=== PATIENT | female | born 1955 | race Caucasian/White ===

== ENCOUNTER 2022-09-20 13:58 | Outpatient (CLI) | payer OTHER, SELFPAY | END 2022-09-20 13:59 | disposition home or self-care (01) | LOC: NFLDUCREF 09-28 08:56 | PROVIDERS: PCP Family Medicine; Visit Provider Nurse Practitioner Family | DX: N39.0 Urinary tract infection, site not specified (principal) | CPT/HCPCS: 87086 ==

== ENCOUNTER 2022-11-01 14:47 | Outpatient (CLI) | payer MEDICARE, MEDICAID, SELFPAY | END 2022-11-01 14:48 | disposition home or self-care (01) | LOC: NFLDREF 14:47 | PROVIDERS: PCP Family Medicine; Visit Provider Nurse Practitioner Family | DX: L02.91 Cutaneous abscess, unspecified (principal) | CPT/HCPCS: 87070; 87205 ==

== ENCOUNTER 2022-11-06 13:49 | Outpatient (CLI) | payer MEDICARE, MEDICAID, SELFPAY ==
[2022-11-06 17:32] LABS: Iron* 85 ug/dL (37-170)
[2022-11-06 17:33] LABS: Albumin* 4.8 g/dL (3.3-5.0)
[2022-11-06 17:34] LABS: Chloride* 108 mmol/L (96-114); Potassium* 4.8 mmol/L (3.6-5.1); Sodium* 140 mmol/L (135-149)
[2022-11-06 17:36] LABS: Alkaline Phosphatase* 122 U/L (40-150); Aspartate Amino Transferase* 25 U/L (12-35); Bilirubin Direct* 0.3 mg/dL (0.0-0.5); Bilirubin Total* 0.5 mg/dL (0.1-1.5); Blood Urea Nitrogen* 36 mg/dL (7-30); Carbon Dioxide* 22 mmol/L (20-32); Cholesterol* 191 mg/dL (90-199); Estimated Glomerular Filt Rate 27 ml/min; Glucose* 94 mg/dL (60-115)
[2022-11-06 17:37] LABS: Alanine Aminotransferase* 22 U/L (4-35); HDL Cholesterol* 89 mg/dL (>=50); LDL Cholesterol Calculated 65 mg/dL (<100); Phosphorus* 4.7 mg/dL (2.5-4.5); Triglycerides* 186 mg/dL (40-149); Uric Acid* 8.3 mg/dL (2.2-8.4)
[2022-11-06 17:42] LABS: Percent Iron Saturation 23 % (20-50); Total Iron Binding Capacity 374 ug/dL (265-497)
[2022-11-06 18:10] LABS: Ferritin* 46.6 ng/mL (11.1-264.0)
[2022-11-06 18:44] LABS: Creatinine Urine 126.7 mg/dL
[2022-11-06 18:49] LABS: Microalbumin Creatinine Ratio 60 mg/g (0-30); Microalbumin Urine 8 mg/dL
[2022-11-10 16:25] LABS: 25-Hydroxyvitamin D2 36.7 ng/mL; 25-Hydroxyvitamin D2,D3 Total 49.8 ng/mL (30.0-80.0); 25-Hydroxyvitamin D3 13.1 ng/mL
== END 2022-11-06 13:50 | disposition home or self-care (01) ==
PROVIDERS: PCP Family Medicine; Visit Provider Internal Medicine Nephrology
DX: D63.8 Anemia in other chronic diseases classified elsewhere (principal); E78.2 Mixed hyperlipidemia; I10 Essential (primary) hypertension; I25.10 Atherosclerotic heart disease of native coronary artery without angina pectoris; N18.30 Chronic kidney disease, stage 3 unspecified
CPT/HCPCS: 80061; 80069; 80076; 82043; 82306; 82310; 82570; 82728; 83540; 83550; 83970; 84550; 87086; 87186

== ENCOUNTER 2022-12-15 10:48 | Outpatient (CLI) | payer MEDICARE, MEDICAID, SELFPAY | END 2022-12-15 10:49 | disposition home or self-care (01) | PROVIDERS: PCP Family Medicine; Visit Provider Family Medicine | DX: R30.0 Dysuria (principal); N39.0 Urinary tract infection, site not specified | CPT/HCPCS: 87086; 87186 ==

== ENCOUNTER 2023-03-25 14:00 | Outpatient (RCR) | payer MEDICARE, OTHER, MEDICAID, SELFPAY ==
--- NOTE | 2022-10-01 16:25 | ONC.NURNOTE ---
Patient arrived for PICC dressing change she brought her own supplies because she has an extensive list of allergies copywriter did site care as per patient directed using her supplies site clear and without redness dressing changed per hospital protocol line was not flushed as we did not have placement verification, patient understands the rationale
[2022-10-29 15:00] VITALS: TEMP 36.1
--- NOTE | 2022-10-29 15:38 | ONC.NURNOTE ---
PICC line dressing change. no reddness or drainage at site. dressing change went well. patients pimple like area between her breast is tender. has increased in size and reddness. states painful. with scant white , once scant green drainage. using warm packs. pt denies fever. looks like poss boil. enc jpt to see md cook. today or tomorrow. unable to get into clinic till 11/20. enc urgent care.
[2023-01-21 16:37] VITALS: TEMP 36.1
--- NOTE | 2023-02-11 15:22 | ONC.NURNOTE ---
Patient here for her PICC dressing change. Patient brought her own supplies. Flushed line without difficulty. No blood return at this time. Patient stated that her MD only wants alteplase if we are unable to flush. Advised that patient reach out to provider that there was no blood return noted. All questions answered and left via ambulatory.
--- NOTE | 2023-03-11 14:49 | ONC.NURNOTE ---
Patient here for PICC line dressing change. No blood return after flushed. Recommended we assess this. Patient declined and stated It was backed up with blood this morning when I finished my bolus, so I wouldn't worry about it. It is positional at times. [employer] Consultant was able to flush line without difficulty.
--- NOTE | 2023-03-18 14:07 | ONC.NURNOTE ---
PICC dressing changed with patients own supplies. Unable to get blood return. Per patient 9/10 times, there is no blood return, but trust me, it's working. Educated patient on importance of getting blood return. Patient denied further interventions today. The dressing she brought in is new to her and she stated if she starts to blister, then she will call us tomorrow and bring in an old dressing and have us change it.
[2023-03-25 14:35] VITALS: TEMP 36.1
== END 2023-03-30 23:59 | disposition home or self-care (01) ==
LOC: CCIC 14:00
PROVIDERS: PCP Family Medicine; Referring Provider Family Medicine; Visit Provider Clinical Nurse Specialist
DX: Z45.2 Encounter for adjustment and management of vascular access device (principal)
CPT/HCPCS: 84443; 99211; A4221

== ENCOUNTER 2023-03-28 15:55 | Outpatient (CLI) | payer OTHER, SELFPAY | END 2023-03-28 15:56 | disposition home or self-care (01) | LOC: NFLDREF 16:00 | PROVIDERS: PCP Family Medicine; Visit Provider Family Medicine | DX: R39.9 Unspecified symptoms and signs involving the genitourinary system (principal) | CPT/HCPCS: 87086; 87186 ==

== ENCOUNTER 2023-06-07 12:40 | Outpatient (CLI) | payer OTHER, SELFPAY ==
--- NOTE | 2023-06-07 13:00 | CRLHL7_ITS ---
For Patients: As a result of the Century Cures Act, medical imaging exams and procedure reports are released immediately into your electronic medical record. You may view this report before your referring provider. If you have questions, please contact your health care provider. INDICATION: CHRONIC KIDNEY DISEASE, STAGE 3 TECHNIQUE: Grayscale, color Doppler and power Doppler evaluation of the renal arteries performed. COMPARISON: None available FINDINGS: BILATERAL RENAL ARTERY DUPLEX ULTRASOUND ABDOMINAL AORTA: Peak systolic velocity = 100 cm/s. No aortic aneurysm. RIGHT KIDNEY: 10.3 cm in length. There is no hydronephrosis. Renal cortex measures 1.2 cm. Peak systolic velocity = 100 cm/second Renal artery to aortic peak systolic velocity ratio = normal Resistive indices: 0.6-0.7 Renal vein = patent LEFT KIDNEY: 10.5 cm in length. There is no hydronephrosis. Renal cortex measures 1.4 cm. Simple renal cysts are present measuring 2.0 cm and 1.6 cm. Peak systolic velocity = 100 cm/second Renal artery to aortic peak systolic velocity ratio = normal Resistive indices: 0.6-0.7 Renal vein = patent IMPRESSION: No evidence of significant renal artery stenosis. Dictated by Jose Miguel Hilliard MD @ 06/07/2023 2:59:31 PM (Electronically Signed)
== END 2023-06-07 12:41 | disposition home or self-care (01) ==
LOC: US 12:41
PROVIDERS: PCP Internal Medicine; Visit Provider Internal Medicine Cardiovascular Disease
DX: N18.30 Chronic kidney disease, stage 3 unspecified (principal); I25.10 Atherosclerotic heart disease of native coronary artery without angina pectoris
CPT/HCPCS: 76775; 93306; 93975

== ENCOUNTER 2023-09-27 13:30 | Outpatient (RCR) | payer OTHER, SELFPAY ==
[2023-04-01 14:00] VITALS: RESP 14; TEMP 36.1
[2023-04-15 14:57] VITALS: RESP 16; TEMP 36.6
[2023-05-08 15:43] LABS: Hematocrit 36.9 % (33.0-51.0); Hemoglobin* 11.6 gm/dL (12.0-16.0); Mean Corpuscular HGB Conc 31 gm/dL (32-36); Mean Corpuscular Hemoglobin 29 pg (26-34); Mean Corpuscular Volume 93 fL (80-100); Platelet Count* 217 K/uL (140-440); Red Blood Count 3.98 m/uL (4.00-5.20); White Blood Count* 6.31 K/uL (4.50-11.00)
[2023-05-08 15:51] LABS: Slide Review Reflex No
[2023-05-08 15:58] LABS: Appearance Urine Clear (Clear); Bilirubin Urine Negative (Negative); Blood Urine Trace-lysed (Negative); Color Urine Yellow (Yellow); Glucose Urine Negative (Negative); Ketones Urine Negative (Negative); Leukocyte Esterase Urine Negative (Negative); Nitrite Urine Negative (Negative); Protein Urine 1+ (Negative); Specific Gravity Urine 1.025 (1.000-1.030); Urobilinogen Urine 0.2 (0.2-1.0); pH Urine 5.5 (5.0-8.5)
[2023-05-08 15:59] LABS: Albumin* 4.6 g/dL (3.3-5.0)
[2023-05-08 16:00] LABS: Chloride* 108 mmol/L (96-114); Potassium* 4.3 mmol/L (3.6-5.1); Sodium* 139 mmol/L (135-149)
[2023-05-08 16:01] LABS: Cholesterol* 207 mg/dL (90-199)
[2023-05-08 16:02] LABS: Alkaline Phosphatase* 119 U/L (40-150); Aspartate Amino Transferase* 26 U/L (12-35); Bilirubin Direct* 0.2 mg/dL (0.0-0.5); Bilirubin Total* 0.4 mg/dL (0.1-1.5); Blood Urea Nitrogen* 32 mg/dL (7-30); Carbon Dioxide* 20 mmol/L (20-32); Creatinine* 2.1 mg/dL (0.5-1.5); Estimated Glomerular Filt Rate 26 ml/min; Glucose* 87 mg/dL (60-115); Total Protein* 8.3 g/dL (6.0-8.3); Uric Acid* 7.5 mg/dL (2.2-8.4)
[2023-05-08 16:03] LABS: Alanine Aminotransferase* 23 U/L (4-35); Calcium* 9.4 mg/dL (8.4-10.6); HDL Cholesterol* 69 mg/dL (>=50); LDL Cholesterol Calculated 106 mg/dL (<100); Phosphorus* 4.6 mg/dL (2.5-4.5); Triglycerides* 160 mg/dL (40-149)
[2023-05-08 16:32] LABS: Bacteria Urine Few; RBC Urine 0-2 (0-2); Squamous Epithelial Cell Urine Few (None-Few)
[2023-05-08 16:41] LABS: Iron* 95 ug/dL (37-170)
[2023-05-08 16:48] LABS: Microalbumin Creatinine Ratio 10 mg/g (0-30); Microalbumin Urine 2 mg/dL
[2023-05-08 16:50] LABS: Percent Iron Saturation 26 % (20-50); Total Iron Binding Capacity 363 ug/dL (265-497)
[2023-05-08 17:16] LABS: Ferritin* 55.8 ng/mL (11.1-264.0)
[2023-05-08 17:28] LABS: Hemoglobin A1C* 5.18 % (0-5.6)
[2023-05-13 13:30] LABS: 25-Hydroxyvitamin D2,D3 Total 51.7 ng/mL (30.0-80.0); 25-Hydroxyvitamin D3 17.7 ng/mL
[2023-05-15 14:00] VITALS: RESP 16; TEMP 36.1
[2023-06-19 15:56] VITALS: TEMP 36.1
[2023-06-26 15:30] VITALS: RESP 16; TEMP 36.1
[2023-07-03 15:10] VITALS: RESP 14; TEMP 36.1
[2023-07-17 15:33] VITALS: BP 112/60; PULSE 68; RESP 16; TEMP 36.6
[2023-07-24 16:00] VITALS: BP 128/57; PULSE 66; RESP 16; TEMP 36.4; O2SAT 97
--- NOTE | 2023-07-24 16:04 | ONC.NURNOTE ---
Reddness, slight swelling and discomfort at PIC line entrance site. small eraser size brown drainage on dressing with pinpoint dried white spot. pt denies temp. no other reddness. Kelly Garrido APRN aware. picture taken on pts phone. message left for pts . Dr. Morel/ via clinic nurse. Pt instructed to seek medical help if fever, chills, increase pain or reddness. Apt with Dr. Morel 08/01
[2023-08-07 15:44] VITALS: TEMP 36.1
[2023-08-27 15:52] VITALS: TEMP 36.1
[2023-08-30 15:34] VITALS: TEMP 36.1
[2023-09-13 14:30] VITALS: TEMP 36.1
[2023-09-27 17:06] VITALS: TEMP 36.1
== END 2023-09-28 23:59 | disposition home or self-care (01) ==
LOC: CCIC 13:30
PROVIDERS: Internal Medicine Nephrology; Referring Provider Internal Medicine; Visit Provider Clinical Nurse Specialist
DX: Z45.2 Encounter for adjustment and management of vascular access device (principal); Z93.2 Ileostomy status; E86.0 Dehydration; N18.30 Chronic kidney disease, stage 3 unspecified
CPT/HCPCS: 36415; 36592; 80061; 80069; 80076; 81003; 81015; 82043; 82306; 82310; 82570; 82728; 83036; 83540; 83550; 83970; 84550; 85027; 87086; 99211; A4221

== ENCOUNTER 2024-01-08 11:30 | Outpatient (RCR) | payer MEDICARE, OTHER, SELFPAY ==
[2023-10-04 15:20] LABS: Cholesterol* 202 mg/dL (90-199); Triglycerides* 185 mg/dL (40-149)
[2023-10-04 15:21] LABS: HDL Cholesterol* 75 mg/dL (>=50); LDL Cholesterol Calculated 90 mg/dL (<100)
[2023-10-25 13:47] LABS: Hematocrit 35.6 % (33.0-51.0); Hemoglobin* 11.3 gm/dL (12.0-16.0); Mean Corpuscular HGB Conc 32 gm/dL (32-36); Mean Corpuscular Hemoglobin 29 pg (26-34); Mean Corpuscular Volume 92 fL (80-100); Platelet Count* 235 K/uL (140-440); Red Blood Count 3.87 m/uL (4.00-5.20); White Blood Count* 7.27 K/uL (4.50-11.00)
[2023-10-25 13:49] LABS: Slide Review Reflex No
[2023-10-25 14:08] LABS: Albumin* 4.6 g/dL (3.3-5.0); Chloride* 107 mmol/L (96-114); Potassium* 4.2 mmol/L (3.6-5.1); Sodium* 137 mmol/L (135-149)
[2023-10-25 14:11] LABS: Alanine Aminotransferase* 22 U/L (4-35); Anion Gap 7 mEq/L (7-15); Aspartate Amino Transferase* 28 U/L (12-35); Blood Urea Nitrogen* 28 mg/dL (7-30); Carbon Dioxide* 23 mmol/L (20-32); Creatinine* 1.8 mg/dL (0.5-1.5); Estimated Glomerular Filt Rate 31 ml/min; Glucose* 99 mg/dL (60-115); Phosphorus* 4.5 mg/dL (2.5-4.5); Uric Acid* 6.9 mg/dL (2.2-8.4)
[2023-10-25 14:12] LABS: Calcium* 9.7 mg/dL (8.4-10.6)
[2023-10-25 15:39] LABS: Iron* 72 ug/dL (37-170)
[2023-10-25 15:49] LABS: Percent Iron Saturation 18 % (20-50); Total Iron Binding Capacity 392 ug/dL (265-497)
[2023-10-25 16:20] LABS: Ferritin* 42.9 ng/mL (11.1-264.0)
[2023-10-29 16:16] LABS: 25-Hydroxyvitamin D2,D3 Total 52.2 ng/mL (30.0-80.0); 25-Hydroxyvitamin D3 22.2 ng/mL
[2023-12-06 14:15] VITALS: RESP 16; TEMP 36.1
[2023-12-13 14:00] VITALS: RESP 16; TEMP 36.1
[2024-01-03 14:10] LABS: Basophils Absolute Auto 0.05 K/uL (0.00-0.30); Basophils Percent Auto 0.6 % (0.0-3.0); Eosinophils Absolute Auto 0.27 K/uL (0.00-0.50); Eosinophils Percent Auto 3.3 % (0.0-7.0); Hematocrit 36.1 % (33.0-51.0); Hemoglobin* 11.3 gm/dL (12.0-16.0); Immature Granulocytes Abs Auto 0.03 K/uL (0.00-0.30); Immature Granulocytes Pct Auto 0.4 %; Lymphocytes Absolute Auto 2.41 K/uL (0.90-2.90); Lymphocytes Percent Auto 29.2 % (20-44); Mean Corpuscular HGB Conc 31 gm/dL (32-36); Mean Corpuscular Hemoglobin 28 pg (26-34); Mean Corpuscular Volume 91 fL (80-100); Monocytes Percent Auto 6.7 % (0.0-11.0); Neutrophils Absolute Auto 4.93 K/uL (1.7-7.0); Neutrophils Percent Auto 59.8 % (42.0-72.0); Platelet Count* 231 K/uL (140-440); RDW Coefficient of Variation % 14.6 % (11.5-15.5); Red Blood Count 3.99 m/uL (4.00-5.20); White Blood Count* 8.24 K/uL (4.50-11.00)
[2024-01-03 14:13] LABS: Slide Review Reflex No
[2024-01-03 14:22] LABS: Albumin* 4.7 g/dL (3.3-5.0); Chloride* 108 mmol/L (96-114)
[2024-01-03 14:23] LABS: Potassium* 4.6 mmol/L (3.6-5.1); Sodium* 138 mmol/L (135-149)
[2024-01-03 14:25] LABS: Bilirubin Total* 0.4 mg/dL (0.1-1.5); Creatinine* 2.3 mg/dL (0.5-1.5); Estimated Glomerular Filt Rate 23 ml/min
[2024-01-03 14:26] LABS: Alanine Aminotransferase* 20 U/L (4-35); Alkaline Phosphatase* 102 U/L (40-150); Anion Gap 13 mEq/L (7-15); Aspartate Amino Transferase* 24 U/L (12-35); Blood Urea Nitrogen* 38 mg/dL (7-30); Calcium* 9.3 mg/dL (8.4-10.6); Carbon Dioxide* 17 mmol/L (20-32); Glucose* 106 mg/dL (60-115); Total Protein* 8.4 g/dL (6.0-8.3)
[2024-01-03 15:15] LABS: Vitamin B12* 507 pg/mL (243-894)
[2024-01-03 16:13] LABS: Thyroid Stimulating Hormone* 0.789 uIU/mL (0.270-4.20)
--- NOTE | 2024-01-07 14:26 | ONC.NURNOTE ---
Blood cultures X [address] Romero patient has left arm PICC line patient denied peripheral draw for one set of blood cultures- writer technical publications explained the process patient states Dr Romero aware that both sets of cultures were to be drawn from the PICC Catheter connection prepped with chloraprep swab and cultures X 2 all drawn from same PICC line extension. line flushed per protocol
[2024-01-07] MEDS: SODIUM CHLORIDE 0.9 % (FLUSH) 10 ML SYRINGE IVF ×2 (14:35→14:37)
[2024-01-07 15:04] LABS: Erythrocyte SedimentationRate* 53 mm/hr (2-20)
--- NOTE | 2024-01-08 12:26 | ONC.NURNOTE ---
Addendum entered by Cleo Palacios RN 01/09/24 15:02: Documentation obtained, and patient called to let her know that the numbers match up for catheter length. Original Note: Picc line removed without difficulty per Dr. Romero's orders d/t positive culture; catheter length 38cm and appears intact.
== END 2024-04-01 23:59 | disposition home or self-care (01) ==
LOC: CCIC 11:30
PROVIDERS: Internal Medicine Nephrology; PCP Family Medicine; Referring Provider Family Medicine; Visit Provider Clinical Nurse Specialist
DX: E86.0 Dehydration (principal); N18.30 Chronic kidney disease, stage 3 unspecified; Z45.2 Encounter for adjustment and management of vascular access device; Z93.2 Ileostomy status
CPT/HCPCS: 36415; 36589; 36592; 80053; 80061; 80069; 81003; 82043; 82306; 82310; 82570; 82607; 82728; 83540; 83550; 83735; 83970; 84443; 84450; 84460; 84550; 85025; 85027; 85651; 86140; 87040; 87077; 87184; 87186; 99211; G0463; A4221

== ENCOUNTER 2024-02-14 13:55 | Outpatient (REF) | payer MEDICARE, SELFPAY | END 2024-02-14 13:56 | disposition home or self-care (01) | LOC: NPINS 13:55 | PROVIDERS: Visit Provider Internal Medicine Nephrology | DX: I12.9 Hypertensive chronic kidney disease with stage 1 through stage 4 chronic kidney disease, or unspecified chronic kidney disease (principal); N18.32 Chronic kidney disease, stage 3b | CPT/HCPCS: 84165; 84550; 86160; 86225; 86480; 86618; 86703; 86708; 86803; 87340 ==

== ENCOUNTER 2024-02-17 13:02 | Outpatient (CLI) | payer MEDICARE, SELFPAY | END 2024-02-17 13:03 | disposition home or self-care (01) | LOC: NFLDREF 02-19 06:02 | PROVIDERS: Visit Provider Internal Medicine Nephrology | DX: I10 Essential (primary) hypertension (principal); I25.10 Atherosclerotic heart disease of native coronary artery without angina pectoris; N18.30 Chronic kidney disease, stage 3 unspecified; R78.81 Bacteremia | CPT/HCPCS: 80069; 84550; 86140; 87040 ==

== ENCOUNTER 2024-03-27 13:23 | Outpatient (CLI) | payer MEDICARE, SELFPAY ==
--- OUTSIDE RECORDS SUMMARY | 2024-03-30 05:24 | XMS_ITS | Data Portability ---
Author Name Unknown Address [address] [place] [id number] Phone [phone] Organization [facility], [employer] Address [address] [place] [address] Assessment Encounter Date Assessment Date Assessment LastModified by Organization Details LastModified Time 07/30/2023 07/30/2023 Patient presents for treatment of moderate ingrown toenail. Based on history, physical exam, and prior treatments, I recommend a phenol matrixectomy. I did discuss the procedure, benefits, risks and potential outcomes with the patient. I did anesthetize the digit with 3cc of 2% Xylocaine with epinephrine. I did avulse the nail border, applied 89% phenol 3x 30 seconds and performed an alcohol rinse. I did apply Bacitracin ointment and a sterile dressing. I also did nail debridement today. The patient was educated on postop care. Discussed treatment plan and instructions with patient. Orders as indicated below. Follow up after 2 weeks for PNA check. [email or web address] Not available 07/30/2023 17:16:50 Plan of Treatment Reminders Order Date Submit Date Provider Last Modified By Organization Details Last Modified Time Details Appointments None record ed. Lab None record ed. Referral None record ed. Procedures None record ed. Surgeries None record ed. Imaging None record ed. Medication Orders None record ed. Patient TargetsNo targets recorded. Patient InstructionsNo instructions recorded. Reason for Referral None Reported. Procedures Surgical History Date Name Laterality Status Provider Name and Address Organization Details Recorded Time 07/30/20 23 Matrixectomy completed MANNY Strong [facility] 07/30/2023 16:47:48 07/30/20 23 NAIL DEBRIDEMENT MANNY Leiva [facility] 07/30/2023 17:08:56 Imaging Results None recorded. Procedure Notes None recorded. Medical Equipment None Reported. Medications Name Sig Start Date Stop Date Status Note LastModified by Organization Details LastModified Time loperamide 2 mg capsule active Not Available Not Available Not Available trazodone 50 mg tablet TAKE 1/2-1 TABLETS (25-50 MG TOTAL) BY MOUTH NIGHTLY NEEDED FOR SLEEP. active Not Available Not Available No t Available fosfomycin tromethamine 3 gram oral packet active Not Available Not Available Not Available tizanidine 4 mg tablet TAKE ONE (1) TABLET(S ) BY MOUTH EVERY EIGHT HOURS NEEDED. active Not Available Not Available No t Available metoprolol succinate ER 50 mg tablet,extended release 24 hr TAKE 1 TABLET (50 MG TOTAL) BY MOUTH DAILY. active Not Available Not Available No t Available lactated Ringers intravenous solution active Not Available Not Available Not Available oxcarbazepine 300 mg tablet TAKE ONE (1) TABLET (300 MG TOTAL) BY MOUTH DAILY. active Not Available Not Available No t Available amlodipine 5 mg tablet TAKE 1 TABLET (5 MG TOTAL) BY MOUTH DAILY. active Not Available Not Available No t Available tramadol 50 mg tablet active Not Available Not Available Not Available sodium bicarbonate 650 mg tablet TAKE ONE (1) TABLET(S ) BY MOUTH DAILY . active Not Available Not Available No t Available oseltamivir 75 mg capsule active Not Available Not Available N ot Available lansoprazole 30 mg capsule,delayed release TAKE ONE (1) CAPSULE( S) BY MOUTH DAILY. active Not Available Not Available No t Available cefuroxime axetil 500 mg tablet TAKE 1 TABLET (500 MG TOTAL) BY MOUTH DAILY FOR 10 DAYS. active Not Available Not Available No t Available estradiol 0.01% (0.1 mg/gram) vaginal cream active Not Available Not Availabl e Not Available Vitamin D2 1,250 mcg (50,000 unit) capsule TAKE 1 CAPSULE (50,000 UNITS TOTAL) BY MOUTH ONCE A WEEK. active Not Available Not Available No t Available ezetimibe 10 mg tablet TAKE ONE (1) TABLET (10 MG TOTAL) BY MOUTH NIGHTLY. active Not Available Not Available No t Available aripiprazole 5 mg tablet active Not Available Not Available No t Available tizanidine 4 mg capsule active Not Available Not Available Not Available Myrbetriq 25 mg tablet,extended release TAKE ONE (1) TABLET(S ) BY MOUTH DAILY. active Not Available Not Available No t Available Vitals Date Recorded Body height Body mass index (BMI) Body weight Provider Name and Address Organization Details Last Updated DateTime 07/30/2023 165.1 cm 44.9 kg/m2 730298.94 g MANNY [facility] 07/30/2023 16:08:34 Social History None recorded. Functional Status None recorded. Mental Status None recorded. Family History Nothing Reported. Medical History No medical history recorded. Gynecological HistoryNo gynecological history recorded. Obstetrics History GPAL:G 0 P 0 0 0 0 Past Encounters Encounter ID Performer Location Encounter Start Date Encounter Closed Date Diagnosis/Indication Diagnosis SNOMED-CT Code [id number] Rian Vigil DPM [place] [facility] [address] [place] [address] 07/30/2023 16:36:32 08/01/2023 10:50:41 Ingrowing nail 690740068 Onychomycosis [id number] Health Concerns Section Related Observation LastModified by Organization Detai ls LastModified Time None Recorded Concern Status LastModified by Organization Details LastModified Time None Recorded Advance Directives Directive None Recorded Payers Encounter Date Sequence Insurance Name Policy Number Policy Baugh Covered Member ID Baugh Member ID Guarantor Name 07/30/2023 1 [employer] - DOS ON OR AFTER 19 (MEDICARE REPLACEMENT/ ADVANTAGE - HMO) [id number] Dilan Akers [id number] Dilan Akers Notes Date Note Type Note Provider Name and Address Organization Details Recorded Time 07/30/2023 text/html HPI Notes: Pt. presents with complaint of painful ingrowing nail causing pain in shoes and with activity. Drainage, pain and redness present for weeks duration. She has hx of ingrown toenails in the past. Rian Vigil DPM [address] [place], [address], [facility] - [facility] 07/31/2023 14:34:51 OBGyn Episode No OBEpisode recorded.
--- OUTSIDE RECORDS SUMMARY | 2024-03-30 05:25 | XMS_ITS | Data Portability ---
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 Plan of Treatment Reminders Order Date Submit Date Provider Last Modified By Organization Details Last Modified Time Details Appointments None recorded. Lab urinalysis , dipstick 2022 023 [email or web address] [facility], [address], [place], [address], 3 16:06:33 culture, urine 2022 023 [facility], [address], [place], [address], 3 11:42:23 urinalysis , dipstick 2022 023 [email or web address] [facility], [address] [place], [address], 3 13:57:55 Referral None recorded. Procedures None recorded. Surgeries None recorded. Imaging None recorded. Medication Orders Estrace 0.01% (0.1 mg/gram) vaginal cream 2022 023 [facility], [address] [place], [address], 3 15:02:24 Patient TargetsNo targets recorded. Patient InstructionsNo instructions recorded. Reason for Referral None Reported. Results Created Date Observation Date Name Description Value Unit Range Abnormal Flag LastModifiedBy Organization Detail LastModifiedTime 05/14/20 23 05/14/2023 urina lysis , dipst ick Color-Status Yellow Not Available [facility] [address], [place], [address], 05/14/2023 13:57:10 05/14/20 23 05/14/2023 urina lysis , dipst ick Clarity-Stat us Clear Not Available [facility] [address], [place], [address], 05/14/2023 13:57:10 05/14/20 23 05/14/2023 urina lysis , dipst ick Glucose-Stat us Negati ve Not Available [facility] [address], [place], [address], 05/14/2023 13:57:10 05/14/20 23 05/14/2023 urina lysis , dipst ick Bilirubin-St atus Negati ve Not Available [facility] [address], [place], [address], 05/14/2023 13:57:10 05/14/20 23 05/14/2023 urina lysis , dipst ick pH-Status 5.5 Not Available [facility] [address], [place], [address], 05/14/2023 13:57:10 05/14/20 23 05/14/2023 urina lysis , dipst ick Urobilinogen -Status 0.2 Not Available [facility] [address], [place], [address], 05/14/2023 13:57:10 05/14/20 23 05/14/2023 urina lysis , dipst ick Blood-Status Trace Not Available [facility] [address], [place], [address], 05/14/2023 13:57:10 05/14/20 23 05/14/2023 urina lysis , dipst ick Leuko-Status Trace Not Available [facility] [address], [place], [address], 05/14/2023 13:57:10 06/04/20 23 06/04/2023 URINE CULTU RE final report microb iology result s Not Available [facility] [address], [place], [address], 06/06/2023 11:42:23 06/04/20 23 06/04/2023 urina lysis , dipst ick Color-Status Yellow Not Available [facility] [address], [place], [address], 06/04/2023 16:06:04 06/04/20 23 06/04/2023 urina lysis , dipst ick Clarity-Stat us Clear Not Available [facility] [address], [place], [address], 06/04/2023 16:06:04 06/04/20 23 06/04/2023 urina lysis , dipst ick pH-Status 5.0 Not Available [facility] [address], [place], [address], 06/04/2023 16:06:04 06/04/20 23 06/04/2023 urina lysis , dipst ick Nitrates-Sta tus negati ve Not Available [facility] [address], [place], [address], 06/04/2023 16:06:04 06/04/20 23 06/04/2023 urina lysis , dipst ick Blood-Status Small Not Available [facility] [address], [place], [address], 06/04/2023 16:06:04 06/04/20 23 06/04/2023 urina lysis , dipst ick Leuko-Status Negati ve Not Available [facility] [address], [place], [address], 06/04/2023 16:06:04 Result Notes None recorded. Procedures Surgical History Date Name Laterality Status Provider Name and Address Organization Details Recorded Time 023 Sacral neuromodulation w/o reprogramming completed Juan Solis PA-C [address] [place] [address],[address], [address], [facility] 06/04/2023 16:59:27 023 CystoscopyFemale completed Jolene Rosenbaum MD [address] [place] [address],[address], [address], [facility] 05/14/2023 14:54:30 023 [facility] 14:02:11 Imaging Results None recorded. Procedure Notes None recorded. Medical Equipment None Reported. Allergies Allergen ID Allergen Name Allergen Category Reaction Reaction Severity Criticality Documentation Date Start Date Code Code System Note Provider Name and Address Organization Details Recorded Time 192958 acetamino phen medicatio n nausea Not available Not available 06/04/2023 161 RxNorm Isela burton [facility] 3 16:38:54 850289 adhesive tape environme nt,medica tion rash Not available Not available 06/04/2023 Isela burton [facility] 3 16:39:07 462297 atorvasta tin medicatio n myalgias (muscle pain) Not available Not available 06/04/2023 75569 RxNorm Isela burton [facility] 3 16:42:09 444193 cefuroxim e Not available nausea Not available Not available 06/04/2023 2194 RxNorm Isela Sergio null, [facility] 3 16:40:10 891732 chlordiaz epoxide medicatio n Not available Not available Not available 06/04/2023 2356 RxNorm Isela Sergio null, [facility] 3 16:40:21 337455 codeine medicatio n nausea Not available Not available 06/04/2023 2670 RxNorm Isela Sergio null, [facility] 3 16:40:35 689349 dextromet horphan medicatio n Not available Not available Not available 06/04/2023 3289 RxNorm Isela Sergio null, [facility] 3 16:40:55 638147 diazepam medicatio n Not available Not available Not available 06/04/2023 3322 RxNorm Isela [facility], [facility] 3 16:41:05 397811 erythromy diego medicatio n hives Not available Not available 06/04/2023 4053 RxNorm [facility]el[place]ose [place] [facility] 3 16:41:23 059680 gabapenti n medicatio n other Not available Not available 06/04/2023 53806 RxNorm Isela Sergio [facility], [facility] 3 16:42:42 999900 hydrocodo ne Not available hives Not available Not available 06/04/2023 5489 RxNorm Isela Sergio null, [facility] 3 16:41:56 373061 ibuprofen medicatio n nausea Not available Not available 06/04/2023 5640 RxNorm Isela Sergio null, [facility] 3 16:43:26 318006 meloxicam medicatio n hives Not available Not available 06/04/2023 03296 RxNorm Isela Sergio null, [facility] 3 16:43:40 692298 metoclopr amide Not available nausea Not available Not available 06/04/2023 6915 RxNorm Isela burton, [facility] 3 16:43:53 806838 morphine medicatio n Not available Not available Not available 06/04/2023 7052 RxNorm Isela burton, [facility] 3 16:44:04 109368 naproxen medicatio n edema Not available Not available 06/04/2023 7258 [facility] 16:44:12 125652 Non-stero idal anti-infl ammatory agent (product) medicatio n nausea Not available Not available 06/04/2023 70660 005 [facility] 16:44:24 572270 omeprazol e medicatio n diarrhea Not available Not available 06/04/2023 7646 MarinoNorm [facility] 3 16:44:36 419420 Medicinal product containin g penicilli n and acting as antibacte rial agent (product) medicatio n vomiting Not available Not available 06/04/2023 56059 05 [facility] 16:44:51 974961 famotidin e medicatio n diarrhea Not available Not available 06/04/2023 4278 [facility] 3 16:45:04 593343 phenyleph rine medicatio n palpitati ons Not available Not available 06/04/2023 8163 [facility] 3 16:45:22 395760 propoxyph rajesh medicatio n hives Not available Not available 06/04/2023 8785 RxNorm Isela burton, [facility] 3 16:45:42 271349 quetiapin e medicatio n Not available Not available Not available 06/04/2023 64619 [facility] 3 16:45:59 988904 sertralin e medicatio n Not available Not available Not available 06/04/2023 35643 RxNorm Isela [facility] 3 16:46:08 122779 Product containin g 3-hydroxy -3-methyl glutaryl- coenzyme A reductase inhibitor (product) medicatio n muscle cramps Not available Not available 06/04/2023 72449 009 OMED Isela [place] [facility] 3 16:46:23 447697 Substance with sulfonami de structure and antibacte rial mechanism of action (substanc e) medicatio n hives Not available Not available 06/04/[address] [facility] Isela [facility] 3 16:46:36 834833 sulfasala zine medicatio n hives Not available Not available 06/04/2023 9524 RxNojean [facility] 3 16:46:49 018074 tolmetin medicatio n nausea Not available Not available 06/04/2023 42079 RxNojean Hill [facility] 3 16:46:59 Medications Name Sig Start Date Stop Date Status Note LastModified by Organization Details LastModified Time loperamide 2 mg capsule active Not Available Not Available N ot Available fosfomycin tromethamine 3 gram oral packet 06/04 completed Not Available Not Available Not Available tizanidine 4 mg tablet active Not Available Not Available No t Available metoprolol succinate ER 50 mg tablet,exten ded release 24 hr active Not Available Not Available Not Available lactated Ringers intravenous solution active Not Available Not Available Not Available oxcarbazepin e 300 mg tablet active Not Available Not Available Not Available amlodipine 5 mg tablet active Not Available Not Available No t Available tramadol 50 mg tablet active Not Available Not Available No t Available sodium bicarbonate 650 mg tablet active Not Available Not Available Not Available oseltamivir 75 mg capsule active Not Available Not Available Not Available lansoprazole 30 mg capsule,charly yed release active Not Available Not Available Not Available levofloxacin 500 mg tablet active Not Available Not Available Not Available estradiol 0.01% (0.1 mg/gram) vaginal cream Insert 0.5 g by vaginal route. 2022 active Not Available Not Available Not Avai lable Vitamin D2 1,250 mcg (50,000 unit) capsule active Not Available Not Available Not Available ezetimibe 10 mg tablet active Not Available Not Available No t Available aripiprazole 10 mg tablet active Not Available Not Available Not Available aripiprazole 5 mg tablet active Not Available Not Available Not Available tizanidine 4 mg capsule active Not Available Not Available N ot Available Myrbetriq 25 mg tablet,exten ded release active Not Available Not Available Not Available Vitals Date Recorded Body height Body mass index (BMI) Body weight Provider Name and Address Organization Details Last Updated DateTime 05/14/2023 162.56 cm 46.3 kg/m2 536590.94 g Sammie burton [facility] 05/14/2023 13:56:03 Date Recorded Body height Body mass index (BMI) Body weight Provider Name and Address Organization Details Last Updated DateTime 06/04/2023 162.56 cm 45.5 kg/m2 415568.98 g Isela burton [facility] 06/04/2023 16:03:56 Social History Question Answer Notes LastModified by Organizat ion Details LastModified Time Tobacco Smoking Status Never Smoker Sammie burton [facility] 05/14/2023 13:59:34 What Is Your Level Of Alcohol Consumption? Occasional [email or web address] Information not available 05/14/2023 How Many Times Per Week Do You Consume Alcohol? Less Than 1 Time Per Week [email or web address] Information not available 05/14/2023 What Is Your Level Of Caffeine Consumption? Occasional [email or web address] Information not available 05/14/2023 What Was The Date Of Your Most Recent Tobacco Screening? 06/04/2023 Information not available 06/04/2023 Have You Ever Been Counseled For Unhealthy Alcohol Use? No [email or web address] Information not available 05/14/2023 Do You Use Any Illicit Or Recreational Drugs? No [email or web address] Information not available 05/14/2023 Has Tobacco Cessation Counseling Been Provided? No [email or web address] Information not available 05/14/2023 Do You Or Have You Ever Used Any Other Forms Of Tobacco Or Nicotine? No [email or web address] Information not available 05/14/2023 Sex: Female Functional Status None recorded. Mental Status None recorded. Family History Relationship Description Onset Age of this Age Resolved Age Notes Mother Leukemia Medical History No medical history recorded. Gynecological HistoryNo gynecological history recorded. Obstetrics History GPAL:G 0 P 0 0 0 0 Immunizations Vaccine Type Date Status Provider Name and Address Organization Details Recorded Time COVID-19, mRNA, LNP-S, bivalent, PF, 30 mcg/0.3 mL dose 10/11/2022 completed MANNY Napier [facility] 06/28/2023 10:15:48 Past Encounters Encounter ID Performer Location Encounter Start Date Encounter Closed Date Diagnosis/Indication Diagnosis SNOMED-CT Code [id number] MD YT [facility] [address] [place] [address] 05/14/2023 13:43:54 05/15/2023 14:16:46 Overactive bladder 448584836 Recurrent urinary tract infection [id number] MD TY [facility] [address] [place] [address] 06/04/2023 15:42:44 06/06/2023 16:09:14 Overactive bladder 633320592 Recurrent urinary tract infection Health Concerns Section Related Observation LastModified by Organization Detai ls LastModified Time None Recorded Concern Status LastModified by Organization Details LastModified Time None Recorded Advance Directives Directive None Recorded Payers Encounter Date Sequence Insurance Name Policy Number Policy Baugh Covered Member ID Baugh Member ID Guarantor Name 06/04/2023 1 [employer] - DOS ON OR AFTER 19 (MEDICARE REPLACEMENT/ ADVANTAGE - HMO) [id number] 1 Dilan Agueros [id number] Dilan Akers 06/04/2023 2 [place] Dilan Agueros [id number] Dilan Akers 05/14/2023 1 [employer] - DOS ON OR AFTER 19 (MEDICARE REPLACEMENT/ ADVANTAGE - HMO) [id number] Dilan Agueros [id number] Dilan Akers 05/14/2023 2 [place] Dilan Akers [id number] Dilan Akers Notes Date Note Type Note Provider Name and Address Organization Details Recorded Time 05/14/2023 text/html 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 Additionally, she complains of UTIs every 6-8 weeks associated with shivers and back pain. UC in 03/2023 showed E. Coli resistant to ampicillin. urge incontinence almost 1/hr; severe urge incontinence 1-2x a night. no sensation to urinate. PVR = 0 mL Cysto today is normal. Stress test is negative; no POP. 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 UUI/OAB Underwent reprogramming last visit about 3 weeks ago. Since then she notes now having about 1-2 incontinence episodes a day compared to about 10 a day. Now using 2-3 PPD vs 10 PPD before reprogramming. She notes that charging is going well, working better after last education. She would like to bump up today current settings to 0.8 ma, still on current program 1 (0+, 2-). She has history of Axonics rechargeable device from 2019 and has had several reprogramming since. She has gained about 100 lbs in the past year and previously noted that she was having some difficulty with charging. Baseline symptoms (05/14/23): -Urge incontinence almost 1/hr -Severe urge incontinence 1-2x a night -No sensation to urinate 2. rUTIs Previously with UTIs every 6-8 weeks with symptoms such as shivers and back pain. No UTIs since last visit. Previously noted at last visit that if continued UTIs after starting prevention with estrogen cream, cranberry tablets, probiotics to start preventative suppressive antibiotics low dose (fosfomycin Q 2 Weeks for 6 weeks). She notes that she may have had chills this weekend with voiding. Not having today. She would like her urine tested. UCx: 03/2023: E. Coli, Resistant to ampicillin. SurgHx: -Ileostomy for diverticulitis (s/p ureteral injury at the time of surgery 06/2019) -Axonics implant (first generation) Cysto today is normal, stress test is negative; no POP on exam on 05/14/23 UA: Without signs of infection Jolene Rosenbaum MD [address] [place] [address],[address], [place], [address], [facility] 06/06/2023 10:08:25 OBGyn Episode No OBEpisode recorded.
--- OUTSIDE RECORDS SUMMARY | 2024-03-30 05:25 | XMS_ITS | Encounter Summary ---
Author Name Unknown Organization [facility] Address [address] [place] [id number] Care Team Providers [facility] Name Role Phone Shaylee Santa P.A.-C. Primary Care Provider Encounter Details Date Type Department Care Team (Latest Contact Info) Description 02/27/2024 3:21 PM CDT - 02/27/2024 11:59 PM CDT Hospital Encounter Department of Laboratory Medicine in [place], [place] [address] [place] [phone] Shaylee Santa P.A.-C. [address] [place] [phone] Hot Flash Discharge Disposition: Home or Self Care Social History Tobacco Use Types Packs/Day Years Used Date Smoking Tobacco: Former Cigarettes 1 57 0 05/28/1964 - 09/19/2020 Passive Smoke Exposure: Never Smokeless Tobacco: Never Alcohol Use Standard Drinks/Week Comments Yes 0 (1 standard drink = 0.6 oz pure alcohol) I might have 2-3 drinks per year [facility] Utilities Answer Date Recorded In the past 12 months has [facility] [employer], gas, oil, or water [employer] threatened to shut off services in your home? No 12/03/2023 Humiliation, Afraid, Rape, and Kick questionnair e Answer Date Recorded Within the last year, have y ou been afraid of your partner or ex-partner? No 12/03/2023 Within the last year, have y ou been humiliated or emotionally abused in other ways by your partner or ex-partner? No Within the last year, have y ou been kicked, hit, slapped, or otherwise physically hurt by your partner or ex-partner? No 12/03/2023 Within the last year, have y ou been raped or forced to have any kind of sexual activity by your partner or ex-partner? No 12/03/2023 Overall Financial Resource Strain (CARDIA) Answe r Date Recorded How hard is it for you to pa y for the very basics like food, housing, medical care, and heating? Not very hard 08/27/2023 PHQ-2 Answer Date Recorded PHQ-2 Score 2 11/27/2023 Exercise Vital Sign Answer Date Recorde d On average, how many days pe r week do you engage in moderate to strenuous exercise (like a brisk walk)? 0 days 12/03/2023 On average, how many minutes do you engage in exercise at this level? 0 min 12/03/2023 Hunger Vital Sign Answer Date Recorded Within the past 12 months, y ou worried that your food would run out before you got the money to buy more. Sometimes true Within the past 12 months, t he food you bought just didn't last and you didn't have money to get more. Sometimes true 07/2024 PRAPARE - Transportation Answer Date Re corded In the past 12 months, has l ack of transportation kept you from medical appointments or from getting medications? No 07/2024 In the past 12 months, has l ack of transportation kept you from meetings, work, or from getting things needed for daily living? No 12/03/2023 Depression Answer Date Recor ded PHQ-9 Total Score (max 27) 12 09/09 Nutrition Answer Date Recorded Nutrition: EVOO Fat Source Unknown 12/03 On average, how many serving s of fruits and vegetables do you eat per day (serving size is equal to 1 cup or approximately the size of a tennis ball)? 0-2 12/03/2023 Dental Answer Date Recorded Dental: Regular Dentist No 08/27/20 Employment Answer Date Recorded Employment status Retired 12/03/2023 Housing Stability Answer Date Recorded What is your living situation today? I have a [facility] [place] place to live 12/03/2023 Sex and Gender Information Value Date Recorded Sex Assigned at Female 04/11/2023 12:22 PM CDT Gender Identity Female 04/11/2023 12:22 PM CDT Sexual Orientation Straight 04/11/2023 12 :22 PM CDT documented as of this encounter Medications at Time of Discharge Medication Sig Dispensed Refills Start Date End Date amLODIPine (NORVASC) 5 mg tablet Take 1 tablet (5 mg total) by mouth daily. 90 tablet 3 02/17/2024 02/16/2025 ARIPiprazole (ABILIFY) 10 mg tabletIndications:Bip olar II Disorder (HCC),Posttraumatic Stress Disorder Prolonged Take 1 tablet (10 mg total) by mouth daily. 90 tablet 3 02/21/2024 02/20/2025 aspirin 81 mg capsule Take 81 mg by mouth. 05/23/2023 BLACK COHOSH ROOT EXTRACT ORAL Take 540 mg by mouth. 10/29/2023 calcium carbonate-vitamin D3 1,500 mg (600 mg calcium)-5 mcg (200 Unit) per tablet Take by mouth daily. cholecalciferol (VITAMIN D3) 50 mcg (2,000 Unit) capsule Take 2,000 Units by mouth. ergocalciferol (DRISDOL) 50,000 Unit capsule Take 1 capsule (50,000 Units total) by mouth once a week. 8 capsule 3 01/13/2024 estradioL (ESTRACE) 0.1 mg/g (0.01%) vaginal cream Insert 0.5 g by vaginal route. 08/08/2023 ruben bfha-mqboriky-jeqvipi ic ac ([place] Oil) 1,000 mg capsule Take by mouth. 05/23/2023 ezetimibe (ZETIA) 10 mg tablet Take 1 tablet (10 mg total) by mouth daily. 90 tablet 3 10/08/2023 10/07/2024 fexofenadine (ALLIE) 180 mg tablet Take 180 mg by mouth daily. 10/28/2023 flaxseed oiL 1,000 mg capsule Take 1,000 mg by mouth. 05/23/2023 fluticasone propionate (FLONASE) 50 mcg/actuation nasal spray Administer 1 spray into each nostril as needed for allergies or rhinitis. 48 g 3 10/14/2023 isosorbide mononitrate (IMDUR) 30 mg 24 hr tablet Take 15 mg by mouth. 09/17/2023 lansoprazole (PREVACID) [address] capsule Take 1 capsule (30 mg total) by mouth every morning before breakfast. 90 capsule 3 10/08/2023 loperamide (IMODIUM A-D) 2 mg capsule Take 1 capsule (2 mg total) by mouth as needed for diarrhea. Takes 1 tablet daily 30 capsule 11 11/13/2023 11/12/2024 metoprolol succinate 100 mg capsule,sprinkle,ER 24hr Take 50 mg by mouth daily. 09/20/2022 multivitamin-minerals -lutein (Multivitamin 50 Plus) tablet Take 1 tablet by mouth daily. 05/23/2023 nystatin (NYSTOP) 100,000 unit/gram powder Apply 2-3 times/day to affected areas as needed for candidiasis 12/08/2019 Ringer's solution,lactated (lactated Ringer's) irrigation solution Irrigate with 1,000 mL as directed once. semaglutide (OZEMPIC) 0.25 mg or 0.5 mg (2 mg/3 mL) injection Inject 0.25 mg under the skin every 7 (seven) days. 2 mL 02/27/2024 sodium bicarbonate 325 mg tablet Take 2 tablets (650 mg total) by mouth daily. 180 tablet 3 11/11/2023 tiZANidine (ZANAFLEX) 4 mg capsule as needed. traMADoL (ULTRAM) 50 mg tabletIndications:Chr onic Pain/Nonacute Pain Take 1 tablet (50 mg total) by mouth daily Indications: Chronic Pain/Nonacute Pain. And prn 90 tablet 12/31/2023 03/30/2024 UNABLE TO FIND Med Name: Collagen 3000mg hydrolyzed collagen UNABLE TO FIND Med Name: Magnesium Glycanate 240mg, Nature's Bounty high absorption documented as of this encounter Plan of Treatment Upcoming Encounters Date Type Department Care Team (Late st Contact Info) Description 05/26/2024 1:45 PM CDT Office Visit Department of Orthopedic Surgery in [address] [phone] Familia Patiño M.D. [address] [place] [phone] Discharge Disposition: Home or Self Care documented as of this encounter Procedures Procedure Name Priority Date/Time Associated Diagnosis Comments THYROID FUNCTION CASCADE, S Routine 02/27/2024 3:27 PM CDT Hot Flash documented in this encounter Results * Thyroid Function [place] (02/27/2024 3:27 PM CDT) TSH, Sensitive 2.5 0.3 - 4.2 mIU/L 02/27/2024 6:19 PM CDT OWAT Blood (Blood, Venous) 02/27/2024 3:27 PM CDT 02/27/2024 5:46 PM CDT Shaylee Santa P.A.-C. LAB BLOOD ADD-O N [facility] [address] [place] [address], [facility] [place] [address] [place] [address] documented in this encounter Visit Diagnoses Diagnosis Hot Flash documented in this encounter Additional Health Concerns Assessment Noted Time PHQ-9 Depression Total Score: 12 09/09/ 023 1:03 PM CDT documented as of this encounter Care Teams [facility] Relationship Specialty Start Date End Date Shaylee Santa P.A.-C. [address] [place] [address] [place] [phone] PCP - General Internal Medicine 01/23/24 documented as of this encounter
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
--- OUTSIDE RECORDS SUMMARY | 2024-03-30 05:25 | XMS_ITS | Encounter Summary ---
Author Name Unknown Organization [facility] Address [address] [place] [address] Care Team Providers Care Spray Booth Operator Name Role Phone Shaylee Santa P.A.-C. Primary Care Provider Reason for Referral * Outpatient (Routine) - Closed Specialty Diagnoses / Procedures Referred By Contac t Referred To Contact Diagnoses Pain Hip Right Procedures DX Hip And Pelvis Right 2-3 Views Familia Patiño M.D. [address] [place] [phone] [facility] Region Referral ID Status Reason Start Date Expiration Date Visits Re quested Visits Authorized [id number] Closed 02/25/2024 02/24/2025 1 1 Reason for Visit * Outpatient (Routine) - Closed Specialty Diagnoses / Procedures Referred By Contac t Referred To Contact Diagnoses Pain Hip Right Procedures DX Hip And Pelvis Right 2-3 Views Familia Patiño M.D. [address] [place] [phone] [facility] Region Referral ID Status Reason Start Date Expiration Date Visits Re quested Visits Authorized [id number] Closed 02/25/2024 02/24/2025 1 1 Encounter Details Date Type Department Care Team (Latest Contact Info) Description 02/25/2024 2:07 PM CDT - 02/25/2024 11:59 PM CDT Hospital Encounter Department of Radiology in [address] [place] [phone] Familia Patiño M.D. [address] [facility] [place] [phone] Pain Hip Right Discharge Disposition: Home or Self Care Social History Tobacco Use Types Packs/Day Years Used Date Smoking Tobacco: Former Cigarettes 1 57 0 05/28/1964 - 09/19/2020 Passive Smoke Exposure: Never Smokeless Tobacco: Never Alcohol Use Standard Drinks/Week Comments Yes 0 (1 standard drink = 0.6 oz pure alcohol) I might have 2-3 drinks per year [facility] Utilities Answer Date Recorded In the past 12 months has e [employer], gas, oil, or water [employer] threatened to shut off services in your [...] your living situation today? I have a [facility] place to live 12/03/2023 Sex and Gender [...] 0.5 g by vaginal route. 08/08/2023 ruben wwtl-plfoqwwm-hlonoji ic ac ([place] [employer]) 1,000 mg capsule Take by mouth. [...] Irrigate with 1,000 mL as directed once. sodium bicarbonate 325 mg tablet Take 2 [...] Office Visit Department of Orthopedic Surgery in [address] [phone] Familia Patiño M.D. [address] [place] [phone] Discharge Disposition: Home or Self Care documented as of this encounter Procedures Procedure Name Priority Date/Time Associated Diagnosis Comments DX HIP AND PELVIS RIGHT 2-3 VIEWS RAD - Routine (most inpatients and all outpatients) 02/25/2024 2:26 PM CDT Pain Hip Right documented in this encounter Results * DX Hip And Pelvis Right 2-3 [...] Negative for acute fracture. Familia Patiño M.D. IMLizzy DIAGNOSTIC JONAS GING PROCEDURES documented in this encounter Visit Diagnoses Diagnosis Pain Hip Right documented in this encounter Additional Health Concerns Assessment Noted Time PHQ-9 Depression Total Score: 12 023 1:03 PM CDT documented as of this encounter Care Teams Spray Booth Operator Relationship Specialty Start Date End Date Shaylee Santa P.A.-C. [address] [place] [phone] PCP - General Internal Medicine 01/23/24 documented as of this encounter
--- OUTSIDE RECORDS SUMMARY | 2024-03-30 05:25 | XMS_ITS | Encounter Summary ---
Author Name Unknown Organization [facility] Address [address] [place] [id number] Care Team Providers Care Corporate Sales Trainer Name Role Phone Shaylee Santa P.A.-C. Primary Care Provider Reason for Referral * Medication Prior Authorization - Closed Specialty Diagnoses / Procedures Referred By Collin noble Referred To Contact Shaylee Santa P.A.-C. [address] [place] [address] Referral ID Status Reason Start Date Expiration Date Visits Re quested Visits Authorized [id number] Closed 1 1 Reason for Visit * Reason Comments Medication Visit Would like to restar t estrogen * Appointment Request (Routine) - Closed Specialty Diagnoses / Procedures Referred By Collin noble Referred To Contact [facility] Referral ID Status Reason Start Date Expiration Date Visits Re quested Visits Authorized [id number] Closed 02/07/2024 02/06/2025 1 1 Encounter Details Date Type Department Care Team (Late st Contact Info) Description 02/27/2024 2:20 PM CDT Office Visit Department of [facility] in [place], [place] [address] [place] [address] Shaylee Santa P.A.-C. [address] [place] [phone] Coronary Artery Disease Without Angina Pectoris (Primary Dx); Hot Flash; Night Sweats; Bipolar II Disorder (HCC); Morbid Obesity Body Mass Index 45.0-49.9 Adult (HCC) Social History Tobacco Use Types Packs/Day Years Used Date Smoking Tobacco: Former Cigarettes 1 57 0 05/28/1964 - 09/19/2020 Passive Smoke Exposure: Never Smokeless Tobacco: Never Tobacco Cessation:Counseling Given: Not Answered Alcohol Use Standard Drinks/Week Comments Yes 0 (1 standard drink = 0.6 oz pure alcohol) I might have 2-[address] [facility] Utilities Answer Date Recorded In the past 12 months has [facility], gas, oil, or water [employer] threatened to shut off services in your [...] your living situation today? I have a [facility] place to live 12/03/2023 Sex and Gender Information Value Date Recorded Sex Assigned at Female 04/11/2023 12:22 PM CDT Gender Identity Female 04/11/2023 12:22 PM CDT Sexual Orientation Straight 04/11/2023 12 :22 PM CDT documented as of this encounter Last Filed Vital Signs Vital Sign Reading Time Taken Comments Blood Pressure 125/76 02/27/2024 2:17 PM CDT Pulse 63 02/27/2024 2:17 PM CDT Temperature 35.9 ??C (96.6 ??F) 02/27/2024 2:17 PM CD T Respiratory Rate 16 02/27/2024 2:17 PM CDT Oxygen Saturation - - Inhaled Oxygen Concentration - - Weight 123 kg (271 lb 4.4 oz) 02/27/2024 2:17 PM CDT Height - - Body Mass Index 48.07 02/17/2024 12:06 PM CDT documented in this encounter Progress Notes * Shaylee Santa P.A.-C. - 02/27/2024 2:20 PM CDT SUBJECTIVE CHIEF COMPLAINT/REASON FOR VISIT Chief Complaint Patient presents with Medication Visit Would like to restart estrogen HISTORY OF PRESENT ILLNESS Dilan Akers is a pleasant 68 y.o. female with a past medical history of coronary artery disease who presents to the clinic today to discuss restarting estrogen therapy due to experiencing hot flashes and night sweats for the past 4 years but worsening in the past 3 months. She estimates she has night sweats about 2-3 times per week. Her hot flashes seem to be sporadic but happen most days of the week. Patient had a hysterectomy in the . She reports previously using a natural estrogen product that was compounded at a pharmacy. It was a lotion formulation that she applied to her thigh. She believes she use this estrogen product from [id number] as prescribed by previous primarycare provider in [place]. Estrogen was discontinued because she lost insurance coverage. The symptomsshe has been experiencing for the past 4 years are similar to the symptoms for which she originallystarted the estrogen therapy. From about age [age], she did not have any symptoms of hot flashes ornight sweats. She has been taking black cohosh for many years. She denies fever associated with night sweats. Additionally, she would like to revisit the topic of G LP 1 agonist for weight loss and would like to see if this script can be sent to her pharmacy. She saw an orthopedic provider who recommended weight loss for joint health. She is not diabetic. She is also frustrated that her Ability used for treatment of bipolar may be contributing to weight loss and is considering discontinuing this medication. The following portions of the patient's history were reviewed and updated as appropriate: current medications and problem list. Pertinent positive ROS are listed above in HPI. Patient Active Problem List Diagnosis Apnea Sleep Obstructive Bipolar II Disorder (HCC) Chronic Kidney Disease (CKD), Stage 3b Glomerular Filtration Rate (GFR) 30 To 44 (HCC) Chronic Obstructive Pulmonary Disease (HCC) Coronary Artery Disease Without Angina Pectoris Ileostomy Status ([facility]) Morbid Obesity Body Mass Index 45.0-49.9 Adult ([facility]) Primary Osteoarthritis Hip Left Dehydration Hypertensive Chronic Kidney Disease (CKD) Stage 3b Glomerular Filtration Rate (GFR) 30 To 44 (HCC) Hyperparathyroidism Renal Secondary (HCC) Restless Leg Syndrome Posttraumatic Stress Disorder Prolonged Osteopenia Nodule Pulmonary Solitary Insomnia Hyperlipidemia Mixed Gastroesophageal Reflux Disease Without Esophagitis Anemia Of Chronic Disease Urinary Urge Incontinence Chronic Pain Syndrome Spondylosis Cervical Without Myelopathy Adjustment Disorder With Depressed Mood Injury Ureter Subsequent Stone Kidney Personal History Aftercare Vascular Catheter Smoking Tobacco Use Personal History History Of Falling ALLERGIES/CONTRAINDICATIONS Allergies Allergen Reactions Adhesive Rash Codeine Nausea And Vomiting and Nausea Only vomiting Hydrocodone Hives only, no other systemic symptoms Omeprazole Diarrhea and Other (see comments) Penicillins Hives (Reselect Reaction) and Other (see comments) vomiting Propoxyphene Hives (Reselect Reaction), GI intolerance and Nausea And Vomiting Naproxen Nausea Only Cefuroxime Nausea And Vomiting, Nausea Only and Other (see comments) Chlordiazepoxide Other (see comments) Adverse reaction Adverse reaction Diazepam Other (see comments) Erythromycin Hives (Reselect Reaction) and Other (see comments) Vomiting Gabapentin Other (see comments) Fatigue Adverse reaction Adverse reaction - overly tired Hydrocodone-Aspirin Hives (Reselect Reaction) Morphine Sulfate Other (see comments) Nitrofurantoin Other (see comments) Nsaids (Non-Steroidal Anti-Inflammatory Drug) Nausea And Vomiting and Nausea Only Phenylephrine Palpitations and Other (see comments) Phenylephrine-Guaifenesin Other (see comments) palpitations Phenylpropanolamine Other (see comments) Quetiapine Other (see comments) Sertraline Other (see comments) Lyzhond-Sxa-Gta Reductase Inhibitors Other (see comments) and Myalgia Muscle damage Muscle damage Muscle pain Sulfa (Sulfonamide Antibiotics) Hives (Reselect Reaction) and Nausea And Vomiting Hives and vomiting Vomiting Tolmetin Other (see comments) Acetaminophen Other (see comments) and Nausea Only Famotidine GI intolerance Ibuprofen Nausea And Vomiting and Nausea Only Metoclopramide GI intolerance CURRENT MEDICATIONS Current Outpatient Medications: amLODIPine (NORVASC) 5 mg tablet, Take 1 tablet (5 mg total) by mouth daily., Disp: 90 tablet, Rfl:3 ARIPiprazole (ABILIFY) 10 mg tablet, Take 1 tablet (10 mg total) by mouth daily., Disp: 90 tablet, Rfl: 3 aspirin 81 mg capsule, Take 81 mg by mouth., Disp: , Rfl: BLACK COHOSH ROOT EXTRACT ORAL, Take 540 mg by mouth., Disp: , Rfl: calcium carbonate-vitamin D3 1,500 mg (600 mg calcium)-5 mcg (200 Unit) per tablet, Take by mouth daily., Disp: , Rfl: cholecalciferol (VITAMIN D3) 50 mcg (2,000 Unit) capsule, Take 2,000 Units by mouth., Disp: , Rfl: ergocalciferol (DRISDOL) 50,000 Unit capsule, Take 1 capsule (50,000 Units total) by mouth once a week., Disp: 8 capsule, Rfl: 3 estradioL (ESTRACE) 0.1 mg/g (0.01%) vaginal cream, Insert 0.5 g by vaginal route., Disp: , Rfl: ruben zuiw-ysnseqyl-xvuskqpav ac (Schaller Oil) 1,000 mg capsule, Take by mouth., Disp: , Rfl: ezetimibe (ZETIA) 10 mg tablet, Take 1 tablet (10 mg total) by mouth daily., Disp: 90 tablet, Rfl: 3 fexofenadine (ALLIE) 180 mg tablet, Take 180 mg by mouth daily., Disp: , Rfl: flaxseed oiL 1,000 mg capsule, Take 1,000 mg by mouth., Disp: , Rfl: fluticasone propionate (FLONASE) 50 mcg/actuation nasal spray, Administer 1 spray into each nostrilas needed for allergies or rhinitis., Disp: 48 g, Rfl: 3 isosorbide mononitrate (IMDUR) 30 mg 24 hr tablet, Take 15 mg by mouth., Disp: , Rfl: lansoprazole (PREVACID) [address] capsule, Take 1 capsule (30 mg total) by mouth every morning before breakfast., Disp: 90 capsule, Rfl: 3 loperamide (IMODIUM A-D) 2 mg capsule, Take 1 capsule (2 mg total) by mouth as needed for diarrhea.Takes 1 tablet daily, Disp: 30 capsule, Rfl: 11 metoprolol succinate 100 mg capsule,sprinkle,ER 24hr, Take 50 mg by mouth daily., Disp: , Rfl: klqvwqkmiebl-orjvmrvi-ykwnmr (Multivitamin 50 Plus) tablet, Take 1 tablet by mouth daily., Disp: , Rfl: nystatin (NYSTOP) 100,000 unit/gram powder, Apply 2-3 times/day to affected areas as needed for candidiasis, Disp: , Rfl: sodium bicarbonate 325 mg tablet, Take 2 tablets (650 mg total) by mouth daily., Disp: 180 tablet, Rfl: 3 tiZANidine (ZANAFLEX) 4 mg capsule, as needed., Disp: , Rfl: traMADoL (ULTRAM) 50 mg tablet, Take 1 tablet (50 mg total) by mouth daily Indications: Chronic Pain/Nonacute Pain. And prn, Disp: 90 tablet, Rfl: 0 UNABLE TO FIND, Med Name: Collagen 3000mg hydrolyzed collagen, Disp: , Rfl: UNABLE TO FIND, Med Name: Magnesium Glycanate 240mg, Nature's Bounty high absorption, Disp: , Rfl: Ringer's solution,lactated (lactated Ringer's) irrigation solution, Irrigate with 1,000 mL as directed once., Disp: , Rfl: semaglutide (OZEMPIC) 0.25 mg or 0.5 mg (2 mg/3 mL) injection, Inject 0.25 mg under the skin every 7 (seven) days., Disp: 2 mL, Rfl: 0 OBJECTIVE VITAL SIGNS Vitals: 02/27/24 1417 BP: 125/76 Pulse: 63 Resp: 16 Temp: (!) 35.9 ??C PHYSICAL EXAMINATION General: Well-nourished, well-developed 68 y.o. in no apparent distress. Awake, alert, age appropriate. HEENT: Head is normocephalic, atraumatic. Conjunctivae and sclerae are clear. Cardiovascular: Regular rate and rhythm without murmurs. Lungs: Clear to auscultation bilaterally with no adventitious sounds Skin: Warm, pink, and dry. Neurologic: Alert and oriented x3. ASSESSMENT / PLAN IMPRESSION/REPORT/PLAN: #1 Hot Flash #2 Night Sweats #3 Coronary Artery Disease Without Angina Pectoris I would not recommend initiating hormone replacement therapy given age over 60 and known coronary artery disease with chronic total occlusion of right coronary artery. We discussed behavioral interventions for hot flashes such as dressing in layers. We will check a TSH level today. We briefly discussed a different medication such as Effexor that can be used in treatment of hot flashes however shehas previously been on this medication and experienced side effects. She does not have any worrisome symptoms associated with night sweats including fever or weight loss. She will continue with blackcohosh supplementation. - Thyroid Function [place]; Future; Expected date: 02/27/2024 #4 Bipolar II Disorder (HCC) She is considering discontinuing Abilify due to possibility that this medication is contributing toweight gain. However, she seems to be doing well on Abilify 10 mg daily so I recommend she continuewith this. Upon review of second generation anti-psychotic side effects, Abilify seems less likely to cause weight gain than similar medications so overall I think this is a good option for her. #5 Morbid Obesity Body Mass Index 45.0-49.9 Adult (HCC) We will attempt to send GLP-1 agonist to her pharmacy. When this was prescribed by Endocrinology inNov 2022, patient was unable to get this medication due to shortage. Other orders - semaglutide (OZEMPIC) 0.25 mg or 0.5 mg (2 mg/3 mL) injection; Inject 0.25 mg under the skin every 7 (seven) days., Starting Lucina 02/27/2024, Normal If symptoms worsen or do not improve, patient is instructed to seek further medical attention. All questions have been answered. Patient demonstrated understanding and verbalized agreement with the plan. Shaylee Santa P.A.-C. documented in this encounter Plan of Treatment Upcoming Encounters Date Type Department Care Team (Late st Contact Info) Description 05/26/2024 1:45 PM CDT Office Visit Department of Orthopedic Surgery in [address] [phone] Familia Patiño M.D. [address] [place] [phone] Discharge Disposition: Home or Self Care documented as of this encounter Results * Thyroid Function [place] (02/27/2024 3:27 PM CDT) TSH, Sensitive 2.5 0.3 - 4.2 mIU/L 02/27/2024 6:19 PM CDT OWAT Blood (Blood, Venous) 02/27/2024 3:27 PM CDT 02/27/2024 5:46 PM CDT Shaylee Santa P.A.-C. LAB BLOOD ADD-O N [facility] [address] [place] [address], [facility] [place] [address] [place] [address] documented in this encounter Visit Diagnoses Diagnosis Coronary Artery Disease Without Angina Pectoris- Primary Hot Flash Night Sweats Bipolar II Disorder (HCC) Morbid Obesity Body Mass Index 45.0-49.9 Adult (HCC) documented in this encounter Additional Health Concerns Assessment Noted Time PHQ-9 Depression Total Score: 12 023 1:03 PM CDT documented as of this encounter Care Teams Corporate Sales Trainer Relationship Specialty Start Date End Date Shaylee Santa P.A.-C. [address] [place] [phone] PCP - General Internal Medicine 01/23/24 documented as of this encounter
--- OUTSIDE RECORDS SUMMARY | 2024-03-30 05:25 | XMS_ITS ---
Author Name Unknown Organization [facility] Address [address] [place] [address] Care Team Providers Care Reuse Technician Name Role Phone Unavailable Unavailable Unavailable Surgery Details Not on file Complications Check Surgery Details section. Procedure Estimated Blood Loss Check Surgery Details section. Procedure Findings Check Surgery Details section. Procedure Specimens Taken Check Surgery Details section.
--- OUTSIDE RECORDS SUMMARY | 2024-03-30 05:25 | XMS_ITS | Clinical Summary ---
Author Name Unknown Organization [employer] Address [place], [place] [address] Care Team Providers Care Swing Saw Operator Name Role Phone Shaylee Santa PA-C Primary Care Provider [phone] Allergies Active Allergy Reactions Criticality Noted Date Comments Acetaminophen Nausea Only 05/23/2023 Adhesive Tape-Silicones Other - Describe In Comment Field 05/23/2023 Paper tape Atorvastatin Other - Describe In Comment Field 05/23/2023 Muscle damage Wxnig-Bmahijqm-Wc Grass-Hydran Other - Describe In Comment Field 05/23/2023 Dry eye Cefuroxime Nausea And Vomiting 05/23/2023 Cefuroxime Axetil Nausea And Vomiting Chlordiazepoxide Other - Describe In Comment Field 05/23/2023 Adverse reaction Codeine Nausea And Vomiting 05/23/2023 Dextromethorphan Other - Describe In Comment Field 05/23/2023 Unsure? Diazepam Other - Describe In Comment Field 05/23/2023 Adverse reaction Erythromycin Hives,Vomiting 05/23/2023 Erythromycin Lactobionate Hives 05/23/2023 Gabapentin Other - Describe In Comment Field 05/23/2023 Fatigue Hydrocodone-Aspirin Hives 02/23/2019 Damason P causes hives Ibuprofen Nausea And Vomiting 05/23/2023 Meloxicam Hives 05/23/2023 Metoclopramide Hcl Nausea Only 05/23/2023 Morphine Other - Describe In Comment Field 05/23/2023 Too strong Naproxen Edema 05/23/2023 Nitrofurantoin Monohyd/M-Cryst *Unknown High 08/23/2020 Patient does not want to take due to kidney function Nsaids (Non-Steroidal Anti-Inflammatory Drug) Nausea And Vomiting 05/23/2023 Omeprazole Diarrhea 05/23/2023 Wheeler Juice Vomiting 05/23/2023 Wheeler Oil Vomiting 05/23/2023 Penicillins Vomiting 05/23/2023 Famotidine Diarrhea 05/23/2023 Dvneryzkdlsge-Dl-Kfviwkwcsb n Palpitations 05/23/2023 Phenylpropanolamine Palpitations 11/08/2023 Propoxyphene Hives,Nausea And Vomiting 05/23/2023 Ymxmpxpqwydkrda-Iu-Vrhrepns sin Palpitations 05/23/2023 Quetiapine Other - Describe In Comment Field 05/23/2023 Made more depressed Chris Nausea And Vomiting 05/23/2023 Sertraline Other - Describe In Comment Field 05/23/2023 None noted Fhdploa-Ljm-Ncz Reductase Inhibitors Other - Describe In Comment Field 05/23/2023 Muscle damage Sulfa (Sulfonamide Antibiotics) Hives,Nausea And Vomiting 05/23/2023 Sulfasalazine Hives 05/23/2023 Tolmetin Nausea And Vomiting 05/23/2023 Medications Medication Sig Dispensed Refills Start Date End Date Status amLODIPine (NORVASC) 5 mg tablet Take 10 mg by mouth once daily. 03/09/2023 Active ergocalciferol (VITAMIN D2; DRISDOL) 50,000 unit capsule Take 50,000 units by mouth once weekly. 04/29/2023 Active lansoprazole (PREVACID) 30 mg capsule Take 30 mg by mouth once daily before a meal. 02/06/2023 Active metoprolol succinate (TOPROL XL) 50 mg sustained-release tablet Take 50 mg by mouth once daily. 02/08/2023 Active sodium bicarbonate 650 mg tablet Take 650 mg by mouth once daily. 04/29/2023 Active multivitamins-mine rals-lutein (Multivitamin 50 Plus) tab tablet Take 1 Tablet by mouth once daily. 0 05/23/2023 Active fluticasone (50 mcg per actuation) nasal solution (FLONASE) Inhale 1 [place] into affected nostril(s) once daily. 16 g 05/23/2023 Active aspirin 81 mg cap Take by mouth. 0 05/23/2023 Act darrin Ailyn Rvfc-Cxjfouua-Fcsu lenic Ac (Dixie Oil) 1,000 mg cap Take by mouth. 0 05/23/2023 Act darrin flaxseed oiL 1,000 mg cap Take 1 Capsule (1,000 mg) by mouth once daily. 0 05/23/2023 Active isosorbide mononitrate (IMDUR) 30 mg extended release tablet 24 HourIndications:Co ronary artery disease, unspecified vessel or lesion type, unspecified whether angina present, unspecified whether [place] or transplanted heart Take 0.5 Tablets (15 mg) by mouth once daily. 45 Tablet 3 10/09/2023 Active ARIPiprazole (Abilify) 10 mg tablet Take 10 mg by mouth once daily. Active Black Cohosh 40 mg capsule Takes 540mg by mouth once daily 03/23/2024 Active traMADoL (ULTRAM) 50 mg tablet Take 1 Tablet (50 mg) by mouth once daily if needed for Pain. 03/23/2024 Active loperamide (IMODIUM) 2 mg capsule Take 1 Capsule (2 mg) by mouth each time if needed for Diarrhea. 03/23/2024 Active ascorbic acid/collagen hydr (COLLAGEN SKIN RENEWAL ORAL) Take 1 Tablet by mouth once daily. 10/12/2023 Active loperamide (IMODIUM) 2 mg capsule Take 2 mg by mouth. 01/24/2023 03/23/2024 Discontinued (Other - add note to specify (E-cancel not sent)) Myrbetriq 25 mg tablet Take 25 mg by mouth once daily. 01/24/2023 03/23/2024 Discontinued (*Patient states no longer taking) tiZANidine (ZANAFLEX) 4 mg tablet Take 4 mg by mouth at bedtime. 02/15/2023 03/23/2024 Discontinued (*Patient states no longer taking) traMADoL (ULTRAM) 50 mg tablet 04/29/2023 03/23/2024 Discontinued (*Patient states no longer taking) OXcarbazepine (TRILEPTAL) 300 mg tablet Take 300 mg by mouth once daily. 03/09/2023 03/23/2024 Discontinued (*Patient states no longer taking) Black Cohosh 40 mg capsule Take by mouth two times daily. 0 05/23/2023 03/23/2024 Discontinued (Other - add note to specify (E-cancel not sent)) Active Problems Problem Noted Date Diagnosed Date Coronary artery disease invo lving nisqually coronary artery of n[place]qually heart without angina pectoris 11/08/2023 Mixed hyperlipidemia 11/08/2023 Stage 3b chronic kidney disease 05/23/2023 HTN (hypertension) 05/23/2023 Diverticulitis 05/23/2023 Secondary renal hyperparathyroidism 05/23/2023 GERD (gastroesophageal reflux disease) Bipolar 1 disorder 05/23/2023 Encounters Date Type Department Care Team Description 03/23/2024 9:00 AM CDT Telemedicine [facility] [address] [facility] [address] [place] [address] Elmer Corral MD Left without seen 03/23/2024 Travel 03/05/2024 2:24 PM CDT - 03/05/2024 11:59 PM CDT Hospital Encounter [facility] [address] [place] [address] Elmer Corral MD Coronary artery disease involving nisqually coronary artery of [place] heart without angina pectoris 03/05/2024 Telephone [facility] [address] [facility] [address] [place] [phone] Elmer Corral MD Testing 03/05/2024 Travel 02/17/2024 Lab Requisition [facility] [phone] Jitendra Romero DO 01/29/2024 Orders Only [facility] [address] [facility] [address] [place] [phone] Elmer Corral MD <No scans attached> 01/20/2024 Telephone [facility] [address] [facility] [address] [place] [address] Elmer Corral MD CAIO 01/13/2024 Lab Requisition [facility] [phone] Unknown, Doctor from Last 3 Months Social History Tobacco Use Types Packs/Day Years Used Date Smoking Tobacco: Former Cigarettes S tarted: 1964 Smokeless Tobacco: Never Tobacco Cessation:Counseling Given: Not Answered Alcohol Use Standard Drinks/Week Comments Yes 0 (1 standard drink = 0.6 oz pur e alcohol) Very Rarely Social Connections Answer Date Recorded Frequency of Communication with Friends and Fami ly Not on file 05/10/2023 Sex and Gender Information Value Date Recorded Sex Assigned at Not on file Gender Identity Not on file Sexual Orientation Not on file Obstetrics History Last Filed Vital Signs Vital Sign Reading Time Taken Comments Blood Pressure 125/57 03/05/2024 2:50 PM CDT Pulse 59 03/05/2024 2:50 PM CDT Temperature - - Respiratory Rate - - Oxygen Saturation 98% 03/05/2024 2:50 PM CDT Inhaled Oxygen Concentration - - Weight 120.2 kg (265 lb) 03/23/2024 8:42 AM CDT Height 160 cm (5' 3) 03/23/2024 8:42 AM CDT Body Mass Index 46.94 03/23/2024 8:42 AM CDT Plan of Treatment Upcoming Encounters Date Type Department Care Team (Late st Contact Info) Description 04/21/2024 12:00 PM CDT Appointment [facility] [address] [place] [address] Elmer Corral MD [address] [facility] [address] [place] [address] Health Maintenance Due Date Last Done Comments Tdap 1967 Depression screening for age 12+ 1968 Hepatitis C screening for age 18-79 1974 Tetanus booster 1976 Colonoscopy through age 75 2001 Lipids for age 45-75 2001 Mammogram for age 45-75 2001 Zoster (shingles) series for age 50+ (1 of 2) 06/05/20 06 DEXA/DXA scan for age 65+ 2021 Medicare Wellness for age 65+ 2021 Pneumococcal series for age 65+ (1 of 1 - PCV) 021 COVID-19 vaccine series (2 - season) 3 10/11/2022 Influenza for age 65+ 07/26/2024 BMI (ht and wt on same day) for age 18+ 03/23/2025 0 03/23/2024 Procedures Procedure Name Priority Date/Time Associated Diagnosis Comments CREATININE,ISTAT Routine 03/05/2024 3:21 PM CDT QFT MITOGEN PERFORMABLE Routine 02/14/2024 11:50 AM CDT QFT TB2 PERFORMABLE Routine 02/14/2024 1 1:50 AM CDT QFT TB1 PERFORMABLE Routine 02/14/2024 1 1:50 AM CDT QUANTIFERON TB GOLD PLUS Routine 02/14/2024 11:50 AM CDT QUANTIFERON TB GOLD PLUS Routine 02/14/2024 11:50 AM CDT REFERRAL ID/SUSC,NONURINE Routine 01/07/2024 2:13 PM POMOLOGY TEACHER from Last 3 Months Results * (ABNORMAL) CREATININE,ISTAT (03/05/2024 3:21 PM CDT) Pathologist [facility] CREATININE, POCT 2.60(H) 0.57 - 1.11 mg/dL 03/05/2024 3:49 PM CDT [facility] Comment:Caution: Patients ta sajan Hydroxyurea have falsely increased iStat Creatinine results. Verify creatinine results ordering a Creatinine (40930.2) eGFR 20(L) >90 mL/min/1.7 3m2 03/05/2024 3:49 PM CDT [facility] Comment:As of 2022, eG FR is calculated by the CKD-EPI creatinine equation without race adjustment. eGFR can be influenced by muscle mass, exercise, and diet. The reported eGFR is an estimation only and is only applicable if the renal function is stable. Blood BLOOD SPECIMEN / Unknown 03/05/2024 3:21 PM CDT 03/05/2024 3:49 PM CDT Emmanouil Stylianos Brilakis MD CHEMISTR Y Performing Organization Address [facility] Co de Phone Number [facility] [address] [place] [address], [place] * QFT MITOGEN PERFORMABLE (02/14/2024 11:50 AM CDT) MITOGEN 10.00 IU/mL 02/18/2024 9:31 AM CDT [facility] Blood BLOOD SPECIMEN / Unknown Client Collect / Unknown 02/14/2024 11:50 AM CDT 02/17/2024 2:28 PM CDT Jitendra Romero DO CHEMISTRY Performing Organization Address [facility] Co de Phone Number [facility] [address] [place] [address], [place] * QFT TB2 PERFORMABLE (02/14/2024 11:50 AM CDT) TB2 0.01 IU/mL 02/18/2024 9:31 AM CDT [facility] Blood BLOOD SPECIMEN / Unknown Client Collect / Unknown 02/14/2024 11:50 AM CDT 02/17/2024 2:28 PM CDT Jitendra Romero DO CHEMISTRY Performing Organization Address [facility] Co de Phone Number [facility] [address] [place] [address], [place] * QFT TB1 PERFORMABLE (02/14/2024 11:50 AM CDT) TB1 0.01 IU/mL 02/18/2024 9:31 AM CDT [facility] Blood BLOOD SPECIMEN / Unknown Client Collect / Unknown 02/14/2024 11:50 AM CDT 02/17/2024 2:28 PM CDT Jitendra Romero DO CHEMISTRY Performing Organization Address [facility]/ZIP Co de Phone Number [facility] [address] [place] [address], * QUANTIFERON TB GOLD PLUS (02/14/2024 11:50 AM CDT) QFTP NIL 0.00 02/18/2024 11:08 AM CDT [facility] TB1 0.01 IU/mL 02/18/2024 11:08 AM CDT [facility] TB2 0.01 IU/mL 02/18/2024 11:08 AM CDT [facility] MITOGEN 10.00 IU/mL 02/18/2024 11:08 AM CDT [facility] QFTP TB AG1 - NIL 0.01 024 11:08 AM CDT [facility] TB1-NIL % OF NIL 02/18/20 24 11:08 AM CDT [facility] Comment:Unable to calculate QFTP TB AG2 - NIL 0.01 024 11:08 AM CDT [facility] TB2-NIL % OF NIL 02/18/20 24 11:08 AM CDT [facility] Comment:Unable to calculate QFTP MITOGEN - NIL 10.00 2023 11:08 AM CDT [facility] QFTP QUANTIFERON INTERPRETATION Negative Negative 02/18/2024 11:08 AM CDT [facility] Blood BLOOD SPECIMEN / Unknown Client Collect / Unknown 02/14/2024 11:50 AM CDT 02/17/2024 2:28 PM CDT [facility] - 02/18/2024 11:08 AM CDT M. tuberculosis infection not likely, but cannot be excluded in cases of immunosuppression. CAUTION: The performance of QuantiFERON-TB Gold Plus has not been evaluated in specimens from: - Individuals with impaired or altered immune factors (HIV infections, transplant patients, those receieving immunosuppressive drugs such as corticosteroids) and those with other clinical conditions (e.g., diabetes, hematological disorders). - Individuals younger than 17 years old. ??Refer to CDC website for testing recommendations in children 6-17 years old. - women Jitendra Romero DO CHEMISTRY [facility] [address] [place] [address], * (ABNORMAL) REFERRAL ID/SUSC,NONURINE (01/07/2024 2:13 PM POMOLOGY TEACHER) CULTURE RESULT(A) 01/16/2024 10:30 AM POMOLOGY TEACHER [facility] CULTURE [employer] 01/16/2024 10:30 AM POMOLOGY TEACHER [facility] Other BLOOD SPECIMEN / Unknown Client Collect / Unknown 01/07/2024 2:13 PM POMOLOGY TEACHER 01/13/2024 4:04 PM POMOLOGY TEACHER Narrative Organism Antibiotic Method Susceptibility [employer] TRIMETHOPRIM/SULF S [employer] AMPICILLIN R [employer] CEFAZOLIN S [employer] GENTAMICIN S [employer] CEFTRIAXONE S [employer] CEFTAZIDIME S [employer] LEVOFLOXACIN S [employer] CIPROFLOXACIN S [employer] PIPERACILLIN/TAZO S [employer] AMPICILLIN/SULBACTAM S [employer] CEFEPIME S [employer] TOBRAMYCIN S [employer] MEROPENEM S Doctor Unknown MICROBIOLOGY Performing Organization Address City/[facility]/ZIP Co de Phone Number [facility] [address] [place] [id number], from Last 3 Months Care Teams Swing Saw Operator Relationship Specialty Start Date End Date Shaylee Santa PA-C [address] [place] [phone] PCP - General Physician Profile Trimmer 03/23/24
--- OUTSIDE RECORDS SUMMARY | 2024-03-30 05:25 | XMS_ITS | Clinical Summary ---
Author Name Unknown Organization [facility] Address [address] [place] [address] Care Team Providers Care Awning Finisher Name Role Phone Shaylee Santa P.A.-C. Primary Care Provider Source Comments Patient records contain information from all sites at [facility]. For routine questions regarding patient records, call [phone] during business hours, M-F 8:00 AM - 5:00 PM Central Time. Record requests for emergency care only can be directed to [phone] at any time.[facility] Allergies Active Allergy Reactions Criticality Noted Date [...] comments) 11/08/2023 Sertraline Other (see comments) 11/08/2023 Kgfhxat-Zzv-Jxq Reductase Inhibitors Other (see comments),Myalgia 04/22/2016 Muscle damage Muscle damage Muscle pain Sulfa (Sulfonamide Antibiotics) Hives (Reselect Reaction),Nausea And Vomiting 04/22/2016 Hives and vomiting Vomiting Tolmetin Other (see comments) 11/08/2023 Medications Medication Sig Dispensed Refills Start Date End Date Status metoprolol succinate 100 mg capsule,Danny mancini R 24hr Take 50 mg by mouth daily. 09/20/2022 Active estradioL (ESTRACE) 0.1 mg/g (0.01%) vaginal cream Insert 0.5 g by vaginal route. 08/08/2023 Active aspirin 81 mg capsule Take 81 mg by mouth. 05/23/2023 Active multivitamin-driver examiner als-lutein (Multivitamin 50 Plus) tablet Take 1 tablet by mouth daily. 05/23/2023 Active calcium carbonate-vitamin D3 1,500 mg (600 mg calcium)-5 mcg (200 Unit) per tablet Take by mouth daily. Active flaxseed oiL 1,000 mg capsule Take 1,000 mg by mouth. 05/23/2023 Active ruben ilzs-cotyrrbu-swdb lenic ac (Curtice Oil) 1,000 mg capsule Take by mouth. [...] other arteries. She had an angiogram in [place] in June of 2022. This was performed after she has an abnormal nuclear stress test which was performed for some shortness of breath and risk factors. Last echocardiogram performed 05/2023 and showed calculated EF of 65%. Following with Cardiology through [facility]. Ileostomy Status 11/06/2022 Overview: Status post open [...] Urinary Urge Incontinence 01/19/2021 Overview: - Has Proterro system. - Urge-predominant mixed urinary incontinence since age 21. - Had several meatoplasties, dilations and a sling in s with porcine graft [place] [address] Mckin[place] in [place] - In the past found myrbetriq 50mg [...] Overview: S/p LAR Fistula Anal 02/23/2019 09/09/2023 Encounters Date Type Department Care Team Description 02/27/2024 3:21 PM CDT - 02/27/2024 11:59 PM CDT Hospital Encounter Department of Laboratory Medicine in [address] [phone] Shaylee Santa P.A.-C. Hot Flash Discharge Disposition: Home or Self Care 02/27/2024 2:20 PM CDT Office Visit Department of Community Internal Medicine in [address] [phone] Shaylee Santa P.A.-C. Coronary Artery Disease Without Angina Pectoris (Primary Dx); Hot Flash; Night Sweats; Bipolar II Disorder (HCC); Morbid Obesity Body Mass Index 45.0-49.9 Adult ([facility]) 02/25/2024 2:15 PM CDT Comprehensive Visit Department of Orthopedic Surgery in [address] [phone] Familia Patiño M.D. Pain Hip Right Discharge Disposition: Home or Self Care 02/25/2024 2:07 PM CDT - 02/25/2024 11:59 PM CDT Hospital Encounter Department of Radiology in [address] [phone] Familia Patiño M.D. Pain Hip Right Discharge Disposition: Home or Self Care 02/19/2024 Refill Department of Community Internal Medicine in [address] [phone] Shaylee Santa P.A.-C. Med Refill 02/17/2024 12:00 PM CDT External Outreach Division of Nephrology and Hypertension in [address] [phone] Jitendra Romero Jr., D.O. Chronic Kidney Disease (CKD), Stage 3b Glomerular Filtration Rate (GFR) 30 To 44 (HCC) (Primary Dx); Hypertensive Chronic Kidney Disease (CKD) Stage 3b Glomerular Filtration Rate (GFR) 30 To 44 (HCC); Hyperparathyroidis m Renal Secondary (HCC); Anemia Of Chronic Disease; Chronic Obstructive Pulmonary Disease (HCC); Apnea Sleep Obstructive; Ileostomy Status ([facility]); Stone Kidney Personal History 02/14/2024 Clinical Communication Department of Community Internal Medicine in [place], [place] [address] [place] [address] Shaylee Santa P.A.-Aaron 01/29/2024 1:40 PM HOPPER ATTENDANT Office Visit Department of Community Internal Medicine in [place], [place] [address] [place] [address] Shaylee Santa P.A.-Gianni. Coronary Artery Disease Without Angina Pectoris (Primary Dx); Hyperlipidemia Mixed; Hypertensive Chronic Kidney Disease (CKD) Stage 3b Glomerular Filtration Rate (GFR) 30 To 44 (HCC); Apnea Sleep Obstructive; Gastroesophageal Reflux Disease Without Esophagitis; Osteopenia; Ileostomy Status ([facility]); Morbid Obesity Body Mass Index 45.0-49.9 Adult (HCC); Adjustment Disorder With Depressed Mood; Bipolar II Disorder ([facility]); Posttraumatic Stress Disorder Prolonged 01/17/2024 Clinical Communication Division of Nephrology and Hypertension in [place], [place] [address] [place] [address] Jitendra Romero Jr., D.O. 01/15/2024 Clinical Communication Department of [facility], [facility], in [address] [phone] Elvie Shaw M.D. 01/14/2024 Clinical Communication Department of [facility], [facility], in [address] [phone] Elvie Shaw M.D. drug interaction 01/13/2024 Clinical Communication Department of Family Medicine, [facility], in [address] [phone] Elvie Shaw M.D. Vit D Prior Auth 01/09/2024 Clinical Communication Department of [facility], [facility], in [address] [phone] Elvie Shaw M.D. Referral (ENT) 01/08/2024 Clinical Communication Department of Family Medicine, [facility], in [address] [phone] Elvie Shaw M.D. Form Review ([facility] [id number] [facility]) 01/08/2024 Documentation Division of Nephrology and Hypertension in [address] [phone] Jitendra Romero Jr. D.O. 01/08/2024 Orders Only Division of Nephrology and Hypertension in [place], [place] [address] [place] [phone] Jitendra Romero Jr., D.O. 01/06/2024 3:30 PM HOPPER ATTENDANT External Outreach Division of Nephrology and Hypertension in [place], [place] [address] [place] [phone] Jitendra Romero Jr., D.O. Chronic Kidney Disease (CKD), Stage 3b Glomerular Filtration Rate (GFR) 30 To 44 (HCC) (Primary Dx); Hypertensive Chronic Kidney Disease (CKD) Stage 3b Glomerular Filtration Rate (GFR) 30 To 44 (HCC); Hyperparathyroidis m Renal Secondary (HCC); Ileostomy Status (HCC); Stone Kidney Personal History; Bipolar II Disorder (HCC); Chronic Obstructive Pulmonary Disease (HCC); Fever Of Unknown Origin 01/01/2024 1:00 PM HOPPER ATTENDANT Comprehensive Visit Department of [facility], [facility], in [address] [phone] Elvie Shaw M.D. Fever Of Unknown Origin (Primary Dx); Dysfunction Eustachian Tube Right; Pain Hip Right; Morbid Obesity Body Mass Index 45.0-49.9 Adult ([facility]) Discharge Disposition: Home or Self Care from Last 3 Months Immunizations Name Administration Dates Next Due HZV (ZOSTAVAX) 07/25/2016 Influenza high dose QV(65 years or older) (PF) 1 ,07/17/2021 Influenza, Injectable, Quadrivalent 08/08/2020 PCV13 2016,04/17/2016 PCV20 08/28/2022 PPSV23(Discontinued) 05/31/2017,2016 RSV: respiratory syncytial v irus (AREXVY) recombinant vaccine 09/17/2023 RZV (SHINGRIX) 01/22/2022,11/13/2021 SARS-COV-2 (COVID-19) - MODE RNA (12 YEARS AND OLDER) [id number] 09/06/2023 Tdap 07/25/2016 influenza high dose (65 years or older) (PF) 10/2022,07/17/2021 Family History Medical History Relation Name Comments Rheum arthritis Brother Antoni Diabetes Daughter Barbara Rivers Type 1 Passed1 12/2021 Diabetes Father Jitendra Farris Type 1 Passed 1 960 Coronary artery disease Maternal Grandfather Willie Ye ladi Hypertension Maternal Grandfather Willie [place] Diabetes Maternal Grandmother Nayana Type 2 Osteoporosis Maternal Grandmother Nayana Unknown Other cancer Maternal Grandmother Nayana Unknown Diabetes Mother Susannah Type 2 Hypertension Mother Susannah Leukemia Mother Susannah Rheum arthritis Mother Susannah Coronary artery disease Paternal Grandfather Jitendra Unknown to me Relation Name Status Comments Brother Antoni Daughter Barbara Rivers Father Jitendra Farris Maternal Grandfather Willie [place]ley Maternal Grandmother Nayana Mother Susannah Paternal Grandfather Jitendra Social History Tobacco Use Types Packs/Day Years Used Date Smoking Tobacco: Former Cigarettes 1 57 0 05/28/1964 - 09/19/2020 Passive Smoke Exposure: Never Smokeless Tobacco: Never Tobacco Cessation:Counseling Given: Not Answered Alcohol Use Standard Drinks/Week Comments Yes 0 (1 standard drink = 0.6 oz pure alcohol) I might have 2-3 drinks per year [facility] Utilities Answer Date Recorded In the past 12 months has [employer], oil, or water [employer] threatened to shut off services in your [...] your living situation today? I have a [facility] place to live 12/03/2023 Sex and Gender [...] CDT Oxygen Saturation 99% 01/01/2024 12:51 PM HOPPER ATTENDANT Inhaled Oxygen Concentration - - Weight 123 kg (271 lb 4.4 oz) 02/27/2024 2:17 PM CDT Height 160 cm (5' 2.99) 02/17/2024 12:06 PM CDT Body Mass Index 48.07 02/17/2024 12:06 PM CDT Plan of Treatment Upcoming Encounters Date Type Department Care Team (Late st Contact Info) Description 05/26/2024 1:45 PM CDT Office Visit Department of Orthopedic Surgery in [address] [phone] Familia Patiño M.D. [address] [place] [phone] Discharge Disposition: Home or Self Care Health Maintenance Due Date Last Done Comments CT Colonography 1956 Cologuard 1956 Colonoscopy 1956 Colorectal Cancer Screening 1956 FIT 1956 Fasting Glucose for Diabetes Screening 1956 Hepatitis C Screening 1956 Lipid (Cholesterol) Screening 1956 Lung Cancer Screening 1956 COVID-19 Vaccine (2022-2 4 season) 2024 09/06/2023, 10/11/2022, 10/07/2021, Additional history exists Mammogram 04/15/2024 04/15/2023, 01/01/2022 Visit: Medicare Annual Wellness 12/04/2024 Visit: Chronic Disease, age 18+ 01/28/2025 Office Visit for Blood Press ure Check / Re-check 02/26/2025 02/27/2024 DTaP,Tdap,and Td Vaccines (2 - Td or Tdap) 07/25/2026 07/25/2016 Zoster Vaccines Completed 01/22/2022, 10/26, 07/25/2016 Pneumococcal vaccine (65+ years) Completed 08/28/2022, 05/31/2017, 2016, Additional history exists Influenza Vaccine Completed 09/02/2023, , 07/17/2021, Additional history exists RSV vaccine - (32-3 6 weeks) or 60+ years Completed 09/17/2023 Bone Density Scan (Osteoporo sis Screen) Discontinued 11/12/2023 Depression Screening (Annual PHQ-2) Completed 12/03/2023, 11/27/2023 Fall Risk Screen (Annual) Completed 12/03/2023 Procedures Procedure Name Priority Date/Time Associated Diagnosis [...] to Health Maintenance Results * Thyroid Function Porter (02/27/2024 3:27 PM CDT) TSH, Sensitive 2.5 0.3 - 4.2 mIU/L 02/27/2024 6:19 PM CDT OWAT Blood (Blood, Venous) 02/27/2024 3:27 PM CDT 02/27/2024 5:46 PM CDT Shaylee Santa P.A.-C. LAB BLOOD ADD-O N [facility] [address] [place] [address], [facility] OWAT [facility] in [place] [address] [place] [address] * DX Hip And Pelvis Right 2-3 [...] Recently Relevant to Health Maintenance Care Teams Awning Finisher Relationship Specialty Start Date End Date Shaylee Santa P.A.-C. [address] [place] [phone] PCP - General Internal Medicine 01/23/24
--- OUTSIDE RECORDS SUMMARY | 2024-03-30 05:26 | XMS_ITS | Encounter Summary ---
Author Name Unknown Organization [facility] Address [address] [place] [address] Care Team Providers Care Automatic Presser Name Role Phone Shaylee Santa P.A.-C. Primary Care Provider Encounter Details Date Type Department Care Team (Late st Contact Info) Description 02/14/2024 Clinical Communication Department of Community Internal Medicine in [place], [place] [address] [place] [phone] Shaylee Santa P.A.-C. [address] [place] [phone] Social History Tobacco Use Types Packs/Day Years Used Date Smoking Tobacco: Former Cigarettes 1 57 0 05/28/1964 - 09/19/2020 Passive Smoke Exposure: Never Smokeless Tobacco: Never Alcohol Use Standard Drinks/Week Comments Yes 0 (1 standard drink = 0.6 oz pure alcohol) I might have 2-3 drinks per year [facility] Utilities Answer Date Recorded In the past 12 months has [facility] [employer], gas, oil, or water [employer] threatened to shut off services in your [...] your living situation today? I have a [facility] place to live 12/03/2023 Sex and Gender Information Value Date Recorded Sex Assigned at Female 04/11/2023 12:22 PM CDT Gender Identity Female 04/11/2023 12:22 PM CDT Sexual Orientation Straight 04/11/2023 12 :22 PM CDT documented as of this encounter Plan of Treatment Upcoming Encounters Date Type Department Care Team (Late st Contact Info) Description 05/26/2024 1:45 PM CDT Office Visit Department of Orthopedic Surgery in [address] [phone] Familia Patiño M.D. [address] [place] [phone] Discharge Disposition: Home or Self Care documented as of this encounter Visit Diagnoses Not on filedocumented in this encounter Additional Health Concerns Assessment Noted Time PHQ-9 Depression Total Score: 12 09/09/ 023 1:03 PM CDT documented as of this encounter Care Teams Automatic Presser Relationship Specialty Start Date End Date Shaylee Santa P.A.-C. [address] [place] [phone] PCP - General Internal Medicine 01/23/24 documented as of this encounter
--- OUTSIDE RECORDS SUMMARY | 2024-03-30 05:26 | XMS_ITS | Encounter Summary ---
Author Name Unknown Organization [facility] Address [address] [place] [address] Care Team Providers Care Orthopedic Mechanic Name Role Phone Shaylee Santa P.A.-C. Primary Care Provider Reason for Referral * Outpatient (Routine) - Authorized Specialty Diagnoses / Procedures Referred By Collin noble Referred To Contact Otorhinolaryngology Diagnoses Dysfunction Eustachian Tube Right Elvie Shaw M.D. [address] [place] [phone] [facility] Region Referral ID Status Reason Start Date Expiration Date Visits Requested Visits Authorized [id number] Authorized Specialty Services Required 01/10/2024 07/11/2025 1 1 [facility] DRIER OPERATOR Reason for Visit * Reason Onset Date Comments Referral 01/09/2024 ENT Encounter Details Date Type Department Care Team (Latest Contact Info) Description 01/09/2024 Clinical Communication Department of Family Medicine, [facility], in [address] [phone] Elvie Shaw M.D. [address] [place] [phone] Referral (ENT) Social History Tobacco Use Types Packs/Day Years Used Date Smoking Tobacco: Former Cigarettes 1 57 0 [birth year]/28/1964 - 09/19/2020 Passive Smoke Exposure: Never Smokeless Tobacco: Never Alcohol Use Standard Drinks/Week Comments Yes 0 (1 standard drink = 0.6 oz pure alcohol) I might have 2-3 drinks per year [facility] Utilities Answer Date Recorded In the past 12 months has th e [employer], gas, oil, or water company threatened to shut off services in your [...] your living situation today? I have a [facility] place to live 12/03/2023 Sex and [...] Office Visit Department of Orthopedic Surgery in [address] [phone] Familia Patiño M.D. [address] [place] [phone] Discharge Disposition: Home or Self Care Scheduled Referrals Name Type Priority Associated Diagnoses Order Schedule [facility] Otorhinolaryngology - General consult (clinic) Outpatient Referral Routine Dysfunction Eustachian Tube Right Expected: 01/10/2024 (Approximate), Expires: 04/09/2025 documented as of this encounter Visit Diagnoses Diagnosis Dysfunction Eustachian Tube Right- Primary documented in this encounter Additional Health Concerns Assessment Noted Time PHQ-9 Depression Total Score: 12 023 1:03 PM CDT documented as of this encounter Care Teams Orthopedic Mechanic Relationship Specialty Start Date End Date Shaylee Santa P.A.-C. [address] [place] [phone] PCP - General Internal Medicine 01/23/24 documented as of this encounter
--- OUTSIDE RECORDS SUMMARY | 2024-03-30 05:26 | XMS_ITS | Encounter Summary ---
Author Name Unknown Organization [facility] Address [address] [place] [address] Care Team Providers Care Boiler Mechanic Name Role Phone Elvie Shaw M.D. Primary Care Provider [phone] Encounter Details Date Type Department Care Team (Late st Contact Info) Description 12/03/2023 Clinical Communication Department of Neurology in [address] [phone] Prince Cota M.D. [address] [place] [address] Social History Tobacco Use Types Packs/Day Years Used Date Smoking Tobacco: Former Cigarettes 1 57 0 [birth year]/28/1964 - 09/19/2020 Passive Smoke Exposure: Never Smokeless Tobacco: Never Alcohol Use Standard Drinks/Week Comments Yes 0 (1 standard drink = 0.6 oz pure alcohol) I might have 2-3 drinks per year [facility] Utilities Answer Date Recorded In the past 12 months has [facility] [employer], gas, oil, or water [employer] threatened to shut off services in your [...] your living situation today? I have a [facility] place to live 12/03/2023 Sex and Gender Information Value Date Recorded Sex Assigned at Female 04/11/2023 12:22 PM CDT Gender Identity Female 04/11/2023 12:22 PM CDT Sexual Orientation Straight 04/11/2023 12 :22 PM CDT documented as of this encounter Miscellaneous Notes * Telephone Encounter - Cleo Forrester L.P.N. - 12/18/2023 11:01 AM EQUIPMENT RECORDS SUPERVISOR Talked with patient and gave her your message. She is wondering if there is something in the officethat she goes to, that she is allergic to, as it happens after she goes for [facility]. She will monitor that herself. She also wants you to know that [facility] just let her know that they are unable to accommodate her for therapy. She will do some checking and find out where she can go for the therapy you ordered for her back in September and let us know what she finds. PMENT RECORDS SUPERVISOR documented in this encounter Plan of Treatment Upcoming Encounters Date Type Department Care Team (Late st Contact Info) Description 05/26/2024 1:45 PM CDT Office Visit Department of Orthopedic Surgery in [address] [phone] Familia Patiño M.D. [address] [place] [phone] Discharge Disposition: Home or Self Care documented as of this encounter Visit Diagnoses Not on filedocumented in this encounter Additional Health Concerns Assessment Noted Time PHQ-9 Depression Total Score: 12 023 1:03 PM CDT documented as of this encounter Care Teams Boiler Mechanic Relationship Specialty Start Date End Date Elvie Shaw M.D. [address] [place] [phone] PCP - General Family Medicine 08/20/23 01/22/24 documented as of this encounter
--- OUTSIDE RECORDS SUMMARY | 2024-03-30 05:26 | XMS_ITS | Encounter Summary ---
Author Name Unknown Organization [facility] Address [address] [place] [id number] Care Team Providers Care Nuclear Fuels Research Engineer Name Role Phone Shaylee Santa P.A.-C. Primary Care Provider Reason for Visit * Reason Comments Other Discuss chronic cond ition; pulled a muscle around the left knee 2 weeks ago and it is not getting better, keeping her awake at night, painful. Weight loss medication? Skin and mouth is dry and cannot hydrate, picc line has been removed; still have fluid in Right ear * Appointment Request (Routine) - Closed Specialty Diagnoses / Procedures Referred By Collin noble Referred To Contact [facility] Referral ID Status Reason Start Date Expiration Date Visits Re quested Visits Authorized [id number] Closed 01/23/2024 01/22/2025 1 1 Encounter Details Date Type Department Care Team (Late st Contact Info) Description 01/29/2024 1:40 PM SIGNAL TOWER OPERATOR Office Visit Department of Community Internal Medicine in [place], [place] [address] [place] [phone] Shaylee Santa P.A.-C. [address] [place] [phone] Coronary Artery Disease Without Angina Pectoris (Primary Dx); Hyperlipidemia Mixed; Hypertensive Chronic Kidney Disease (CKD) Stage 3b Glomerular Filtration Rate (GFR) 30 To 44 (HCC); Apnea Sleep Obstructive; Gastroesophageal Reflux Disease Without Esophagitis; Osteopenia; Ileostomy Status ([facility]); Morbid Obesity Body Mass Index 45.0-49.9 Adult (HCC); Adjustment Disorder With Depressed Mood; Bipolar II Disorder (HCC); Posttraumatic Stress Disorder Prolonged Social History Tobacco Use Types Packs/Day Years Used Date Smoking Tobacco: Former Cigarettes 1 57 0 05/28/1964 - 09/19/2020 Passive Smoke Exposure: Never Smokeless Tobacco: Never Tobacco Cessation:Counseling Given: Not Answered Alcohol Use Standard Drinks/Week Comments Yes 0 (1 standard drink = 0.6 oz pure alcohol) I might have 2-3 drinks per year [facility] Utilities Answer Date Recorded In the past 12 months has [facility] [address], oil, or water [employer] threatened to shut off services in your [...] your living situation today? I have a [facility] place to live 12/03/2023 Sex and Gender Information Value Date Recorded Sex Assigned at Female 04/11/2023 12:22 PM CDT Gender Identity Female 04/11/2023 12:22 PM CDT Sexual Orientation Straight 04/11/2023 12 :22 PM CDT documented as of this encounter Last Filed Vital Signs Vital Sign Reading Time Taken Comments Blood Pressure 117/67 01/29/2024 1:37 PM SIGNAL TOWER OPERATOR Pulse 64 01/29/2024 1:37 PM SIGNAL TOWER OPERATOR Temperature 35.8 ??C (96.4 ??F) 01/29/2024 1:37 PM CS T Respiratory Rate 16 01/29/2024 1:37 PM SIGNAL TOWER OPERATOR Oxygen Saturation - - Inhaled Oxygen Concentration - - Weight 122 kg (269 lb 6.4 oz) 01/29/2024 1:37 PM SIGNAL TOWER OPERATOR Height 160 cm (5' 2.99) 01/29/2024 1:37 PM SIGNAL TOWER OPERATOR Body Mass Index 47.73 01/29/2024 1:37 PM SIGNAL TOWER OPERATOR documented in this encounter Progress Notes * Shaylee Santa P.A.-C. - 01/29/2024 1:40 PM CST SUBJECTIVE CHIEF COMPLAINT/REASON FOR VISIT Chief Complaint Patient presents with Other Discuss chronic condition; pulled a muscle around the left knee 2 weeks ago and it is not getting better, keeping her awake at night, painful. Weight loss medication? Skin and mouth is dry and cannothydrate, picc line has been removed; still have fluid in Right ear HISTORY OF PRESENT ILLNESS Dilan Akers is a pleasant 68 y.o. female who presents to the clinic today to establish care. She follows with [facility] for Cardiovascular care. She has a history of severe coronary artery disease with chronic right coronary artery total occlusion. She previously followed with a [facility] in [place]. She takes daily aspirin, long acting nitrate, and beta aaron. She moved to [place] about 1.5 years ago. She has an upcoming Cardiac CT scan at the end of the month. She takes amlodipine for hypertension. She takes Zetia for hyperlipidemia management. She has chronic kidney disease which is followed by Dr. Romero in [place]. She recently had bacteremia secondary to PICC line infection. She has completed two weeks of antibiotics. She had a hemicolectomy with ostomy bag placement in 2019 due to recurrent episodes of diverticulitis per patient report. She has KARLOS for which she has been wearing a CPAP since 1992. Her psychiatric medications are managed by a provider in [place]. She sees a therapist virtuallyonce weekly. She takes Abilify 10 mg daily. She feels bipolar is stabilized. She lives alone in a long term community in [place]. He does not drive. She uses a ride serviceto get to appointments or family. She follows with physical therapy at her living facility. She would like to discuss weight gain. She reports gaining 60 lbs in the past 10 months. She attributes this to amlodipine. She feels she eats a healthy diet. She had a consult with Endocrinology in Sep 2023 and was prescribed Ozempic but this was not covered by her insurance. The following portions of the patient's history [...] Artery Disease Without Angina Pectoris Ileostomy Status (HCC) Morbid Obesity Body Mass Index 45.0-49.9 Adult (HCC) Primary Osteoarthritis Hip Left Dehydration Hypertensive Chronic [...] Other (see comments) Sertraline Other (see comments) Rrpiutc-Lkh-Guc Reductase Inhibitors Other (see comments) and Myalgia Muscle damage Muscle damage Muscle pain Sulfa (Sulfonamide Antibiotics) Hives (Reselect Reaction) and Nausea And Vomiting Hives and vomiting Vomiting Tolmetin Other (see comments) Acetaminophen Other (see comments) and Nausea Only Famotidine GI intolerance Ibuprofen Nausea And Vomiting and Nausea Only Metoclopramide GI intolerance CURRENT MEDICATIONS Current Outpatient Medications: amLODIPine (NORVASC) 10 mg tablet, Take 10 mg by mouth., Disp: , Rfl: ARIPiprazole (Abilify) 10 mg tablet, Take 10 mg by mouth., Disp: , Rfl: aspirin 81 mg capsule, Take 81 mg [...] by vaginal route., Disp: , Rfl: ruben mqpg-itzwxurw-vdpgthdoj ac ([place] [employer]) 1,000 mg capsule, Take by mouth., [...] mg by mouth daily., Disp: , Rfl: gxxfsafexknq-hplehwyf-eklkrl (Multivitamin 50 Plus) tablet, Take 1 tablet [...] mL as directed once., Disp: , Rfl: OBJECTIVE VITAL SIGNS Vitals: 01/29/24 1337 BP: 117/67 Pulse: 64 Resp: 16 Temp: (!) 35.8 ??C PHYSICAL EXAMINATION General: Well-nourished, well-developed 68 y.o. in no apparent distress. Awake, alert, age appropriate. HEENT: Head is normocephalic, atraumatic. Conjunctivae and sclerae are clear. Cardiovascular: Regular rate and rhythm without murmurs. Lungs: Clear to auscultation bilaterally with no adventitious sounds Skin: Warm, pink, and dry. Neurologic: Alert and oriented x3. ASSESSMENT / PLAN IMPRESSION/REPORT/PLAN: #1 Coronary Artery Disease Without Angina Pectoris She follows with [facility] for severe CAD. She will continue with Imdur 15 mg daily, metoprolol succinate 50 mg daily, and aspirin 81 mg daily. Most recent clinic note available in Care Everywhere (Oct 2023). #2 Hyperlipidemia Mixed She is prescribed Zetia 10 mg daily and will continue with this. #3 Hypertensive Chronic Kidney Disease (CKD) Stage 4 (HCC) She is worried that amlodipine may be contributing to weight gain. In review of medication side effects, weight gain can be a side effect of amlodipine although not common. She would like to try a different agent for blood pressure. She was able to show me her recent BUN/Cr labs completed at [place] in Dec 2023. Cr 2.3 and GFR 23. She follows with Dr. Romero. Considered chlorthalidone but she has needed IV fluids through PICC line in the past for dehydration. Discussed blood pressure regimen with Dr. Romero. Recommend no changes at this time. #4 Apnea Sleep Obstructive She will continue with her CPAP and is compliant with this. #5 Gastroesophageal Reflux Disease Without Esophagitis She will continue with lansoprazole 30 mg before breakfast. #6 Osteopenia Bone density scan completed October 2023 with evidence of osteopenia. She will continue with calcium and vitamin-D supplementation. #7 Ileostomy Status (HCC) She required a small-bowel resection due to severe diverticulitis with ileostomy in 2018 #8 Morbid Obesity Body Mass Index 45.0-49.9 Adult (HCC) She was unable to afford GLP-1 agonist as recommended at Endocrinology consult Sep 2023. She will continue to work on weight loss through lifestyle interventions. #9 Adjustment Disorder With Depressed Mood #10 Bipolar II Disorder ([facility]) #11 Posttraumatic Stress Disorder Prolonged Psychiatric care is managed by provider in [place]. Patient takes Abilify 10 mg daily. If symptoms worsen or do not improve, patient is instructed to seek further medical attention. All questions have been answered. Patient demonstrated understanding and verbalized agreement with the plan. Shaylee Santa P.A.-C. AL TOWER OPERATOR documented in this encounter Plan of Treatment Upcoming Encounters Date Type Department Care Team (Late st Contact Info) Description 05/26/2024 1:45 PM CDT Office Visit Department of Orthopedic Surgery in [address] [phone] Familia Patiño M.D. [address] [place] [phone] Discharge Disposition: Home or Self Care documented as of this encounter Visit Diagnoses Diagnosis Coronary Artery Disease Without Angina Pectoris- Primary Hyperlipidemia Mixed Hypertensive Chronic Kidney Disease (CKD) Stage 3b Glomerular Filtration Rate (GFR) 30 To 44 Apnea Sleep Obstructive Gastroesophageal Reflux Disease Without Esophagitis Osteopenia Ileostomy Status (HCC) Morbid Obesity Body Mass Index 45.0-49.9 Adult (HCC) Adjustment Disorder With Depressed Mood Bipolar II Disorder (HCC) Posttraumatic Stress Disorder Prolonged documented in this encounter Additional Health Concerns Assessment Noted Time PHQ-9 Depression Total Score: 12 023 1:03 PM CDT documented as of this encounter Care Teams Nuclear Fuels Research Engineer Relationship Specialty Start Date End Date Shaylee Santa P.A.-C. [address] [facility] [address] [place] [phone] PCP - General Internal Medicine 01/23/24 documented as of this encounter
--- OUTSIDE RECORDS SUMMARY | 2024-03-30 05:26 | XMS_ITS | Encounter Summary ---
Author Name Unknown Organization [facility] Address [address] [place] [phone] Care Team Providers Care Fashion Supervisor Name Role Phone Elvie Shaw M.D. Primary Care Provider [phone] Encounter Details Date Type Department Care Team (Late st Contact Info) Description 01/08/2024 Documentation Division of Nephrology and Hypertension in [place], [place] [address] [place] [phone] Jitendra Romero Jr., D.O. [address] [place] [phone] Social History Tobacco Use Types Packs/Day Years Used Date Smoking Tobacco: Former Cigarettes 1 57 0 05/28/1964 - 09/19/2020 Passive Smoke Exposure: Never Smokeless Tobacco: Never Alcohol Use Standard Drinks/Week Comments Yes 0 (1 standard drink = 0.6 oz pure alcohol) I might have 2-3 drinks per year [facility] Utilities Answer Date Recorded In the past 12 months has [facility] [employer], gas, oil, or water [email or web address] threatened to shut off services in your [...] living situation today? I have a [facility] place to live 12/03/2023 Sex and Gender Information Value Date Recorded Sex Assigned at Female 04/11/2023 12:22 PM CDT Gender Identity Female 04/11/2023 12:22 PM CDT Sexual Orientation Straight 04/11/2023 12 :22 PM CDT documented as of this encounter Progress Notes * Jitendra Romero Jr., D.O. - 01/08/2024 12:18 PM CST Urgent care communication: Received e-mail today of preliminary blood culture results drawn from her PICC line, which show positive cultures for Gram-positive cocci and Gram-negative bacilli. Her sed rate is elevated at 53 mm per hr I contacted the patient immediately, and let her know we need to have the line removed. She is multiple medical sensitivities she has tolerated ciprofloxacin in the past. She has not had Levaquin in the past. I have been in communication with our [facility] colleagues, they are going to orchestrate the catheter to be removed immediately. The patient agrees and we will proceed to the hospital to the infusion center to have the catheter removed. I have also followed up and as of this note dictation they are in process of removing the catheter.She will initiate Levaquin 500 mg orally daily for the next 14 days, she is currently free of symptoms. She did have some shaking chills yesterday evening. We need to be quite conscious that this infected line may have been problematic for quite some timeand that the risk of endocarditis or metastatic infection exists. My communication with the patient are she would be reaching out to me on a weekly basis to inform me of her progress. Impression 1. Bacteremia secondary to line infection TECHNICIAN documented in this encounter Plan of Treatment Upcoming Encounters Date Type Department Care Team (Late st Contact Info) Description 05/26/2024 1:45 PM CDT Office Visit Department of Orthopedic Surgery in [address] [phone] Familia Patiño M.D. [address] [place] [phone] Discharge Disposition: Home or Self Care documented as of this encounter Visit Diagnoses Not on filedocumented in this encounter Additional Health Concerns Assessment Noted Time PHQ-9 Depression Total Score: 12 023 1:03 PM CDT documented as of this encounter Care Teams Fashion Supervisor Relationship Specialty Start Date End Date Elvie Shaw M.D. [address] [phone] PCP - General Family Medicine 08/20/23 01/22/24 documented as of this encounter
--- OUTSIDE RECORDS SUMMARY | 2024-03-30 05:26 | XMS_ITS | Encounter Summary ---
Author Name Unknown Organization [facility] Address [address] [place] [id number] Care Team Providers Care Orthopedic Cast Specialist Name Role Phone Elvie Shaw M.D. Primary Care Provider +1- [phone] Reason for Referral * Outpatient (Routine) - Closed Specialty Diagnoses / Procedures Referred By Collin noble Referred To Contact Orthopedic Surgery Diagnoses Pain Hip Right Elvie Shaw M.D. [address] [place] [phone] [facility] Region Referral ID Status Reason Start Date Expiration Date Visits Re quested Visits Authorized [id number] Closed 01/01/2024 07/02/2025 1 1 Scheduling Instructions Ortho internal referral panel order, imaging before Consult visit N RESOURCES SUPERVISOR Reason for Visit * Reason Comments FUO 6 wks duration Fevers occur only on Fridays which is the day that she gets her PICC dressing changed at the cancer center. Temp is typically around 101-103 while having the intense shaking. No h/o sz d/o. States she's very sensitive to meds and wonders if she's walking through a cloud. Didn't happen this Saturday however, cancer ctr was empty. No blood work, no CXR, PICC site clean. UC negative 12/12/23. Appetite good, weight stable. Noting no swollen glands. Throat sore due to sleep apnea, very dry lately. bilateral ears plugged Decreased hearing in both ears. Wants them checked for wax. Told by Bhumi Elizabeth said that both were full of wax but didn't offer irrigation. Nephrology q6mo Sees Dr. Romero at the [facility] and has visit scheduled for Saturday. Used to get monthly B12 injections while living in [place]. Has not been getting and wonders if it just got missed or if she's not getting that because it's hard on her kidneys. Is hoping she can get a B12 cascade today so that it's available for Nephrology to review at her appt Saturday. Bone Density results Encounter Details Date Type Department Care Team (Latest Contact Info) Description 01/01/2024 1:00 PM HUMAN RESOURCES SUPERVISOR Comprehensive Visit Department of Family Medicine, [facility], in [address] [phone] Elvie Shaw M.D. [address] [place] [phone] Fever Of Unknown Origin (Primary Dx); Dysfunction Eustachian Tube Right; Pain Hip Right; Morbid Obesity Body Mass Index 45.0-49.9 Adult (HCC) Discharge Disposition: Home or Self Care Social History Tobacco Use Types Packs/Day Years Used Date Smoking Tobacco: Former Cigarettes 1 57 0 05/28/1964 - 09/19/2020 Passive Smoke Exposure: Never Smokeless Tobacco: Never Alcohol Use Standard Drinks/Week Comments Yes 0 (1 standard drink = 0.6 oz pure alcohol) I might have 2-3 drinks per year [facility] Utilities Answer Date Recorded In the past 12 months has [employer], or water [employer] threatened to shut off services in your [...] your living situation today? I have a [facility] place to live 12/03/2023 Sex and Gender Information Value Date Recorded Sex Assigned at Female 04/11/2023 12:22 PM CDT Gender Identity Female 04/11/2023 12:22 PM CDT Sexual Orientation Straight 04/11/2023 12 :22 PM CDT documented as of this encounter Last Filed Vital Signs Vital Sign Reading Time Taken Comments Blood Pressure 125/73 01/01/2024 12:51 PM HUMAN RESOURCES SUPERVISOR Pulse 68 01/01/2024 12:51 PM HUMAN RESOURCES SUPERVISOR Temperature 36.3 ??C (97.3 ??F) 01/01/2024 12:[address] Respiratory Rate - - Oxygen Saturation 99% 01/01/2024 12:51 PM HUMAN RESOURCES SUPERVISOR Inhaled Oxygen Concentration - - Weight 119 kg (262 lb 5.6 oz) 01/01/2024 12:51 P M HUMAN RESOURCES SUPERVISOR Height - - Body Mass Index 45.57 12/03/2023 3:41 PM HUMAN RESOURCES SUPERVISOR documented in this encounter Patient Instructions * Patient Instructions* Elvie Shaw M.D. - 01/01/2024 1:00 PM HUMAN RESOURCES SUPERVISOR Images from the original note were not included. Patient Education Dietary Bladder Irritants Experimenting with dietary irritants In addition to nicotine, alcohol and caffeine, people report that some foods, beverages and supplements cause their overactive bladder symptoms. To help you identify items that may irritate your bladder: For three days, avoid all of the items listed in the following sections. (If you consume a high quantity of caffeine, eliminate it slowly over several weeks, as strong headaches may result if it is done too quickly.) Then reintroduce one item about every two days in varying quantities, noting any return of symptoms. Symptoms usually occur within 30 to 60 minutes of consuming an item. As you reintroduce items, follow the recommended fluid intake guidelines given by your health care provider. If you can identify items that cause your overactive bladder symptoms, you can eliminate those items from your diet or limit their intake to better control your symptoms. For example, eating a smaller quantity of an irritant may cause you fewer problems. Also, rather than completely eliminating an irritant that you really enjoy, you may choose to eat or drink that item when you can remain near a bathroom. Most common dietary irritants The ???4 Cs?? is a helpful way to remember these. Caffeine Coffee and tea, with or without caffeine (You may drink herbal tea that does not contain citrus.) Chocolate Medications containing caffeine, including some pain relievers, cold medications and supplements (Check product labels.) [place] fruits and their juices Grapefruits Oranges Limes Yajaira Kiwi Tangerines Carbonated beverages, with or without caffeine, including sparkling mineral water Vitamin C supplements Other dietary irritants Alcoholic beverages [place] peppers These fruits and their juices: Apples Grapes Guava Melons (all types) Nectarines Peaches Pineapple Plums Strawberries Large doses of vitamin B Onions Products containing aspartame (NutraSweet???) or saccharin Products containing vinegar Spicy foods Tomatoes and tomato-based foods This material is for your education and information only. This content does not replace medical advice, diagnosis or treatment. New medical research may change this information. If you have questionsabout a medical condition, always talk with your health care provider. ?? 2007 [facility] [employer] ([facility]). All rights reserved. [id number] N RESOURCES SUPERVISOR documented in this encounter Progress Notes * Elvie Shaw M.D. - 01/01/2024 1:00 PM CST SUBJECTIVE REASON FOR VISIT FUO 6 wks duration (Fevers occur only on Fridays which is the day that she gets her PICC dressing changed at the cancer center. Temp is typically around 101-103 while having the intense shaking. No h/o sz d/o. States she's very sensitive to meds and wonders if she's walking through a cloud. Didn't happen this Saturday however, cancer ctr was empty. No blood work, no CXR, PICC site clean. UC negati ve 12/12/23. Appetite good, weight stable. Noting no swollen glands. Throat sore due to sleep apnea,very dry lately. ), bilateral ears plugged (Decreased hearing in both ears. Wants them checked for wax. Told by Bhumi Elizabeth said that both were full of wax but didn't offer irrigation. ), Nephrology q6mo (Sees Dr. Romero at the [facility] and has visit scheduled for Saturday. Used to get monthly B12 injections while living in [place]. Has not been getting and wonders if it just got missed or if she's not getting that because it's hard on her kidneys. Is hoping she can get a B12 cascade today so that it's available for Nephrology to review at her appt Saturday. ), and Bone Density results HISTORY OF PRESENT ILLNESS Dilan Akers is a 68 y.o. female patient who presents to the clinic today for above concern. Fevers started in early October. Fevers only on Fridays when she gets her PICC dressings changed, however did not have symptoms this past Saturday. She wonders if she is allergic to something in the infusion center, because there was nobody there on the day that she did not have symptoms. Gets shakes and chills. Checks her temperature under the tongue. Temps ranging 101-103. Lasts 3-4 hours. When she is not febrile, she feels she is at her baseline state of health. Mouth feels dry. Drinks a lot of water. Using gum to stimulate saliva production. No respiratory symptoms, cough. PICC site has looked good, no redness. No current dysuria or frequency. OBJECTIVE VITAL SIGNS Vitals reviewed as below: BP 125/73 Pulse 68 Temp 36.3 ??C Wt 119 kg SpO2 99% BMI 45.57 kg/m?? PHYSICAL EXAMINATION Vitals reviewed. Constitutional General: She is not in acute distress. HENT Mouth/Throat: Mouth: Mucous membranes are moist. Cardiovascular Rate and Rhythm: Normal rate and regular rhythm. Pulmonary Effort: Pulmonary effort is normal. Breath sounds: Normal breath sounds. No wheezing, rhonchi or rales. Musculoskeletal Cervical back: Neck supple. Right lower leg: No edema. Left lower leg: No edema. Lymphadenopathy Cervical: No cervical adenopathy. Skin General: Skin is warm and dry. Comments: PICC line site is without erythema. Neurological Mental Status: She is alert. Mental status is at baseline. ASSESSMENT / PLAN #1 Fever Of Unknown Origin Patient meets criteria for fever of unknown origin, with weekly fevers of 101- 103 for the past 2 months. Her fevers only occur on Fridays when she receives dressing changes for her PICC line at the cancer center in [place]. She wonders if she is having an adverse reaction to something at the cancer center. While I suppose this is possible, it would be difficult to prove; she can wear a mask and practice good hand washing as a precaution. She otherwise feels well without any localizing symptoms. She continues to have the PICC line in place. Though I do not suspect a PICC line infection as the cause of her fevers currently, I do still think we should continue to work towards removal. Thankf trell, she has been reducing the number of infusions over time, with approximately three over the past month. She plans to discuss this further at her upcoming Nephrology appointment. - Labs today to include CBC, CMP, CRP, TSH. She is also due for vitamin B12 testing for history of deficiency. Recent urine testing was unremarkable, so will not repeat. #2 Dysfunction Eustachian Tube Right Fluticasone nasal spray daily until symptoms resolve. She is reassured that there is no cerumen impaction. #3 Pain Hip Right Patient has ongoing right hip pain, which limits her mobility. She has had prior imaging and Orthopedics evaluation through [facility] and while living in [place]. 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 Will refer to Orthopedics for reassessment. #4 Morbid Obesity Body Mass Index 45.0-49.9 Adult (HCC) She is working on dietary improvements, but continues to struggle with weight loss. She was previously evaluated by Endocrinology and it was suggested that she could try a GLP-1 agonist. She is stillunsure if this is something that she would like to pursue. Elvie Shaw M.D. N RESOURCES SUPERVISOR documented in this encounter Plan of Treatment Upcoming Encounters Date Type Department Care Team (Late st Contact Info) Description 05/26/2024 1:45 PM CDT Office Visit Department of Orthopedic Surgery in [address] [phone] Familia Patiño M.D. [address] [place] [phone] Discharge Disposition: Home or Self Care Scheduled Referrals Name Type Priority Associated Diagnoses Order Schedule Orthopedic Surgery - Hip non surgical consult (clinic) Outpatient Referral Routine Pain Hip Right Expected: 01/01/2024 (Approximate), Expires: 03/31/2025 documented as of this encounter Visit Diagnoses Diagnosis Fever Of Unknown Origin- Primary Dysfunction Eustachian Tube Right Pain Hip Right Morbid Obesity Body Mass Index 45.0-49.9 Adult (HCC) documented in this encounter Additional Health Concerns Assessment Noted Time PHQ-9 Depression Total Score: 12 023 1:03 PM CDT documented as of this encounter Care Teams Orthopedic Cast Specialist Relationship Specialty Start Date End Date Elvie Shaw M.D. [id number] [place] [phone] PCP - General Family Medicine 08/20/23 01/22/24 documented as of this encounter
--- OUTSIDE RECORDS SUMMARY | 2024-03-30 05:26 | XMS_ITS | Encounter Summary ---
Author Name Unknown Organization [facility] Address [address] [place] [phone] Care Team Providers Care Ginning Operator Name Role Phone Elvie Shaw M.D. Primary Care Provider +1- [phone] Encounter Details Date Type Department Care Team (Late st Contact Info) Description 12/30/2023 Clinical Communication Department of Family Medicine, [facility], in [address] [phone] Elvie Shaw M.D. [address] [place] [phone] Social History Tobacco Use Types Packs/Day Years Used Date Smoking Tobacco: Former Cigarettes 1 57 0 05/28/1964 - 09/19/2020 Passive Smoke Exposure: Never Smokeless Tobacco: Never Alcohol Use Standard Drinks/Week Comments Yes 0 (1 standard drink = 0.6 oz pure alcohol) I might have 2-3 drinks per year [facility] Utilities Answer Date Recorded In the past 12 months has [facility] [employer] electric, gas, oil, or water company threatened to [...] your living situation today? I have a [facility] place to live 12/03/2023 Sex and [...] Office Visit Department of Orthopedic Surgery in [address] [phone] Familia Patiño M.D. [address] [place] [phone] Discharge Disposition: Home or Self Care documented as of this encounter Visit Diagnoses Not on filedocumented in this encounter Additional Health Concerns Assessment Noted Time PHQ-9 Depression Total Score: 12 09/09/ 023 1:03 PM CDT documented as of this encounter Care Teams Ginning Operator Relationship Specialty Start Date End Date Elvie Shaw M.D. [address] [place] [phone] PCP - General Family Medicine 08/20/23 01/22/24 documented as of this encounter
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
--- OUTSIDE RECORDS SUMMARY | 2024-03-30 05:26 | XMS_ITS | Encounter Summary ---
Author Name Unknown Organization [facility] Address [address] [place] [id number] Care Team Providers Care Family Day Care Provider Name Role Phone Shaylee Santa P.A.-C. Primary Care Provider Reason for Visit * Appointment Request (Routine) - Closed Specialty Diagnoses / Procedures Referred By Collin noble Referred To Contact Nephrology and Hypertension Referral ID Status Reason Start Date Expiration Date Visits Re quested Visits Authorized [id number] Closed 01/23/2024 01/22/2025 1 1 Encounter Details Date Type Department Care Team (Latest Contact Info) Description 02/17/2024 12:00 PM CDT External Outreach Division of Nephrology and Hypertension in [place], [place] [address] [place] [phone] Jitendra Romero Jr., D.O. [address] [place] [phone] Chronic Kidney Disease (CKD), Stage 3b Glomerular Filtration Rate (GFR) 30 To 44 (HCC) (Primary Dx); Hypertensive Chronic Kidney Disease (CKD) Stage 3b Glomerular Filtration Rate (GFR) 30 To 44 (HCC); Hyperparathyroidism Renal Secondary (HCC); Anemia Of Chronic Disease; Chronic Obstructive Pulmonary Disease (HCC); Apnea Sleep Obstructive; Ileostomy Status (HCC); Stone Kidney Personal History Social History Tobacco Use Types Packs/Day Years Used Date Smoking Tobacco: Former Cigarettes 1 57 0 05/28/1964 - 09/19/2020 Passive Smoke Exposure: Never Smokeless Tobacco: Never Alcohol Use Standard Drinks/Week Comments Yes 0 (1 standard drink = 0.6 oz pure alcohol) I might have 2-3 drinks per year [facility] Utilities Answer Date Recorded In the past [...] your living situation today? I have a [facility] place to live 12/03/2023 Sex and Gender Information Value Date Recorded Sex Assigned at Female 04/11/2023 12:22 PM CDT Gender Identity Female 04/11/2023 12:22 PM CDT Sexual Orientation Straight 04/11/2023 12 :22 PM CDT documented as of this encounter Last Filed Vital Signs Vital Sign Reading Time Taken Comments Blood Pressure 104/58 02/17/2024 12:06 PM CDT Pulse 68 02/17/2024 12:06 PM CDT Temperature - - Respiratory Rate - - Oxygen Saturation - - Inhaled Oxygen Concentration - - Weight 121 kg (267 lb 3.2 oz) 02/17/2024 12:06 P M CDT Height 160 cm (5' 2.99) 02/17/2024 12:06 PM CDT Body Mass Index 47.34 02/17/2024 12:06 PM CDT documented in this encounter Progress Notes * Jitendra Romero Jr., D.O. - 02/17/2024 12:00 PM CDT Referring Provider: Shaylee Santa P.A.-C. SUBJECTIVE REASON FOR VISIT [place] [facility] Follow-up regards CKD stage IIIB HISTORY OF PRESENT ILLNESS Ms. Akers is a 68 y.o. female who presents with a background history of CKD stage IIIB on the background of previous episodes of ATN, and decreased effective circulating volume, along with cardiorenal syndrome. At our last visit, she discussed her 2-3 month duration episodes of cyclic fevers. She is found to have bacteremia, which was related to her PICC line. This was removed and she received a month of antibiotics. She is now free of fevers chills and her energy although still poor, has improved. I note that home blood pressure levels can often be in the 90s and 100s, with a pulse in the 60s. She is on 50 mg of metoprolol, 10 mg of Norvasc, and 15 mg of Imdur. We discussed the potentially shehas a bit hypotensive. 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 She is working with the [facility] team in Cardiology. She was requested to go do a nuclear stress test to assess viability, but canceled this on the background of her poor vascular access situa tion. As we discussed her situation today it is clear that she has several excellent target veins on her right lower arm, and we discussed it would be optimal if she could get the imaging studies such that her treatment plan could be solidified. She will proceed with this. Due to an oversight, she did not have a renal function testing done prior to this visit. She is labs scheduled for March at the [facility] site. Her breathing has been improved recently, she has had no episodes of chest pain, she still has highoutput from her ostomy. Past Medical History: Diagnosis Date Dependence Polysubstance [...] quit 2020. Current Outpatient Medications: amLODIPine (NORVASC) 5 mg tablet, Take 1 tablet (5 mg total) by mouth daily., Disp: 90 tablet, Rfl:3 ARIPiprazole (Abilify) 10 mg tablet, Take 10 [...] by vaginal route., Disp: , Rfl: ruben dmtg-jlyfofxa-ylpsgpdkl ac ([place] Oil) 1,000 mg capsule, Take by mouth., [...] mg by mouth daily., Disp: , Rfl: psnstopssrfa-msnbiodc-xmlbxh (Multivitamin 50 Plus) tablet, Take 1 tablet [...] systems reviewed and are negative. OBJECTIVE BP 104/58 Pulse 68 Ht 160 cm Wt 121 kg BMI 47.34 kg/m?? PHYSICAL EXAMINATION General: Awake alert oriented [...] lesions identified Psychiatric: Normal affect DIAGNOSTICS Note normal CBC, labs drawn today including a renal panel, blood cultures, CRP levels are pending ASSESSMENT / PLAN #1 Chronic Kidney Disease (CKD), Stage 3b Glomerular Filtration Rate (GFR) 30 To 44 ([facility]) This is on the background of multifactorial issues, as discussed above, including previous episodesof ATN. Going forward: 1. Check renal function testing today 2. I would hold off on replacing the PICC line for now. 3. We will ensure that she still is not bacteremic, which would possibly lead us towards metastaticinfection including endocarditis. 4. No NSAIDs or Sage 2 inhibitors 5. I have encouraged her to continue stay well hydrated orally 6. I will see her back in 2 months. #2 Hypertensive Chronic Kidney Disease (CKD) Stage 3b Glomerular Filtration Rate (GFR) 30 To 44 ([facility]) Goal blood pressures have been met if not exceeded, going to cut back her amlodipine to 5 mg orallydaily. #3 Hyperparathyroidism Renal Secondary ([facility]) We will continue to monitor PTH calcium phosphorus. #4 Anemia Of Chronic Disease Her hemoglobin is 12 and I congratulated. #5 Chronic Obstructive Pulmonary Disease (HCC) No change in sputum, seems compensated. #6 Apnea Sleep Obstructive Compensated at this point. #7 Ileostomy Status (HCC) I am not certain she requires replacement of her PICC line for fluids, she seems to be doing well without them, the renal function testing above we will help quite a bit. #8 Stone Kidney Personal History Metabolically and surgically inactive Total time: 40 minutes Counseling Time: 30 minutes Jitendra Romero Jr., D.O. documented in this encounter Plan of Treatment Upcoming Encounters Date Type Department Care Team (Late st Contact Info) Description 05/26/2024 1:45 PM CDT Office Visit Department of Orthopedic Surgery in [address] [phone] Familia Patiño M.D. [address] [place] [phone] Discharge Disposition: Home or Self Care documented as of this encounter Visit Diagnoses Diagnosis Chronic Kidney Disease (CKD), Stage 3b Glomerular Filtration Rate (GFR) 30 To 44 (HCC)- Primary Hypertensive Chronic Kidney Disease (CKD) Stage 3b Glomerular Filtration Rate (GFR) 30 To 44 Hyperparathyroidism Renal Secondary (HCC) Anemia Of Chronic Disease Chronic Obstructive Pulmonary Disease (HCC) Apnea Sleep Obstructive Ileostomy Status (HCC) Stone Kidney Personal History documented in this encounter Additional Health Concerns Assessment Noted Time PHQ-9 Depression Total Score: 12 023 1:03 PM CDT documented as of this encounter Care Teams Family Day Care Provider Relationship Specialty Start Date End Date Shaylee Santa P.A.-C. [address] [place] [phone] PCP - General Internal Medicine 01/23/24 documented as of this encounter
--- OUTSIDE RECORDS SUMMARY | 2024-03-30 05:26 | XMS_ITS | Encounter Summary ---
Author Name Unknown Organization [facility] Address [address] [place] [address] Care Team Providers Care Regional Intermodal Truck Driver Name Role Phone Elvie Shaw M.D. Primary Care Provider +1- [phone] Reason for Referral * Medication Prior Authorization - Closed Specialty Diagnoses / Procedures Referred By Collin t Referred To Contact Elvie Shaw M.D. [address] [place] [phone] Referral ID Status Reason Start Date Expiration Date Visits Re quested Visits Authorized [id number] Closed 1 1 PICKER Reason for Visit * Reason Onset Date Comments Vit D Prior Auth 01/13/2024 Encounter Details Date Type Department Care Team (Latest Contact Info) Description 01/13/2024 Clinical Communication Department of Family Medicine, [facility], in [address] [phone] Elvie Shaw M.D. [address] [place] [phone] Vit D Prior Auth Social History Tobacco Use Types Packs/Day Years Used Date Smoking Tobacco: Former Cigarettes 1 57 0 05/28/1964 - 09/19/2020 Passive Smoke Exposure: Never Smokeless Tobacco: Never Alcohol Use Standard Drinks/Week Comments Yes 0 (1 standard drink = 0.6 oz pure alcohol) I might have 2-3 drinks per year [facility] Utilities Answer Date Recorded In [...] your living situation today? I have a [facility] place to live 12/03/2023 Sex and [...] Office Visit Department of Orthopedic Surgery in [address] [phone] Familia Patiño M.D. [address] [place] [phone] Discharge Disposition: Home or Self Care documented as of this encounter Visit Diagnoses Not on filedocumented in this encounter Additional Health Concerns Assessment Noted Time PHQ-9 Depression Total Score: 12 023 1:03 PM CDT documented as of this encounter Care Teams Regional Intermodal Truck Driver Relationship Specialty Start Date End Date Elvie Shaw M.D. [address] [place] [phone] PCP - General Family Medicine 08/20/23 01/22/24 documented as of this encounter
--- OUTSIDE RECORDS SUMMARY | 2024-03-30 05:26 | XMS_ITS | Encounter Summary ---
Author Name Unknown Organization [facility] Address [address] [place] [address] Care Team Providers Care Mergers And Acquisitions Attorney Name Role Phone Shaylee Santa P.A.-C. Primary Care Provider Reason for Referral * Outpatient (Routine) - Authorized Specialty Diagnoses / Procedures Referred By Reillyac t Referred To Contact Orthopedic Surgery Familia Patiño M.D. [address] [place] [address] [facility] Region Referral ID Status Reason Start Date Expiration Date V isits Requested Visits Authorized [id number] Authorized 02/25/2024 08/26/2025 1 1 * Physical Therapy (Routine) - Authorized Specialty Diagnoses / Procedures Referred By Contcarrie t Referred To Contact Diagnoses Pain Hip Right Familia Patiño M.D. [address] [place] [address] Referral ID Status Reason Start Date Expiration Date Visits Requested Visits Authorized [id number] Authorized Patient Preference 02/25/2024 08/26/2025 1 1 * Outpatient (Routine) - Closed Specialty Diagnoses / Procedures Referred By Contac t Referred To Contact Diagnoses Pain Hip Right Procedures DX Hip And Pelvis Right 2-3 Views Familia Patiño M.D. [address] [place] [address] [facility] [place] Region Referral ID Status Reason Start Date Expiration Date Visits Re quested Visits Authorized [id number] Closed 02/25/2024 02/24/2025 1 1 Reason for Visit * Outpatient (Routine) - Closed Specialty Diagnoses / Procedures Referred By Collin noble Referred To Contact Orthopedic Surgery Diagnoses Pain Hip Right Elvie Shaw M.D. [address] [place] [phone] [facility] [place] Region Referral ID Status Reason Start Date Expiration Date Visits Re quested Visits Authorized [id number] Closed 01/01/2024 07/02/2025 1 1 Encounter Details Date Type Department Care Team (Latest Contact Info) Description 02/25/2024 2:15 PM CDT Comprehensive Visit Department of Orthopedic Surgery in [address] [phone] Familia Patiño M.D. [address] [place] [phone] Pain Hip Right Discharge Disposition: Home or Self Care Social History Tobacco Use Types Packs/Day Years Used Date Smoking Tobacco: Former Cigarettes 1 57 0 05/28/1964 - 09/19/2020 Passive Smoke Exposure: Never Smokeless Tobacco: Never Alcohol Use Standard Drinks/Week Comments Yes 0 (1 standard drink = 0.6 oz pure alcohol) I might have 2-3 drinks per year [facility] Utilities Answer Date Recorded In the past 12 months has [facility] [employer], gas, oil, or water [employer] threatened to shut off services in your [...] your living situation today? I have a [place] place to live 12/03/2023 Sex and Gender Information Value Date Recorded Sex Assigned at Female 04/11/2023 12:22 PM CDT Gender Identity Female 04/11/2023 12:22 PM CDT Sexual Orientation Straight 04/11/2023 12 :22 PM CDT documented as of this encounter Consult Notes * Familia Patiño M.D. - 02/25/2024 2:15 PM CDT SUBJECTIVE HISTORY OF PRESENT ILLNESS Dilan is a 68-year-old woman who is here in regard to her right hip primarily. She has been dealing with significant hip pain primarily to the lateral aspect of her hip is where she notes it. She has difficulty with ambulation related to this as well. OBJECTIVE PHYSICAL EXAMINATION Musculoskeletal: Examination of her hip, she has significant tenderness overlying the trochanteric region. Slight weakness in her abductors, especially on the right side. Range of motion of the hip only causes irritability to the lateral aspect of her hip. There is no significant groin pain. DIAGNOSTICS X-rays of her right hip and pelvis demonstrate some signs of enthesopathy to the trochanteric region of this hip. 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 I discussed treatment options with her today. At this point in time, we will plan to start with a physical therapy program. If that is not beneficial, consider the possibility of injection treatment, but we also talked about potentially obtaining an MRI at some point intime to evaluate for the possibility that this may necessitate a repair. However, she understands that the recovery from this is quite prolonged. We will start with physical therapy as discussed above. documented in this encounter Plan of Treatment Upcoming Encounters Date Type Department Care Team (Late st Contact Info) Description 05/26/2024 1:45 PM CDT Office Visit Department of Orthopedic Surgery in [address] [phone] Familia Patiño M.D. [address] [place] [phone] Discharge Disposition: Home or Self Care Scheduled Referrals Name Type Priority Associated Diagnoses Order Schedule PT non-[facility] referral Outpatient Referral Routine Pain Hip Right Expected: 02/25/2024, Expires: 05/26/2025 Orthopedic Surgery office visit (clinic) Outpatient Referral Routine Expected: 05/26/2024, Expires: 06/04/2024 documented as of this encounter Results * DX Hip And [...] encounter Visit Diagnoses Diagnosis Pain Hip Right Pain Hip Right documented in this encounter Additional Health Concerns Assessment Noted Time PHQ-9 Depression Total Score: 12 023 1:03 PM CDT documented as of this encounter Care Teams Mergers And Acquisitions Attorney Relationship Specialty Start Date End Date Shaylee Santa P.A.-C. [address] [place], [place] [address] [phone] PCP - General Internal Medicine 01/23/24 documented as of this encounter
--- OUTSIDE RECORDS SUMMARY | 2024-03-30 05:26 | XMS_ITS | Encounter Summary ---
Author Name Unknown Organization [facility] Address [address] [place] [address] Care Team Providers Care Fashion Buying Internship Name Role Phone Elvie Shaw M.D. Primary Care Provider +1- [phone] Reason for Visit * Reason Onset Date Comments Form Review 01/08/2024 [employer] [id number] CMN Encounter Details Date Type Department Care Team (Latest Contact Info) Description 01/08/2024 Clinical Communication Department of Family Medicine, [facility], in [address] [phone] Elvie Shaw M.D. [address] [place] [phone] Form Review ([employer] [id number] CMN) Social History Tobacco Use Types Packs/Day Years Used Date Smoking Tobacco: Former Cigarettes 1 57 0 05/28/1964 - 09/19/2020 Passive Smoke Exposure: Never Smokeless Tobacco: Never Alcohol Use Standard Drinks/Week Comments Yes 0 (1 standard drink = 0.6 oz pure alcohol) I might have 2-3 drinks per year [facility] Utilities Answer Date Recorded In the past 12 months has [facility] [employer], gas, oil, or water [employer] threatened to shut off services in your [...] encounter Miscellaneous Notes * Telephone Encounter - Zelda Pham - 01/10/2024 2:55 PM CST - Copy Faxed back to the listed facility - Copy sent to [facility] to be scanned into the chart MAKER * Telephone Encounter - Zelda Pham - 01/08/2024 5:00 PM CST Form was emailed to Elvie Shaw M.D. for electronic review/signature. RADIOLOGY TRANSPORTER: [facility] (Home Health Agency) PHONE NUMBER: [phone] INFO REQUESTED: [facility] [id number] Pads/Liners INSTRUCTIONS: Fax information to [phone] MAKER documented in this encounter Plan of Treatment Upcoming Encounters Date Type Department Care Team (Late st Contact Info) Description 05/26/2024 1:45 PM CDT Office Visit Department of Orthopedic Surgery in [address] [phone] Familia Patiño M.D. [address] [place] [phone] Discharge Disposition: Home or Self Care documented as of this encounter Visit Diagnoses Not on filedocumented in this encounter Additional Health Concerns Assessment Noted Time PHQ-9 Depression Total Score: 12 023 1:03 PM CDT documented as of this encounter Care Teams Fashion Buying Internship Relationship Specialty Start Date End Date Elvie Shaw M.D. [address] [place] [phone] PCP - General Family Medicine 08/20/23 01/22/24 documented as of this encounter
--- OUTSIDE RECORDS SUMMARY | 2024-03-30 05:26 | XMS_ITS | Encounter Summary ---
Author Name Unknown Organization [facility] Address [address] [place] [address] Care Team Providers Care Air Surveillance Operator Name Role Phone Elvie Shaw M.D. Primary Care Provider +1- [phone] Reason for Visit * Reason Comments Med Refill Encounter Details Date Type Department Care Team (Late st Contact Info) Description 12/30/2023 Refill Department of Family Medicine, [facility], in [address] [phone] Elvie Shaw M.D. [address] [place] [phone] Med Refill Social History Tobacco Use Types Packs/Day Years Used Date Smoking Tobacco: Former Cigarettes 1 57 0 05/28/1964 - 09/19/2020 Passive Smoke Exposure: Never Smokeless Tobacco: Never Alcohol Use Standard Drinks/Week Comments Yes 0 (1 standard drink = 0.6 oz pure alcohol) I might have 2-3 drinks per year [facility] Utilities Answer Date Recorded In the past 12 months has [facility] electric, gas, oil, or water company threatened [...] your living situation today? I have a [facility] place to live 12/03/2023 Sex and Gender Information Value Date Recorded Sex Assigned at Female 04/11/2023 12:22 PM CDT Gender Identity Female 04/11/2023 12:22 PM CDT Sexual Orientation Straight 04/11/2023 12 :22 PM CDT documented as of this encounter Miscellaneous Notes * Telephone Encounter - Nayana Freitas L.P.N. - 12/31/2023 3:30 PM LIQUOR BRIDGE OPERATOR The patient was notified that their prescription for Tramadol 50 mg has been e- prescribed to [facility]. OR BRIDGE OPERATOR * Telephone Encounter - Nayana Freitas L.P.N. - 12/30/2023 10:42 AM LIQUOR BRIDGE OPERATOR Controlled substance renewal for Tramadol 50 mg: ALERT NURSING CONCERN: see message below and please fill out amount to dispense Renewal is Not pended due to concerns Date last renewed (start date): not previously prescribed at [facility] Last provider visit: 11/06/2023 Patient is now a patient of Dr. Shaw. She is requesting a fill for Tramadol. She has not had this filled in a while. She takes Tramadol 50 mg; one tablet at bedtime and one tablet daily as needed.Is not listed on Chronic Opioid Registry and there is no prescribing plan noted. She states she uses these sparingly. OR BRIDGE OPERATOR documented in this encounter Plan of Treatment Upcoming Encounters Date Type Department Care Team (Late st Contact Info) Description 05/26/2024 1:45 PM CDT Office Visit Department of Orthopedic Surgery in [address] [phone] Familia Patiño M.D. [address] [place] [phone] Discharge Disposition: Home or Self Care documented as of this encounter Visit Diagnoses Not on filedocumented in this encounter Additional Health Concerns Assessment Noted Time PHQ-9 Depression Total Score: 12 023 1:03 PM CDT documented as of this encounter Care Teams Air Surveillance Operator Relationship Specialty Start Date End Date Elvie Shaw M.D. [address] [phone] PCP - General Family Medicine 08/20/23 01/22/24 documented as of this encounter
--- OUTSIDE RECORDS SUMMARY | 2024-03-30 05:26 | XMS_ITS | Encounter Summary ---
Author Name Unknown Organization [facility] Address [address] [place] [address] Care Team Providers Care Pipe Stem Repairer Name Role Phone Shaylee Santa P.A.-C. Primary Care Provider Reason for Visit * Reason Comments Med Refill Encounter Details Date Type Department Care Team (Late st Contact Info) Description 02/19/2024 Refill Department of Community Internal Medicine in [place], [place] [address] [place] [phone] Shaylee Santa P.A.-C. [address] [place] [phone] Med Refill Social History Tobacco Use Types Packs/Day Years Used Date Smoking Tobacco: Former Cigarettes 1 57 0 05/28/1964 - 09/19/2020 Passive Smoke Exposure: Never Smokeless Tobacco: Never Alcohol Use Standard Drinks/Week Comments Yes 0 (1 standard drink = 0.6 oz pure alcohol) I might have 2-3 drinks per year [facility] Utilities Answer Date Recorded In the past 12 months has [employer], gas, oil, or water company threatened to [...] living situation today? I have a [facility] place to live 12/03/2023 Sex and Gender Information Value Date Recorded Sex Assigned at Female 04/11/2023 12:22 PM CDT Gender Identity Female 04/11/2023 12:22 PM CDT Sexual Orientation Straight 04/11/2023 12 :22 PM CDT documented as of this encounter Miscellaneous Notes * Telephone Encounter - Hemanth Cage L.PLenaNLena - 02/21/2024 9:43 AM CDT Images from the original note were not included. Aripiprazole 10 mg prescription renewal request. Dispense history shows this was last prescribed by Charlotte Mckenzie NP ([facility]) Last visit with PCP 01/29/2024 I have pended Aripiprazole 10 mg daily but left quantity and refills blank * Telephone Encounter - Mela Bolton - 02/19/2024 12:03 PM CDT Nurse review: Med Refill Team is unable to forward request to provider; Discrepancy; Verification Required. No directions in med list Primary Provider: Shaylee Santa P.A.-C. Requested Prescriptions Pending Prescriptions Disp Refills ARIPiprazole (ABILIFY) 10 mg tablet [Pharmacy Med Name: ARIPIPRAZOLE TABS 10MG] 90 tablet 3 Sig: TAKE 1 TABLET DAILY AT BEDTIME (INCREASING FROM 5 MG) documented in this encounter Plan of Treatment Upcoming Encounters Date Type Department Care Team (Late st Contact Info) Description 05/26/2024 1:45 PM CDT Office Visit Department of Orthopedic Surgery in [address] [phone] Familia Patiño M.D. [address] [place] [phone] Discharge Disposition: Home or Self Care documented as of this encounter Visit Diagnoses Diagnosis Bipolar II Disorder (HCC)- Primary Posttraumatic Stress Disorder Prolonged documented in this encounter Additional Health Concerns Assessment Noted Time PHQ-9 Depression Total Score: 12 023 1:03 PM CDT documented as of this encounter Care Teams Pipe Stem Repairer Relationship Specialty Start Date End Date Shaylee Santa P.A.-C. [address] [place] [phone] PCP - General Internal Medicine 01/23/24 documented as of this encounter
--- OUTSIDE RECORDS SUMMARY | 2024-03-30 05:26 | XMS_ITS | Encounter Summary ---
Author Name Unknown Organization [facility] Address [address] [place] [address] Care Team Providers Care Prosthetist Name Role Phone Shaylee Santa P.A.-C. Primary Care Provider Encounter Details Date Type Department Care Team (Late st Contact Info) Description 01/08/2024 Orders Only Division of Nephrology and Hypertension in [place], [place] [address] [place] [address] Jitendra Romero Jr., D.O. [address] [place] [phone] Social History Tobacco Use Types Packs/Day Years Used Date Smoking Tobacco: Former Cigarettes 1 57 0 [birth year]/28/1963 - 09/19/2020 Passive Smoke Exposure: Never Smokeless Tobacco: Never Alcohol Use Standard Drinks/Week Comments Yes 0 (1 standard drink = 0.6 oz pure alcohol) I might have 2-3 drinks per year [facility] Utilities Answer Date Recorded In the past 12 months has [facility] [employer], gas, oil, or water [employer] threatened to shut off services in your [...] your living situation today? I have a [facility] place to live 12/03/2023 Sex and [...] Visit Department of Orthopedic Surgery in [address] [phone] Familia Patiño M.D. [address] [place] [phone] Discharge Disposition: Home or Self Care documented as of this encounter Visit Diagnoses Not on filedocumented in this encounter Additional Health Concerns Assessment Noted Time PHQ-9 Depression Total Score: 12 023 1:03 PM CDT documented as of this encounter Care Teams Prosthetist Relationship Specialty Start Date End Date Shaylee Santa P.A.-C. [address] [place] [phone] PCP - General Internal Medicine 01/23/24 documented as of this encounter
--- OUTSIDE RECORDS SUMMARY | 2024-03-30 05:26 | XMS_ITS | Encounter Summary ---
Author Name Unknown Organization [facility] Address [address] [place] [address] Care Team Providers Care Steam Train Driver Name Role Phone Elvie Shaw M.D. Primary Care Provider +1- [phone] Encounter Details Date Type Department Care Team (Late st Contact Info) Description 01/15/2024 Clinical Communication Department of Family Medicine, [facility], in [address] [phone] Elvie Shwa M.D. [address] [place] [phone] Social History Tobacco Use Types Packs/Day Years Used Date Smoking Tobacco: Former Cigarettes 1 57 0 [birth year]/28/1963 - 09/19/2020 Passive Smoke Exposure: Never Smokeless Tobacco: Never Alcohol Use Standard Drinks/Week Comments Yes 0 (1 standard drink = 0.6 oz pure alcohol) I might have 2-3 drinks per year [facility] Utilities Answer Date Recorded In the past [address] [facility] electric, gas, oil, or water company [...] your living situation today? I have a [facility] place to live 12/03/2023 Sex and [...] Visit Department of Orthopedic Surgery in [address] [phone] Familia Patiño M.D. [address] [place] [phone] Discharge Disposition: Home or Self Care documented as of this encounter Visit Diagnoses Not on filedocumented in this encounter Additional Health Concerns Assessment Noted Time PHQ-9 Depression Total Score: 12 09/09/ 023 1:03 PM CDT documented as of this encounter Care Teams Steam Train Driver Relationship Specialty Start Date End Date Elvie Shaw M.D. [address] [place] [phone] PCP - General Family Medicine 08/20/23 01/22/24 documented as of this encounter
--- OUTSIDE RECORDS SUMMARY | 2024-03-30 05:26 | XMS_ITS | Encounter Summary ---
Author Name Unknown Organization [facility] Address [address] [place] [address] Care Team Providers Care Overlock Collar Setter Name Role Phone Elvie Shaw M.D. Primary Care Provider +1- [phone] Reason for Visit * Reason Onset Date Comments drug interaction 01/14/2024 Encounter Details Date Type Department Care Team (Latest Contact Info) Description 01/14/2024 Clinical Communication Department of Family Medicine, [facility], in [address] [phone] Elvie Shaw M.D. [address] [place] [phone] drug interaction Social History Tobacco Use Types Packs/Day Years Used Date Smoking Tobacco: Former Cigarettes 1 57 0 [birth year]/28/1964 - 09/19/2020 Passive Smoke Exposure: Never Smokeless Tobacco: Never Alcohol Use Standard Drinks/Week Comments Yes 0 (1 standard drink = 0.6 oz pure alcohol) I might have 2-3 drinks per year [facility] Utilities Answer Date Recorded In the past 12 months has [employer], gas, oil, or water company threatened to [...] your living situation today? I have a [facility] place to live 12/03/2023 Sex and Gender Information Value Date Recorded Sex Assigned at Female 04/11/2023 12:22 PM CDT Gender Identity Female 04/11/2023 12:22 PM CDT Sexual Orientation Straight 04/11/2023 12 :22 PM CDT documented as of this encounter Miscellaneous Notes * Telephone Encounter - Jean PauldaeMichelle - 01/14/2024 7:21 AM CST Images from the original note were not included. Nurse review:Pharmacy is asking for Clarification. Primary Provider: Elvie Shaw M.D. ET MANAGER documented in this encounter Plan of Treatment Upcoming Encounters Date Type Department Care Team (Late st Contact Info) Description 05/26/2024 1:45 PM CDT Office Visit Department of Orthopedic Surgery in [address] [phone] Familia Patiño M.D. [address] [place] [phone] Discharge Disposition: Home or Self Care documented as of this encounter Visit Diagnoses Not on filedocumented in this encounter Additional Health Concerns Assessment Noted Time PHQ-9 Depression Total Score: 12 023 1:03 PM CDT documented as of this encounter Care Teams Overlock Collar Setter Relationship Specialty Start Date End Date Elvie Shaw M.D. [address] [place] [phone] PCP - General Family Medicine 08/20/23 01/22/24 documented as of this encounter
--- OUTSIDE RECORDS SUMMARY | 2024-03-30 05:26 | XMS_ITS | Encounter Summary ---
Author Name Unknown Organization [facility] Address [address] [place] [id number] Care Team Providers Care Territory Manager Name Role Phone Elvie Shaw M.D. Primary Care Provider [phone]- [phone] Encounter Details Date Type Department Care Team (Late st Contact Info) Description 01/17/2024 Clinical Communication Division of Nephrology and Hypertension in [place], [place] [address] [place] [phone] Jitendra Romero Jr., D.O. [address] [place] [address] Social History Tobacco Use Types Packs/Day Years Used Date Smoking Tobacco: Former Cigarettes 1 57 0 05/28/1964 - 09/19/2020 Passive Smoke Exposure: Never Smokeless Tobacco: Never Alcohol Use Standard Drinks/Week Comments Yes 0 (1 standard drink = 0.6 oz pure alcohol) I might have 2-[address] [facility] Utilities Answer Date Recorded In the past 12 months has [facility] [employer], gas, oil, or water [employer] threatened to shut off services in your [...] your living situation today? I have a [facility] place to live 12/03/2023 Sex and Gender Information Value Date Recorded Sex Assigned at Female 04/11/2023 12:22 PM CDT Gender Identity Female 04/11/2023 12:22 PM CDT Sexual Orientation Straight 04/11/2023 12 :22 PM CDT documented as of this encounter Miscellaneous Notes * Telephone Encounter - Marge Paniagua - 01/17/2024 2:15 PM CST Images from the original note were not included. Caller is: patient Preferred Communication Method: [phone] (mobile) Reason for call: Patient's PICC line was thought to be infected so a culture was ordered.. The culture was resulted at [facility]. The patient would like a call back as to what this indicates. Thanks. [facility] Outside Information Contains abnormal data REFERRAL ID/SUSC,NONURINE Specimen: Other - Blood specimen (specimen) Component 10 d ago CULTURE RESULT Abnormal CULTURE [place] [facility]omer[facility] Resulting Agency [facility] US WELLNESS COORDINATOR documented in this encounter Plan of Treatment Upcoming Encounters Date Type Department Care Team (Late st Contact Info) Description 05/26/2024 1:45 PM CDT Office Visit Department of Orthopedic Surgery in [address] [phone] Familia Patiño M.D. [address] [place] [phone] Discharge Disposition: Home or Self Care documented as of this encounter Visit Diagnoses Not on filedocumented in this encounter Additional Health Concerns Assessment Noted Time PHQ-9 Depression Total Score: 12 023 1:03 PM CDT documented as of this encounter Care Teams Territory Manager Relationship Specialty Start Date End Date Elvie Shaw M.D. [address] [place] [phone] PCP - General Family Medicine 08/20/23 01/22/24 documented as of this encounter
== END 2024-03-27 13:24 | disposition home or self-care (01) ==
LOC: NFLDREF 03-30 05:23
PROVIDERS: Visit Provider Internal Medicine Nephrology
DX: N18.32 Chronic kidney disease, stage 3b (principal); D63.8 Anemia in other chronic diseases classified elsewhere
CPT/HCPCS: 80069; 82043; 82570; 82728; 83540; 83550; 84550; 87086

== ENCOUNTER 2024-06-18 14:37 | Emergency (ER) | payer MEDICARE, SELFPAY ==
[2024-06-18 14:45] VITALS: BP 145/76; PULSE 71; RESP 18; TEMP 36.6; O2SAT 97; BMI 47.1
--- NOTE | 2024-06-18 15:03 | ED_ITS ---
HPI - Chest Pain General Chief Complaint: Chest Pain <Pranav Jett MD - Last Filed: 06/18/24 15:06> Stated Complaint: chest pain R side <Pranav Jett MD - Last Filed: 06/18/24 15:06> Time Seen by Provider: 06/18/24 14:49 <Pranav Jett MD - Last Filed: 06/18/24 15:06> History of Present Illness HPI narrative: Patient is a a arch from 69-year-old woman who presents with right-sided chest pain. The pain is in the right side of her chest adjacent to the sternum. She has had worsening of his symptoms with movement but no diaphoresis nausea vomiting fevers or chills. She has had no cough no shortness of breath. Patient had coronary angiogram 2 months ago and had stenting x1. She had a stress MRI done 10 days ago which was normal. Patient went to physical therapy today and the movement and pressure placed by her therapist seem to exacerbate her symptoms. Patient otherwise is feeling fine with no other major complaints. She is a former smoker quitting 5 years ago. <Pranav Jett MD - Last Filed: 06/18/24 15:06> Related Data Home Medications: Home Medications ?Medication ?Instructions ?Recorded ?Confirmed aspirin 81 mg chewable tablet 81 mg PO QDAY 09/20/22 06/03/24 calcium carbonate (Calcium 600) 600 mg PO QDAY 01/28/23 06/03/24 magnesium glycinate See Rx Instructions PO DAILY 07/02/23 06/03/24 cholecalciferol (vitamin D3) 50 50 mcg PO QDAY 07/23/23 06/03/24 mcg (2,000 unit) capsule (Vitamin D3) lactated Ringers IV 07/23/23 06/03/24 multivitamin (Multiple Vitamins 1 tab PO QDAY 07/23/23 06/03/24 tablet) evening primrose oil 500 mg capsule 1,000 mg PO QID 08/05/23 06/03/24 fluticasone propionate 50 1 spray intranasal QDAY PRN 08/05/23 06/03/24 mcg/actuation nasal spray,suspension nystatin 100,000 unit/gram topical 1 applic topical QDAY PRN 08/05/23 06/03/24 powder black cohosh root extract 80 mg 540 mg PO QDAY 12/05/23 07/10/24 capsule cholecalciferol (vitamin D3) 50 50 mcg PO 6XD 10/29/23 06/03/24 mcg (2,000 unit) capsule collagen and Biotin 3 tab PO DAILY 10/29/23 06/03/24 fexofenadine 180 mg tablet 180 mg PO Q24H 10/29/23 06/03/24 amlodipine 10 mg tablet 5 mg PO QDAY 03/31/24 06/03/24 Previous Rx's ?Medication ?Instructions ?Recorded tramadol 50 mg tablet 50 mg PO QDAY #90 tabs 07/23/23 ezetimibe 10 mg tablet 10 mg PO QDAY #90 tabs 07/30/23 lansoprazole 30 mg capsule,delayed 30 mg PO QDAY #90 caps 07/30/23 release tizanidine 4 mg tablet 4 mg PO Q8H PRN muscle spasticity 07/30/23 #270 tabs aripiprazole 10 mg tablet (Abilify) 10 mg PO QHS #90 tabs 08/08/23 loperamide 2 mg tablet 2 mg PO QDAY loose stool #90 tabs 11/11/23 sodium bicarbonate 650 mg tablet 650 mg PO DAILY #90 tabs 11/13/23 ergocalciferol (vitamin D2) 1,250 1,250 mcg PO QWEEK #12 caps 01/16/24 mcg (50,000 unit) capsule (Vitamin D2) <Pranav Jett MD - Last Filed: 06/18/24 15:06> Allergies/Adverse Reactions: Allergies Allergy/AdvReac Type Severity Reaction Status Date / Time propoxyphene Allergy Intermediate hives, Verified 06/03/24 11:03 nausea, vomiting erythromycin base Allergy Hives Verified 06/03/24 11:03 phenylpropanolamine Allergy Unknown Verified 06/03/24 11:03 adhesive tape AdvReac Intermediate Rash Verified 06/03/24 11:03 codeine AdvReac Intermediate Nausea and Verified 06/03/24 11:03 vomiting hydrocodone AdvReac Intermediate Hives Verified 06/03/24 11:03 Penicillins AdvReac Intermediate Hives Verified 06/03/24 11:03 acetaminophen AdvReac Mild Nausea Verified 06/03/24 11:03 famotidine AdvReac Mild Diarrhea Verified 06/03/24 11:03 ibuprofen AdvReac Mild nausea Verified 06/03/24 11:03 metoclopramide AdvReac Mild Nausea Verified 06/03/24 11:03 cefuroxime AdvReac Unknown Verified 06/03/24 11:03 chlordiazepoxide AdvReac Unknown Verified 06/03/24 11:03 diazepam AdvReac Unknown Verified 06/03/24 11:03 gabapentin AdvReac Verified 06/03/24 11:03 nitrofurantoin AdvReac Unknown Verified 06/03/24 11:03 omeprazole AdvReac unknown Verified 06/03/24 11:03 phenylephrine AdvReac Unknown Verified 06/03/24 11:03 quetiapine AdvReac Unknown Verified 06/03/24 11:03 sertraline AdvReac Unknown Verified 06/03/24 11:03 tolmetin AdvReac Unknown Verified 06/03/24 11:03 Statins Allergy Unknown Uncoded 06/03/24 11:03 morphine sulfate AdvReac Unknown Uncoded 06/03/24 11:03 <Pranav Jett MD - Last Filed: 06/18/24 15:06> Review of Systems Status of ROS Reports: 10 or more systems reviewed and unremarkable except as noted in History and below <Pranav Jett MD - Last Filed: 06/18/24 15:06> [facility] Medical History: Medical History Cellulitis ?L03.90 - Cellulitis, unspecified (ICD-10) Family history of rheumatoid arthritis ?Z82.61 - Family history of arthritis (ICD-10) History of nicotine use ?Z87.891 - Personal history of nicotine dependence (ICD-10) 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, unspecified, in remission (ICD-10) 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 - Personal history of other mental and behavioral disorders (ICD-10) <Pranav Jett MD - Last Filed: 06/18/24 15:06> Surgical History: Surgical History Status post coronary artery stent placement ?Z95.5 - Presence of coronary angioplasty implant and graft (ICD-10) History of ankle surgery ?Z98.890 - Other specified postprocedural states (ICD-10) History of arthroscopy of both knees ?Z98.890 - Other specified postprocedural states (ICD-10) Status post partial colectomy ?Z90.49 - Acquired absence of other specified parts of digestive tract (ICD- 10) Status post appendectomy ?Z90.49 - Acquired absence of other specified parts of digestive tract (ICD- 10) Status post oophorectomy Status post hysterectomy ?Z90.710 - Acquired absence of both cervix and uterus (ICD-10) History of ?Z98.891 - History of uterine scar from previous surgery (ICD-10) Status post tonsillectomy and adenoidectomy ?Z90.89 - Acquired absence of other organs (ICD-10) <Pranav Jett MD - Last Filed: 06/18/24 15:06> Family History: Family History Mother Coronary artery disease Arthritis Father Diabetes Daughter Diabetes Maternal Grandmother Diabetes Coronary artery disease Maternal Grandfather Coronary artery disease <Pranav Jett MD - Last Filed: 06/18/24 15:06> Social History: Social History What is your current living situation?: I presently have a place to live Problems where you live: other Problems where you live details: No AC in bedroom. In the past 12 months, utilities in danger of being shut off: no In past 12 months, lack of transportation kept you from medical appts, meetings, work, or getting things needed for daily living: yes In the past 12 mos, have been you worried that your food would run out before you had money to buy more?: never true In the past 12 mos, the food you bought just didn't last and you didn't have money to buy more?: never true Smoking Status: Former smoker What tobacco products do you use: cigarettes Smoking quit date/years: <= 15 years ago Do you use any of these nicotine containing products: None Second hand tobacco smoke exposure: No How often does anyone, including family, friends and others, physically hurt you : never How often does anyone, including family, friends and others, insult or talk down to you: sometimes How often does anyone, including family, friends and others, threaten you with harm: never How often does anyone, including family, friends and others, scream or curse at you: never Little interest or pleasure in doing things: nearly every day Feeling down, depressed, or hopeless: more than half the days <Pranav Jett MD - Last Filed: 06/18/24 15:06> Exam Narrative Exam Narrative: EXAM GENERAL: Patient appears comfortable and well. EYES: No scleral icterus. LYMPH: No supraclavicular or cervical lymphadenopathy. SKIN: Visible skin seen during exam normal or with benign process only. EXT: No dependent lower extremity pedal edema. HEART: Regular rate and rhythm with no murmurs, rubs, or gallops. LUNGS: Clear to auscultation bilaterally with no crackles or wheezes. ABD: Soft, non tender, non distended. PSYCH: Good eye contact, speech is not pressured. <Pranav Jett MD - Last Filed: 06/18/24 15:06> Const Vital Signs, click to edit/add: Vital Signs - 24 hr 06/18/24 14:45 Temperature 97.9 F Pulse Rate [Pulse Oximeter] 71 Respiratory Rate 18 Blood Pressure [Right Forearm] 145/76 H Pulse Oximetry 97 Oxygen Delivery Method Room Air <Pranav Jett MD - Last Filed: 06/18/24 15:06> Vital Signs - 24 hr 06/18/24 14:45 Temperature 97.9 F Pulse Rate [Pulse Oximeter] 71 Respiratory Rate 18 Blood Pressure [Right Forearm] 145/76 H Pulse Oximetry 97 Oxygen Delivery Method Room Air <Rosi Rios MD - Last Filed: 06/18/24 16:41> Course Course ED Course: Patient seen and examined. Chest x-ray EKG troponin CBC basic metabolic panel ordered. D-dimer not ordered due to recent vascular access. <Pranav carolina MD - Last Filed: 06/18/24 15:06> Patient seen and examined. Chest x-ray EKG troponin CBC basic metabolic panel ordered. D-dimer not ordered due to recent vascular access. I was asked to follow-up on the lab results of this patient who has been having right-sided chest pain for over 24 hours. CBC shows mild anemia with a hemoglobin of 10.9. Normal white cell count. chemistries are unremarkable. Creatinine BUN are elevated, she does have a history of chronic kidney disease. Troponin is Normal. I did go discussed patient's results with her. Patient was sitting in the chair next to the bed playing games on her phone, looking comfortable. She was not tachypneic. Did not appear to be in any distress. We discussed possible causes of chest pain Including chest muscle discomfort and costochondritis. <Rosi Rios MD - Last Filed: 06/18/24 16:41> Vital Signs Vital signs: Initial Vital Signs Temperature 97.9 F 06/18/24 14:45 Temperature Source Temporal Artery Scan 06/18/24 14:45 Pulse Rate 71 06/18/24 14:45 Pulse Rhythm Regular 06/18/24 14:45 Respiratory Rate 18 06/18/24 14:45 Blood Pressure 145/76 H 06/18/24 14:45 Blood Pressure Mean 99 06/18/24 14:45 Blood Pressure Position Sitting 06/18/24 14:45 Pulse Oximetry 97 06/18/24 14:45 Oxygen Delivery Method Room Air 06/18/24 14:45 Vital Signs Temperature 97.9 F 06/18/24 14:45 Pulse Rate 71 06/18/24 14:45 Respiratory Rate 18 06/18/24 14:45 Blood Pressure 145/76 H 06/18/24 14:45 Pulse Oximetry 97 06/18/24 14:45 Oxygen Delivery Method Room Air 06/18/24 14:45 Temperature 97.9 F 06/18/24 14:45 Pulse Rate 71 06/18/24 14:45 Respiratory Rate 18 06/18/24 14:45 Blood Pressure 145/76 H 06/18/24 14:45 Pulse Oximetry 97 06/18/24 14:45 Oxygen Delivery Method Room Air 06/18/24 14:45 <Pranav Jett MD - Last Filed: 06/18/24 15:06> Initial Vital Signs Temperature 97.9 F 06/18/24 14:45 Temperature Source Temporal Artery Scan 06/18/24 14:45 Pulse Rate 71 06/18/24 14:45 Pulse Rhythm Regular 06/18/24 14:45 Respiratory Rate 18 06/18/24 14:45 Blood Pressure 145/76 H 06/18/24 14:45 Blood Pressure Mean 99 06/18/24 14:45 Blood Pressure Position Sitting 06/18/24 14:45 Pulse Oximetry 97 06/18/24 14:45 Oxygen Delivery Method Room Air 06/18/24 14:45 Vital Signs Temperature 97.9 F 06/18/24 14:45 Pulse Rate 71 06/18/24 14:45 Respiratory Rate 18 06/18/24 14:45 Blood Pressure 145/76 H 06/18/24 14:45 Pulse Oximetry 97 06/18/24 14:45 Oxygen Delivery Method Room Air 06/18/24 14:45 Temperature 97.9 F 06/18/24 14:45 Pulse Rate 71 06/18/24 14:45 Respiratory Rate 18 06/18/24 14:45 Blood Pressure 145/76 H 06/18/24 14:45 Pulse Oximetry 97 06/18/24 14:45 Oxygen Delivery Method Room Air 06/18/24 14:45 <Rosi Rios MD - Last Filed: 06/18/24 16:41> MDM - Chest Pain MDM Narrative Medical decision making narrative: 61-year-old female with right-sided chest pain at the border of the sternum. Worse with movement and pressure in the area. We discussed possibility of a muscle strain, costochondritis. We discussed symptomatic treatment And patient had no other questions. <Rosi Rios MD - Last Filed: 06/18/24 16:41> Lab Data Attestation: I reviewed the patient's lab results. <Rosi Rios MD - Last Filed: 06/18/24 16:41> Labs: Lab Results 06/18/24 Range/Units 15:40 WBC 6.77 (4.50-11.00) K/uL RBC 3.81 L (4.00-5.20) m/uL Hgb 10.9 L (12.0-16.0) gm/dL Hct 35.3 (33.0-51.0) % MCV 93 (80-100) fL MCH 29 (26-34) pg MCHC 31 L (32-36) gm/dL RDW Coeff of Harriet 14.5 (11.5-15.5) % Plt Count 187 (140-440) K/uL Neut % (Auto) 65.6 (42.0-72.0) % Lymph % (Auto) 22.5 (20-44) % [place] % (Auto) 8.9 (0.0-11.0) % Eos % (Auto) 2.5 (0.0-7.0) % Baso % (Auto) 0.4 (0.0-3.0) % Neut # (Auto) 4.44 (1.7-7.0) K/uL Lymph # (Auto) 1.52 (0.90-2.90) K/uL [place] # (Auto) 0.60 (0.00-0.90) K/UL Eos # (Auto) 0.17 (0.00-0.50) K/uL Baso # (Auto) 0.03 (0.00-0.30) K/uL Abs Immat Gran (auto) 0.01 (0.00-0.30) K/uL Imm/Tot Granulo (auto) 0.1 % Sodium 138 (135-149) mmol/L Potassium 4.3 (3.6-5.1) mmol/L Chloride 108 (96-114) mmol/L Carbon Dioxide 20 (20-32) mmol/L Anion Gap 10 (7-15) mEq/L BUN 38 H (7-30) mg/dL Creatinine 2.3 H (0.5-1.5) mg/dL Estimated Creat Clear 19.37 Estimated GFR 23 ml/min Glucose 125 H (60-115) mg/dL Calcium 9.1 (8.4-10.6) mg/dL Troponin I < 0.01 L (0.01-0.04) ng/mL <Pranav Jett MD - Last Filed: 06/18/24 15:06> Lab Results 06/18/24 Range/Units 15:40 WBC 6.77 (4.50-11.00) K/uL RBC 3.81 L (4.00-5.20) m/uL Hgb 10.9 L (12.0-16.0) gm/dL Hct 35.3 (33.0-51.0) % MCV 93 (80-100) fL MCH 29 (26-34) pg MCHC 31 L (32-36) gm/dL RDW Coeff of Harriet 14.5 (11.5-15.5) % Plt Count 187 (140-440) K/uL Neut % (Auto) 65.6 (42.0-72.0) % Lymph % (Auto) 22.5 (20-44) % [place] % (Auto) 8.9 (0.0-11.0) % Eos % (Auto) 2.5 (0.0-7.0) % Baso % (Auto) 0.4 (0.0-3.0) % Neut # (Auto) 4.44 (1.7-7.0) K/uL Lymph # (Auto) 1.52 (0.90-2.90) K/uL [place] # (Auto) 0.60 (0.00-0.90) K/UL Eos # (Auto) 0.17 (0.00-0.50) K/uL Baso # (Auto) 0.03 (0.00-0.30) K/uL Abs Immat Gran (auto) 0.01 (0.00-0.30) K/uL Imm/Tot Granulo (auto) 0.1 % Sodium 138 (135-149) mmol/L Potassium 4.3 (3.6-5.1) mmol/L Chloride 108 (96-114) mmol/L Carbon Dioxide 20 (20-32) mmol/L Anion Gap 10 (7-15) mEq/L BUN 38 H (7-30) mg/dL Creatinine 2.3 H (0.5-1.5) mg/dL Estimated Creat Clear 19.37 Estimated GFR 23 ml/min Glucose 125 H (60-115) mg/dL Calcium 9.1 (8.4-10.6) mg/dL Troponin I < 0.01 L (0.01-0.04) ng/mL <Rosi Rios MD - Last Filed: 06/18/24 16:41> Discharge Plan Discharge Clinical Impression: Atypical chest pain <Pranav Jett MD - Last Filed: 06/18/24 15:06> Patient Disposition: Home, Self-Care <Pranav Jett MD - Last Filed: 06/18/24 15:06> Condition: Stable <Pranav Jett MD - Last Filed: 06/18/24 15:06> Additional Instructions: The cause of your pain is likely either a pulled muscle of the chest wall or an inflammation of the joint between the breast bone in the ribs. You can use heat to the sore area ( Do not apply heat directly to the Skin), avoid sleeping on your side which puts pressure on those joints, okay to take the pain pills that you have prescribed to you. <Pranav Jett MD - Last Filed: 06/18/24 15:06> Prescriptions: No Action calcium carbonate [Calcium 600] 600 mg calcium (1,500 mg) tablet 600 mg PO QDAY evening primrose oil 500 mg capsule 1,000 mg PO QID Rx Instructions: give with meal/snack black cohosh root extract 80 mg capsule 540 mg PO QDAY collagen and Biotin 3 tab PO DAILY magnesium glycinate 100 mg magnesium capsule See Rx Instructions PO DAILY Patient Comments: Kellie Kolb Rx Instructions: 120 mg; orally daily; amlodipine 10 mg tablet 5 mg PO QDAY aspirin 81 mg tablet,chewable 81 mg PO QDAY fluticasone propionate 50 mcg/actuation spray,suspension 1 spray intranasal QDAY PRN Rx Instructions: administer into each nostril nystatin 100,000 unit/gram powder 1 applic topical QDAY PRN cholecalciferol (vitamin D3) [Vitamin D3] 50 mcg (2,000 unit) capsule 50 mcg PO QDAY multivitamin [Multiple Vitamins] Tablet 1 tab PO QDAY lactated Ringers Parenteral Solution IV cholecalciferol (vitamin D3) 50 mcg (2,000 unit) capsule 50 mcg PO 6XD fexofenadine 180 mg tablet 180 mg PO Q24H tramadol 50 mg tablet 50 mg PO QDAY Qty: 90 1RF lansoprazole 30 mg capsule,delayed release(DR/EC) 30 mg PO QDAY Qty: 90 0RF tizanidine 4 mg tablet 4 mg PO Q8H PRN (Reason: muscle spasticity) Qty: 270 0RF ezetimibe 10 mg tablet 10 mg PO QDAY Qty: 90 0RF aripiprazole [Abilify] 10 mg tablet 10 mg PO QHS Qty: 90 1RF loperamide 2 mg tablet 2 mg PO QDAY Qty: 90 3RF sodium bicarbonate 650 mg tablet 650 mg PO DAILY Qty: 90 3RF ergocalciferol (vitamin D2) [Vitamin D2] 1,250 mcg (50,000 unit) capsule 1,250 mcg PO QWEEK Qty: 12 3RF <Pranav Jett MD - Last Filed: 06/18/24 15:06> Follow Up/Referrals: Provider,Not a Local [Primary Care Provider] - <Pranav Jett MD - Last Filed: 06/18/24 15:06> Stand Alone Forms: MyHealth Info Instructions <Pranav Jett MD - Last Filed: 06/18/24 15:06>
--- NOTE | 2024-06-18 15:06 | CRLHL7_ITS ---
For Patients: As a result of the Century Cures Act, medical imaging exams and procedure reports are released immediately into your electronic medical record. You may view this report before your referring provider. If you have questions, please contact your health care provider. Indication: Chest pain Comparison: None available. Technique: Single AP view chest Findings: Mild pulmonary vascular congestion. There is no focal consolidation, effusion, or pneumothorax. The cardiac silhouette is mildly prominent. The bony thorax is grossly intact. Impression: Mild pulmonary vascular congestion. No dense consolidation. Dictated by Dionte Kessler MD @ 06/18/2024 3:43:54 PM (Electronically Signed)
--- OUTSIDE RECORDS SUMMARY | 2024-06-18 15:32 | XMS_ITS | Data Portability ---
Author Organization [place] - [facility], [employer] Address [address] [place] [address] Assessment Encounter Date Assessment Date Assessment LastModified [...] 16:47:48 07/30/20 23 NAIL DEBRIDEMENT MANNY [facility] 07/30/2023 17:08:56 Imaging [...] Updated DateTime 07/30/2023 165.1 cm 44.9 kg/m2 524330.94 g Anamaria Ren [place] [facility] 07/30/2023 [...] Diagnosis SNOMED-CT Code [id number] Rian Vigil DPM [facility] [address] [place] [address] 07/30/2023 16:36:32 08/01/2023 10:50:41 Ingrowing nail [id number] Onychomycosis [id number] Health Concerns Section Related Observation LastModified by Organization Detai ls LastModified Time None Recorded Concern Status LastModified by Organization Details LastModified Time None Recorded Advance Directives Directive None Recorded Payers Encounter Date Sequence Insurance Name Policy Number Policy Baugh Covered Member ID Baugh Member ID Guarantor Name 07/30/2023 1 [employer] - DOS ON OR AFTER 19 (MEDICARE REPLACEMENT/ ADVANTAGE - HMO) [id number] 1 Dilan Akers [id number] Dilan Akers Notes Date Note Type Note Provider Name and Address Organization Details Recorded Time 07/30/2023 text/html HPI Notes: Pt. presents with complaint of painful ingrowing nail causing pain in shoes and with activity. Drainage, pain and redness present for weeks duration. She has hx of ingrown toenails in the past. Rian Vigil DPM [address] [place], [phone], [facility] - [facility] 07/31/2023 14:34:51 OBGyn Episode No OBEpisode recorded.
--- OUTSIDE RECORDS SUMMARY | 2024-06-18 15:32 | XMS_ITS | Clinical Summary ---
Author Organization [facility] Address [place], [place] [address] Care Team Providers Care Environmental Services Director Name Role Phone Shaylee Santa PA-C Primary Care Provider [phone] Allergies Active Allergy Reactions Criticality Noted Date Comments Acetaminophen Nausea Only 05/23/2023 Adhesive Tape-Silicones Other - Describe In Comment Field 05/23/2023 Paper tape Atorvastatin Other - Describe In Comment Field 05/23/2023 Muscle damage Ssxfc-Ecpebkab-Ik Grass-Hydran Other - Describe In Comment Field [...] Nausea And Vomiting 05/23/2023 Omeprazole Diarrhea 05/23/2023 [place] Juice Vomiting 05/23/2023 [place] Oil Vomiting 05/23/2023 Penicillins Vomiting 05/23/2023 Famotidine Diarrhea 05/23/2023 Fdqgijodkqfzq-Xi-Kaaustgxat n Palpitations 05/23/2023 Phenylpropanolamine Palpitations 11/08/2023 Propoxyphene Hives,Nausea And Vomiting 05/23/2023 Iufqzrtxoktjodp-Jf-Hjqpsydr sin Palpitations 05/23/2023 Quetiapine Other - Describe In Comment Field 05/23/2023 Made more depressed Chris Nausea And Vomiting 05/23/2023 Sertraline Other - Describe In Comment Field 05/23/2023 None noted Pmqwsuv-Zic-Cna Reductase Inhibitors Other - Describe In Comment Field 05/23/2023 Muscle damage Sulfa (Sulfonamide Antibiotics) Hives,Nausea And Vomiting 05/23/2023 Sulfasalazine Hives 05/23/2023 Tolmetin Nausea And Vomiting 05/23/2023 Medications Medication Sig Dispensed Refills Start Date End Date Status amLODIPine (NORVASC) 5 mg tablet Take 5 mg by mouth once daily. 03/09/2023 Active lansoprazole (PREVACID) 30 mg capsule Take 30 mg by mouth once daily before a meal. 02/06/2023 Active sodium bicarbonate 650 mg tablet Take 650 mg by mouth once daily. 04/29/2023 Active multivitamins-minera ls-lutein (Multivitamin 50 Plus) tab tablet Take 1 Tablet by mouth once daily. 0 05/23/2023 Active fluticasone (50 mcg per actuation) nasal solution (FLONASE) Inhale 1 [place] into affected nostril(s) once daily if needed for Rhinitis. 16 g 05/23/2023 Active aspirin 81 mg cap Take 81 mg by mouth once daily. 0 05/23/2023 Active isosorbide mononitrate (IMDUR) 30 mg extended release tablet 24 HourIndications:Aga nary artery disease, unspecified vessel or lesion type, unspecified whether angina present, unspecified whether guid[place] or transplanted heart Take 0.5 Tablets (15 mg) by mouth once daily. 45 Tablet 3 10/09/2023 Active ARIPiprazole (Abilify) 10 mg tablet Take 10 mg by mouth once daily. Active traMADoL (ULTRAM) 50 mg tablet Take 1 Tablet (50 mg) by mouth once daily if needed for Pain. 03/23/2024 Active ascorbic acid/collagen hydr (COLLAGEN SKIN RENEWAL ORAL) Take 1 Tablet by mouth once daily. 10/12/2023 Active cholecalciferol, Vitamin D3, 2,000 unit tablet Take 2,000 units by mouth once daily. Active ezetimibe (Zetia) 10 mg tablet Take 10 mg by mouth at bedtime. Active fexofenadine (Almita Allergy) 180 mg tablet Take 180 mg by mouth once daily with a meal. Do not crush or chew. Active clopidogreL (PLAVIX) 75 mg tabletIndications:Co ronary artery disease involving guidiville coronary artery of guidiville heart without angina pectoris Take 1 Tablet (75 mg) by mouth once daily. 90 Tablet 2 04/22/2024 Active nitroglycerin (NITROSTAT) 0.4 mg sublingual tabletIndications:Co ronary artery disease involving guidiville coronary artery of guid[place]le heart without angina pectoris Place 1 Tablet (0.4 mg) under the tongue every 5 minutes if needed for Chest pain 1st choice (Hold if SBP less than 90 mmHg). Up to 3 tablets in 15 minutes. 30 Tablet 04/22/2024 Active metoprolol succinate (TOPROL XL) 50 mg sustained-release tabletIndications:Co ronary artery disease, unspecified vessel or lesion type, unspecified whether angina present, unspecified whether guidiville or transplanted heart,Dyspnea and respiratory abnormalities,Arteri osclerotic heart disease Take 0.5 Tablets (25 mg) by mouth once daily. 45 Tablet 2 05/11/2024 Active benzonatate (TESSALON) 100 mg capsule Take 100 mg by mouth every 4 hours if needed for Cough. Active calcium carbonate-cholecalci ferol, 600mg-200 units, (CALTRATE-600 + VIT D) tablet Take by mouth once daily with a meal. Active cetirizine (ZYRTEC) 10 mg tablet Take 10 mg by mouth once daily. Active tiZANidine (ZANAFLEX) 4 mg capsule Take 4 mg by mouth every 6 hours if needed for Muscle Spasm. Active Biotin 5 mg tab Take by mouth. Hair, Skin, and Nails blend 1 cap QD Active magnesium glycinate 100 mg magnesium cap Take 500 mg by mouth once daily. Active hydrOXYzine pamoate (VistariL) 25 mg capsuleIndications:C laustrophobia Take 25 mg the morning of your MRI. Take an additional 25 mg 30 minutes prior to your MRI. 2 Capsule 06/03/2024 Active Active Problems Problem Noted Date Diagnosed Date Cardiovascular symptoms 04/21/2024 Coronary artery disease invo lving guidiville coronary artery of guidiville heart without angina pectoris 11/08/2023 Mixed hyperlipidemia 11/08/2023 Stage 3b chronic kidney disease 05/23/2023 HTN (hypertension) 05/23/2023 Diverticulitis 05/23/2023 Secondary renal hyperparathyroidism 05/23/2023 GERD (gastroesophageal reflux disease) Bipolar 1 disorder 05/23/2023 Encounters Date Type Department Care Team Description 06/12/2024 Telephone [facility] [address] [phone] Elmer Simmons MD Questions 06/09/2024 Telephone [facility] [address] [facility] [address] [place] [phone] Blank Harrison MD Results (Cardiac MRI) 06/04/2024 12:06 PM CDT - 06/04/2024 11:59 PM CDT Hospital Encounter [facility] [address] [place] [address] Blank Harrison MD Coronary artery disease, unspecified vessel or lesion type, unspecified whether angina present, unspecified whether guidiville or transplanted heart; Dyspnea and respiratory abnormalities; Arteriosclerotic heart disease 06/04/2024 Travel 06/03/2024 Telephone [facility] [address] [phone] Elmer Simmons MD What can she take? 06/01/2024 3:00 PM CDT Office Visit [facility] [address] [facility] [facility] [address] [place] [address] Elmer Simmons MD Follow Up (F/U to Angio. OV clem/ Hunter 05/11. /Pt states not feeling any better since having the procedure, Echo not done yet due to coverage. Wants to discuss cardiac rehab. ) 06/01/2024 Orders Only [facility] [address] [place] [address] Elmer Simmons MD <No scans attached> 06/01/2024 Travel 05/22/2024 Travel 05/22/2024 Telephone [facility] [address] [place] [phone] Blakn Harrison MD 05/21/2024 Telephone [facility] [address] [place] [address] Blank Harrison MD Prior Authorization (Echo: Addl Info Requested: Provider Response Needed) 05/20/2024 1:19 PM CDT - 05/20/2024 11:59 PM CDT Hospital Encounter [facility] [address] [place] [address] Bhumi Young MD 05/20/2024 Travel 05/19/2024 Telephone [facility] [address] [place] [phone] Blank Harrison MD Prior Authorization 05/15/2024 1:20 PM CDT - 05/15/2024 11:59 PM CDT Hospital Encounter [facility] [address] [place] [address] Bhumi Young MD 05/15/2024 Travel 05/13/2024 1:25 PM CDT - 05/13/2024 11:59 PM CDT Hospital Encounter [facility] [address] [place] [address] Bhumi Young MD 05/13/2024 Travel 05/11/2024 1:19 PM CDT - 05/11/2024 11:59 PM CDT Hospital Encounter [facility] [address] [place] [address] Bhumi Young MD 05/11/2024 9:00 AM CDT Office Visit [facility] [address] [place] [address] Blank Harrison MD CV General Cardiology Est (Pt c/o low BP, lightheadedness, fatigue. Had recent angio, pt states she is not feeling any better. Pt decreased her Metoprolol to 25mg daily) 05/11/2024 Travel 05/09/2024 Travel 05/08/2024 1:25 PM CDT - 05/08/2024 11:59 PM CDT Hospital Encounter [facility] [address] [facility] [place] [address] Bhumi Young MD 05/08/2024 Travel 05/06/2024 1:27 PM CDT - 05/06/2024 11:59 PM CDT Hospital Encounter [facility] [address] [facility] [place] [address] Bhumi Young MD 05/06/2024 Travel 05/04/2024 1:19 PM CDT - 05/04/2024 11:59 PM CDT Hospital Encounter [facility] [address] [facility] [place] [address] Bhumi Young MD 05/04/2024 Travel 05/01/2024 1:30 PM CDT - 05/01/2024 11:59 PM CDT Hospital Encounter [facility] [address] [place] [address] Bhumi Young MD 05/01/2024 Travel 04/28/2024 2:00 PM CDT - 04/28/2024 11:59 PM CDT Hospital Encounter [facility] [address] [facility] [place] [address] 04/28/2024 Travel 04/21/2024 10:16 AM CDT - 04/22/2024 11:32 AM CDT Hospital Encounter [facility] [address] [place] [address] Elmer Simmons MD Coronary artery disease involving guidiville coronary artery of guidiville heart without angina pectoris (Primary Dx); Cardiovascular symptoms Discharge Disposition: Home Self Care 04/21/2024 Travel 04/10/2024 2:30 PM CDT Orders Only [facility] [address] [place] [phone] Lab, [facility] 04/10/2024 Travel 04/08/2024 Telephone [facility] [address] [facility] [address] [place] [phone] Elmer Simmons MD Questions 03/23/2024 9:00 AM CDT Telemedicine [facility] [address] [place] [phone] Elmer Simmons MD Left without seen 03/23/2024 Travel from Last 3 Months Social History Tobacco Use Types Packs/Day Years Used Date Smoking Tobacco: Former Cigarettes S tarted: 1964 Smokeless Tobacco: Never Tobacco Cessation:Counseling Given: Not Answered Alcohol Use Standard Drinks/Week Comments Yes 0 (1 standard drink = 0.6 oz pur e alcohol) Very Rarely PHQ-2 Answer Date Recorded PHQ-2 TOTAL SCORE 1 04/28/2024 Social Connections Answer Date Recorded Frequency of Communication with Friends and Fami ly Not on file 05/10/2023 Sex and Gender Information Value Date Recorded Sex Assigned at Not on file Gender Identity Not on file Sexual Orientation Not on file Obstetrics History Last Filed Vital Signs Vital Sign Reading Time Taken Comments Blood Pressure 117/67 06/04/2024 2:55 PM CDT Pulse 65 06/04/2024 2:55 PM CDT pt states symptoms resolved Temperature 36.4 ??C (97.6 ??F) 04/22/2024 8 :18 AM CDT Respiratory Rate 20 06/04/2024 1:28 PM CDT Oxygen Saturation 94% 06/04/2024 2:5 5 PM CDT Inhaled Oxygen Concentration - - Weight 120.7 kg (266 lb) 06/04/2024 1:0 0 PM CDT Height 160 cm (5' 3) 06/04/2024 1:00 PM CDT Body Mass Index 47.12 06/04/2024 1:00 PM CDT Plan of Treatment Upcoming Encounters Date Type Department Care Team (Late st Contact Info) Description 07/24/2024 1:30 PM CDT Appointment [facility] [address] [place] [address] 07/29/2024 1:30 PM CDT Appointment [facility] [address] [place] [address] 07/31/2024 1:30 PM CDT Appointment [facility] [address] [place] [address] 08/03/2024 1:30 PM CDT Appointment [facility] [address] [place] [address] 08/17/2024 3:00 PM CDT Office Visit [facility] [address] [place] [address] Elmer Simmons MD [address] [facility] [address] [place] [address] Health Maintenance Due Date Last Done Comments Pneumococcal series for age 65+ (1 of 2 - PCV) 1962 Tdap 1967 Hepatitis C screening for age 18-79 1974 Tetanus booster 1976 Colonoscopy through age 75 2001 Lipids for age 45-75 2001 Mammogram for age 45-75 2001 Zoster (shingles) series for age 50+ (1 of 2) 2006 DEXA/DXA scan for age 65+ 2021 Medicare Wellness for age 65+ 2021 Influenza for age 65+ 07/26/2024 COVID-19 vaccine series ( season) 2024 03/27/2024, 10/11/2022 Depression screening for age 12+ 05/01/2025 05/01/20, 04/28/2024 BMI (ht and wt on same day) for age 18+ 06/01/2025 06/01/2024, 05/11/2024, 03/23/2024 Procedures Procedure Name Priority Date/Time Associated Diagnosis Comments MR CARDIAC STRESS IMAGING WWO DWIGHT 06/04/2024 3:36 PM CDT Coronary artery disease, unspecified vessel or lesion type, unspecified whether angina present, unspecified whether guidiville or transplanted heart Dyspnea and respiratory abnormalities Arteriosclerotic heart disease HEMATOCRIT/HGB,ISTAT Routine 06/04/2024 12:50 PM CDT EXTENDED HOLTER Routine 06/01/2024 3:58 PM CDT Coronary artery disease involving guidiville coronary artery of guidiville heart without angina pectoris Cardiovascular symptoms Dyspnea and respiratory abnormalities Palpitations SCAN-CARDIAC REHABILITATION 05/20/2024 1:24 PM CDT SCAN-CARDIAC REHABILITATION 05/15/2024 1:27 PM CDT SCAN-CARDIAC REHABILITATION 05/13/2024 1:35 PM CDT SCAN-CARDIAC REHABILITATION 05/11/2024 1:23 PM CDT SCAN-CARDIAC REHABILITATION 05/08/2024 1:33 PM CDT SCAN-CARDIAC REHABILITATION 05/06/2024 1:35 PM CDT SCAN-CARDIAC REHABILITATION 05/04/2024 1:27 PM CDT SCAN-CARDIAC REHABILITATION 05/01/2024 1:34 PM CDT SCAN-CARDIAC REHABILITATION 04/28/2024 3:37 PM CDT SCAN-CARDIAC STRIP 04/22/2024 7: 33 AM CDT BASIC METABOLIC PANEL Early AM 04/22/2024 7:33 AM CDT CBC W PLT NO DIFF Early AM 04/22/2024 7:3 3 AM CDT SCAN-CARDIAC STRIP 04/22/2024 7: 30 AM CDT SCAN-CARDIAC STRIP 04/22/2024 3: 58 AM CDT HCHG ACTIVATED CLOTTING TM CV Timed 04/21/2024 7:05 PM CDT HCHG ACTIVATED CLOTTING TM CV Timed 04/21/2024 5:44 PM CDT HCHG ACTIVATED CLOTTING TM CV Timed 04/21/2024 5:00 PM CDT CVL PCI ONLY Routine 04/21/2024 4:34 PM CDT Cardiovascular symptoms POTASSIUM STAT 04/21/2024 12:44 PM CDT EXTRA TUBE GOLD/SST Today 04/21/2024 1 2:29 PM CDT EKG 12 LEAD Preop 04/21/2024 11:20 AM CDT CBC W PLT NO DIFF STAT 04/21/2024 11: 05 AM CDT CREATININE STAT 04/21/2024 11:04 AM CDT BUN STAT 04/21/2024 11:04 AM CDT SODIUM STAT 04/21/2024 11:04 AM CDT BASIC METABOLIC PANEL Routine 04/10/2024 2:56 PM CDT Coronary artery disease involving guidiville coronary artery of guidiville heart without angina pectoris CBC W PLT NO DIFF Routine 04/10/2024 2:5 6 PM CDT Coronary artery disease involving guidiville coronary artery of guidiville heart without angina pectoris from Last 3 Months Results * MR CARDIAC STRESS IMAGING WWO (06/04/2024 3:36 PM CDT) Anatomical Region Laterality Modality Magnetic Resonan ce 06/04/2024 2:14 PM CDT Narrative 06/04/2024 3:56 PM CDT ?[facility] ? CMR Report ??MRN: ?[id number] ?Name: ? OSWALD, DILAN ?: ?Scan Date: ?Accession Number: ?[id number] ?Status: ?Final ? Electronically signed by Thien Esqueda 15:56:08 VITALS ===== HEIGHT: 63 in ?(160 cm) WEIGHT: 266 lbs ?(121 kgs) BSA: 2.18 m^2 FINAL IMPRESSION ===== 1) Findings are consistent with large area of RCA ischemia with small subendocardial infarction involving the same territory. Total scar burden is small=4% of LV mass. - Normal LV size with mild concentric hypertrophy and preserved systolic function, LVEF=71%. No regional wall motion abnormalities. - On first pass stress CMR with Adenosine, there was splenic-switch off (a sign of significant vasodilation) with large area of RCA ischemia. - On quantitative assessment, there was impaired stress MBF (1.56 in the RCA territory, vs. 2.40 in the LAD, normal > 2.0). Impaired myocardial perfusion reserve also seen (1.51, normal > 2.3) implies a component of microvascular dysfunction. 2) Normal RV size and systolic function, RVEF=60%. 3) No significant valvular disease. Normal aortic root and thoracic aorta caliber. 4) Dilated main pulmonary artery (35 mm) suggests chronic PHTN and/or sleep apnea. SUMMARY ===== LEFT VENTRICLE: Quantitative LVEF 71 %. There is concentric LVH. There is mild LV hypertrophy. LV systolic function is hyperdynamic. No LV pacemaker/defibrillator wire. There is no LV mass/thrombus. LV cavity size is normal. VIABILITY: LV scar size is 4 %. STRESS: Abnormal (see comments above) RIGHT VENTRICLE: Quantitative RVEF 60 %. RV wall thickness is normal. RV cavity size is normal. RV systolic function is normal. There is no RV mass/thrombus. LV/RV SEPTUM: The LV/RV septum is normal. LA/RA SEPTUM: The LA/RA septum is normal. LEFT ATRIUM: LA is mildly enlarged. There is no LA mass/thrombus. RIGHT ATRIUM: The right atrium is normal. PERICARDIUM: Pericardium is normal. There is no pericardial effusion. There are no signs of increased intrapericardial pressures. PLEURAL EFFUSION: There is no pleural effusion. AORTIC VALVE: The aortic valve annulus is normal in size. Aortic valve leaflets are normal. There is no aortic valve mass, thrombus, or vegetation. There is no aortic regurgitation. There is no aortic stenosis. MITRAL VALVE: The mitral valve annulus is normal in size. Mitral valve leaflets are normal. There is no mitral valve mass, thrombus, or vegetation. There is no mitral regurgitation. There is no mitral stenosis. TRICUSPID VALVE: The tricuspid valve annulus is normal in size. Tricuspid valve leaflets are normal. There is no tricuspid valve mass, thrombus, or vegetation. There is no tricuspid regurgitation. There is no tricuspid stenosis. PULMONIC VALVE: The pulmonic valve annulus is normal in size. Pulmonic valve leaflets are normal. There is no pulmonic valve mass, thrombus, or vegetation. There is no pulmonic regurgitation. There is no pulmonic stenosis. AORTIC ROOT: The aortic root is normal. CORE EXAM ===== MEASUREMENTS ----- --- ?VOLUMETRIC ANALYSIS ? . . ? LV ?? Reference RV ?? Reference +------+ +------+ +------+ + EDV ?? ml ?142 ??(82-162) ??143 ??(75-160) ? ml/m^2 ? 65 ??(53-87) ? 66 ??(49-86) ?? ESV ?? ml ? 41 ??(20-57) ? 57 ??(11-63) ? ml/m^2 ? 19 ??(13-31) ? 26 ??(8-34) ?? CO ?? L/min ? 7.27 ? 6.19 ? L/min/m^2 3.33 ? 2.84 ? MASS g ? 97 ??(73-145) ? g/m^2 ? 44 ??(48-78) ? SV ?? ml ?101 ??(56-111) ?? 86 ??(55-106) ? ml/m^2 ? 46 ??(36-60) ? 39 ??(34-58) ?? EF ?? % ? 71 ??(60-78) ? 60 ??(57-81) ?? '------+ +------+ +------+ ' ?CARDIAC OUTPUT HR: ??72 BPM ?LA DIMENSIONS (LV SYSTOLE) ?VOLUME: ??112 ml ?VOLUME NORMALIZED: ??51.3 ml/m^2 ?RA DIMENSIONS (RV SYSTOLE) ?VOLUME: ??82 ml ?VOLUME NORMALIZED: ??37.6 ml/m^2 ?EXTRACELLULAR VOLUME MEASUREMENT ?PRE-CONTRAST T1 MYOCARDIUM: ??993 msec ?ECV: ??26 % 17 SEGMENT ----- --- . ----- . Segments ? Wall Motion ?? Hyperenhancement Stress Perfusion ? Interpretation ? + + + + +-- ----- + Base Anterior ? Normal/Hyper None ? Normal ? Normal ? Base Anteroseptal ?? Normal/Hyper None ? Normal ? Normal ? Base Inferoseptal ?? Normal/Hyper 1-25% ? Severely Abnormal ?? Sub-Endo NM, w/ Ischemia Base Inferior ? Normal/Hyper 26-50% ? Severely Abnormal ?? Sub-Endo NM, w/ Ischemia Base Inferolateral Normal/Hyper None ? Moderately Abnormal Ischemia ? Base Anterolateral Normal/Hyper None ? Normal ? Normal ? Mid Anterior ? Normal/Hyper None ? Normal ? Normal ? Mid Anteroseptal ?? Normal/Hyper None ? Normal ? Normal ? Mid Inferoseptal ?? Normal/Hyper None ? Moderately Abnormal Ischemia ? Mid Inferior ? Normal/Hyper 1-25% ? Severely Abnormal ?? Sub-Endo NM, w/ Ischemia Mid Inferolateral ?? Normal/Hyper None ? Moderately Abnormal Ischemia ? Mid Anterolateral ?? Normal/Hyper None ? Normal ? Normal ? Apical Anterior ? Normal/Hyper None ? Normal ? Normal ? Apical Septal ? Normal/Hyper None ? Normal ? Normal ? Apical Inferior ? Normal/Hyper None ? Moderately Abnormal Ischemia ? Apical Lateral ? Normal/Hyper None ? Normal ? Normal ? [place] ? Normal/Hyper None ? Normal ? Normal ? + + + + +-- ----- + RV Segments ? Wall Motion ?? Hyperenhancement ? Interpretation ? + + + + +-- ----- + RV Basal Anterior ?? Normal/Hyper None ? Normal ? RV Basal Inferior ?? Normal/Hyper None ? Normal ? RV Mid ? Normal/Hyper None ? Normal ? RV Apical ? Normal/Hyper None ? Normal ? ' + + + +-- ----- ' ?FINDINGS ?LV SCAR SIZE (17 SEGMENT): ??4 % STRESS ===== STRESS PROTOCOL ----- --- ?Adenosine ?AMOUNT: ??170 mg ?SPLENIC SWITCH-OFF: ??Present ?MOTION CORRECTED: ??Yes ?ANALYSIS: ??Semi-quantitative, Visual RESTING DATA ----- --- ?SYSTOLIC BP: ??116 mmHg ?DIASTOLIC BP: ??68 mmHg ?RESTING HR: ??59 BPM STRESS DATA ----- --- ?PEAK SYSTOLIC BP: ??115 mmHg ?PEAK DIASTOLIC BP: ??55 mmHg ?PEAK HR: ??90 BPM ?REASON FOR TERMINATION: ??Protocol Complete ?COMPLICATIONS: ??None SCAN INFO ===== GENERAL ----- --- ?SCANNER ?PROJECT ANALYST: ??SIEMENS ?MODEL: ??Aera ?CONTRAST AGENT ?TYPE: ??Gadavist ?GD CONCENTRATION: ??1.0 M ?SETUP ?REFERRING PHYSICIAN: ??BLANK HARRISON ?ATTENDING PHYSICIAN: ??BLANK HEBERT ===== Patient Account ?[id number] ICD10 Codes ?I25.10, R06.00, R06.89, I25.10 Report generated by [employer], a product of [employer] Procedure Note Thien Esqueda MD - 06/04/2024 [facility] CMR Report Name: DILAN AKERS : Scan Date: Accession Number: [id number] Status: Final Electronically signed by Thien Esqueda 15:56:08 VITALS ===== HEIGHT: 63 in (160 cm) WEIGHT: 266 lbs (121 kgs) BSA: 2.18 m^2 FINAL IMPRESSION ===== 1) Findings are consistent with large area of RCA ischemia with smallsubendocardial infarction involving the same territory. Total scar burden is small=4% of LV mass. - Normal LV size with mild concentric hypertrophy and preserved systolicfunction, LVEF=71%. No regional wall motion abnormalities. - On first pass stress CMR with Adenosine, there was splenic-switch off (asign of significant vasodilation) with large area of RCA ischemia. - On quantitative assessment, there was impaired stress MBF (1.56 in theRCA territory, vs. 2.40 in the LAD, normal > 2.0). Impaired myocardial perfusion reserve also seen (1.51,normal > 2.3) implies a component of microvascular dysfunction. 2) Normal RV size and systolic function, RVEF=60%. 3) No significant valvular disease. Normal aortic root and thoracic aortacaliber. 4) Dilated main pulmonary artery (35 mm) suggests chronic PHTN and/orsleep apnea. SUMMARY ===== LEFT VENTRICLE: Quantitative LVEF 71 %. There is concentric LVH. There ismild LV hypertrophy. LV systolic function is hyperdynamic. No LV pacemaker/defibrillator wire. There is no LVmass/thrombus. LV cavity size is normal. VIABILITY: LV scar size is 4 %. STRESS: Abnormal (see comments above) RIGHT VENTRICLE: Quantitative RVEF 60 %. RV wall thickness is normal. RVcavity size is normal. RV systolic function is normal. There is no RV mass/thrombus. LV/RV SEPTUM: The LV/RV septum is normal. LA/RA SEPTUM: The LA/RA septum is normal. LEFT ATRIUM: LA is mildly enlarged. There is no LA mass/thrombus. RIGHT ATRIUM: The right atrium is normal. PERICARDIUM: Pericardium is normal. There is no pericardial effusion.There are no signs of increased intrapericardial pressures. PLEURAL EFFUSION: There is no pleural effusion. AORTIC VALVE: The aortic valve annulus is normal in size. Aortic valveleaflets are normal. There is no aortic valve mass, thrombus, or vegetation. There is no aortic regurgitation. There isno aortic stenosis. MITRAL VALVE: The mitral valve annulus is normal in size. Mitral valveleaflets are normal. There is no mitral valve mass, thrombus, or vegetation. There is no mitral regurgitation. There isno mitral stenosis. TRICUSPID VALVE: The tricuspid valve annulus is normal in size. Tricuspidvalve leaflets are normal. There is no tricuspid valve mass, thrombus, or vegetation. There is no tricuspid regurgitation.There is no tricuspid stenosis. PULMONIC VALVE: The pulmonic valve annulus is normal in size. Pulmonicvalve leaflets are normal. There is no pulmonic valve mass, thrombus, or vegetation. There is no pulmonic regurgitation.There is no pulmonic stenosis. AORTIC ROOT: The aortic root is normal. CORE EXAM ===== MEASUREMENTS ----- --- VOLUMETRIC ANALYSIS . . LV Reference RV Reference +------+ +------+ +------+ + EDV ml 142 (82-162) 143 (75-160) ml/m^2 65 (53-87) 66 (49-86) ESV ml 41 (20-57) 57 (11-63) ml/m^2 19 (13-31) 26 (8-34) CO L/min 7.27 6.19 L/min/m^2 3.33 2.84 MASS g 97 (73-145) g/m^2 44 (48-78) SV ml 101 (56-111) 86 (55-106) ml/m^2 46 (36-60) 39 (34-58) EF % 71 (60-78) 60 (57-81) '------+ +------+ +------+ ' CARDIAC OUTPUT HR: 72 BPM LA DIMENSIONS (LV SYSTOLE) VOLUME: 112 ml VOLUME NORMALIZED: 51.3 ml/m^2 RA DIMENSIONS (RV SYSTOLE) VOLUME: 82 ml VOLUME NORMALIZED: 37.6 ml/m^2 EXTRACELLULAR VOLUME MEASUREMENT PRE-CONTRAST T1 MYOCARDIUM: 993 msec ECV: 26 % 17 SEGMENT ----- --- . ----- . Segments Wall Motion Hyperenhancement Stress Perfusion Interpretation + + + + +-- ----- + Base Anterior Normal/Hyper None Normal Normal Base Anteroseptal Normal/Hyper None Normal Normal Base Inferoseptal Normal/Hyper 1-25% Severely Abnormal Sub-Endo NM, w/ Ischemia Base Inferior Normal/Hyper 26-50% Severely Abnormal Sub-Endo NM, w/ Ischemia Base Inferolateral Normal/Hyper None ModeratelyAbnormal Ischemia Base Anterolateral Normal/Hyper None Normal Normal Mid Anterior Normal/Hyper None Normal Normal Mid Anteroseptal Normal/Hyper None Normal Normal Mid Inferoseptal Normal/Hyper None ModeratelyAbnormal Ischemia Mid Inferior Normal/Hyper 1-25% Severely Abnormal Sub-Endo NM, w/ Ischemia Mid Inferolateral Normal/Hyper None ModeratelyAbnormal Ischemia Mid Anterolateral Normal/Hyper None Normal Normal Apical Anterior Normal/Hyper None Normal Normal Apical Septal Normal/Hyper None Normal Normal Apical Inferior Normal/Hyper None ModeratelyAbnormal Ischemia Apical Lateral Normal/Hyper None Normal Normal [place] Normal/Hyper None Normal Normal + + + + +-- ----- + RV Segments Wall Motion Hyperenhancement Interpretation + + + + +-- ----- + RV Basal Anterior Normal/Hyper None Normal RV Basal Inferior Normal/Hyper None Normal RV Mid Normal/Hyper None Normal RV Apical Normal/Hyper None Normal ' + + + +-- ----- ' FINDINGS LV SCAR SIZE (17 SEGMENT): 4 % STRESS ===== STRESS PROTOCOL ----- --- Adenosine AMOUNT: 170 mg SPLENIC SWITCH-OFF: Present MOTION CORRECTED: Yes ANALYSIS: Semi-quantitative, Visual RESTING DATA ----- --- SYSTOLIC BP: 116 mmHg DIASTOLIC BP: 68 mmHg RESTING HR: 59 BPM STRESS DATA ----- --- PEAK SYSTOLIC BP: 115 mmHg PEAK DIASTOLIC BP: 55 mmHg PEAK HR: 90 BPM REASON FOR TERMINATION: Protocol Complete COMPLICATIONS: None SCAN INFO ===== GENERAL ----- --- SCANNER PROJECT ANALYST: SIEMENS MODEL: Aera CONTRAST AGENT TYPE: Gadavist GD CONCENTRATION: 1.0 M SETUP REFERRING PHYSICIAN: BLANK HARRISON ATTENDING PHYSICIAN: BLANK HARRISON BILLING ===== Patient Account [id number] ICD10 Codes I25.10, R06.00, R06.89, I25.10 Report generated by [employer], a product of [employer] Blank Harrison MD MR * HEMATOCRIT/HGB,ISTAT (06/04/2024 12:50 PM CDT) [facility] HEMATOCRIT, POCT 39.0 33.0 - 51.0 % 06/04/2024 3:09 PM CDT [facility] HEMOGLOBIN, POCT 13.3 12.0 - 16.0 g/dL 06/04/2024 3:09 PM CDT [facility] Blood BLOOD SPECIMEN / Unknown 06/04/2024 12:50 PM CDT 06/04/2024 3:09 PM CDT Blank Harrison MD CHEMISTRY [facility] [address] [place] [address], * SCAN-CARDIAC REHABILITATION (05/20/2024 1:24 PM CDT) Only the most recent of9 resultswithin the time period is included. Scanner OTHER * SCAN-CARDIAC STRIP (04/22/2024 7:33 AM CDT) Scanner OTHER * (ABNORMAL) CBC with Platelets no Differential (04/22/2024 7:33 AM CDT) Only the most recent of3 resultswithin the time period is included. WHITE BLOOD COUNT 7.8 4.5 - 11.0 thou/cu mm 04/22/2024 8:22 AM CDT [facility] RED BLOOD COUNT 3.97(L) 4.00 - 5.20 mil/cu mm 04/22/2024 8:22 AM CDT [facility] HEMOGLOBIN 11.3(L) 12.0 - 16.0 g/dL 04/22/2024 8:22 AM CDT [facility] HEMATOCRIT 36.5 33.0 - 51.0 % 04/22/2024 8:22 AM T [facility] MCV 92 80 - 100 fL 04/22/2024 8:22 AM CDT [facility] MCH 28.5 26.0 - 34.0 pg 04/22/2024 8:22 AM T [facility] MCHC 31.0(L) 32.0 - 36.0 g/dL 04/22/2024 8:22 AM T [facility] RDW 14.2 11.5 - 15.5 % 04/22/2024 8:22 AM T [facility] PLATELET COUNT 178 140 - 440 thou/cu mm 04/22/2024 8:22 AM T [facility] MPV 9.9 6.5 - 11.0 fL 04/22/2024 8:22 AM T [facility] NRBC 0.0 % 04/22/2024 8:22 AM CDT [facility] ABS NRBC 0.0 thou /cu mm 04/22/2024 8:22 AM T [facility] Blood BLOOD SPECIMEN / Unknown Butterfly / Unknown 04/22/2024 7:33 AM CDT 04/22/2024 8:02 AM CDT Evgeny Hortajabier MORALES HEMATOL O[facility] [address] [place] [address], * (ABNORMAL) Basic Metabolic Panel (04/22/2024 7:33 AM CDT) Only the most recent of2 resultswithin the time period is included. SODIUM 137 136 - 145 mmol/L 04/22/2024 8:38 AM CDT [facility] POTASSIUM 4.3 3.5 - 5.1 mmol/L 04/22/2024 8:38 AM T [facility] CHLORIDE 107 98 - 107 mmol/L 04/22/2024 8:38 AM T [facility] CO2,TOTAL 18(L) 22 - 29 mmol/L 04/22/2024 8:38 AM T [facility] ANION GAP 12 5 - 18 04/22/2024 8:38 AM T [facility] GLUCOSE 95 70 - 99 mg/dL 04/22/2024 8:38 AM [facility] CALCIUM 9.2 8.8 - 10.2 mg/dL 04/22/2024 8:38 AM T [facility] BUN 42(H) 8 - 23 mg/dL 04/22/2024 8:38 AM T [facility] CREATININE 2.36(H) 0.50 - 0.90 mg/dL 04/22/2024 8:38 AM T [facility] BUN/CREAT RATIO 18 10 - 20 8:38 AM [facility] eGFR 22(L) >90 mL/min/1.7 3m2 04/22/2024 8:38 AM CDT [facility] Comment:As of 2022, eG FR is calculated by the CKD-EPI creatinine equation without race adjustment. ??eGFR can be influenced by muscle mass, exercise, and diet. ??The reported eGFR is an estimation only and is only applicable if the renal function is stable. Blood BLOOD SPECIMEN / Unknown Butterfly / Unknown 04/22/2024 7:33 AM CDT 04/22/2024 8:02 AM CDT Evgeny MORALES COMMISSION AGENT LIVESTOCK RY Performing Organization Address City/[facility] Co de Phone Number [facility] [address] [place] [address], * SCAN-CARDIAC STRIP (04/22/2024 7:30 AM CDT) Scanner OTHER * SCAN-CARDIAC STRIP (04/22/2024 3:58 AM CDT) Scanner OTHER * (ABNORMAL) ACTIVATED CLOTTING TIME [id number] ACT (04/21/2024 7:05 PM CDT) Only the most recent of3 resultswithin the time period is included. [facility] Signature ACTIVATED CLOTTING TIME, POCT 299(H) 74 - 125 sec 04/21/2024 8:00 PM CDT [facility] Blood BLOOD SPECIMEN / Unknown 04/21/2024 7:05 PM CDT 04/21/2024 8:00 PM CDT Elmer Simmons MD HEMATOLO GY Performing Organization Address [facility]/ZIP Co de Phone Number [facility] [address] [place] [address], * CVL PCI ONLY (04/21/2024 4:34 PM CDT) Anatomical Region Laterality Modality X-Ray Angiograph y, X-Ray Angiography 04/21/2024 4:34 PM CDT Narrative Procedure Note Elmer Simmons MD - 04/21/2024 7:43 PM CDT DATE OF SERVICE: 04/21/2024 OPERATORS: Fellow: Cachorro Collins MD and Evgeny Nance MD Attending: Elmer Simmons MD PROCEDURE: Successful percutaneous coronary intervention of a right coronary arterychronic total occlusion using the retrograde approach. PROCEDURE NOTE: Ms. Akers was referred for PCI of right coronary artery PROVIDER RELATIONS ADVOCATE. Afterexplanation of the risks, benefits, goals, and alternatives of theprocedure, she decided to proceed. We obtained bilateral femoral arterial access using ultrasound guidanceand micropuncture needle kit. We engaged the right coronary artery withan 8-Palestinian AL1 and the left main with a 7-Palestinian EBU 3.75. We didantegrade wiring attempt using a Turnpike along with XAVI black guidewire;however, there was a guide-induced dissection of the right coronary arteryand the wire entered into the extra plaque space. We tried to re-enter into the distal RCA using a Stingray balloon alongwith Marie Second and Marie Third as well as Certified Teacher Assistant 200 guidewire using thedouble-blind eehdr-yjz-seci technique, but unfortunately we were unable tore-enter into the distal true lumen. After multiple attempts, we decidedto attempt the retrograde approach. We tried to serve the first septalcollateral using multiple guidewires including SUOH 03, XAVI, XAVI blackwithout success. We then tried to surf the second septal branch. We dida contrast injection through a Corsair XS microcatheter that demonstrateda connection. We were unable to cross despite using FIELDER XT-R, SIONblack, SUOH 03. However, after sequential tip injections and after usinga SUOH 03, we successfully crossed into the distal true lumen. We wereable to advance the microcatheter into the PDA and then, advanced theretrograde XAVI black, followed by Scooby Mitchell all the way into theaorta. The retrograde wire was exchanged for an R350 that was snaredusing an EN Snare 12/20 snare and externalized. We then did IVUS,predilated and stented from the distal RCA all the way to the ostium using3 Henderson Granger drug-eluting stents with IVUS demonstrating good stentexpansion and excellent JOHN 3 flow at the end of the procedure. The patient tolerated the procedure well and was discharged to recoveryroom in stable condition. Fluoroscopy time was 70.4 minutes, air kermaradiation dose was 2.593 Gy, DAP radiation dose was 7[address]22 microgray metersquare and a total of 150 mL of contrast were used. MD VINCE MENSAH/JASON/DEBORAH/ZULEMA VJID: [id number] TJID: [id number] Transcriptions Elmer Simmons MD - 04/21/2024 7:46 PM CDT [facility] Cardiac Catheterization Report Name: DILAN AKERS Event Date: 04/21/2024 16:34 Excellian ID #: [id number] DAVID #: [id number] Patient Class: Outpatient Diagnostic Physician: ELMER SIMMONS [facility] Referring Physician: Shaylee Santa PA-C Date: 1955 Gender: Female Age: 68 Supplemental Dictation Please refer to the patient's medical record for supplemental dictatedinformation regarding this procedure. Summary/Conclusions PRESENTATION / INDICATIONS * [place] VASCULAR ACCESS * Using ultrasound guidance and a percutaneous technique, the right commonfemoral artery was accessed. Ultrasound was used to confirm vesselpatency, localizing needle into the lumen of the vessel. An image wassaved for the medical record. * Using ultrasound guidance and a percutaneous technique, the left commonfemoral artery was accessed. Ultrasound was used to confirm vesselpatency, localizing needle into the lumen of the vessel. An image wassaved for the medical record. DIAGNOSTIC - CORONARY * Single vessel coronary disease (100% mid RCA PROVIDER RELATIONS ADVOCATE) INTERVENTION * Successful angioplasty and stenting (drug eluting) of the right coronaryartery PROVIDER RELATIONS ADVOCATE using the retrograde approach SPECIAL PROCEDURES * Right femoral arteriotomy was successfully closed utilizing a closuredevice * Left femoral arteriotomy was successfully closed utilizing a closuredevice RECOMMENDATIONS & PLAN * Medical Rx - Aspirin: 81 mg daily * Plavix for 1 year - minimum Consent & [place] Protocol The risks, benefits, and alternatives of the procedure were discussed withthe patient and written informed consent was obtained. [place] protocol was followed. TIME OUT conducted just prior tostarting procedure confirmed patient identity, site/side, procedure,patient position, and availability of correct equipment and implants (ifapplicable). Staff Name Title ELMER SIMMONS Diagnostic Live Source Operator Evgeny Nance Fellow Cachorro Collins Fellow Prince Rogel RN Nurse Beata Dejesus CVT Baggage Smasher Carmen Christiansen CVT Monitor Dionte Fierro CVT Scrub Jamari Plata CVT Scrub Filippo Metcalf RT(R) Monitor Rachel Freitas RN Nurse Procedures ? Ultrasound Guided Vascular Access ? Femoral Angio for Possible Closure Device ? Coronary Angiogram ? Ultrasound Guided Vascular Access ? Ultrasound Guided Vascular Access ? Coronary Angiogram ? Femoral Angio for Possible Closure Device ? Femoral Angio for Possible Closure Device ? Stent Placement, Drug Eluting [PCI] ? Coronary Ultrasound ? Chronic Total Occlusion ? Femoral Closure Device ? Femoral Closure Device Diagnostic Findings * Right Coronary Artery ? 100% stenosis in the Proximal RCA. ? 100% stenosis in the Mid RCA. The lesion has a JOHN flow of 0. ? stenosis in the Distal RCA. Lesion Information Lesion # Vessel Segment Lesion Length Lesion Details 2 Proximal RCA 3 Mid RCA 1 Distal RCA Hemodynamics State: Baseline Pressures (mmHg) Site Systolic Diastolic End Diastolic A Wave V Wave Mean AO 114 40 69 Interventional Results * Right Coronary Artery ? Intervention to the Proximal RCA 100% lesion with a final stenosis of0% using a 2.5mm x 20mm Balloon, IVUS, 3mm x 30mm Zotarolimus-ElutingStent, and a 3mm x 30mm Balloon. ? Intervention to the Mid RCA 100% lesion with a final stenosis of 0%using a 2.5mm x 30mm Balloon, IVUS, and a 3mm x 38mmZotarolimus-Eluting Stent. The final JOHN flow was 3. ? Intervention to the Distal RCA using a IVUS, 2.25mm x 38mmZotarolimus-Eluting Stent, and a 2.25mm x 38mm Balloon. Interventional Devices Lesion # Vessel Segment Type Name Max Pressure 2 Proximal RCA Balloon BRENT FLORIAN Granger RX [id number] 2 Proximal RCA Balloon BLLN EUPHORA RX [id number] 2 Proximal RCA IVUS CATH 6F Opticross IVUS 2 Proximal RCA Zotarolimus-Eluting Stent BRENT FLORIAN Granger RX [id number] 3 Mid RCA Balloon BLLN Emerge MR 2.5mm x 30mm 3 Mid RCA IVUS CATH 6F Opticross IVUS 3 Mid RCA Zotarolimus-Eluting Stent BRENT FLORIAN Granger RX [id number] 1 Distal RCA Zotarolimus-Eluting Stent BRENT FLORIAN Granger RX [id number] 1 Distal RCA IVUS CATH 6F Opticross IVUS 1 Distal RCA Balloon BRENT FLORIAN Granger RX [id number] Procedure Details Estimated Blood Loss: < 30 ml Specimen Collected: None Level of Sedation Achieved: Moderate Procedure Start: 16:34 Procedure End: 19:38 Procedure Time: 184 min Fluoroscopy Time: 70.4 min Cumulative Air Kerma: 2593 mGy DAP: 81739 uGy/M2 Contrast: Visipaque (iso-osmolar), 150 ml Physiologic Data Actual VO2: 253.28 Weight: 117.9 kg BSA: 2.19 m2 Vascular Access Time Access Sheath Size 16:36 Right Femoral Artery, sheath inserted 16:40 Left Femoral Artery, sheath inserted Complications ? No Complications Medications Ordered and Administered Start Time Stop Time Medication Dose Units Route Ordered By Given By 16:27 Versed 0.5 mg IV BrElmer coleman Nathan RN 16:27 Dilaudid 0.2 mg IV Elmer Simmons Nathan RN 16:36 1% Lidocaine 10 ml Subcut Elmer Simmons, med 16:39 Dilaudid 0.2 mg IV Elmer Simmons Nathan RN 16:39 Versed 0.5 mg IV Elmer Simmons Nathan RN 16:40 1% Lidocaine 10 ml Subcut Elmer Simmons, Ahmed 16:43 Versed 0.5 mg IV JamesilaElmer gant Nathan RN 16:43 Heparin 36059 units IV Elmer Simmons Nathan RN 16:51 Versed 0.5 mg IV Brilakis, Emmanouil S ErnstPrince thompson RN 17:06 Heparin 3000 units IV Brilakis, Emmanouil S ErnstPrince thompson RN 17:28 Versed 0.5 mg IV Brilakis, Emmanouil S ErnsterPrince RN 17:50 Heparin 3000 units IV Brilakis, Emmanouil S ErnstPrince thompson RN 17:59 Versed 0.5 mg IV Brilakis, Emmanouil S Ernster, Prince RN 18:18 Heparin 4000 units IV Brilakis, Emmanouil S ErnstPrince thompson RN 18:43 Versed 0.5 mg IV Brilakis, Emmanouil S ErnstPrince thompson RN 18:45 Dilaudid 0.2 mg IV Brilakis, Juanitaanouil S Prince Rogel RN 19:04 Versed 0.5 mg IV Brilakis, Emmanouil S ErnstPrince thompson RN 19:08 Dilaudid 0.2 mg IV Brilakis, Emmanouil S Ernstjay, Prince RN 19:10 Heparin 3000 units IV Brilakis, Emmanouil S Rachel Freitas RN 19:15 Versed 0.5 mg IV Brilakis, Emmanouil S Rachel Freitas RN 19:27 Versed 0.5 mg IV Brilakis, Emmanouil S Rachel Freitas RN 19:36 Versed 1 mg IV Brilakis, Emmanouil S Rachel Freitas RN 19:36 Dilaudid 0.2 mg IV Brilakis, Emmanouil S ErnstPrince thompson RN I personally monitored the patient?s conscious sedation during theprocedure. Conscious sedation starts with the first sedation medication dose ofFentanyl or Versed and ends when the procedure is completed, the patientis stable for recovery status, and the physician or other qualified healthcare professional providing the sedation ends personal kigdodalfpzvos-wh-vcsl time with the patient. The medications listed above were verbally ordered by me and read back tome as documented above. Refer to the procedure log report for additional case details. electronically signed on 04/21/2024 7:46:29 PM with status of Final Elmer Simmons MD [facility] [address] [place] [id number] (p) [phone](f) Provider Referring CV IMAGING * Potassium (04/21/2024 12:44 PM CDT) POTASSIUM 5.1 3.5 - 5.1 mmol/L 04/21/2024 1:17 PM CDT [facility] Blood BLOOD SPECIMEN / Unknown Venipuncture / Unknown 04/21/2024 12:44 PM CDT 04/21/2024 12:51 PM CDT Cachorro Collins MD CHEMISTRY Performing Organization Address City/[facility]/ZIP Co de Phone Number [facility] [address] [place] [address], * EXTRA TUBE GOLD/SST (04/21/2024 12:29 PM CDT) Blood BLOOD SPECIMEN / Unknown Non-Lab Venipuncture / Unknown 04/21/2024 12:29 PM CDT 04/21/2024 12:53 PM CDT Elmer Simmons MD LABORATO RY Performing Organization Address City/[facility]/ZIP Co de Phone Number [facility] [address] [place] [address], * EKG - In AM (04/21/2024 11:20 AM CDT) Interpretation Normal sinus rhythm Normal ECG No previous ECGs available BEYOND NOW Ventricular Rate 64 BPM BEYOND NOW Atrial Rate 64 BPM BEYOND NOW P-R Interval 162 ms BEYOND NOW QRS Duration 86 ms BEYOND NOW QT 392 ms BEYOND NOW QTc 404 ms BEYOND NOW P [place] 67 degrees BEYOND NOW R [place] 50 degrees BEYOND NOW T [place] 43 degrees BEYOND NOW 04/21/2024 11:2 0 AM CDT 04/28/2024 3:31 PM CDT Cachorro Collins MD EKG ORD Performing Organization Address City/[facility]/ZIP Co de Phone Number BEYOND NOW [place], [place] * (ABNORMAL) BUN (04/21/2024 11:04 AM CDT) BUN 48(H) 8 - 23 mg/dL 04/21/2024 12:02 PM CDT [facility] Blood BLOOD SPECIMEN / Unknown Venipuncture / Unknown 04/21/2024 11:04 AM CDT 04/21/2024 11:24 AM CDT Cachorro Collins MD CHEMISTRY Performing Organization Address City/[facility]/ZIP Co de Phone Number [facility] [address] [place] [address], * (ABNORMAL) Sodium (04/21/2024 11:04 AM CDT) SODIUM 134(L) 136 - 145 mmol/L 04/21/2024 12:02 PM CDT [facility] Blood BLOOD SPECIMEN / Unknown Venipuncture / Unknown 04/21/2024 11:04 AM CDT 04/21/2024 11:24 AM CDT Cachorro Collins MD CHEMISTRY Performing Organization Address City/[facility] Co de Phone Number [facility] [address] [place] [address], * (ABNORMAL) Creatinine (04/21/2024 11:04 AM CDT) eGFR 21(L) >90 mL/min/1.7 3m2 04/21/2024 12:02 PM CDT [facility] Comment:As of 2022, eG FR is calculated by the CKD-EPI creatinine equation without race adjustment. ??eGFR can be influenced by muscle mass, exercise, and diet. ??The reported eGFR is an estimation only and is only applicable if the renal function is stable. CREATININE 2.45(H) 0.50 - 0.90 mg/dL 04/21/2024 12:02 PM CDT [facility] Blood BLOOD SPECIMEN / Unknown Venipuncture / Unknown 04/21/2024 11:04 AM CDT 04/21/2024 11:24 AM CDT Cachorro Collins MD CHEMISTRY [facility] [address] [place] [address], from Last 3 Months Advance Directives * Full Code (Latest Code Status on File) Date Activated Date Inactivated Comments 04/21/2024 7:51 PM 04/22/2024 2:06 PM Question Answer Comments Code Status Discussion: Reviewed Preferences Care Teams Environmental Services Director Relationship Specialty Start Date End Date Shaylee Santa PA-C [address] [place] [phone] PCP - General Physician Concrete Wall Grinder Operator 03/23/24
--- OUTSIDE RECORDS SUMMARY | 2024-06-18 15:33 | XMS_ITS | Encounter Summary ---
Author Organization [facility] Address [address] [place] [address] Care Team Providers Care Railcar Switcher Name Role Phone Shaylee Santa P.A.-C. Primary Care Provider Reason for Referral * Outpatient (Routine) - Closed Specialty Diagnoses / Procedures Referred By Contac t Referred To Contact Diagnoses Pain Knee Left Pain Knee Right Procedures DX Knee Bilateral 3 Views Familia Patiño M.D. [address] [place] [phone] [facility] Referral ID Status Reason Start Date Expiration Date Visits Re quested Visits Authorized [id number] Closed 05/26/2024 05/26/2025 1 1 Reason for Visit * Outpatient (Routine) - Closed Specialty Diagnoses / Procedures Referred By Contac t Referred To Contact Diagnoses Pain Knee Left Pain Knee Right Procedures DX Knee Bilateral 3 Views Familia Patiño M.D. [address] [place] [phone] [facility] Referral ID Status Reason Start Date Expiration Date Visits Re quested Visits Authorized [id number] Closed 05/26/2024 05/26/2025 1 1 Encounter Details Date Type Department Care Team (Latest Contact Info) Description 05/26/2024 2:08 PM CDT - 05/26/2024 11:59 PM CDT Hospital Encounter Department of Radiology in [address] [place] [phone] Familia Patiño M.D. [address] [facility] [place] [phone] Pain Knee Left; Pain Knee Right Discharge Disposition: Home or Self Care Social History Tobacco Use Types Packs/Day Years Used Date Smoking Tobacco: Former Cigarettes 1 57 0 05/28/1964 - 09/19/2020 Passive Smoke Exposure: Never Smokeless Tobacco: Never Alcohol Use Standard Drinks/Week Comments Yes 0 (1 standard drink = 0.6 oz pure alcohol) I might have 2-3 drinks per year [facility] Utilities Answer Date Recorded In the past 12 months has [facility], gas, oil, or water [employer] threatened to shut off services in your [...] 08/27/2023 PHQ-2 Answer Date Recorded PHQ-2 Score 3 04/16/2024 Exercise Vital Sign Answer Date Recorde d [...] Recor ded PHQ-9 Total Score (max 27) 9 04/16 Nutrition Answer Date Recorded On average, how many serving s of fruits and vegetables do you eat per day (serving size is equal to 1 cup or approximately the size of a tennis ball)? 0-2 12/03/2023 Dental Answer Date Recorded Dental: Regular Dentist No 08/27/20 Employment Answer Date Recorded Employment status Retired 12/03/2023 Housing Stability Answer Date Recorded What is your living situation today? I have a [facility] place to live 12/03/2023 Sex and Gender [...] capsule Take 81 mg by mouth. 05/23/2023 calcium carbonate-vitamin D3 1,500 mg (600 mg calcium)-5 mcg (200 Unit) per tablet Take by mouth daily. cholecalciferol (VITAMIN D3) 50 mcg (2,000 Unit) capsule Take 2,000 Units by mouth. clopidogreL (PLAVIX) 75 mg tablet Take 1 tablet by mouth daily. 04/22/2024 ergocalciferol (DRISDOL) 50,000 Unit capsule Take 1 capsule (50,000 Units total) by mouth once a week. 8 capsule 3 01/13/2024 ezetimibe (ZETIA) 10 mg tablet Take 1 tablet (10 mg total) by mouth daily. 90 tablet 3 10/08/2023 10/07/2024 fexofenadine (ALLIE) 180 mg tablet Take 180 mg by mouth daily. 10/28/2023 fluticasone propionate (FLONASE) 50 mcg/actuation nasal spray Administer 1 spray into each nostril as needed for allergies or rhinitis. 48 g 3 10/14/2023 isosorbide mononitrate (IMDUR) 30 mg 24 hr tablet Take 15 mg by mouth. 09/17/2023 lansoprazole (PREVACID) [address] capsule Take 1 capsule (30 mg total) by mouth every morning before breakfast. 90 capsule 3 10/08/2023 MAGNESIUM GLYCINATE ORAL 500 mg. metoprolol succinate 100 mg capsule,sprinkle,ER 24hr Take 25 mg by mouth daily. 09/20/2022 multivitamin-minerals -lutein (Multivitamin 50 Plus) tablet Take 1 tablet by mouth daily. 05/23/2023 nitroglycerin (NITROSTAT) 0.[address] 0.4 mg under the tongue every 2 (two) hours as needed. 04/22/2024 nystatin (NYSTOP) 100,000 unit/gram powder Apply 2-3 times/day to affected areas as needed for candidiasis 12/08/2019 semaglutide (Wegovy) 0.25 mg/0.5 mL pen injector injectionIndications: Coronary Artery Disease Without Angina Pectoris,Morbid Obesity Body Mass Index 45.0-49.9 Adult (HCC) Inject 0.25 mg under the skin every 7 (seven) days. 2 mL 04/29/2024 sodium bicarbonate 325 mg tablet Take 2 tablets (650 mg total) by mouth daily. 180 tablet 3 11/11/2023 tiZANidine (ZANAFLEX) 4 mg capsule as needed. traMADoL (Ultram) 50 mg tabletIndications:Chr onic Pain/Nonacute Pain Take 1 tablet (50 mg total) by mouth at bedtime as needed for severe pain or score 7-10 of 10 Indications: Chronic Pain/Nonacute Pain. 28 tablet 05/20/2024 UNABLE TO FIND Med Name: Collagen 3000mg hydrolyzed collagen UNABLE TO FIND Med Name: Magnesium Glycanate 240mg, Nature's Bounty high absorption UNABLE TO FIND Take 1 tablet by mouth daily. Collagen with Vitamin C 10/12/2023 documented as of this encounter Plan of Treatment Upcoming Encounters Date Type Department Care Team (Latest Contact Info) Description 06/23/2024 2:00 PM CDT Clinical Support Department of Nutrition in [address] [phone] Shaylee Santa, P.A.-C. [address] [place] [phone] Stacey Mc RDN, LD [facility] [place] [phone] Discharge Disposition: Home or Self Care 06/30/2024 1:30 PM CDT Appointment Department of Radiology in [place], [place] [address] [place] [phone] Shaylee Santa, P.A.-C. [address] [place] [phone] documented as of this encounter Procedures Procedure Name Priority Date/Time Associated Diagnosis Comments DX KNEE BILATERAL 3 VIEWS RAD - Routine (most inpatients and all outpatients) 05/26/2024 2:28 PM CDT Pain Knee Left Pain Knee Right documented in this encounter Results * DX Knee Bilateral 3 Views (05/26/2024 2:28 PM CDT) Anatomical Region Laterality Modality Lower Extremity, Knee, Muscu loskeletal RST LOS, Musculoskeletal ARZ LOS, Muskuloskeletal FLA LOS Bilateral Digit al Radiography Impressions 05/26/2024 3:17 PM CDT No acute bone abnormality. Minimal knee degenerative change. 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 Narrative 05/26/2024 3:17 PM CDT EXAM: DX KNEE BILATERAL 3 VIEWS Procedure Note Willian Reece M.D. - 05/26/2024 EXAM: DX KNEE BILATERAL 3 VIEWS IMPRESSION: No acute bone abnormality. Minimal knee degenerative change. Probableenchondroma proximal left tibial metaphysis. Familia Patiño M.D. [facility] PROCEDURES documented in this encounter Visit Diagnoses Diagnosis Pain Knee Left Pain Knee Right documented in this encounter Additional Health Concerns Assessment Noted Time PHQ-9 Depression Total Score: 9 04/16/20 24 2:15 PM CDT documented as of this encounter Care Teams Railcar Switcher Relationship Specialty Start Date End Date Shaylee Santa P.A.-C. [address] [place] [phone] PCP - General Internal Medicine 01/23/24 documented as of this encounter
--- OUTSIDE RECORDS SUMMARY | 2024-06-18 15:33 | XMS_ITS | Encounter Summary ---
Author Organization [facility] Address [address] [place] [address] Care Team Providers Care Social Service Agency Director Name Role Phone Shaylee Santa P.A.-C. Primary Care Provider Reason for Referral * Physical Therapy (Routine) - Authorized Specialty Diagnoses / Procedures Referred By Collin noble Referred To Contact Diagnoses Pain Low Back Unspecified Pain Knee Left Pain Knee Right Shaylee Santa P.A.-C. [address] [place] [phone] Referral ID Status Reason Start Date Expiration Date Visits Requested Visits Authorized [id number] Authorized Service not available in [facility] 05/05/2024 11/04/2025 1 1 Reason for Visit * Reason Onset Date Comments Order Request 05/05/2024 PT for back pain Encounter Details Date Type Department Care Team (Latest Contact Info) Description 05/05/2024 Clinical Communication Department of Community Internal Medicine in [place], [place] [address] [place] [phone] Shaylee Santa P.A.-C. [address] [place] [phone] Order Request (PT for back pain) Social History Tobacco Use Types Packs/Day Years Used Date Smoking Tobacco: Former Cigarettes 1 57 0 05/28/1964 - 09/19/2020 Passive Smoke Exposure: Never Smokeless Tobacco: Never Alcohol Use Standard Drinks/Week Comments Yes 0 (1 standard drink = 0.6 oz pure alcohol) I might have 2-3 drinks per year [facility] Utilities Answer Date Recorded In the past 12 months has [employer], gas, oil, or water [employer] threatened to shut off services in your [...] your living situation today? I have a [facility] place to live 12/03/2023 Sex and Gender Information Value Date Recorded Sex Assigned at Female 04/11/2023 12:22 PM CDT Gender Identity Female 04/11/2023 12:22 PM CDT Sexual Orientation Straight 04/11/2023 12 :22 PM CDT documented as of this encounter Miscellaneous Notes * Telephone Encounter - Yecenia Horne LLenaP.N. - 05/05/2024 11:19 AM CDT Order faxed documented in this encounter Plan of Treatment Upcoming Encounters Date Type Department Care Team (Latest Contact Info) Description 06/23/2024 2:00 PM CDT Clinical Support Department of Nutrition in [address] [phone] Shaylee Santa P.A.-C. [address] [place] [phone] Stacey Mc, [place] [address] [place] [phone] Discharge Disposition: Home or Self Care 06/30/2024 1:30 PM CDT Appointment Department of Radiology in [place], [place] [address] [place] [phone] Shaylee Santa P.A.-C. 300 [facility] [place] [phone] documented as of this encounter Visit Diagnoses Diagnosis Pain Low Back Unspecified- Primary Pain Knee Left Pain Knee Right documented in this encounter Additional Health Concerns Assessment Noted Time PHQ-9 Depression Total Score: 9 04/16/20 24 2:15 PM CDT documented as of this encounter Care Teams Social Service Agency Director Relationship Specialty Start Date End Date Shaylee Santa P.A.-C. [address] [facility] [place] [phone] PCP - General Internal Medicine 01/23/24 documented as of this encounter
--- OUTSIDE RECORDS SUMMARY | 2024-06-18 15:33 | XMS_ITS | Encounter Summary ---
Author Organization [facility] Address [address] [place] [address] Care Team Providers Care Membership Correspondent Name Role Phone Shaylee Santa P.A.-C. Primary Care Provider Reason for Visit * Reason Comments Med Refill Encounter Details Date Type Department Care Team (Late st Contact Info) Description 05/18/2024 Refill Department of Community Internal Medicine in [place], [place] [address] [place] [phone] Shaylee Santa P.A.-C. [address] [place] [phone] Med Refill Social History Tobacco Use Types Packs/Day Years Used Date Smoking Tobacco: Former Cigarettes 1 57 0 05/28/1964 - 09/19/2020 Passive Smoke Exposure: Never Smokeless Tobacco: Never Alcohol Use Standard Drinks/Week Comments Yes 0 (1 standard drink = 0.6 oz pure alcohol) I might have 2-3 drinks per year [facility] Utilities Answer Date Recorded In the past 12 months has [facility], gas, oil, or water [employer] threatened to shut off services in your [...] your living situation today? I have a [facility] place to live 12/03/2023 Sex and Gender Information Value Date Recorded Sex Assigned at Female 04/11/2023 12:22 PM CDT Gender Identity Female 04/11/2023 12:22 PM CDT Sexual Orientation Straight 04/11/2023 12 :22 PM CDT documented as of this encounter Miscellaneous Notes * Telephone Encounter - Hemanth Cage L.P.N. - 05/20/2024 4:09 PM CDT Controlled substance renewal for Tramadol 50 mg: No nursing concerns Renewal is pended per the controlled substance prescribing plan located in the problem list Date last renewed (start date): 04/16/2024 Last provider visit: 04/29/2024 Urine Drug Screen last resulted on: 04/18/2024; Next due: 03/2025 Screenings due: current Next provider visit due: 10/2024 Controlled substance agreement last reviewed/signed 04/16/2024 This prescription may be filled on 05/20, and next renewal may be on or after 06/17. * Telephone Encounter - Lisa Garcia - 05/19/2024 9:27 AM CDT Nurse review: Med Refill Team is unable to forward request to provider. Controlled Substance, CSA Primary Provider: Shaylee Santa P.A.-C. Requested Prescriptions Pending Prescriptions Disp Refills traMADoL (Ultram) 50 mg tablet [Pharmacy Med Name: TRAMADOL HCL 50MG TABS] 28 tablet 0 Sig: TAKE ONE TABLET (50 MG) BY MOUTH AT BEDTIME NEEDED FOR CHRONIC SEVERE PAIN OR SCORE 7-10 OF10. documented in this encounter Plan of Treatment Upcoming Encounters Date Type Department Care Team (Latest Contact Info) Description 06/23/2024 2:00 PM CDT Clinical Support Department of Nutrition in [address] [phone] Shaylee Santa P.A.-C. [address] [place] [phone] Stacey Mc RDN, LD [address] [place] [phone] Discharge Disposition: Home or Self Care 06/30/2024 1:30 PM CDT Appointment Department of Radiology in [place], [place] [address] [place] [phone] Shaylee Santa P.A.-C. [address] [place] [phone] documented as of this encounter Visit Diagnoses Diagnosis Pain Low Back Chronic- Primary Chronic Pain Syndrome documented in this encounter Additional Health Concerns Assessment Noted Time PHQ-9 Depression Total Score: 9 04/16/20 24 2:15 PM CDT documented as of this encounter Care Teams Membership Correspondent Relationship Specialty Start Date End Date Shaylee Santa P.A.-C. [address] [place] [phone] PCP - General Internal Medicine 01/23/24 documented as of this encounter
--- OUTSIDE RECORDS SUMMARY | 2024-06-18 15:33 | XMS_ITS ---
Author Organization [facility] Address [address] [place] [address] Care Team Providers Care Admissions Rn Name Role Phone Unavailable Unavailable Unavailable Surgery Details Not on file Complications Check Surgery Details section. Procedure Estimated Blood Loss Check Surgery Details section. Procedure Findings Check Surgery Details section. Procedure Specimens Taken Check Surgery Details section.
--- OUTSIDE RECORDS SUMMARY | 2024-06-18 15:33 | XMS_ITS | Encounter Summary ---
Author Organization [facility] Address [address] [place] [address] Care Team Providers Care Curatorial Specialist Name Role Phone Shaylee Santa P.A.-C. Primary Care Provider Encounter Details Date Type Department Care Team (Late st Contact Info) Description 06/18/2024 Clinical Communication Department of Community Internal Medicine in [place], [place] [address] [place] [phone] Shaylee Santa P.A.-C. [address] [place] [phone] Social History Tobacco Use Types Packs/Day Years Used Date Smoking Tobacco: Former Cigarettes 1 57 0 05/28/1964 - 09/19/2020 Passive Smoke Exposure: Never Smokeless Tobacco: Never Alcohol Use Standard Drinks/Week Comments Yes 0 (1 standard drink = 0.6 oz pure alcohol) I might have 2-3 drinks per year [facility] Utilities Answer Date Recorded In the past 12 months has [facility] [employer], gas, oil, or water company threatened to [...] your living situation today? I have a [facility] place to live 12/03/2023 Sex and [...] CDT Clinical Support Department of Nutrition in [place], [place] [address] [place] [phone] Shaylee Santa P.A.-C. 300 [facility] [place] [phone] Stacey Mc, APOLONIAN, LD [address] [place] [phone] Discharge Disposition: Home or Self Care 06/30/2024 1:30 PM CDT Appointment Department of Radiology in [place], [place] 300 [facility] [place] [phone] Shaylee Santa P.A.-C. [address] [facility] [place] [phone] documented as of this encounter Visit Diagnoses Not on filedocumented in this encounter Additional Health Concerns Assessment Noted Time PHQ-9 Depression Total Score: 9 04/16/20 24 2:15 PM CDT documented as of this encounter Care Teams Curatorial Specialist Relationship Specialty Start Date End Date Shaylee Santa P.A.-C. [address] [facility] [place] [phone] PCP - General Internal Medicine 01/23/24 documented as of this encounter
--- OUTSIDE RECORDS SUMMARY | 2024-06-18 15:33 | XMS_ITS | Encounter Summary ---
Author Organization [facility] Address [address] [place] [address] Care Team Providers Care Hair Salon Manager Name Role Phone Shaylee Santa P.A.-C. Primary Care Provider Reason for Referral * Outpatient (Routine) - Authorized Specialty Diagnoses / Procedures Referred By Collin noble Referred To Contact Diagnoses Coronary Artery Disease Without Angina Pectoris Shaylee Santa P.A.-C. [address] [place] [address] Referral ID Status Reason Start Date Expiration Date V isits Requested Visits Authorized [id number] Authorized 06/02/2024 12/02/2025 1 1 Reason for Visit * Reason Comments medication BP and medication di scuss Wegovy * Outpatient (Routine) - Closed Specialty Diagnoses / Procedures Referred By Collin noble Referred To Contact [facility] Shaylee Santa P.A.-C. [address] [place] [address] [facility] Region Referral ID Status Reason Start Date Expiration Date Visits Re quested Visits Authorized [id number] Closed 04/29/2024 10/29/2025 1 1 Encounter Details Date Type Department Care Team ([facility] st Contact Info) Description 06/02/2024 2:20 PM CDT Office Visit Department of Community Internal Medicine in [place], [place] [address] [place] [phone] Shaylee Santa P.A.-C. 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 I have a [facility] place to live 12/03/2023 Sex and Gender Information Value Date Recorded Sex Assigned at Female 04/11/2023 12:22 PM CDT Gender Identity Female 04/11/2023 12:22 PM CDT Sexual Orientation Straight 04/11/2023 12 :22 PM CDT documented as of this encounter Last Filed Vital Signs Vital Sign Reading Time Taken Comments Blood Pressure 108/66 06/02/2024 2:[address] rage Pulse 61 06/02/2024 2:39 PM CDT Temperature 36 ??C (96.8 ??F) 06/02/2024 2:39 PM CDT Respiratory Rate 16 06/02/2024 2:39 PM CDT Oxygen Saturation - - Inhaled Oxygen Concentration - - Weight 121 kg (265 lb 12.2 oz) 06/02/2024 2:39 P M CDT Height 160 cm (5' 2.99) 06/02/2024 2:39 PM CDT Body Mass Index 47.09 06/02/2024 2:39 PM CDT documented in this encounter Progress Notes * Shaylee Santa P.A.-C. - 06/02/2024 2:20 PM CDT SUBJECTIVE CHIEF COMPLAINT/REASON FOR VISIT Chief Complaint Patient presents with medication BP and medication discuss Wegovy HISTORY OF PRESENT ILLNESS Dilan Akers is a pleasant 68 y.o. female with a past medical history of coronary artery disease status post angioplasty with stent placement March 2024 who presents to the clinic today to discuss medication questions and pool therapy. Her metoprolol decreased from 50 mg daily to 25 mg daily by Cardiology team at [facility] 3 weeks ago due to patient feeling lightheaded and fatigue. She has questions about discontinuing this medicationcompletely. She has been attending cardiac rehab at [facility] 3 times weekly since her angioplasty. She finds sessions very challenging due to bilateral knee pain. She feels she has not been able to fully participate in cardiac rehab because of this. She states her Cardiology team recommended pool therapy in place of cardiac rehab but did not give her a prescription for this. She is looking for prescription today. She would also like to discuss Wegovy prescription. She was informed that she should not take this medication due to ileostomy. This medication was not covered by her insurance. The [...] Artery Disease Without Angina Pectoris Ileostomy Status ([facility]) Morbid Obesity Body Mass Index 45.0-49.9 Adult ([facility]) Primary Osteoarthritis Hip Left Dehydration Hypertensive Chronic Kidney Disease (CKD) Stage 3b Glomerular Filtration Rate (GFR) 30 To 44 Hyperparathyroidism Renal Secondary (HCC) Restless Leg Syndrome Posttraumatic Stress Disorder Prolonged Osteopenia Nodule Pulmonary Solitary Insomnia Hyperlipidemia Mixed Gastroesophageal Reflux Disease Without Esophagitis Anemia Of Chronic Disease Urinary Urge Incontinence Chronic Pain Syndrome Spondylosis Cervical Without Myelopathy Adjustment Disorder With Depressed Mood Injury Ureter Subsequent Stone Kidney Personal History Aftercare Vascular Catheter Smoking Tobacco Use Personal History History Of Falling Pain Low Back Chronic Coronary Stent Status Post ALLERGIES/CONTRAINDICATIONS Allergies Allergen Reactions Adhesive Rash Codeine [...] Other (see comments) Sertraline Other (see comments) Rwxghbp-Qwf-Dvz Reductase Inhibitors Other (see comments) and Myalgia [...] mouth daily., Disp: 90 tablet, Rfl: 3 ascorbic acid-collagen 30-833.3 mg tablet, Take by mouth. Daily, Disp: , Rfl: aspirin 81 mg capsule, Take 81 mg by mouth., Disp: , Rfl: calcium carbonate-vitamin D3 1,500 mg (600 mg calcium)-5 mcg (200 Unit) per tablet, Take by mouth daily., Disp: , Rfl: cholecalciferol (VITAMIN D3) 50 mcg (2,000 Unit) capsule, Take 2,000 Units by mouth., Disp: , Rfl: clopidogreL (PLAVIX) 75 mg tablet, Take 1 tablet by mouth daily., Disp: , Rfl: ergocalciferol (DRISDOL) 50,000 Unit capsule, Take 1 capsule (50,000 Units total) by mouth once a week., Disp: 8 capsule, Rfl: 3 ezetimibe (ZETIA) 10 mg tablet, Take 1 tablet (10 mg total) by mouth daily., Disp: 90 tablet, Rfl: 3 fexofenadine (ALLIE) 180 mg tablet, Take 180 mg by mouth daily., Disp: , Rfl: fluticasone propionate (FLONASE) 50 [...] before breakfast., Disp: 90 capsule, Rfl: 3 MAGNESIUM GLYCINATE ORAL, 500 mg., Disp: , Rfl: metoprolol succinate 100 mg capsule,sprinkle,ER 24hr, Take 25 mg by mouth daily., Disp: , Rfl: multivitamin-minerals tablet, Take 1 tablet by mouth daily., Disp: , Rfl: hxhgrushdxyf-pnsmiluo-wyhuzc (Multivitamin 50 Plus) tablet, Take 1 tablet by mouth daily., Disp: , Rfl: nitroglycerin (NITROSTAT) 0.4 mg SL tablet, Place 0.4 mg under the tongue every 2 (two) hours as needed., Disp: , Rfl: nystatin (NYSTOP) 100,000 unit/gram powder, Apply 2-3 times/day to affected areas as needed for candidiasis, Disp: , Rfl: SODIUM BICARBONATE ORAL, Take 650 mg by mouth., Disp: , Rfl: traMADoL (Ultram) 50 mg tablet, Take 1 tablet (50 mg total) by mouth at bedtime as needed for severe pain or score 7-10 of 10 Indications: Chronic Pain/Nonacute Pain., Disp: 28 tablet, Rfl: 0 UNABLE TO FIND, Take 1 tablet by mouth daily. Collagen with Vitamin C, Disp: , Rfl: semaglutide (Wegovy) 0.25 mg/0.5 mL pen injector injection, Inject 0.25 mg under the skin every 7 (seven) days. (Patient not taking: Reported on 06/02/2024), Disp: 2 mL, Rfl: 0 sodium bicarbonate 325 mg tablet, Take 2 tablets (650 mg total) by mouth daily., Disp: 180 tablet, Rfl: 3 tiZANidine (ZANAFLEX) 4 mg capsule, as needed., Disp: , Rfl: UNABLE TO FIND, Med Name: Collagen 3000mg hydrolyzed collagen, Disp: , Rfl: UNABLE TO FIND, Med Name: Magnesium Glycanate 240mg, Nature's Bounty high absorption, Disp: , Rfl: OBJECTIVE VITAL SIGNS Vitals: 06/02/24 1439 BP: 108/66 Pulse: 61 Resp: 16 Temp: 36 ??C PHYSICAL EXAMINATION General: Well-nourished, well-developed 68 y.o. in no apparent distress. Awake, alert, age appropriate. HEENT: Head is normocephalic, atraumatic. Pupils round and reactive bilaterally. EOM's intact. Conjunctivae and sclerae are clear. TM's are normal bilaterally. Nares patent with normal mucosa. Oropharynx pink and moist without exudate or erythema. Neck: Neck is supple without lymphadenopathy. Thyroid is normal size and shape. Trachea is midline. Cardiovascular: Regular rate and rhythm without murmurs. Lungs: Clear to auscultation bilaterally with no adventitious sounds Abdomen: Bowel sounds present in all quadrants. Soft, non-tender with no palpable organomegaly. Skin: Warm, pink, and dry. No rashes or lesions. Extremities: No peripheral edema. Musculoskeletal: Normal range of motion in all extremities. 5/5 strength in bilateral upper and lower extremities. Neurologic: Alert and oriented x3. Bilateral patellar and Achilles tendon DTRs 2+/4+. Strength and tone normal in upper and lower extremities. ASSESSMENT / PLAN IMPRESSION/REPORT/PLAN: #1 Coronary Artery Disease Without Angina Pectoris #2 Coronary Stent Status Post Angioplasty performed at [facility] March 2024. Stent placed to right coronary artery. She questions discontinuing metoprolol completely today. I have asked her to follow-up with her Cardiology team regarding this question. Beta aaron may be providing cardiovascular benefits s/p stent placement and we may want to keep her on this medication. Her current dose is 25 mg daily prescribed by her Cardiology team at [facility]. As for her concerns regarding joint pain at cardiac rehab, I see this was discussed at Cardiology visit 06/01 (note in care everywhere). She asks that I write an order for pool therapy so that insurance will cover her ride to and from [facility] in [place]. I have written an o rder for pool therapy/water aerobics classes three times weekly. #3 Morbid Obesity BMI 45.0 - 49.9 (HCC) Prescribed Wegovy at previous clinic visit. Discussed that ileostomy would not be an overt contraindication to Wegovy but rather a precaution as she may be at greater risk for side effects. Regardless, this medication was not covered by her insurance and so we will not be pursuing therapy. She is looking forward to nutrition visit scheduled at the end of this month which was ordered specifically to discuss renal diet at her request. Other orders - [facility] office visit (clinic) - External referral ancillary (non-[place]) If symptoms worsen or do not improve, patient is instructed to seek further medical attention. All questions have been answered. Patient demonstrated understanding and verbalized agreement with the plan. Shaylee Santa P.A.-C. documented in this encounter Plan of Treatment Upcoming Encounters Date Type Department Care Team (Latest Contact Info) Description 06/23/2024 2:00 PM CDT Clinical Support Department of Nutrition in [address] [phone] Shaylee Santa P.A.-C. [address] [place] [phone] Stacey Mc, APOLONIAN, LD [address] [place] [phone] Discharge Disposition: Home or Self Care 06/30/2024 1:30 PM CDT Appointment Department of Radiology in [place], [place] [address] [place] [phone] Shaylee Santa P.A.-C. [address] [place] [phone] documented as of this encounter Visit Diagnoses Diagnosis Coronary Artery Disease Without Angina Pectoris- Primary Coronary Stent Status Post Morbid Obesity Body Mass Index 45.0-49.9 Adult (HCC) documented in this encounter Additional Health Concerns Assessment Noted Time PHQ-9 Depression Total Score: 9 04/16/20 24 2:15 PM CDT documented as of this encounter Care Teams Hair Salon Manager Relationship Specialty Start Date End Date Shaylee Santa P.A.-C. [address] [place] [address] [place] [phone] PCP - General Internal Medicine 01/23/24 documented as of this encounter
--- OUTSIDE RECORDS SUMMARY | 2024-06-18 15:33 | XMS_ITS | Clinical Summary ---
Author Organization [facility] Address [address] [place] [address] Care Team Providers Care Managing Partner [employer] Name Role Phone Shaylee Santa P.A.-C. Primary Care Provider Source Comments Patient records contain information from all sites at [facility]. For routine questions regarding patient records, call [phone] during business hours, M-F 8:00 AM - 5:00 PM Central Time. Record requests for emergency care only can be directed to [phone] at any time.[facility] Allergies Active Allergy Reactions Criticality Noted Date [...] comments) 11/08/2023 Sertraline Other (see comments) 11/08/2023 Xmgvfgu-Pyb-Zyu Reductase Inhibitors Other (see comments),Myalgia 04/22/2016 Muscle damage Muscle damage Muscle pain Sulfa (Sulfonamide Antibiotics) Hives (Reselect Reaction),Nausea And Vomiting 04/22/2016 Hives and vomiting Vomiting Tolmetin Other (see comments) 11/08/2023 Medications Medication Sig Dispensed Refills Start Date End Date Status metoprolol succinate 100 mg capsule,sprinkle ,ER 24hr Take 25 mg by mouth daily. 09/20/2022 Active aspirin 81 mg capsule Take 81 mg by mouth. 05/23/2023 Active multivitamin-min erals-lutein (Multivitamin 50 Plus) tablet Take 1 tablet by mouth daily. 05/23/2023 Active calcium carbonate-vitami n D3 1,500 mg (600 mg calcium)-5 mcg (200 Unit) per tablet Take by mouth daily. Active nystatin (NYSTOP) 100,000 unit/gram powder Apply 2-3 times/day to affected areas as needed for candidiasis 12/08/2019 Active tiZANidine (ZANAFLEX) 4 mg capsule as needed. Active cholecalciferol (VITAMIN D3) 50 mcg (2,000 Unit) capsule Take 2,000 Units by mouth. Active UNABLE TO FIND Med Name: Collagen 3000mg hydrolyzed collagen Active UNABLE TO FIND Med Name: Magnesium Glycanate 240mg, Nature's Bounty high absorption Active isosorbide mononitrate (IMDUR) 30 mg 24 hr tablet Take 15 mg by mouth. 09/17/2023 Active ezetimibe (ZETIA) 10 mg tablet Take 1 tablet (10 mg total) by mouth daily. 90 tablet 3 10/08/2023 4 Active lansoprazole (PREVACID) [address] capsule [...] mouth daily. 180 tablet 3 11/11/2023 Active ergocalciferol (DRISDOL) 50,000 Unit capsule Take 1 capsule (50,000 Units total) by mouth once a week. 8 capsule 3 01/13/2024 Active fexofenadine (ALLIE) 180 mg tablet Take 180 mg by mouth daily. 10/28/2023 Active amLODIPine (NORVASC) 5 mg tablet Take 1 tablet (5 mg total) by mouth daily. 90 tablet 3 02/17/2024 5 Active ARIPiprazole (ABILIFY) 10 mg tabletIndication s:Bipolar II Disorder (HCC),Posttrauma tic Stress Disorder Prolonged Take 1 tablet (10 mg total) by mouth daily. 90 tablet 3 02/21/2024 5 Active MAGNESIUM GLYCINATE ORAL 500 mg. Active UNABLE TO FIND Take 1 tablet by mouth daily. Collagen with Vitamin C 10/12/2023 Active clopidogreL (PLAVIX) 75 mg tablet Take 1 tablet by mouth daily. 04/22/2024 Active nitroglycerin (NITROSTAT) 0.[address] 0.4 mg under the tongue every 2 (two) hours as needed. 04/22/2024 Active semaglutide (Wegovy) 0.25 mg/0.5 mL pen injector injectionIndicat ions:Coronary Artery Disease Without Angina Pectoris,Morbid Obesity Body Mass Index 45.0-49.9 Adult (FORM[facility]LY [facility]) Inject 0.25 mg under the skin every 7 (seven) days. 2 mL 04/29/2024 Active Additional Information Patient not taking.Reported on 06/02/2024 traMADoL (Ultram) 50 mg tabletIndication s:Chronic Pain/Nonacute Pain Take 1 tablet (50 mg total) by mouth at bedtime as needed for severe pain or score 7-10 of 10 Indications: Chronic Pain/Nonacute Pain. 28 tablet 05/20/2024 Active ascorbic acid-collagen 30-833.3 mg tablet Take by mouth. Daily Active SODIUM BICARBONATE ORAL Take 650 mg by mouth. Active multivitamin-min erals tablet Take 1 tablet by mouth daily. Active traMADoL (ULTRAM) 50 mg tabletIndication s:Chronic Pain/Nonacute Pain Take 1 tablet (50 mg total) by mouth at bedtime as needed for severe pain or score 7-10 of 10 Indications: Chronic Pain/Nonacute Pain. 28 tablet 04/16/2024 4 Discontinued Active Problems Problem Noted Date Diagnosed Date Coronary Stent Status Post 06/02/2024 Pain Low Back Chronic 04/16/2024 Overview (05/20/2024): Tramadol 50 mg at bedtime x 35 years. from visit note from 04/16/2024 CONTROLLED SUBSTANCE PRESCRIBING PLAN Responsible provider: Shaylee Santa P.AGalileo Naloxone not indicated. Urine drug screen: every 12 months Follow-up visits/assessments: every 6 months Tramadol Plan start date: 04/16/2024 Instructions for use: Chronic low back pain. Quantity to dispense: 28 Prescription duration: 4 weeks No taper in progress. History Of Falling 12/02/2023 Smoking Tobacco Use Personal History 11/06/2023 Overview (11/06/2023): Annual lung cancer screening. Last CT April 2022. Aftercare Vascular Catheter 10/14/2023 Overview (10/14/2023): Has a PICC line for chronic IV fluid administration. Injury Ureter Subsequent 09/09/2023 Overview (09/09/2023): Her ileostomy procedure for diverticular disease in 07/07/2019 was complicated by a uretral injury due to severe pelvic adhesion disease requiring ureter reimplantation and bilateral stent placement by urology. Stent removal done 08/17/19. Stone Kidney Personal History 09/09/2023 Overview (09/09/2023): - Right ureteral reimplant for injury during [...] Syndrome 09/03/2023 Posttraumatic Stress Disorder Prolonged 09/03/20 23 Overview (09/09/2023): Per Psychiatry note dated 03/23/22: She reported [...] Mixed 09/03/2023 Anemia Of Chronic Disease 09/03/2023 Overview (09/09/2023): Baseline hemoglobin 11.5-12. Gastroesophageal Reflux Disease Without Esophagi tis 05/23/2023 Overview (09/09/2023): On lansoprazole. Apnea Sleep Obstructive 11/06/2022 Overview (09/09/2023): On CPAP. Bipolar II Disorder 11/06/2022 Overview (09/09/2023): Current medications: Trileptal, 300 mg daily. Abilify [...] stoned) Mood stabilizers: None Stimulants: None Others: Premien Chronic Kidney Disease (CKD) , Stage 3b Glomerular Filtration Rate (GFR) 30 To 44 11/06/2022 Overview (09/09/2023): Repetitive episodes of acute tubular necrosis following her ileostomy in 2018. Baseline creatinine around 1.8. Chronic Obstructive Pulmonary Disease 11/06/2022 Coronary Artery Disease Without Angina Pectoris 11/06/2022 Overview (09/09/2023): Coronary artery disease with a chronic total occlusion of the right coronary artery. No other significant lesions are noted in the other arteries. She had an angiogram in [place] in June of 2022. This was performed after she has an abnormal nuclear stress test which was performed for some shortness of breath and risk factors. Last echocardiogram performed 05/2023 and showed calculated EF of 65%. Following with Cardiology through [facility]. Ileostomy Status 11/06/2022 Overview (09/09/2023): Status post open low anterior resection with [...] Primary Osteoarthritis Hip Left 11/06/2022 Dehydration 11/06/2022 Overview (09/09/2023): Patient had ileostomy in 2019 for diverticular disease. Post-op course was complicated by partial SBO, UTI, and acute kidney injury requiring multiple hospitalizations. She now has a PICC line that is used for IV hydration 3- 4x/week at home. Hypertensive Chronic Kidney Disease (CKD) Stage 3b Glomerular Filtration Rate (GFR) 30 To 44 11/06/2022 Hyperparathyroidism Renal Secondary 11/06/2022 Urinary Urge Incontinence 01/19/2021 Overview (09/09/2023): - Has [employer] system. - Urge-predominant mixed urinary incontinence since age 21. - Had several meatoplasties, dilations and a sling in with porcine graft [place] [address] Mckin[place] in [place] - In the past found myrbetriq 50mg [...] Perforation Or Abscess Without Bleeding 06/10/2019 09/09/2023 Overview (09/09/2023): S/p LAR Fistula Anal 02/23/2019 09/09/2023 Encounters Date Type Department Care Team Description 06/18/2024 Clinical Communication Department of Community Internal Medicine in [place] [address] [place] [address] Shaylee Santa P.A.-C. 06/02/2024 2:20 PM CDT Office Visit Department of Community Internal Medicine in [address] [phone] Shaylee Santa P.A.-C. Coronary Artery Disease Without Angina Pectoris (Primary Dx); Coronary Stent Status Post; Morbid Obesity Body Mass Index 45.0-49.9 Adult (FORMERLY [facility]) 05/26/2024 2:08 PM CDT - 05/26/2024 11:59 PM CDT Hospital Encounter Department of Radiology in [address] [phone] Familia Patiño M.D. Pain Knee Left; Pain Knee Right Discharge Disposition: Home or Self Care 05/26/2024 1:45 PM CDT Office Visit Department of Orthopedic Surgery in [address] [address] Familia Patiño M.D. Pain Knee Left (Primary Dx); Pain Knee Right Discharge Disposition: Home or Self Care 05/20/2024 Clinical Communication Department of Community Internal Medicine in [address] [phone] Shaylee Santa P.A.-C. Communication (Appt necessary?) 05/18/2024 Refill Department of Community Internal Medicine in [address] [phone] Shaylee Santa P.A.-C. Med Refill 05/05/2024 Clinical Communication Department of Community Internal Medicine in [address] [phone] Shaylee Santa P.A.-C. Order Request (PT for back pain) 05/01/2024 1:16 PM CDT - 05/01/2024 11:59 PM CDT Hospital Encounter Department of Laboratory Medicine in [address] [phone] Jitendra Romero Jr., D.O. Chronic Kidney Disease (CKD), Stage 3b Glomerular Filtration Rate (GFR) 30 To 44 (FORM[facility]LY [facility]); Hypertensive Chronic Kidney Disease (CKD) Stage 3b Glomerular Filtration Rate (GFR) 30 To 44; Hyperparathyroidism Renal Secondary ([facility]); Ileostomy Status ([facility]); Stone Kidney Personal History; Bipolar II Disorder ([facility]); Chronic Obstructive Pulmonary Disease ([facility]) Discharge Disposition: Home or Self Care 04/29/2024 1:40 PM CDT Office Visit Department of Community Internal Medicine in [address] [phone] Shaylee Santa P.A.-C. Coronary Artery Disease Without Angina Pectoris (Primary Dx); Morbid Obesity Body Mass Index 45.0-49.9 Adult (FORM[facility]LY [facility]) 04/29/2024 Clinical Communication Department of Community Internal Medicine in [address] [phone] Shaylee Santa P.A.-C. Rx Denial ([place]) 04/29/2024 Clinical Communication Department of Community Internal Medicine in [address] [phone] Shaylee Santa, Lianna.A.-C. Order Request 04/28/2024 Orders Only [facility] P[facility] Shaylee Santa, Lianna.A.-C. Screening Mammogram Breast Cancer 04/16/2024 2:47 PM CDT - 04/16/2024 11:59 PM CDT Hospital Encounter Department of Laboratory Medicine in [address] [phone] Shaylee Santa, Lianna.A.-C. Pain Low Back Chronic Discharge Disposition: Home or Self Care 04/16/2024 1:40 PM CDT Office Visit Department of Community Internal Medicine in [address] [phone] Shaylee Santa, Lianna.A.-C. Pain Low Back Chronic (Primary Dx) 04/13/2024 Clinical Communication Department of Community Internal Medicine in [address] [phone] Shaylee Santa P.A.-C. 04/13/2024 Abstract [facility] [place], [place] [address] [phone] Provider, Historical 04/12/2024 Clinical Communication Department of Community Internal Medicine in [place], [place] [address] [place] [phone] Shaylee Santa P.A.-C. PandaDoc Form ([facility] (Blood Pressure Unit)) 04/10/2024 1:40 PM CDT Office Visit Department of Community Internal Medicine in [place], [place] [address] [place] [phone] Shaylee Santa P.A.-C. Coronary Artery Disease Without Angina Pectoris (Primary Dx); Screening Mammogram Breast Cancer; Chronic Kidney Disease (CKD), Stage 3b Glomerular Filtration Rate (GFR) 30 To 44 (HCC) 04/10/2024 Clinical Communication Department of Nutrition in [place], [place] [address] [place] [address] Ximena Brown, TD, LD 04/10/2024 Orders Only Department of Community Internal Medicine in [address] [phone] Shaylee Santa P.A.-C. Chronic Kidney Disease (CKD), Stage 3b Glomerular Filtration Rate (GFR) 30 To 44 (HCC) (Primary Dx) 04/03/2024 Clinical Communication Department of Community Internal Medicine in [address] [phone] Shaylee Santa P.A.-C. 03/31/2024 1:30 PM CDT External Outreach Division of Nephrology and Hypertension in [place], [place] [address] [place] [address] Jitendra Romero Jr., D.O. Chronic Kidney Disease (CKD), Stage 3b Glomerular Filtration Rate (GFR) 30 To 44 (HCC) (Primary Dx); Hypertensive Chronic Kidney Disease (CKD) Stage 3b Glomerular Filtration Rate (GFR) 30 To 44; Hyperparathyroidism Renal Secondary (HCC); Anemia Of Chronic Disease; Chronic Obstructive Pulmonary Disease (HCC); Stone Kidney Personal History; Coronary Artery Disease Without Angina Pectoris 03/31/2024 Refill Department of Family Medicine, [facility], in [address] [phone] Elvie Shaw M.D. Med Refill from Last 3 Months Immunizations Name Administration Dates Next Due HZV (ZOSTAVAX) 07/25/2016 Influenza high dose QV(65 years or older) (PF) 1 ,07/17/2021 Influenza, Injectable, Quadrivalent 08/08/2020 PCV13 2016,04/17/2016 PCV20 08/28/2022 PPSV23 05/31/2017,2016 RSV: respiratory syncytial v irus (AREXVY) recombinant vaccine 09/17/2023 RZV (SHINGRIX) 01/22/2022,11/13/2021 SARS-COV-2 (COVID-19) - MODE RNA (12 YEARS AND OLDER) [id number] 09/06/2023 Tdap 07/25/2016 influenza high dose (65 years or older) (PF) 10/2022,07/17/2021 Family History Medical History Relation Name Comments Rheum arthritis Brother Antoni Diabetes Daughter Barbara Rivers Type 1 Passed1 12/2021 Diabetes Father Jitendra Farris Type 1 Passed 1 960 Coronary artery disease Maternal Grandfather Willie Cassi bledsoe Hypertension Maternal Grandfather Willie Barkley Diabetes Maternal [...] I might have 2-3 drinks per year [facility] Utilities Answer Date Recorded In the past 12 months has th e [employer], Opt[employer], oil, or water [employer] threatened to shut off services in your [...] your living situation today? I have a [facility] place to live 12/03/2023 Sex and Gender [...] 16 06/02/2024 2:39 PM CDT Oxygen Saturation 99% 01/01/2024 12:51 PM MINE ANALYST Inhaled Oxygen Concentration - - Weight 121 kg (265 lb 12.2 oz) 06/02/2024 2:39 P M CDT Height 160 cm (5' 2.99) 06/02/2024 2:39 PM CDT Body Mass Index 47.09 06/02/2024 2:39 PM CDT Plan of Treatment Upcoming Encounters Date Type Department Care Team (Latest Contact Info) Description 06/23/2024 2:00 PM CDT Clinical Support Department of Nutrition in [address] [phone] Shaylee Santa P.A.-C. [address] [place] [phone] Stacey Mc, APOLONIAN, LD [address] [place] [address] Discharge Disposition: Home or Self Care 06/30/2024 1:30 PM CDT Appointment Department of Radiology in [place], [place] [address] [phone] Shaylee Santa P.A.-C. [address] [phone] Health Maintenance Due Date Last Done Comments CT Colonography 1955 Cologuard 1955 FIT 1955 Hepatitis C Screening 1955 Lung Cancer Screening 1955 Colonoscopy 02/14/2022 02/14/2017 Colorectal Cancer Screening 02/14/2022 Mammogram 04/15/2024 04/15/2023, 01/01/2022 Influenza Vaccine (#1) 2024 3, 08/06/2022, 07/17/2021, Additional history exists Visit: Medicare Annual Wellness 12/04/2024 Visit: Chronic Disease, age 18+ 01/28/2025 Lipid (Cholesterol) Screening 05/01/2025 05/01/2024 Office Visit for Blood Press ure Check / Re-check 06/02/2025 06/02/2024 DTaP,Tdap,and Td Vaccines (2 - Td or Tdap) 07/25/2026 07/25/2016 Fasting Glucose for Diabetes Screening 04/22/2027 04/22/2024, 04/10/2024 Zoster Vaccines Completed 01/22/2022, 10/26, 07/25/2016 Pneumococcal vaccine (65+ years) Completed 08/28/2022, 05/31/2017, 2016, Additional history exists RSV vaccine - (32-3 6 weeks) or 60+ years Completed 09/17/2023 Bone Density Scan (Osteoporo sis Screen) Discontinued 11/12/2023 Fall Risk Screen (Annual) Completed 12/03/2023 COVID-19 Vaccine Completed 03/27/2024, , 10/11/2022, Additional history exists Depression Screening (Annual PHQ-2) Completed 04/16/2024, 04/16/2024 Procedures Procedure Name Priority Date/Time Associated Diagnosis Comments DX KNEE BILATERAL 3 VIEWS RAD - Routine (most inpatients and all outpatients) 05/26/2024 2:28 PM CDT Pain Knee Left Pain Knee Right LIPID PANEL, S Routine 05/01/2024 2:50 PM CDT Chronic Kidney Disease (CKD), Stage 3b Glomerular Filtration Rate (GFR) 30 To 44 (HCC) Hypertensive Chronic Kidney Disease (CKD) Stage 3b Glomerular Filtration Rate (GFR) 30 To 44 Hyperparathyroidis m Renal Secondary (HCC) Ileostomy Status (HCC) Stone Kidney Personal History Bipolar II Disorder (HCC) Chronic Obstructive Pulmonary Disease (HCC) CONTROLLED SUBSTANCE MONITORING, U Routine 04/16/2024 2:51 PM CDT Pain Low Back Chronic OUTSIDE MG MAMMOGRAM Routine 04/15/2023 2:20 PM CDT from Last 3 Months or Most Recently Relevant to Health Maintenance Results * DX Knee Bilateral 3 Views [...] proximal left tibial metaphysis. Familia Patiño M.D. IMG DIAGNOSTIC JONAS GING PROCEDURES * (ABNORMAL) Lipid Panel (05/01/2024 2:50 PM CDT) Triglycerides 216(H) mg/dL 05/01/2024 6:22 PM CDT [facility] Comment: ----REFERENCE VALUE---- Normal: <150 mg/dL Borderline High: 150-199 mg/dL High: 200-499 mg/dL Very High: > or =500 mg/dL Cholesterol, Total 183 mg/dL 2023 6:22 PM CDT [facility] Comment: ----REFERENCE VALUE---- Desirable: < 200 mg/dL Borderline High: 200 - 239 mg/dL High: > or = 240 mg/dL Cholesterol, LDL, Calculated 83 mg/dL 05/01/2024 6:22 PM CDT [facility] Comment: ----REFERENCE VALUE---- Desirable: <100 mg/dL Above Desirable: 100-129 mg/dL Borderline High: 130-159 mg/dL High: 160-189 mg/dL Very High: >=190 mg/dL ----ADDITIONAL INFORMATION---- LDL cholesterol calculated using the Foster/NIH equation. Cholesterol, HDL 64 >=50 mg/dL 05/01/20 6:22 PM CDT [facility] Cholesterol, Non-HDL, Calculated 119 mg/dL 05/01/2024 6:22 PM CDT [facility] Comment: ----REFERENCE VALUE---- Desirable: <130 mg/dL Above Desirable: 130-159 mg/dL Borderline High: 160-189 mg/dL High: 190-219 mg/dL Very High: > or =220 mg/dL Fasting (8 HR or more) No 05/01/2024 5:43 PM CDT [facility] Blood (Blood, Venous) 05/01/2024 2:50 PM CDT 05/01/2024 5:43 PM CDT Jitendra Romero Jr. D.O. LAB BLOOD AD D-ON [facility] [address] [place] [address], [place] [facility] in [place] [address] [place] [address] * (ABNORMAL) Controlled Substance Monitoring Panel, Urine (04/16/2024 2:51 PM CDT) List patient's current medications Not provided 4 9:54 PM CDT [facility] Comment: ----ADDITIONAL INFORMATION---- Accuracy and completeness of declared medications on reports solely dependent on information submitted by client. Creatinine, Random, U 131.3 mg/dL 4 2:21 PM CDT SDS Specific [facility] 1.020 04/17/20 2 4 2:21 PM CDT [facility] pH 5.4 4 2:21 PM CDT [facility] Oxidants Negative Cutoff: 200 mg/L 4 2:21 PM CDT [facility] Comment Normal 4 2:21 PM CDT SDS Barbiturates Negative Cutoff: 200 ng/mL 4 2:21 PM CDT SDS Cocaine Negative Cutoff: 150 ng/mL 4 2:21 PM CDT [facility] Comment: This cocaine immunoassay targets benzoylecgonine the primary metabolite of cocaine. Tetrahydrocannabinol Negative Cutoff: 50 ng/mL 4 2:21 PM CDT [facility] Comment: This immunoassay targets delta-9 tetrahydrocannabinol carboxylic acid (THC-COOH), a metabolite of delta-9 tetrahydrocannabinol the main psychoactive ingredient of marijuana. ----ADDITIONAL INFORMATION---- This report is intended for use in clinical monitoring or management of patients. ??It is not intended for use in employment-related testing. Codeine Not Detected Cutoff: 25 ng/mL 4 11:08 AM CDT [facility] Comment:Tylenol 3 Wliebwi-8-elxl-glucuro nide Not Detected Cutoff: 100 ng/mL 4 11:08 AM CDT [facility] Comment:Metabolite of codein e Morphine Not Detected Cutoff: 25 ng/mL 4 11:08 AM CDT [facility] Comment: Carmen Zamora, MS Contin; Also a minor metabolite (10%) of codeine and can be seen in low concentrations (<2,000 ng/mL) with poppy seed ingestion. Wqxumfco-0-kklc-glucur onide Not Detected Cutoff: 100 ng/mL 4 11:08 AM CDT [facility] Comment:Metabolite of morphi ne 6-monoacetylmorphine Not Detected Cutoff: 25 ng/mL 4 11:08 AM T [facility] Comment:Metabolite of heroin Hydrocodone Not Detected Cutoff: 25 ng/mL 4 11:08 AM [facility] Comment: Lortab, [place], Vicodin; Also a very minor metabolite of codeine and impurity (<1%) of oxycodone. Norhydrocodone Not Detected Cutoff: 25 ng/mL 4 11:08 AM T [facility] Comment:Metabolite of hydroc odone Dihydrocodeine Not Detected Cutoff: 25 ng/mL 4 11:08 AM [facility] Comment:Metabolite of hydroc odone Hydromorphone Not Detected Cutoff: 25 ng/mL 4 11:08 AM [facility] Comment: Dilaudid, Exalgo; Also a metabolite of hydrocodone and a minor (<5%) metabolite of morphine. Snusyvocjowvj-6-jnfe-g lucuronide Not Detected Cutoff: 100 ng/mL 4 11:08 AM [facility] Comment:Metabolite of hydrom orphone Oxycodone Not Detected Cutoff: 25 ng/mL 4 11:08 AM [facility] Comment:Endocet, Percocet, O xycontin Noroxycodone Not Detected Cutoff: 25 ng/mL 4 11:08 AM [facility] Comment:Metabolite of oxycod one Oxymorphone Not Detected Cutoff: 25 ng/mL 4 11:08 AM [facility] Comment:Numorphan, Opana; Al so a metabolite of oxycodone. Tozqqkssdoi-1-jxcd-glu curonide Not Detected Cutoff: 100 ng/mL 4 11:08 AM [facility] Comment:Metabolite of oxymor phone and/or naloxone (nornaloxone) Noroxymorphone Not Detected Cutoff: 25 ng/mL 4 11:08 AM T [facility] Comment:Metabolite of oxymor phone and/or naloxone (nornaloxone) Fentanyl Not Detected Cutoff: 2 ng/mL 4 11:08 AM CDT [facility] Comment:Actiq, Duragesic, Fe ntora Norfentanyl Not Detected Cutoff: 2 ng/mL 4 11:08 AM CDT SDS Comment:Metabolite of fentan yl Meperidine Not Detected Cutoff: 25 ng/mL 4 11:08 AM CDT [facility] Comment:Demerol Normeperidine Not Detected Cutoff: 25 ng/mL 4 11:08 AM CDT SDS Comment:Metabolite of meperi dine Naloxone Not Detected Cutoff: 25 ng/mL 4 11:08 AM CDT [facility] Comment:Narcan Mhkapbis-4-tept-glucur onide Not Detected Cutoff: 100 ng/mL 4 11:08 AM CDT SDS Comment:Metabolite of naloxo ne Methadone, U Not Detected Cutoff: 25 ng/mL 4 11:08 AM CDT SDS Comment:Dolophine EDDP Not Detected Cutoff: 25 ng/mL 4 11:08 AM CDT SDS Comment:Metabolite of methad one Propoxyphene Not Detected Cutoff: 25 ng/mL 4 11:08 AM CDT SDS Comment:Darvon, Darvocet Norpropoxyphene Not Detected Cutoff: 25 ng/mL 4 11:08 AM CDT SDS Comment:Metabolite of propox yphene Tramadol Present(A) Cutoff: 25 ng/mL 4 11:08 AM CDT SDS Comment:Tradol, Ultram, Ultr acet O-desmethyltramadol Present(A) Cutoff: 25 ng/mL 4 11:08 AM CDT SDS Comment:Metabolite of tramad ol Tapentadol Not Detected Cutoff: 25 ng/mL 4 11:08 AM CDT SDS Comment:Nucynta N-desmethyltapentadol Not Detected Cutoff: 50 ng/mL 4 11:08 AM CDT SDS Comment:Metabolite of tapent adol Qwdqxdtegi-jfwy-bpxjpi onide Not Detected Cutoff: 100 ng/mL 4 11:08 AM CDT SDS Comment:Metabolite of tapent adol Buprenorphine Not Detected Cutoff: 5 ng/mL 4 11:08 AM CDT [facility] Comment:Buprenex, Suboxone Norbuprenorphine Not Detected Cutoff: 5 ng/mL 4 11:08 AM T [facility] Comment:Metabolite of bupren orphine Norbuprenorphine glucuronide Not Detected Cutoff: 20 ng/mL 4 11:08 AM CDT [facility] Comment:Metabolite of bupren orphine Opioid Interpretation Test detected the presence of tramadol and its metabolite (O-desmethyltrama dol). Suspect use of tramadol within the past three days. 4 11:08 AM T [facility] Comment: ----ADDITIONAL INFORMATION---- This test was developed and its performance characteristics determined by [facility] in a manner consistent with CLIA requirements. This test has not been cleared or approved by the U.S. Food and Drug Administration. Alprazolam Not Detected Cutoff: 10 ng/mL 4 11:36 AM T [facility] Comment:Xanax Alpha-Hydroxyalprazola m Not Detected Cutoff: 10 ng/mL 4 11:36 AM CDT [facility] Comment:Metabolite of Alpraz olam Alpha-Hydroxyalprazola m Glucuronide Not Detected Cutoff: 50 ng/mL 4 11:36 AM CDT [facility] Comment:Metabolite of Alpraz olam Chlordiazepoxide Not Detected Cutoff: 10 ng/mL 4 11:36 AM CDT [facility] Comment:Librium Clobazam Not Detected Cutoff: 10 ng/mL 4 11:36 AM CDT [facility] Comment:Frisium, Onfi N-Desmethylclobazam Not Detected Cutoff: 200 ng/mL 4 11:36 AM CDT [facility] Comment:Metabolite of Clobaz am Clonazepam Not Detected Cutoff: 10 ng/mL 4 11:36 AM CDT [facility] Comment:Klonopin, Rivotril 7-aminoclonazepam Not Detected Cutoff: 10 ng/mL 4 11:36 AM CDT [facility] Comment:Metabolite of Clonaz epam Diazepam Not Detected Cutoff: 10 ng/mL 4 11:36 AM CDT [facility] Comment:Valium Nordiazepam Not Detected Cutoff: 10 ng/mL 4 11:36 AM CDT [facility] Comment:Metabolite of Chlord iazepoxide, Diazepam, or Prazepam. Flunitrazepam Not Detected Cutoff: 10 ng/mL 4 11:36 AM CDT [facility] Comment:Rohypnol 7-aminoflunitrazepam Not Detected Cutoff: 10 ng/mL 4 11:36 AM CDT [facility] Comment:Metabolite of Flunit razepam Flurazepam Not Detected Cutoff: 10 ng/mL 4 11:36 AM CDT [facility] Comment:Dalmane 2-Hydroxy Ethyl Flurazepam Not Detected Cutoff: 10 ng/mL 4 11:36 AM CDT [facility] Comment:Metabolite of Fluraz epam Lorazepam Not Detected Cutoff: 10 ng/mL 4 11:36 AM CDT [facility] Comment:Ativan Lorazepam Glucuronide Not Detected Cutoff: 50 ng/mL 4 11:36 AM CDT [facility] Comment:Metabolite of Loraze rm Midazolam Not Detected Cutoff: 10 ng/mL 4 11:36 AM CDT [facility] Comment:Versed Alpha-Hydroxy Midazolam Not Detected Cutoff: 10 ng/mL 4 11:36 AM CDT [facility] Comment:Metabolite of Midazo vasquez Oxazepam Not Detected Cutoff: 10 ng/mL 4 11:36 AM CDT [facility] Comment:Serax; Also a metabo lite of Chlordiazepoxide, Diazepam, or Temazepam. Oxazepam Glucuronide Not Detected Cutoff: 50 ng/mL 4 11:36 AM CDT [facility] Comment:Metabolite of Oxazep am Prazepam Not Detected Cutoff: 10 ng/mL 4 11:36 AM CDT [facility] Comment:Centrax Temazepam Not Detected Cutoff: 10 ng/mL 4 11:36 AM CDT [facility] Comment:Restoril; Also a met abolite of Diazepam. Temazepam Glucuronide Not Detected Cutoff: 50 ng/mL 4 11:36 AM CDT [facility] Comment:Metabolite of Temaze rm Triazolam Not Detected Cutoff: 10 ng/mL 4 11:36 AM CDT [facility] Comment:Halcion Alpha-Hydroxy Triazolam Not Detected Cutoff: 10 ng/mL 4 11:36 AM CDT [facility] Comment:Metabolite of Triazo vasquez Zolpidem Not Detected Cutoff: 10 ng/mL 4 11:36 AM CDT [facility] Comment:Ambien Zolpidem Idrqpk-4-Moflwitwfd acid Not Detected Cutoff: 10 ng/mL 4 11:36 AM CDT [facility] Comment:Metabolite of Zolpid em Benzodiazepine Interpretation No benzodiazepines were detected. The absence of expected drug(s) and/or drug metabolite(s) may indicate non-compliance, altered pharmacokinetics, inappropriate timing of specimen collection relative to drug administration, diluted/adulterat ed urine, or limitations of testing. 4 11:36 AM T [facility] Comment: ----ADDITIONAL INFORMATION---- This test was developed and its performance characteristics determined by [facility] in a manner consistent with CLIA requirements. This test has not been cleared or approved by the U.S. Food and Drug Administration. Methamphetamine Not Detected Cutoff: 100 ng/mL 4 11:26 AM T [facility] Comment:Desoxyn Amphetamine Not Detected Cutoff: 100 ng/mL 4 11:26 AM T [facility] Comment: Dyanavel XR, Adzenys ER, Adderall, Vyvanse; Also a metabolite of methamphetamine 3,4-methylenedioxymeth amphetamine (MDMA) Not Detected Cutoff: 100 ng/mL 4 11:26 AM CDT [facility] 3,9-pgieatoxecgesh-U-e thylamphetamine (MDEA) Not Detected Cutoff: 100 ng/mL 4 11:26 AM CDT [facility] 3,4-methylenedioxyamph etamine (MDA) Not Detected Cutoff: 100 ng/mL 4 11:26 AM CDT [facility] Comment:Also a metabolite of MDMA and/or MDEA Ephedrine Not Detected Cutoff: 100 ng/mL 4 11:26 AM CDT [facility] Pseudoephedrine Not Detected Cutoff: 100 ng/mL 4 11:26 AM CDT [facility] Comment:Sudafed Phentermine Not Detected Cutoff: 100 ng/mL 4 11:26 AM CDT [facility] Comment:Adipex-P, Lomaira, Q symia Phencyclidine (PCP) Not Detected Cutoff: 20 ng/mL 4 11:26 AM CDT [facility] Methylphenidate Not Detected Cutoff: 20 ng/mL 4 11:26 AM CDT [facility] Comment:Ritalin, Concerta Ritalinic acid Not Detected Cutoff: 100 ng/mL 4 11:26 AM CDT [facility] Comment:Metabolite of methyl phenidate Stimulant Interpretation No stimulants were detected. The absence of expected drug(s) and/or drug metabolite(s) may indicate non-compliance, altered pharmacokinetics, inappropriate timing of specimen collection relative to drug administration, diluted/adulterat ed urine, or limitations of testing. 4 11:26 AM T [facility] Comment: ----ADDITIONAL INFORMATION---- This test was developed and its performance characteristics determined by [facility] in a manner consistent with CLIA requirements. This test has not been cleared or approved by the U.S. Food and Drug Administration. Urine (Urine, Midstream) 04/16/2024 2:51 PM CDT 04/16/2024 9:54 PM CDT [facility] [place] [address] [place] [address] [facility] [address] [place] [address] [facility] [address] [place] [address] [place] [address] * MM screening mammo BI-Outside Mammogram (04/15/2023 [...] or Most Recently Relevant to Health Maintenance Advance Directives For more information, please contact: [phone] Documents on File Type Date Recorded Patient [employer] Supervisor Expl anation Advance Directives 04/10/2024 3:51 PM Lynsey Floyd HCPOA/ADVOCATE/AGENT/R EPRESENTATIVE/SURROGAT E Healthcare Agents on File Name Relationship Healthcare Agent Relationship Communication Lynsey Villatoro Daughter Health Care Agent Antoni Floyd Brother First Alternate Health Care Agent Care Teams Managing Partner [employer] [place] Relationship Specialty Start Date End Date Shaylee Santa P.A.-C. [address] [place] [phone] PCP - General Internal Medicine 01/23/24
--- OUTSIDE RECORDS SUMMARY | 2024-06-18 15:33 | XMS_ITS | Encounter Summary ---
Author Organization [facility] Address [address] [place] [address] Care Team Providers Care Stripping Shovel Oiler Name Role Phone Shaylee Santa P.A.-C. Primary Care Provider Reason for Referral * Outpatient (Routine) - Authorized Specialty Diagnoses / Procedures Referred By Collin noble Referred To Contact Orthopedic Surgery Familia Patiño M.D. [address] [place] [address] [facility] Referral ID Status Reason Start Date Expiration Date V isits Requested Visits Authorized [id number] Authorized 05/26/2024 11/25/2025 1 1 * Outpatient (Routine) - Closed Specialty Diagnoses / Procedures Referred By Collin noble Referred To Contact Diagnoses Pain Knee Left Pain Knee Right Procedures DX Knee Bilateral 3 Views Familia Patiño M.D. [address] [place] [address] [facility] Region Referral ID Status Reason Start Date Expiration Date Visits Re quested Visits Authorized [id number] Closed 05/26/2024 05/26/2025 1 1 Reason for Visit * Reason Comments Follow-up Pain Pain Pain * Outpatient (Routine) - Closed Specialty Diagnoses / Procedures Referred By Collin t Referred To Contact Orthopedic Surgery Familia Patiño M.D. [address] [place] [phone] [facility] Region Referral ID Status Reason Start Date Expiration Date Visits Re quested Visits Authorized [id number] Closed 02/25/2024 08/26/2025 1 1 Encounter Details Date Type Department Care Team (Late st Contact Info) Description 05/26/2024 1:45 PM CDT Office Visit Department of Orthopedic Surgery in [address] [phone] Familia Patiño M.D. [address] [place] [address] Pain Knee Left (Primary Dx); Pain Knee [...] year [facility] Utilities Answer Date Recorded In the past 12 months has [facility] [employer], gas, oil, or water [employer] threatened to shut off services in your [...] your living situation today? I have a [facility] place to live 12/03/2023 Sex and Gender Information Value Date Recorded Sex Assigned at Female 04/11/2023 12:22 PM CDT Gender Identity Female 04/11/2023 12:22 PM CDT Sexual Orientation Straight 04/11/2023 12 :22 PM CDT documented as of this encounter Consult Notes * Familia Patiño M.D. - 05/26/2024 1:45 PM CDT SUBJECTIVE HISTORY OF PRESENT ILLNESS Dilan is a 68-year-old woman who is here in regard to her knees and her right hip. 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 She subsequently since our last visit has had a stent placed and is in cardiac rehab. Now she is having to work on an exercise program, which makes it very difficult for her to participate in because her knees have become very painful as well as her right hip. She is status post previous knee arthroscopies of both her knees in the past. The right knee is more sharply painful for her than the left, but both are certainly bothersome. OBJECTIVE PHYSICAL EXAMINATION Musculoskeletal : On examination of her knees, she is noted to have just a trace effusion noted bilaterally. Her knee range of motion is from 0 to approximately 110 degrees. She is stable to varus and valgus stress. She has a bit of pseudolaxity with valgus stress, and significant tenderness along the medial joint line is noted. DIAGNOSTICS X-rays of both her knees demonstrate [id number] degenerative changes, especially to the medial compartment and to a lesser extent the patellofemoral joint with the right somewhat worse than theleft. 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 I discussed with her the treatment options. My suggestion at this point in time would be to try doing cortisone injections into her knees to seeif that gives her substantial improvement in her ability to participate in her cardiac rehabilitation because I do not think we could proceed with any type of surgical intervention for her knees at this point. At some point, it may be necessary for her to consider the possibility of surgical intervention but right now would not be the time to proceed with this. She will take this into consideration and let us know if she would like to proceed with injections in the future. She has a bit of a needle phobia and will likely need some additional planning for her injections to make it as comfortable as possible. documented in this encounter Plan of Treatment Upcoming Encounters Date Type Department Care Team (Latest Contact Info) Description 06/23/2024 2:00 PM CDT Clinical Support Department of Nutrition in [place], [place] [address] [place] [phone] Shaylee Santa P.A.-C. [address] [place] [address] Stacey Mc, TD, [address] [place] [phone] Discharge Disposition: Home or Self Care 06/30/2024 1:30 PM CDT Appointment Department of Radiology in [place], [place] [address] [place] [address] Shaylee Santa P.A.-C. [address] [place] [phone] Scheduled Referrals Name Type Priority Associated Diagnoses Order Schedule Orthopedic Surgery office visit (clinic) Outpatient Referral Routine Expected: 08/26/2024, Expires: 08/26/2025 documented as of this encounter Results * DX Knee Bilateral [...] Patiño M.D. IMG DIAGNOSTIC JONAS GING PROCEDURES documented in this encounter Visit Diagnoses Diagnosis Pain Knee Left- Primary Pain Knee Right Pain Knee Left Pain Knee Right documented in this encounter Additional Health Concerns Assessment Noted Time PHQ-9 Depression Total Score: 9 04/16/20 24 2:15 PM CDT documented as of this encounter Care Teams Stripping Shovel Oiler Relationship Specialty Start Date End Date Shaylee Santa P.A.-C. [address] [place] [phone] PCP - General Internal Medicine 01/23/24 documented as of this encounter
--- OUTSIDE RECORDS SUMMARY | 2024-06-18 15:33 | XMS_ITS | Encounter Summary ---
Author Organization [facility] Address [address] [place] [address] Care Team Providers Care Dial Screw Assembler Name Role Phone Shaylee Santa P.A.-C. Primary Care Provider Reason for Visit * Reason Onset Date Comments Communication 05/20/2024 Appt necessary? Encounter Details Date Type Department Care Team (Latest Contact Info) Description 05/20/2024 Clinical Communication Department of Community Internal Medicine in [place], [place] [address] [place] [phone] Shaylee Santa P.A.-C. [address] [place] [phone] Communication (Appt necessary?) Social History Tobacco Use Types Packs/Day Years Used Date Smoking Tobacco: Former Cigarettes 1 57 0 05/28/1964 - 09/19/2020 Passive Smoke Exposure: Never Smokeless Tobacco: Never Alcohol Use Standard Drinks/Week Comments Yes 0 (1 standard drink = 0.6 oz pure alcohol) I might have 2-3 drinks per year [facility] Utilities Answer Date Recorded In the past 12 months has [employer], gas, oil, or water company threatened to [...] living situation today? I have a [facility] place to live 12/03/2023 Sex and Gender Information Value Date Recorded Sex Assigned at Female 04/11/2023 12:22 PM CDT Gender Identity Female 04/11/2023 12:22 PM CDT Sexual Orientation Straight 04/11/2023 12 :22 PM CDT documented as of this encounter Plan of Treatment Upcoming Encounters Date Type Department Care Team (Latest Contact Info) Description 06/23/2024 2:00 PM CDT Clinical Support Department of Nutrition in [place], [place] [address] [place] [phone] Shaylee Santa P.A.-C. [address] [place] [address] Stacey Mc, RDN, LD [address] [place] [phone] Discharge Disposition: Home or Self Care 06/30/2024 1:30 PM CDT Appointment Department of Radiology in [place], [place] [address] [place] [address] Shaylee Santa P.A.-C. [address] [place] [phone] documented as of this encounter Visit Diagnoses Not on filedocumented in this encounter Additional Health Concerns Assessment Noted Time PHQ-9 Depression Total Score: 9 04/16/20 24 2:15 PM CDT documented as of this encounter Care Teams Dial Screw Assembler Relationship Specialty Start Date End Date Shaylee Santa P.A.-C. [address] [facility] [place] [phone] PCP - General Internal Medicine 01/23/24 documented as of this encounter
--- OUTSIDE RECORDS SUMMARY | 2024-06-18 15:33 | XMS_ITS | Referral Summary ---
Author Organization [facility] Address [address] [place] [address] Care Team Providers Care Assessment Manager Name Role Phone Shaylee Santa P.A.-C. Primary Care Provider Source Comments Patient records contain information from all sites at [facility]. For routine questions regarding patient records, call [phone] during business hours, M-F 8:00 AM - 5:00 PM Central Time. Record requests for emergency care only can be directed to [phone] at any time.[facility] Encounters Date Type Department Care Team Description 06/18/2024 Clinical Communication Department of Community Internal Medicine in [address] [phone] Shaylee Santa P.A.-C. 06/02/2024 2:20 PM CDT Office Visit Department of Community Internal Medicine in [place], [place] [address] [place] [phone] Shaylee Santa P.A.-C. 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 Pain Knee Left; Pain Knee Right Discharge Disposition: Home or Self Care 05/26/2024 1:45 PM CDT Office Visit Department of Orthopedic Surgery in [address] [phone] Familia Patiño M.D. Pain Knee Left (Primary Dx); Pain Knee Right Discharge Disposition: Home or Self Care 05/20/2024 Clinical Communication Department of Community Internal Medicine in [address] [phone] Shaylee Santa P.A.-C. Communication (Appt necessary?) 05/18/2024 Refill Department of Community Internal Medicine in [address] [phone] Shaylee Santa P.A.-C. Med Refill 05/05/2024 Clinical Communication Department of Community Internal Medicine in [address] [phone] Shaylee Santa P.A.-C. Order Request (PT for back pain) 05/01/2024 1:16 PM CDT - 05/01/2024 11:59 PM CDT Hospital Encounter Department of Laboratory Medicine in [address] [phone] Jitendra Romero Jr., D.O. Chronic Kidney Disease (CKD), Stage 3b Glomerular Filtration Rate (GFR) 30 To 44 (HCC); Hypertensive Chronic Kidney Disease (CKD) Stage 3b Glomerular Filtration Rate (GFR) 30 To 44; Hyperparathyroidism Renal Secondary (HCC); Ileostomy Status (HCC); Stone Kidney Personal History; Bipolar II Disorder (HCC); Chronic Obstructive Pulmonary Disease (HCC) Discharge Disposition: Home or Self Care 04/29/2024 Clinical Communication Department of Community Internal Medicine in [address] [phone] Shaylee Santa P.A.-C. Rx Denial (Wegovy) 04/29/2024 Clinical Communication Department of Community Internal Medicine in [address] [phone] Shaylee Santa P.A.-C. Order Request 04/29/2024 1:40 PM CDT Office Visit Department of Community Internal Medicine in [address] [phone] Shaylee Santa P.A.-C. Coronary Artery Disease Without Angina Pectoris (Primary Dx); Morbid Obesity Body Mass Index 45.0-49.9 Adult ([facility]) 04/28/2024 Orders Only [facility] PCP TH MNT Shaylee Santa P.A.-C. Screening Mammogram Breast Cancer 04/16/2024 2:47 PM CDT - 04/16/2024 11:59 PM CDT Hospital Encounter Department of Laboratory Medicine in [address] [phone] Shaylee Santa P.A.-C. Pain Low Back Chronic Discharge Disposition: Home or Self Care 04/16/2024 1:40 PM CDT Office Visit Department of Community Internal Medicine in [address] [phone] Shaylee Santa P.A.-C. Pain Low Back Chronic (Primary Dx) 04/13/2024 Clinical Communication Department of Community Internal Medicine in [address] [phone] Shaylee Santa, Lianna.A.-C. 04/13/2024 Abstract [facility] MANNY Mora [address] [place] [phone] Provider, Historical 04/12/2024 Clinical Communication Department of Community Internal Medicine in [address] [phone] Shaylee Santa P.A.-C. PandaDoc Form ([facility] Medical (Blood Pressure Unit)) 04/10/2024 Clinical Communication Department of Nutrition in [place], [place] [address] [place] [address] Ximena Brown RDN, [place] 04/10/2024 Orders Only Department of Community Internal Medicine in [place], [place] [address] [place] [phone] Shaylee Santa P.A.-C. Chronic Kidney Disease (CKD), Stage 3b Glomerular Filtration Rate (GFR) 30 To 44 (HCC) (Primary Dx) 04/10/2024 1:40 PM CDT Office Visit Department of Community Internal Medicine in [place], [place] [address] [place] [phone] Shaylee Santa P.A.-C. Coronary Artery Disease Without Angina Pectoris (Primary Dx); Screening Mammogram Breast Cancer; Chronic Kidney Disease (CKD), Stage 3b Glomerular Filtration Rate (GFR) 30 To 44 (HCC) 04/03/2024 Clinical Communication Department of Community Internal Medicine in [address] [phone] Shaylee Santa P.A.-C. 03/31/2024 Refill Department of Family Medicine, [facility], in [address] [phone] Elvie Shaw M.D. Med Refill 03/31/2024 1:30 PM CDT External Outreach Division of Nephrology and Hypertension in [place], [place] [address] [place] [address] Jitendra Romero Jr., D.O. Chronic Kidney Disease (CKD), Stage 3b Glomerular Filtration Rate (GFR) 30 To 44 (HCC) (Primary Dx); Hypertensive Chronic Kidney Disease (CKD) Stage 3b Glomerular Filtration Rate (GFR) 30 To 44; Hyperparathyroidism Renal Secondary (HCC); Anemia Of Chronic Disease; Chronic Obstructive Pulmonary Disease (HCC); Stone Kidney Personal History; Coronary Artery Disease Without Angina Pectoris from Last 3 Months Allergies Active Allergy [...] comments) 11/08/2023 Sertraline Other (see comments) 11/08/2023 Urumvko-Wjs-Xrv Reductase Inhibitors Other (see comments),Myalgia 04/22/2016 Muscle [...] SUBSTANCE PRESCRIBING PLAN Responsible provider: Shaylee Santa P.A.-C. Naloxone not indicated. Urine drug screen: every [...] other arteries. She had an angiogram in [place] in June of 2022. This was performed after she has an abnormal nuclear stress test which was performed for some shortness of breath and risk factors. Last echocardiogram performed 05/2023 and showed calculated EF of 65%. Following with Cardiology through [facility]. Ileostomy Status 11/06/2022 Overview (09/09/2023): Status post [...] Urge Incontinence 01/19/2021 Overview (09/09/2023): - Has [employer] system. - Urge-predominant mixed urinary incontinence since age 21. - Had several meatoplasties, dilations and a sling in s with porcine graft [place] [address] Mckin[place] in [place] - In the past found myrbetriq 50mg [...] (09/09/2023): S/p LAR Fistula Anal 02/23/2019 09/09/2023 Immunizations Name Administration Dates Next Due HZV (ZOSTAVAX) 07/25/2016 Influenza high dose QV(65 years or older) (PF) 1 ,07/17/2021 Influenza, Injectable, Quadrivalent 08/08/2020 PCV13 2016,04/17/2016 PCV20 08/28/2022 PPSV23 05/31/2017,2016 RSV: respiratory syncytial v irus (AREXVY) recombinant vaccine 09/17/2023 RZV (SHINGRIX) 01/22/2022,11/13/2021 SARS-COV-2 (COVID-19) - MODE RNA (12 YEARS AND OLDER) [id number] 09/06/2023 Tdap 07/25/2016 influenza high dose (65 [...] I might have 2-3 drinks per year [facility] Utilities Answer Date Recorded In the past 12 months has e [employer], gas, oil, or water [employer] threatened to shut off services in your [...] your living situation today? [facility] 12/03/2023 Sex and [...] CDT Oxygen Saturation 99% 01/01/2024 12:51 PM DIRECTOR EPIDEMIOLOGY Inhaled Oxygen Concentration - - Weight 121 kg (265 lb 12.2 oz) 06/02/2024 2:39 P M CDT Height 160 cm (5' 2.99) 06/02/2024 2:39 PM CDT Body Mass Index 47.09 06/02/2024 2:39 PM CDT Plan of Treatment Upcoming Encounters Date Type Department Care Team (Latest Contact Info) Description 06/23/2024 2:00 PM CDT Clinical Support Department of Nutrition in [address] [phone] Shaylee Santa, P.A.-C. [address] [place] [phone] Stacey Mc, RDN, [address] [place] [phone] Discharge Disposition: Home or Self Care 06/30/2024 1:30 PM CDT Appointment Department of Radiology in [place], [place] [address] [place] [address] Shaylee Santa, P.A.-C. [address] [place] [address] Procedures Procedure Name Priority Date/Time Associated Diagnosis [...] Patiño M.D. [facility] DIAGNOST[facility] JONAS GING PROCEDURES * (ABNORMAL) Lipid [...] CDT 05/01/2024 5:43 PM CDT Jitendra Romero Jr., D.O. LAB BLOOD AD D-ON [facility] [address] [place] [address], [facility] in [place] [address] [place] [address] * (ABNORMAL) Controlled Substance Monitoring Panel, Urine (04/16/2024 2:51 PM CDT) List patient's current medications Not provided 9:54 PM CDT [facility] Comment: ----ADDITIONAL INFORMATION---- Accuracy and completeness of declared medications on reports solely dependent on information submitted by client. Creatinine, Random, U 131.3 mg/dL 4 2:21 PM CDT [facility] Specific Beattie 1.020 04/17/20 2 4 2:21 PM CDT [facility] pH 5.4 4 2:21 PM CDT [facility] Oxidants Negative Cutoff: 200 mg/L 4 2:21 PM CDT [facility] Comment Normal 4 2:21 PM CDT [facility] Barbiturates Negative Cutoff: 200 ng/mL 4 2:21 PM CDT [facility] Cocaine Negative Cutoff: 150 ng/mL 4 2:21 PM CDT [facility] Comment: This cocaine immunoassay targets benzoylecgonine the primary metabolite of cocaine. Tetrahydrocannabinol Negative Cutoff: 50 ng/mL 4 2:21 PM CDT [facility] Comment: This immunoassay targets delta-9 tetrahydrocannabinol carboxylic acid (THC-COOH), a metabolite of delta-9 tetrahydrocannabinol the main psychoactive ingredient of marijuana. ----ADDITIONAL INFORMATION---- This report is intended for use in clinical monitoring or management of patients. ??It is not intended for use in employment-related testing. Codeine Not Detected Cutoff: 25 ng/mL 4 11:08 AM CDT [facility] Comment:Tylenol 3 Lbgsvrg-0-gpxq-glucuro nide Not Detected Cutoff: 100 ng/mL 4 11:08 AM CDT [facility] Comment:Metabolite of codein e Morphine Not Detected Cutoff: 25 ng/mL 4 11:08 AM CDT [facility] Comment: Carmen Zamora, MS Contin; Also a minor metabolite (10%) of codeine and can be seen in low concentrations (<2,000 ng/mL) with poppy seed ingestion. Vuleymdg-0-exlo-glucur onide Not Detected Cutoff: 100 ng/mL 4 11:08 AM CDT [facility] Comment:Metabolite of morphi ne 6-monoacetylmorphine Not Detected Cutoff: 25 ng/mL 4 11:08 AM CDT [facility] Comment:Metabolite of heroin Hydrocodone Not Detected Cutoff: 25 ng/mL 4 11:08 AM T [facility] Comment: Lortab, [place], Vicodin; Also a very minor metabolite of codeine and impurity (<1%) of oxycodone. Norhydrocodone Not Detected Cutoff: 25 ng/mL 4 11:08 AM T [facility] Comment:Metabolite of hydroc odone Dihydrocodeine Not Detected Cutoff: 25 ng/mL 4 11:08 AM T [facility] Comment:Metabolite of hydroc odone Hydromorphone Not Detected Cutoff: 25 ng/mL 4 11:08 AM T [facility] Comment: Dilaudid, Exalgo; Also a metabolite of hydrocodone and a minor (<5%) metabolite of morphine. Wttysxklllbrs-4-jzbe-g lucuronide Not Detected Cutoff: 100 ng/mL 4 11:08 AM T [facility] Comment:Metabolite of hydrom orphone Oxycodone Not Detected Cutoff: 25 ng/mL 4 11:08 AM T [facility] Comment:Endocet, Percocet, O xycontin Noroxycodone Not Detected Cutoff: 25 ng/mL 4 11:08 AM T [facility] Comment:Metabolite of oxycod one Oxymorphone Not Detected Cutoff: 25 ng/mL 4 11:08 AM T [facility] Comment:Numorphan, Opana; Al so a metabolite of oxycodone. Oszptnsfafm-6-zjur-glu curonide Not Detected Cutoff: 100 ng/mL 4 11:08 AM T [facility] Comment:Metabolite of oxymor phone and/or naloxone (nornaloxone) Noroxymorphone Not Detected Cutoff: 25 ng/mL 4 11:08 AM T [facility] Comment:Metabolite of oxymor phone and/or naloxone (nornaloxone) Fentanyl Not Detected Cutoff: 2 ng/mL 4 11:08 AM T [facility] Comment:Actiq, Duragesic, Fe ntora Norfentanyl Not Detected Cutoff: 2 ng/mL 4 11:08 AM T [facility] Comment:Metabolite of fentan yl Meperidine Not Detected Cutoff: 25 ng/mL 4 11:08 AM CDT [facility] Comment:Demerol Normeperidine Not Detected Cutoff: 25 ng/mL 4 11:08 AM CDT [facility] Comment:Metabolite of meperi dine Naloxone Not Detected Cutoff: 25 ng/mL 4 11:08 AM CDT [facility] Comment:Narcan Xsvznksa-1-dtou-glucur onide Not Detected Cutoff: 100 ng/mL 4 11:08 AM CDT [facility] Comment:Metabolite of naloxo ne Methadone, U Not Detected Cutoff: 25 ng/mL 4 11:08 AM CDT [facility] Comment:Dolophine EDDP Not Detected Cutoff: 25 ng/mL 4 11:08 AM CDT [facility] Comment:Metabolite of methad one Propoxyphene Not Detected Cutoff: 25 ng/mL 4 11:08 AM CDT [facility] Comment:Darvon, Darvocet Norpropoxyphene Not Detected Cutoff: 25 ng/mL 4 11:08 AM CDT [facility] Comment:Metabolite of propox yphene Tramadol Present(A) Cutoff: 25 ng/mL 4 11:08 AM CDT [facility] Comment:Tradol, Ultram, Ultr acet O-desmethyltramadol Present(A) Cutoff: 25 ng/mL 4 11:08 AM CDT [facility] Comment:Metabolite of tramad ol Tapentadol Not Detected Cutoff: 25 ng/mL 4 11:08 AM CDT [facility] Comment:Nucynta N-desmethyltapentadol Not Detected Cutoff: 50 ng/mL 4 11:08 AM CDT [facility] Comment:Metabolite of tapent adol Btwbyihxep-idlv-jycooj onide Not Detected Cutoff: 100 ng/mL 4 11:08 AM CDT SDS Comment:Metabolite of tapent adol Buprenorphine Not Detected Cutoff: 5 ng/mL 4 11:08 AM CDT [facility] Comment:Buprenex, Suboxone Norbuprenorphine Not Detected Cutoff: 5 ng/mL 4 11:08 AM CDT [facility] Comment:Metabolite of bupren orphine Norbuprenorphine glucuronide Not Detected Cutoff: 20 ng/mL 4 11:08 AM CDT SDS Comment:Metabolite of bupren orphine Opioid Interpretation Test detected the presence of tramadol and its metabolite (O-desmethyltrama dol). Suspect use of tramadol within the past three days. 4 11:08 AM T [facility] Comment: ----ADDITIONAL INFORMATION---- This test was developed and its performance characteristics determined by [facility] in a manner consistent with CLIA requirements. This test has not been cleared or approved by the U.S. Food and Drug Administration. Alprazolam Not Detected Cutoff: 10 ng/mL 4 11:36 AM CDT [facility] Comment:Xanax Alpha-Hydroxyalprazola m Not Detected Cutoff: 10 ng/mL 4 11:36 AM CDT [facility] Comment:Metabolite of Alpraz olam Alpha-Hydroxyalprazola m Glucuronide Not Detected Cutoff: 50 ng/mL 4 11:36 AM CDT [facility] Comment:Metabolite of Alpraz olam Chlordiazepoxide Not Detected Cutoff: 10 ng/mL 4 11:36 AM CDT [facility] Comment:Librium Clobazam Not Detected Cutoff: 10 ng/mL 4 11:36 AM CDT [facility] Comment:Frisium, Onfi N-Desmethylclobazam Not Detected Cutoff: 200 ng/mL 4 11:36 AM CDT [facility] Comment:Metabolite of Clobaz am Clonazepam Not Detected Cutoff: 10 ng/mL 4 11:36 AM CDT [facility] Comment:Klonopin, Rivotril 7-aminoclonazepam Not Detected Cutoff: 10 ng/mL 4 11:36 AM CDT [facility] Comment:Metabolite of Clonaz epam Diazepam Not Detected Cutoff: 10 ng/mL 4 11:36 AM CDT [facility] Comment:Valium Nordiazepam Not Detected Cutoff: 10 ng/mL 4 11:36 AM CDT [facility] Comment:Metabolite of Chlord iazepoxide, Diazepam, or Prazepam. Flunitrazepam Not Detected Cutoff: 10 ng/mL 4 11:36 AM CDT [facility] Comment:Rohypnol 7-aminoflunitrazepam Not Detected Cutoff: 10 ng/mL 4 11:36 AM CDT [facility] Comment:Metabolite of Flunit razepam Flurazepam Not Detected Cutoff: 10 ng/mL 4 11:36 AM CDT [facility] Comment:Dalmane 2-Hydroxy Ethyl Flurazepam Not Detected Cutoff: 10 ng/mL 4 11:36 AM CDT [facility] Comment:Metabolite of Fluraz epam Lorazepam Not Detected Cutoff: 10 ng/mL 4 11:36 AM CDT [facility] Comment:Ativan Lorazepam Glucuronide Not Detected Cutoff: 50 ng/mL 4 11:36 AM CDT [facility] Comment:Metabolite of Loraze rm Midazolam Not Detected Cutoff: 10 ng/mL 4 11:36 AM CDT [facility] Comment:Versed Alpha-Hydroxy Midazolam Not Detected Cutoff: 10 ng/mL 4 11:36 AM CDT [facility] Comment:Metabolite of Midazo vasquez Oxazepam Not Detected Cutoff: 10 ng/mL 4 11:36 AM CDT [facility] Comment:Serax; Also a metabo lite of Chlordiazepoxide, [...] 4 11:36 AM CDT [facility] Comment:Ambien Zolpidem Cifxfa-6-Dtonikeyri acid Not Detected Cutoff: 10 ng/mL 4 11:36 AM CDT [facility] Comment:Metabolite of Zolpid em Benzodiazepine Interpretation No benzodiazepines were detected. The absence of expected drug(s) and/or drug metabolite(s) may indicate non-compliance, altered pharmacokinetics, inappropriate timing of specimen collection relative to drug administration, diluted/adulterat ed urine, or limitations of testing. 4 11:36 AM T [facility] Comment: ----ADDITIONAL INFORMATION---- This test was developed and its performance characteristics determined by [facility] in a manner consistent with CLIA requirements. This test has not been cleared or approved by the U.S. Food and Drug Administration. Methamphetamine Not Detected Cutoff: 100 ng/mL 4 11:26 AM T [facility] Comment:Desoxyn Amphetamine Not Detected Cutoff: 100 ng/mL 4 11:26 AM CDT [facility] Comment: Dyanavel XR, Adzenys ER, Adderall, Vyvanse; Also a metabolite of methamphetamine 3,4-methylenedioxymeth amphetamine (MDMA) Not Detected Cutoff: 100 ng/mL 4 11:26 AM CDT [facility] 3,4-ohzjfsluezeygz-D-e thylamphetamine (MDEA) Not Detected Cutoff: 100 ng/mL 4 11:26 AM CDT [facility] 3,4-methylenedioxyamph etamine (MDA) Not Detected Cutoff: 100 ng/mL 4 11:26 AM CDT [facility] Comment:Also a metabolite of MDMA and/or MDEA Ephedrine Not Detected Cutoff: 100 ng/mL 4 11:26 AM CDT [facility] Pseudoephedrine Not Detected Cutoff: 100 ng/mL 4 11:26 AM CDT [facility] Comment:Sudafed Phentermine Not Detected Cutoff: 100 ng/mL 4 11:26 AM CDT [facility] Comment:Adipex-P, Lomaira, Q symia Phencyclidine (PCP) Not Detected Cutoff: 20 ng/mL 4 11:26 AM CDT [facility] Methylphenidate Not Detected Cutoff: 20 ng/mL 4 11:26 AM CDT [facility] Comment:Ritalin, Concerta Ritalinic acid Not Detected Cutoff: 100 ng/mL 4 11:26 AM CDT [facility] Comment:Metabolite of methyl phenidate Stimulant Interpretation No stimulants were detected. The absence of expected drug(s) and/or drug metabolite(s) may indicate non-compliance, altered pharmacokinetics, inappropriate timing of specimen collection relative to drug administration, diluted/adulterat ed urine, or limitations of testing. 4 11:26 AM T [facility] Comment: ----ADDITIONAL INFORMATION---- This test was developed and its performance characteristics determined by [facility] in a manner consistent with CLIA requirements. This test has not been cleared or approved by the U.S. Food and Drug Administration. Urine (Urine, Midstream) 04/16/2024 2:51 PM CDT 04/16/2024 9:54 PM CDT Shaylee Santa P.A.-C. LAB URINE ORDER [facility] [address] [place] [address] [facility] [place][note 2] [address] [place] [address] [facility] [address] [place] [address] [place] [address] * MM screening mammo BI-Outside Mammogram (04/15/2023 [...] Advance Directives For more information, please contact: [phone] Documents on File Type Date Recorded Patient Adult Basic Education Manager Expl anation Advance Directives 04/10/2024 3:51 PM Lynsey Floyd HCPOA/ADVOCATE/AGENT/R EPRESENTATIVE/SURROGAT E Healthcare Agents on File Name Relationship Healthcare Agent Relationship Communication Lynsey Villatoro Daughter Health Care Agent Antoni Floyd Brother First Alternate Health Care Agent Care Teams Assessment Manager Relationship Specialty Start Date End Date Shaylee Santa P.A.-C. [address] [place], [place] [address] [phone] PCP - General Internal Medicine 01/23/24
--- OUTSIDE RECORDS SUMMARY | 2024-06-18 15:34 | XMS_ITS | Encounter Summary ---
Author Organization [facility] Address [address] [place] [address] Care Team Providers Care Regional Maintenance Manager Name Role Phone Shaylee Santa P.A.-C. Primary Care Provider Reason for Visit * Appointment Request (Routine) - Closed Specialty Diagnoses / Procedures Referred By Collin noble Referred To Contact Nephrology and Hypertension Referral ID Status Reason Start Date Expiration Date Visits Re quested Visits Authorized [id number] Closed 03/05/2024 03/05/2025 1 1 Encounter Details Date Type Department Care Team (Latest Contact Info) Description 03/31/2024 1:30 PM CDT External Outreach Division of Nephrology and Hypertension in [place], [place] [address] [place] [address] Jitendra Romero Jr., D.O. 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 I have a [facility] place to live 12/03/2023 Sex and Gender Information Value Date Recorded Sex Assigned at Female 04/11/2023 12:22 PM CDT Gender Identity Female 04/11/2023 12:22 PM CDT Sexual Orientation Straight 04/11/2023 12 :22 PM CDT documented as of this encounter Last Filed Vital Signs Vital Sign Reading Time Taken Comments Blood Pressure 130/72 03/31/2024 1:40 PM CDT Pulse 79 03/31/2024 1:40 PM CDT Temperature - - Respiratory Rate - - Oxygen Saturation - - Inhaled Oxygen Concentration - - Weight 123 kg (271 lb 13.2 oz) 03/31/2024 1:40 P M CDT Height 160 cm (5' 2.99) 03/31/2024 1:40 PM CDT Body Mass Index 48.16 03/31/2024 1:40 PM CDT documented in this encounter Progress Notes * Jitendra Romero Jr., D.O. - 03/31/2024 1:30 PM CDT Referring Provider: Shaylee Santa P.A.-C. SUBJECTIVE REASON FOR VISIT [facility] Follow-up regards CKD HISTORY OF PRESENT ILLNESS Ms. Akers is a 68 y.o. female who presents with a history of CKD on the background of previousacute tubular necrosis, recent dramatic event where she had bacteremia secondary to PICC line. She was seen by Cardiology, and there has been some off line communication as well where there is atentative plan for her to undergo angiogram with possible angioplasty at the end of the month. Her serum creatinine on point of care test was 2.[address] scan she was scheduled for was delayed. Aleussed that the biotin she takes may interfere with some of the point of care testing, and that her lab based creatinine is 1.9 mg/dL confirmed and drawn on March 27, 2024. We discussed that the risk of contrast associated nephropathy is quite low in the absence of critical illness, and emergency. That 16 oz of fluid prior to the procedure taken orally will be very beneficial. She is having some intermittent sweats. No arm pain no jaw pain no shortness of breath no chest discomfort. Blood pressure has been excellent. She is drinking quite a bit and has not required any IV fluids. She is visiting with a dialysis educator and is interested in renal diet headaches. We discussed the issue of her renal function not being an end-stage yet and that she we will need to be a bit cautious with some of the recommendations of dietary restriction. Particularly we discussed phosphorus. Ho wever, the very beneficial aspect of avoiding processed foods and eating healthy. Past Medical History: Diagnosis Date Dependence Polysubstance [...] by vaginal route., Disp: , Rfl: ruben urkt-ndamzsia-udhilehqr ac ([place] Oil) 1,000 mg capsule, Take by mouth., [...] mg by mouth daily., Disp: , Rfl: gkczyqghspul-rxyoixdw-krktva (Multivitamin 50 Plus) tablet, Take 1 tablet [...] (seven) days., Disp: 2 mL, Rfl: 0 sodium bicarbonate [...] systems reviewed and are negative. OBJECTIVE BP 130/72 Pulse 79 Ht 160 cm Wt 123 kg BMI 48.16 kg/m?? PHYSICAL EXAMINATION General: Awake alert oriented [...] lesions identified Psychiatric: Normal affect DIAGNOSTICS Note serum creatinine 1.9 mg/dL, BUN 38 normal chemistries her CBC is normal, C- reactive peptide isless than 0.5, microalbumin to creatinine ratio 30 milligrams/gram ASSESSMENT / PLAN #1 Chronic Kidney Disease (CKD), Stage 3b Glomerular Filtration Rate (GFR) 30 To 44 (HCC) This is gratifyingly stable on the background of nephrosclerosis. Going forward: 1. Goal blood pressure less than 130s over 80s 2. No NSAIDs or Sage 2 inhibitors 3. Stay well hydrated 4. Prior to angiographic studies would recommend she receives at least 16 if not 24 oz of fluid p.o. within the hour prior to the procedure. 5. I will set her up to visit with me again in 3 months with pre scheduled labs. #2 Hypertensive Chronic Kidney Disease (CKD) Stage 3b Glomerular Filtration Rate (GFR) 30 To 44 Goal blood pressures achieved we will continue with the current regimen. #3 Hyperparathyroidism Renal Secondary (HCC) I am satisfied with her calcium phosphorus and PTH we will make no changes. #4 Anemia Of Chronic Disease She has not at a level at which we need any HOWIE regimen. #5 Chronic Obstructive Pulmonary Disease (HCC) She seems to be doing well from this perspective no change in sputum no fevers no chills. 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 #7 Coronary Artery Disease Without Angina Pectoris I agree entirely with the plan to be pragmatic about her occlusive coronary disease and move ahead with planned angiogram and angioplasty. Whether her episodes of diaphoresis our Cardiac equivalent or whether her dyspnea on exertion has cardiac equivalent/anginal equivalent I am uncertain, but agree with our Cardiology team to exposure just once to the angiographic dye. Total time: 35 minutes Counseling Time: 20 minutes Jitendra Romero Jr., D.O. documented in this encounter Plan of Treatment Upcoming Encounters Date Type Department Care Team (Latest Contact Info) Description 06/23/2024 2:00 PM CDT Clinical Support Department of Nutrition in [address] [phone] Shaylee Santa P.A.-C. [address] [place] [address] Stacey Mc RDN, [address] [phone] Discharge Disposition: Home or Self Care 06/30/2024 1:30 PM CDT Appointment Department of Radiology in [place], [place] [address] [place] [address] Shaylee Santa P.A.-C. 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 [address] [facility] [place] [phone] PCP - General Internal Medicine 01/23/24 documented as of this encounter
--- OUTSIDE RECORDS SUMMARY | 2024-06-18 15:34 | XMS_ITS | Encounter Summary ---
Author Organization [facility] Address [address] [place] [address] Care Team Providers Care Stunt Double Name Role Phone Shaylee Santa P.A.-C. Primary Care Provider Encounter Details Date Type Department Care Team (Late st Contact Info) Description 04/13/2024 Abstract [place], [place] [address] [place] [phone] Provider, Historical Social History Tobacco Use Types Packs/Day Years Used Date Smoking Tobacco: Former Cigarettes 1 57 0 05/28/1964 - 09/19/2020 Passive Smoke Exposure: Never Smokeless Tobacco: Never Alcohol Use Standard Drinks/Week Comments Yes 0 (1 standard drink = 0.6 oz pure alcohol) I might have 2-3 drinks per year [facility] Utilities Answer Date Recorded In the past 12 months has [employer] gas, oil, or water [employer] threatened to shut off services in your [...] living situation today? I have a [facility] place to live 12/03/2023 Sex and [...] CDT Clinical Support Department of Nutrition in [place], [place] [address] [place] [address] Shaylee Santa P.A.-C. [address] [facility] [place] [address] Stacey Mc, TD, [address] [place] [phone] Discharge Disposition: Home or Self Care 06/30/2024 1:30 PM CDT Appointment Department of Radiology in [place], [place] [address] [facility] [address] Shaylee Santa P.A.-C. [address] [place] [phone] documented as of this encounter Visit Diagnoses Not on filedocumented in this encounter Additional Health Concerns Assessment Noted Time PHQ-9 Depression Total Score: 12 023 1:03 PM CDT documented as of this encounter Care Teams Stunt Double Relationship Specialty Start Date End Date Shaylee Santa P.A.-C. [address] [facility] [place] [phone] PCP - General Internal Medicine 01/23/24 documented as of this encounter
--- OUTSIDE RECORDS SUMMARY | 2024-06-18 15:34 | XMS_ITS | Encounter Summary ---
Author Organization [facility] Address [address] [place] [address] Care Team Providers Care Diversional Therapist'S Assistant Name Role Phone Shaylee Santa P.A.-C. Primary Care Provider Reason for Referral * Outpatient (Routine) - Closed Specialty Diagnoses / Procedures Referred By Collin noble Referred To Contact Community Internal Medicine Shaylee Santa P.A.-C. [address] [place] [address] [facility] Referral ID Status Reason Start Date Expiration Date Visits Re quested Visits Authorized [id number] Closed 04/29/2024 10/29/2025 1 1 * Medication Prior Authorization - Closed Specialty Diagnoses / Procedures Referred By Collin noble Referred To Contact Diagnoses Coronary Artery Disease Without Angina Pectoris Morbid Obesity Body Mass Index 45.0-49.9 Adult (HCC) Shaylee Santa P.A.-C. [address] [place] [address] Referral ID Status Reason Start Date Expiration Date Visits Re quested Visits Authorized [id number] Closed 1 1 Reason for Visit * Reason Comments Follow-up States overnight hos pital stay at [facility] for a stent placement. * Appointment Request (Routine) - Closed Specialty Diagnoses / Procedures Referred By Collin noble Referred To Contact Family Medicine Referral ID Status Reason Start Date Expiration Date Visits Re quested Visits Authorized [id number] Closed 04/10/2024 04/10/2025 1 1 Encounter Details Date Type Department Care Team (Late st Contact Info) Description 04/29/2024 1:40 PM CDT Office Visit Department of Community Internal Medicine in [place], [place] [address] [place] [phone] Shaylee Santa P.A.-C. [address] [place] [phone] Coronary Artery Disease Without Angina [...] I might have 2-3 drinks per year [facility] Utilities Answer Date Recorded In the past 12 months has [facility] [place], gas, oil, or water [employer] threatened to shut off services in your [...] Sign Reading Time Taken Comments Blood Pressure 105/66 04/29/2024 1:33 PM CDT Pulse 64 04/29/2024 1:33 PM CDT Temperature 35.7 ??C (96.2 ??F) 04/29/2024 1 :33 PM CDT Respiratory Rate 18 04/29/2024 1:33 PM CDT Oxygen Saturation - - Inhaled Oxygen Concentration - - Weight 120 kg (264 lb 7.1 oz) 1:33 PM CDT flip flops on Height 160.1 cm (5' 3.03) 04/29/2024 1 :33 PM CDT flip flops on Body Mass Index 46.8 04/29/2024 1:33 PM CDT documented in this encounter Progress Notes * Shaylee Santa P.A.-C. - 04/29/2024 1:40 PM CDT SUBJECTIVE CHIEF COMPLAINT/REASON FOR VISIT Chief Complaint Patient presents with Follow-up States overnight hospital stay at [facility] for a stent placement. HISTORY OF PRESENT ILLNESS Dilan Akers is a pleasant 68 y.o. female with a PMHx of coronary artery disease and obesity who presents to the clinic today for follow up after cardiac catheterization at [facility] on 04/21/2024. She had a stent placed in right coronary artery which was 100% blocked prior to her procedure. The right and left common femoral artery were used as access points. She was discharged on Plavix for 1 year minimum. She will be participating in cardiac rehab at [facility] in [place]. Her blood pressure is well controlled in clinic today but she reports higher home readings. She is planning to bring her blood pressure home device to cardiac rehab later this week to check accuracy of her device. She would also like us to try sending Wegovy to her pharmacy and she was made aware this may be covered for patients with heart disease. We had previously attempted to prescribe a GLP-1 agonist for weight loss at clinic visit in February 2024. The following portions of the patient's history [...] Artery Disease Without Angina Pectoris Ileostomy Status ([facility]) Morbid Obesity Body Mass Index 45.0-49.9 [...] History Of Falling Pain Low Back Chronic ALLERGIES/CONTRAINDICATIONS Allergies Allergen Reactions Adhesive Rash Codeine [...] Other (see comments) Sertraline Other (see comments) Vhhxsla-Eae-Opx Reductase Inhibitors Other (see comments) and Myalgia [...] mg by mouth daily., Disp: , Rfl: pfsgaykbkeqa-pircpuhu-jhltkw (Multivitamin 50 Plus) tablet, Take 1 tablet [...] 28 tablet, Rfl: 0 UNABLE TO FIND, Med Name: Collagen 3000mg hydrolyzed collagen, Disp: , Rfl: UNABLE TO FIND, Med Name: Magnesium Glycanate 240mg, Nature's Bounty high absorption, Disp: , Rfl: UNABLE TO FIND, Take 1 tablet by mouth daily., Disp: , Rfl: semaglutide (Wegovy) 0.25 mg/0.5 mL pen injector injection, Inject 0.25 mg under the skin every 7 (seven) days., Disp: 2 mL, Rfl: 0 OBJECTIVE VITAL SIGNS Vitals: 04/29/24 1333 BP: 105/66 Pulse: 64 Resp: 18 Temp: (!) 35.7 ??C PHYSICAL EXAMINATION General: Well-nourished, well-developed 68 y.o. in no apparent distress. Awake, alert, age appropriate. HEENT: Head is normocephalic, atraumatic. Conjunctivae and sclerae are clear. Cardiovascular: Regular rate and rhythm without murmurs. Lungs: Clear to auscultation bilaterally with no adventitious sounds Skin: Warm, pink, and dry. Groin: Bilateral groin incisions without erythema or warmth to touch. Neurologic: Alert and oriented x3. ASSESSMENT / PLAN IMPRESSION/REPORT/PLAN: #1 Coronary Artery Disease Without Angina Pectoris Patient is here for post hospital follow-up after her coronary angioplasty. She had a stent placed in right coronary artery. She will continue on dual antiplatelet therapy for a minimum of 1 year andcontinue to follow with her Cardiology team at [facility]. She will be participating in Cardiac Rehabilitation here at [facility] in [place]. #2 Morbid Obesity Body Mass Index 45.0-49.9 Adult ([facility]) Previously attempted to send GLP-1 agonist medication to her pharmacy as recommended at Endocrinology visit Sep 2023. We will attempt to send Wegovy to her pharmacy today as this may covered given known cardiovascular disease. Other orders - semaglutide (Wegovy) 0.25 mg/0.5 mL pen injector injection; Inject 0.25 mg under the skin every 7(seven) days., Starting 04/29/2024, Normal - Community Internal Medicine office visit (clinic); Future; Expected date: 05/29/2024 If symptoms worsen or do not improve, patient is instructed to seek further medical attention. All questions have been answered. Patient demonstrated understanding and verbalized agreement with the plan. Shaylee Santa P.A.-C. documented in this encounter Plan of Treatment Upcoming Encounters Date Type Department Care Team (Latest Contact Info) Description 06/23/2024 2:00 PM CDT Clinical Support Department of Nutrition in [address] [phone] Shaylee Santa P.A.-C. [address] [place] [address] Stacey Mc, APOLONIAN, [address] [place] [phone] Discharge Disposition: Home or Self Care 06/30/2024 1:30 PM CDT Appointment Department of Radiology in [place], [place] [address] [place] [address] Shaylee Santa P.A.-C. [address] [place] [phone] Scheduled Referrals Name Type Priority Associated Diagnoses Orde r Schedule Community Internal Medicine office visit (clinic) Outpatient Referral Routine Expected: 05/29/2024 (Approximate), Expires: 07/30/2025 documented as of this encounter Visit Diagnoses Diagnosis Coronary Artery Disease Without Angina Pectoris- Primary Morbid Obesity Body Mass Index 45.0-49.9 Adult (HCC) documented in this encounter Additional Health Concerns Assessment Noted Time PHQ-9 Depression Total Score: 9 04/16/20 24 2:15 PM CDT documented as of this encounter Care Teams Diversional Therapist'S Assistant Relationship Specialty Start Date End Date Shaylee Santa P.A.-C. [address] [place] [phone] PCP - General Internal Medicine 01/23/24 documented as of this encounter
--- OUTSIDE RECORDS SUMMARY | 2024-06-18 15:34 | XMS_ITS | Encounter Summary ---
Author Organization [facility] Address [address] [place] [address] Care Team Providers Care [employer] Electro[employer] Supervisor Name Role Phone Shaylee Santa P.A.-C. Primary Care Provider Encounter Details Date Type Department Care Team (Latest Contact Info) Description 04/16/2024 2:47 PM CDT - 04/16/2024 11:59 PM CDT Hospital Encounter Department of Laboratory Medicine in [place], [place] [address] [place] [address] Shaylee Santa P.A.-C. [address] [place] [address] Pain Low Back Chronic Discharge Disposition: Home or Self Care Social History Tobacco Use Types Packs/Day Years Used Date Smoking Tobacco: Former Cigarettes 1 57 0 05/28/1964 - 09/19/2020 Passive Smoke Exposure: Never Smokeless Tobacco: Never Alcohol Use Standard Drinks/Week Comments Yes 0 (1 standard drink = 0.6 oz pure alcohol) I might have 2-3 drinks per year [facility] Utilities Answer Date Recorded In the past 12 months has e [employer], gas, oil, or water [employer] threatened to shut off services in your [...] affected areas as needed for candidiasis 12/08/2019 sodium bicarbonate 325 mg tablet Take 2 tablets (650 mg total) by mouth daily. 180 tablet 3 11/11/2023 tiZANidine (ZANAFLEX) 4 mg capsule as needed. UNABLE TO FIND Med Name: Collagen 3000mg hydrolyzed collagen UNABLE TO FIND Med Name: Magnesium Glycanate 240mg, Nature's Bounty high absorption UNABLE TO FIND Take 1 tablet by mouth daily. Collagen with Vitamin C 10/12/2023 traMADoL (ULTRAM) 50 mg tabletIndications:Chr onic Pain/Nonacute Pain Take 1 tablet (50 mg total) by mouth at bedtime as needed for severe pain or score 7-10 of 10 Indications: Chronic Pain/Nonacute Pain. 28 tablet 04/16/2024 05/20/2024 documented as of this encounter Plan of Treatment Upcoming Encounters Date Type Department Care Team (Latest Contact Info) Description 06/23/2024 2:00 PM CDT Clinical Support Department of Nutrition in [address] [address] Shaylee Santa P.A.-C. [address] [place] [address] Stacey Mc, APOLONIAN, [address] [phone] Discharge Disposition: Home or Self Care 06/30/2024 1:30 PM CDT Appointment Department of Radiology in [place], [place] [address] [place] [address] Shaylee Santa P.A.-C. [address] [place] [address] documented as of this encounter Procedures Procedure Name Priority Date/Time Associated Diagnosis Comments CONTROLLED SUBSTANCE MONITORING, U Routine 04/16/2024 2:51 PM CDT Pain Low Back Chronic documented in this encounter Results * (ABNORMAL) Controlled Substance Monitoring Panel, Urine (04/16/2024 2:51 PM CDT) List patient's current medications Not provided 4 9:54 PM CDT [facility] Comment: ----ADDITIONAL INFORMATION---- Accuracy and completeness of declared medications on reports solely dependent on information submitted by client. Creatinine, Random, U 131.3 mg/dL 4 2:21 PM CDT [facility] Specific [place] 1.020 04/17/20 2 4 2:21 PM CDT [...] 4 11:08 AM CDT [facility] Comment:Tylenol 3 Zynfsgl-6-jsoy-glucuro nide Not Detected Cutoff: 100 ng/mL 4 11:08 AM CDT [facility] Comment:Metabolite of codein e Morphine Not Detected Cutoff: 25 ng/mL 4 11:08 AM CDT [facility] Comment: Carmen Zamora, MS Contin; Also a minor metabolite (10%) of codeine and can be seen in low concentrations (<2,000 ng/mL) with poppy seed ingestion. Zvrinhto-6-pohd-glucur onide Not Detected Cutoff: 100 ng/mL 4 11:08 AM CDT [facility] Comment:Metabolite of morphi ne 6-monoacetylmorphine Not Detected Cutoff: 25 ng/mL 4 11:08 AM CDT [facility] Comment:Metabolite of heroin Hydrocodone Not Detected Cutoff: 25 ng/mL 4 11:08 AM CDT [facility] Comment: Lortab, [place], Vicodin; Also a very minor metabolite of codeine and impurity (<1%) of oxycodone. Norhydrocodone Not Detected Cutoff: 25 ng/mL 4 11:08 AM CDT [facility] Comment:Metabolite of hydroc odone Dihydrocodeine Not Detected Cutoff: 25 ng/mL 4 11:08 AM T [facility] Comment:Metabolite of hydroc odone Hydromorphone Not Detected Cutoff: 25 ng/mL 4 11:08 AM CDT [facility] Comment: Dilaudid, Exalgo; Also a metabolite of hydrocodone and a minor (<5%) metabolite of morphine. Csghhrzgbmcez-9-uhcz-g lucuronide Not Detected Cutoff: 100 ng/mL 4 11:08 AM CDT [facility] Comment:Metabolite of hydrom orphone Oxycodone Not Detected Cutoff: 25 ng/mL 4 11:08 AM T SDS Comment:Endocet, Percocet, O xycontin Noroxycodone Not Detected Cutoff: 25 ng/mL 4 11:08 AM CDT [facility] Comment:Metabolite of oxycod one Oxymorphone Not Detected Cutoff: 25 ng/mL 4 11:08 AM T [facility] Comment:Numorphan, Opana; Al so a metabolite of oxycodone. Lbyeeknpfcq-8-uqlx-glu curonide Not Detected Cutoff: 100 ng/mL 4 11:08 AM CDT [facility] Comment:Metabolite of oxymor phone and/or naloxone (nornaloxone) Noroxymorphone Not Detected Cutoff: 25 ng/mL 4 11:08 AM CDT [facility] Comment:Metabolite of oxymor phone and/or naloxone (nornaloxone) Fentanyl Not Detected Cutoff: 2 ng/mL 4 11:08 AM CDT [facility] Comment:Actiq, Duragesic, Fe ntora Norfentanyl Not Detected Cutoff: 2 ng/mL 4 11:08 AM CDT [facility] Comment:Metabolite of fentan yl Meperidine Not Detected Cutoff: 25 ng/mL 4 11:08 AM CDT [facility] Comment:Demerol Normeperidine Not Detected Cutoff: 25 ng/mL 4 11:08 AM CDT [facility] Comment:Metabolite of meperi dine Naloxone Not Detected Cutoff: 25 ng/mL 4 11:08 AM CDT [facility] Comment:Narcan Jzlypaak-8-vgiy-glucur onide Not Detected Cutoff: 100 ng/mL 4 11:08 AM CDT [facility] Comment:Metabolite of naloxo ne Methadone, U Not Detected Cutoff: 25 ng/mL 4 11:08 AM CDT [facility] Comment:Dolophine EDDP Not Detected Cutoff: 25 ng/mL 4 11:08 AM CDT [facility] Comment:Metabolite of methad one Propoxyphene Not Detected Cutoff: 25 ng/mL 4 11:08 AM CDT [facility] Comment:Darvon, Darvocet Norpropoxyphene Not Detected Cutoff: 25 ng/mL 4 11:08 AM CDT [facility] Comment:Metabolite of propox yphene Tramadol Present(A) Cutoff: 25 ng/mL 4 11:08 AM CDT [facility] Comment:Tradol, Ultram, Ultr acet O-desmethyltramadol Present(A) Cutoff: 25 ng/mL 4 11:08 AM CDT [facility] Comment:Metabolite of tramad ol Tapentadol Not Detected Cutoff: 25 ng/mL 4 11:08 AM CDT [facility] Comment:Nucynta N-desmethyltapentadol Not Detected Cutoff: 50 ng/mL 4 11:08 AM CDT [facility] Comment:Metabolite of tapent adol Keognccusk-xnuv-mhrztv onide Not Detected Cutoff: 100 ng/mL 4 11:08 AM CDT [facility] Comment:Metabolite of tapent adol Buprenorphine Not Detected Cutoff: 5 ng/mL 4 11:08 AM CDT [facility] Comment:Buprenex, Suboxone Norbuprenorphine Not Detected Cutoff: 5 ng/mL 4 11:08 AM CDT [facility] Comment:Metabolite of bupren orphine Norbuprenorphine glucuronide Not Detected Cutoff: 20 ng/mL 4 11:08 AM CDT [facility] Comment:Metabolite of bupren orphine Opioid Interpretation Test detected the presence of tramadol and its metabolite (O-desmethyltrama dol). Suspect use of tramadol within the past three days. 4 11:08 AM CDT [facility] Comment: ----ADDITIONAL INFORMATION---- This test was developed and its performance characteristics determined by [facility] in a manner consistent with CLIA requirements. This test has not been cleared or approved by the U.S. Food and Drug Administration. Alprazolam Not Detected Cutoff: 10 ng/mL 4 11:36 AM CDT [facility] Comment:Xanax Alpha-Hydroxyalprazola m Not Detected Cutoff: 10 ng/mL 4 11:36 AM CDT [facility] Comment:Metabolite of Alpraz olam Alpha-Hydroxyalprazola m Glucuronide Not Detected Cutoff: 50 ng/mL 4 11:36 AM CDT [facility] Comment:Metabolite of Alpraz olam Chlordiazepoxide Not Detected Cutoff: 10 ng/mL 4 11:36 AM CDT [facility] Comment:Librium Clobazam Not Detected Cutoff: 10 ng/mL 4 11:36 AM CDT [facility] Comment:Frisium, Onfi N-Desmethylclobazam Not Detected Cutoff: 200 ng/mL 4 11:36 AM CDT [facility] Comment:Metabolite of Clobaz am Clonazepam Not Detected Cutoff: 10 ng/mL 4 11:36 AM CDT [facility] Comment:Klonopin, Rivotril 7-aminoclonazepam Not Detected Cutoff: 10 ng/mL 4 11:36 AM CDT [facility] Comment:Metabolite of Clonaz epam Diazepam Not Detected Cutoff: 10 ng/mL 4 11:36 AM CDT [facility] Comment:Valium Nordiazepam Not Detected Cutoff: 10 ng/mL 4 11:36 AM CDT [facility] Comment:Metabolite of Chlord iazepoxide, Diazepam, or Prazepam. Flunitrazepam Not Detected Cutoff: 10 ng/mL 4 11:36 AM CDT [facility] Comment:Rohypnol 7-aminoflunitrazepam Not Detected Cutoff: 10 ng/mL 4 11:36 AM CDT [facility] Comment:Metabolite of Flunit razepam Flurazepam Not Detected Cutoff: 10 ng/mL 4 11:36 AM CDT [facility] Comment:Dalmane 2-Hydroxy Ethyl Flurazepam Not Detected Cutoff: 10 ng/mL 4 11:36 AM CDT [facility] Comment:Metabolite of Fluraz epam Lorazepam Not Detected Cutoff: 10 ng/mL 4 11:36 AM CDT [facility] Comment:Ativan Lorazepam Glucuronide Not Detected Cutoff: 50 ng/mL 4 11:36 AM CDT [facility] Comment:Metabolite of Loraze rm Midazolam Not Detected Cutoff: 10 ng/mL 4 11:36 AM CDT [facility] Comment:Versed Alpha-Hydroxy Midazolam Not Detected Cutoff: 10 ng/mL 4 11:36 AM CDT [facility] Comment:Metabolite of Midazo vasquez Oxazepam Not Detected Cutoff: 10 ng/mL 4 11:36 AM CDT [facility] Comment:Serax; Also a metabo lite of Chlordiazepoxide, Diazepam, or Temazepam. Oxazepam Glucuronide Not Detected Cutoff: 50 ng/mL 4 11:36 AM CDT [facility] Comment:Metabolite of Oxazep am Prazepam Not Detected Cutoff: 10 ng/mL 4 11:36 AM CDT [facility] Comment:Centrax Temazepam Not Detected Cutoff: 10 ng/mL [...] 4 11:36 AM CDT [facility] Comment:Ambien Zolpidem Rxfjao-8-Ycxmkcwcho acid Not Detected Cutoff: 10 ng/mL 4 11:36 AM CDT [facility] Comment:Metabolite of Zolpid em Benzodiazepine Interpretation No benzodiazepines were detected. The absence of expected drug(s) and/or drug metabolite(s) may indicate non-compliance, altered pharmacokinetics, inappropriate timing of specimen collection relative to drug administration, diluted/adulterat ed urine, or limitations of testing. 4 11:36 AM CDT [facility] Comment: ----ADDITIONAL INFORMATION---- This test was developed and its performance characteristics determined by [facility] in a manner consistent with CLIA requirements. This test has not been cleared or approved by the U.S. Food and Drug Administration. Methamphetamine Not Detected Cutoff: 100 ng/mL 4 11:26 AM CDT [facility] Comment:Desoxyn Amphetamine Not Detected Cutoff: 100 ng/mL 4 11:26 AM CDT [facility] Comment: Dyanavel XR, Adzenys ER, Adderall, Vyvanse; Also a metabolite of methamphetamine 3,4-methylenedioxymeth amphetamine (MDMA) Not Detected Cutoff: 100 ng/mL 4 11:26 AM CDT [facility] 3,7-bhfkbidmmqkljh-H-e thylamphetamine (MDEA) Not Detected Cutoff: 100 ng/mL [...] Cutoff: 100 ng/mL 4 11:26 AM CDT [facility] Comment:Adipex-P, Lomaira, Q symia Phencyclidine (PCP) Not Detected Cutoff: 20 ng/mL 4 11:26 AM CDT [facility] Methylphenidate Not Detected Cutoff: 20 ng/mL 4 11:26 AM CDT [facility] Comment:Ritalin, Concerta Ritalinic acid Not Detected Cutoff: 100 ng/mL 4 11:26 AM CDT [facility] Comment:Metabolite of methyl phenidate Stimulant Interpretation No stimulants were detected. The absence of expected drug(s) and/or drug metabolite(s) may indicate non-compliance, altered pharmacokinetics, inappropriate timing of specimen collection relative to drug administration, diluted/adulterat ed urine, or limitations of testing. 4 11:26 AM CDT [facility] Comment: ----ADDITIONAL INFORMATION---- This test was developed and its performance characteristics determined by [facility] in a manner consistent with CLIA requirements. This test has not been cleared or approved by the U.S. Food and Drug Administration. Urine (Urine, Midstream) 04/16/2024 2:51 PM CDT 04/16/2024 9:54 PM CDT [facility]aylee [facility] URINE ORDER [facility] [address] [place] [address] [facility] [address] [place] [address] [facility] [address] [place] [address] [place] [address] documented in this encounter Visit Diagnoses Diagnosis Pain Low Back Chronic documented in this encounter Additional Health Concerns Assessment Noted Time PHQ-9 Depression Total Score: 9 05/23/20 24 2:15 PM CDT documented as of this encounter Care Teams [employer] Supervisor Relationship Specialty Start Date End Date Shaylee Santa P.A.-C. [address] [place] [address] MANNY QUINN [phone] PCP - General Internal Medicine 01/23/24 documented as of this encounter
--- OUTSIDE RECORDS SUMMARY | 2024-06-18 15:34 | XMS_ITS | Encounter Summary ---
Author Organization [facility] Address [address] [place] [address] Care Team Providers Care Ground Wirer Name Role Phone Shaylee Santa P.A.-C. Primary Care Provider Reason for Referral * Outpatient (Routine) - Authorized Specialty Diagnoses / Procedures Referred By Collin noble Referred To Contact Community Internal Medicine Shaylee Santa P.A.-C. [address] [place] [address] [facility] Referral ID Status Reason Start Date Expiration Date V isits Requested Visits Authorized [id number] Authorized 04/17/2024 10/17/2025 1 1 Reason for Visit * Reason Comments Med Refill * Appointment Request (Routine) - Closed Specialty Diagnoses / Procedures Referred By Collin noble Referred To Contact Family Medicine Referral ID Status Reason Start Date Expiration Date Visits Re quested Visits Authorized [id number] Closed 04/13/2024 04/13/2025 1 1 Encounter Details Date Type Department Care Team ([facility] st Contact Info) Description 04/16/2024 1:40 PM CDT Office Visit Department of Community Internal Medicine in [place], [place] [address] [place] [address] Shaylee Santa P.A.-C. [address] [place] [phone] Pain Low Back Chronic (Primary Dx) Social History Tobacco Use Types Packs/Day Years Used Date Smoking Tobacco: Former Cigarettes 1 57 0 05/28/1964 - 09/19/2020 Passive Smoke Exposure: Never Smokeless Tobacco: Never Tobacco Cessation:Counseling Given: Not Answered Alcohol Use Standard Drinks/Week Comments Yes 0 (1 standard drink = 0.6 oz pure alcohol) I might have 2-3 drinks per year [facility] Utilities Answer Date Recorded In the past 12 months has [employer], gas, oil, or water [employer] threatened to shut off services in your [...] your living situation today? I have a [facility] place to live 12/03/2023 Sex and Gender Information Value Date Recorded Sex Assigned at Female 04/11/2023 12:22 PM CDT Gender Identity Female 04/11/2023 12:22 PM CDT Sexual Orientation Straight 04/11/2023 12 :22 PM CDT documented as of this encounter Last Filed Vital Signs Vital Sign Reading Time Taken Comments Blood Pressure 109/70 04/16/2024 1:20 PM CDT Pulse 71 04/16/2024 1:20 PM CDT Temperature 36.1 ??C (96.9 ??F) 04/16/2024 1:20 PM CD T Respiratory Rate 14 04/16/2024 1:20 PM CDT Oxygen Saturation - - Inhaled Oxygen Concentration - - Weight 121 kg (266 lb 12.1 oz) 04/16/2024 1:20 P M CDT Height - - Body Mass Index 47.27 03/31/2024 1:40 PM CDT documented in this encounter Patient Instructions * Patient Instructions* Luma Gtz R.N. - 04/16/2024 1:40 PM CDT * Attachments The following attachments cannot be sent through Care Everywhere. * Chronic Pain: Take Steps to Regain Your Life (Filipino) * Important Information About Opioid Medications (Filipino) * Eating To Help With Chronic Pain (Filipino) * Benefits, Side Effects and Risks of Taking Opioid Medications (Filipino) documented in this encounter Progress Notes * Shaylee Santa P.A.-C. - 04/16/2024 1:40 PM CDT SUBJECTIVE CHIEF COMPLAINT/REASON FOR VISIT Chief Complaint Patient presents with Med Refill HISTORY OF PRESENT ILLNESS Dilan Akers is a pleasant 68 y.o. female who presents to the clinic today to discuss tramadol prescription. I received a request for a tramadol prescription from this patient earlier this week. She and I have not previously discussed this prescription so I recommended a clinic visit. She has been taking tramadol for over 35 years. She reports this was initially prescribed due to a ripped cornea in her eye. The prescription was then continued for back pain. She had previously taken large amounts of NSAIDs daily but reports she made herself allergic to this medication because she took it so often. She has stage 3 chronic kidney disease and it is recommended that she avoid NSAIDs. She reports she cannot take Tylenol because it messes with her liver. She believes it caused elevated liver function testing although it sounds as though she was taking a statin at the time of elevated LFTs. She has been doing physical therapy for at least 15 years for back pain at [facility]. She currently takes tramadol 50 mg at bedtime. One to two days per month, she may take an additional tablet during the day but often does not like that this makes her tired. She was previously on a higher dose of tramadol at 100 mg per dose but did not tolerate the side effects. The following portions of the patient's history [...] Other (see comments) Sertraline Other (see comments) Vpotmgs-Moi-Ptu Reductase Inhibitors Other (see comments) and Myalgia Muscle damage Muscle damage Muscle pain Sulfa (Sulfonamide Antibiotics) Hives (Reselect Reaction) and Nausea And Vomiting Hives and vomiting Vomiting Tolmetin Other (see comments) Acetaminophen Other (see comments) and Nausea Only Famotidine GI intolerance Ibuprofen Nausea And Vomiting and Nausea Only Metoclopramide GI intolerance CURRENT MEDICATIONS Current Outpatient Medications: traMADoL (ULTRAM) 50 mg tablet, Take 1 tablet (50 mg total) by mouth at bedtime as needed for severe pain or score 7-10 of 10 Indications: Chronic Pain/Nonacute Pain., Disp: 28 tablet, Rfl: 0 amLODIPine (NORVASC) 5 mg tablet, Take 1 [...] mg by mouth daily., Disp: , Rfl: viupsuuvygeu-zqkkhswd-vxedla (Multivitamin 50 Plus) tablet, Take 1 tablet [...] TO FIND, Med Name: Magnesium Glycanate 240mg, Nature'raymond Kirklandyaz high absorption, Disp: , Rfl: UNABLE TO FIND, Take 1 tablet by mouth daily., Disp: , Rfl: OBJECTIVE VITAL SIGNS Vitals: 04/16/24 1320 BP: 109/70 Pulse: 71 Resp: 14 Temp: 36.1 ??C PHYSICAL EXAMINATION General: Well-nourished, well-developed 68 y.o. in no apparent distress. Awake, alert, age appropriate. HEENT: Head is normocephalic, atraumatic. Conjunctivae and sclerae are clear. Skin: Warm, pink, and dry. Neurologic: Alert and oriented x3. ASSESSMENT / PLAN IMPRESSION/REPORT/PLAN: #1 Pain Low Back Chronic #2 Chronic Kidney Disease Stage 3B GFR 30 to 44 (HCC) Tramadol has been a chronic prescription for patient in the setting of chronic low back pain. We will plan to continue tramadol 50 mg at bedtime PRN. See prescribing plan below. We will plan to have a clinic visit every 6 months and controlled substance monitoring urine sample once yearly. Nursing staff will complete chronic narcotic education after our visit today. CONTROLLED SUBSTANCE PRESCRIBING PLAN Responsible provider: Shaylee Santa P.A.-C. Naloxone not indicated. Urine drug screen: every 12 months Follow-up visits/assessments: every 6 months Tramadol Plan start date: 04/16/2024 Instructions for use: Chronic low back pain. Quantity to dispense: 28 Prescription duration: 4 weeks No taper in progress. - Controlled Substance Monitoring Panel, Urine; Future; Expected date: 04/16/2024 Other orders - traMADoL (ULTRAM) 50 mg tablet; Take 1 tablet (50 mg total) by mouth at bedtime as needed for severe pain or score 7-10 of 10 Indications: Chronic Pain/Nonacute Pain., Starting Lucina 04/16/2024, Normal If symptoms worsen or do not improve, patient is instructed to seek further medical attention. All questions have been answered. Patient demonstrated understanding and verbalized agreement with the plan. Shaylee Santa P.A.-C. * Luma Gtz R.N. - 04/16/2024 1:40 PM CDT Dilan Akers was enrolled in the Controlled Substance Prescribing Plan at the request of Provider: Shaylee Santa for ongoing chronic opioid therapy related to Pain Low Back Chronic. Chronic Pain/Nonacute Pain. An fabric machine operator was not used for this discussion. PEG Total Score: 8.67 (04/16/2024 2:19 PM) ORT Total Score (max 26): 7 (04/16/2024 2:12 PM) PHQ-9 Total Score (max 27): 9 (04/16/2024 2:15 PM) CHERELLE-7 Total Score (max 21): 12 (04/16/2024 2:17 PM) Urine screening was requested by the prescribing provider. If patient is unable to urinate today, provider is okay with patient returning within the next month to have initial baseline screening. Education: The following education was reviewed and provided: Controlled Substance Agreement-Chronic Opioid Therapy ([id number])., Important Information About Opioid Medications (RK4461)., Chronic Pain: Take Steps to Regain Your Life (OV3962)., Controlled Substance Agreement: Safe Use of Controlled Substances (JS6938-086)., Side effects and precautions., Do not drive/operate machinery while takingthis medication., Periodic assessments expected as outlined in Minimum Practice Standards., Contacttheir primary care provider office for any side effects or concerns. I encouraged the patient to request renewals one week in advance through their pharmacy or by Patient Online Services to allow ample time for renewals. documented in this encounter Plan of Treatment Upcoming Encounters Date Type Department Care Team (Latest Contact Info) Description 06/23/2024 2:00 PM CDT Clinical Support Department of Nutrition in [address] [address] Shaylee Santa P.A.-C. [address] [place] [address] [place] [address] Stacey Mc, APOLONIAN, LD [address] [place] [address] Discharge Disposition: Home or Self Care 06/30/2024 1:30 PM CDT Appointment Department of Radiology in [place], [place] [address] [facility] [place] [address] Shaylee Santa P.A.-C. [address] [facility] [place] [phone] Scheduled Referrals Name Type Priority Associated Diagnoses Orde r Schedule Community Internal Medicine office visit (clinic) Outpatient Referral Routine Expected: 10/18/2024 (Approximate), Expires: 07/18/2025 documented as of this encounter Results * (ABNORMAL) Controlled Substance Monitoring Panel, Urine (04/16/2024 2:51 PM CDT) List patient's current medications Not provided 9:54 PM CDT [facility] Comment: ----ADDITIONAL INFORMATION---- Accuracy and completeness of declared medications on reports solely dependent on information submitted by client. Creatinine, Random, U 131.3 mg/dL 4 2:21 PM CDT [facility] Specific [place] 1.020 04/17/20 2 4 2:21 PM CDT [...] Cutoff: 25 ng/mL 4 11:08 AM T [facility] Comment:Tylenol 3 Qowppph-3-kkfy-glucuro nide Not Detected Cutoff: 100 ng/mL 4 11:08 AM T [facility] Comment:Metabolite of codein e Morphine Not Detected Cutoff: 25 ng/mL 4 11:08 AM T [facility] Comment: Carmen Zamora, MS Contin; Also a minor metabolite (10%) of codeine and can be seen in low concentrations (<2,000 ng/mL) with poppy seed ingestion. Jhondeqi-3-lqzs-glucur onide Not Detected Cutoff: 100 ng/mL 4 11:08 AM T [facility] Comment:Metabolite of morphi ne 6-monoacetylmorphine Not Detected Cutoff: 25 ng/mL 4 11:08 AM T [facility] Comment:Metabolite of heroin Hydrocodone Not Detected Cutoff: 25 ng/mL 4 11:08 AM T [facility] Comment: Lortab, [place], Vicodin; Also a very minor metabolite of codeine and impurity (<1%) of oxycodone. Norhydrocodone Not Detected Cutoff: 25 ng/mL 4 11:08 AM T [facility] Comment:Metabolite of hydroc odone Dihydrocodeine Not Detected Cutoff: 25 ng/mL 4 11:08 AM T [facility] Comment:Metabolite of hydroc odone Hydromorphone Not Detected Cutoff: 25 ng/mL 4 11:08 AM T [facility] Comment: Dilaudid, Exalgo; Also a metabolite of hydrocodone and a minor (<5%) metabolite of morphine. Rakptfostmldj-6-qqwc-g lucuronide Not Detected Cutoff: 100 ng/mL 4 11:08 AM T [facility] Comment:Metabolite of hydrom orphone Oxycodone Not Detected Cutoff: 25 ng/mL 4 11:08 AM CDT [facility] Comment:Endocet, Percocet, O xycontin Noroxycodone Not Detected Cutoff: 25 ng/mL 4 11:08 AM CDT [facility] Comment:Metabolite of oxycod one Oxymorphone Not Detected Cutoff: 25 ng/mL 4 11:08 AM T [facility] Comment:Numorphan, Opana; Al so a metabolite of oxycodone. Clgsyvjuagq-6-ghjv-glu curonide Not Detected Cutoff: 100 ng/mL 4 11:08 AM T [facility] Comment:Metabolite of oxymor phone and/or naloxone (nornaloxone) Noroxymorphone Not Detected Cutoff: 25 ng/mL 4 11:08 AM CDT [facility] Comment:Metabolite of oxymor phone and/or naloxone (nornaloxone) Fentanyl Not Detected Cutoff: 2 ng/mL 4 11:08 AM T [facility] Comment:Actiq, Duragesic, Fe ntora Norfentanyl Not Detected Cutoff: 2 ng/mL 4 11:08 AM T [facility] Comment:Metabolite of fentan yl Meperidine Not Detected Cutoff: 25 ng/mL 4 11:08 AM T [facility] Comment:Demerol Normeperidine Not Detected Cutoff: 25 ng/mL 4 11:08 AM T [facility] Comment:Metabolite of meperi dine Naloxone Not Detected Cutoff: 25 ng/mL 4 11:08 AM T [facility] Comment:Narcan Mjbhkygq-4-fxob-glucur onide Not Detected Cutoff: 100 ng/mL 4 11:08 AM T [facility] Comment:Metabolite of naloxo ne Methadone, U Not Detected Cutoff: 25 ng/mL 4 11:08 AM T [facility] Comment:Dolophine EDDP Not Detected Cutoff: 25 ng/mL 4 11:08 AM T [facility] Comment:Metabolite of methad one Propoxyphene Not Detected Cutoff: 25 ng/mL 4 11:08 AM T [facility] Comment:Darvon, Darvocet Norpropoxyphene Not Detected Cutoff: 25 ng/mL 4 11:08 AM T [facility] Comment:Metabolite of propox yphene Tramadol Present(A) Cutoff: 25 ng/mL 4 11:08 AM CDT [facility] Comment:Tradol, Ultram, Ultr acet O-desmethyltramadol Present(A) Cutoff: 25 ng/mL 4 11:08 AM CDT [facility] Comment:Metabolite of tramad ol Tapentadol Not Detected Cutoff: 25 ng/mL 4 11:08 AM CDT [facility] Comment:Nucynta N-desmethyltapentadol Not Detected Cutoff: 50 ng/mL 4 11:08 AM CDT [facility] Comment:Metabolite of tapent adol Rmrxevailo-suyi-vquhhc onide Not Detected Cutoff: 100 ng/mL 4 [...] developed and its performance characteristics determined by [facility] in a manner consistent with CLIA [...] 10 ng/mL 4 11:36 AM CDT [facility] Comment:Christopher Miranda N-Desmethylclobazam Not Detected Cutoff: 200 ng/mL 4 [...] Cutoff: 10 ng/mL 4 11:[address] [facility] Comment:Metabolite of Chlord iazepoxide, Diazepam, or Prazepam. Flunitrazepam Not Detected Cutoff: 10 ng/mL 4 11:36 AM CDT [facility] Comment:Rohypnol 7-aminoflunitrazepam Not Detected Cutoff: 10 ng/mL 4 11:36 AM CDT [facility] Comment:Metabolite of Flunit razepam Flurazepam Not Detected Cutoff: 10 ng/mL 4 11:36 AM CDT [facility] Comment:Dalmane 2-Hydroxy Ethyl Flurazepam Not Detected Cutoff: 10 ng/mL 4 11:36 AM CDT [facility] Comment:Metabolite of Fluraz epam Lorazepam Not Detected Cutoff: 10 ng/mL 4 11:36 AM CDT [facility] Comment:Ativan Lorazepam Glucuronide Not Detected Cutoff: 50 ng/mL 4 11:36 AM CDT [facility] Comment:Metabolite of Loraze rm Midazolam Not Detected Cutoff: 10 ng/mL 4 11:36 AM CDT [facility] Comment:Versed Alpha-Hydroxy Midazolam Not Detected Cutoff: 10 ng/mL 4 11:36 AM CDT [facility] Comment:Metabolite of Midazo vasquez Oxazepam Not Detected Cutoff: 10 ng/mL 4 11:36 AM CDT [facility] Comment:Serax; Also a metabo lite of Chlordiazepoxide, Diazepam, or Temazepam. Oxazepam Glucuronide Not Detected Cutoff: 50 ng/mL 4 11:36 AM CDT [facility] Comment:Metabolite of Oxazep am Prazepam Not Detected Cutoff: 10 ng/mL 4 11:36 AM CDT [facility] Comment:Centrax Temazepam Not Detected Cutoff: 10 ng/mL [...] 4 11:36 AM CDT [facility] Comment:Ambien Zolpidem Ovmerp-7-Sdnfmwkkyy acid Not Detected Cutoff: 10 ng/mL 4 11:36 AM CDT [facility] Comment:Metabolite of Zolpid em Benzodiazepine Interpretation No benzodiazepines were detected. The absence of expected drug(s) and/or drug metabolite(s) may indicate non-compliance, altered pharmacokinetics, inappropriate timing of specimen collection relative to drug administration, diluted/adulterat ed urine, or limitations of testing. 4 11:36 AM CDT [facility] Comment: ----ADDITIONAL INFORMATION---- This test was developed and its performance characteristics determined by [facility] in a manner consistent with CLIA [...] 100 ng/mL 4 11:26 AM CDT [facility] 3,2-ojywpqcsspgznw-P-e thylamphetamine (MDEA) Not Detected Cutoff: 100 ng/mL [...] limitations of testing. 4 11:26 AM CDT [facility] Comment: ----ADDITIONAL INFORMATION---- This test was developed and its performance characteristics determined by [facility] in a manner consistent with CLIA requirements. This test has not been cleared or approved by the U.S. Food and Drug Administration. Urine (Urine, Midstream) 04/16/2024 2:51 PM CDT 04/16/2024 9:54 PM CDT Shaylee Santa P.A.-C. LAB URINE ORDER [facility] [address] [place] [address] [facility] [address] [place] [address] [facility] [address] [place] [address] [place] [address] documented in this encounter Visit Diagnoses Diagnosis Pain Low Back Chronic- Primary documented in this encounter Additional Health Concerns Assessment Noted Time PHQ-9 Depression Total Score: 9 04/16/20 24 2:15 PM CDT documented as of this encounter Care Teams Ground Wirer Relationship Specialty Start Date End Date Shaylee Santa P.A.-C. [address] [place] [address] [place] [phone] PCP - General Internal Medicine 01/23/24 documented as of this encounter
--- OUTSIDE RECORDS SUMMARY | 2024-06-18 15:34 | XMS_ITS | Encounter Summary ---
Author Organization [facility] Address [address] [place] [address] Care Team Providers Care Liability Claims Representative Name Role Phone Shaylee Santa P.A.-C. Primary Care Provider Reason for Visit * Reason Onset Date Comments Order Request 04/29/2024 Encounter Details Date Type Department Care Team (Late st Contact Info) Description 04/29/2024 Clinical Communication Department of Community Internal Medicine in [place], [place] [address] [place] [address] Shaylee Santa P.A.-C. [address] [place] [phone] Order Request Social History Tobacco Use Types Packs/Day Years Used Date Smoking Tobacco: Former Cigarettes 1 57 0 05/28/1963 - 09/19/2020 Passive Smoke Exposure: Never Smokeless Tobacco: Never Alcohol Use Standard Drinks/Week Comments Yes 0 (1 standard drink = 0.6 oz pure alcohol) I might have 2-3 drinks per year [facility] Utilities Answer Date Recorded In the past 12 months has [facility] [employer], gas, oil, or water [employer] threatened to shut off services in your [...] your living situation today? I have a [facility] place to live 12/03/2023 Sex and Gender Information Value Date Recorded Sex Assigned at Female 04/11/2023 12:22 PM CDT Gender Identity Female 04/11/2023 12:22 PM CDT Sexual Orientation Straight 04/11/2023 12 :22 PM CDT documented as of this encounter Miscellaneous Notes * Telephone Encounter - Bianca Nick - 04/29/2024 2:46 PM CDT Patient scheduled for 05/04/2024 to complete lab work. * Telephone Encounter - Bianca Nick - 04/29/2024 2:20 PM CDT [facility] Nurse Reason for Communication: Patient was scheduling follow up appointments and mentioned needing cholesterol lab work, stated she forgot to mention to Shaylee during provider visit but might be in previous provider notes from an outside provider. Current Can Nursing/Provider leave a detailed message?: N/A Action Needed: Please place orders for cholesterol lab work and sent to scheduling pool documented in this encounter Plan of Treatment Upcoming Encounters Date Type Department Care Team (Latest Contact Info) Description 06/23/2024 2:00 PM CDT Clinical Support Department of Nutrition in [address] [phone] Shaylee Santa, PLenaALena-CLena [address] [place] [address] Stacey Mc, APOLONIAN, LD [address] [place] [address] Discharge Disposition: Home or Self Care 06/30/2024 1:30 PM CDT Appointment Department of Radiology in [place], [place] [address] [place] [address] Shaylee Santa P.A.-C. 300 [facility] [place] [phone] documented as of this encounter Visit Diagnoses Not on filedocumented in this encounter Additional Health Concerns Assessment Noted Time PHQ-9 Depression Total Score: 9 04/16/20 24 2:15 PM CDT documented as of this encounter Care Teams Liability Claims Representative Relationship Specialty Start Date End Date Shaylee Santa P.A.-C. [address] [facility] [place] [phone] PCP - General Internal Medicine 01/23/24 documented as of this encounter
--- OUTSIDE RECORDS SUMMARY | 2024-06-18 15:34 | XMS_ITS | Encounter Summary ---
Author Organization [facility] Address [address] [place] [address] Care Team Providers Care Break Out Worker Name Role Phone Shaylee Santa P.A.-C. Primary Care Provider Reason for Visit * Reason Comments Med Refill Encounter Details Date Type Department Care Team (Late st Contact Info) Description 03/31/2024 Refill Department of Family Medicine, [facility], in [address] [phone] Elvie Shaw M.D. [address] [place] [phone] Med Refill Social History Tobacco Use Types [...] Recorded In the past 12 months has [facility] [employer], gas, oil, or water [employer] threatened to shut off services in your [...] encounter Miscellaneous Notes * Telephone Encounter - Eileen Elliott - 04/09/2024 1:05 PM CDT Patient has an appointment with Shaylee tomorrow, April 10 * Telephone Encounter - Georgiana Cassidy L.P.N. - 04/03/2024 10:10 AM CDT Controlled substance renewal for tramadol 50 mg: No nursing concerns, not on chronic opioid use registry. Renewal is pended, but missing information provider asked to complete as there is no prescribing plan. Date last renewed (start date): 12/31/2023 #90 Last provider visit: 02/27/2024 Next provider visit due: not specified documented in this encounter Plan of Treatment Upcoming Encounters Date Type Department Care Team (Latest Contact Info) Description 06/23/2024 2:00 PM CDT Clinical Support Department of Nutrition in [address] [phone] Shaylee Santa P.A.-C. [address] [place] [address] Stacey Mc, TD, LD [address] [place] [phone] Discharge Disposition: Home or Self Care 06/30/2024 1:30 PM CDT Appointment Department of Radiology in [place], [place] 300 [place] [address] Shaylee Santa P.A.-C. 300 [facility] [place] [phone] documented as of this encounter Visit Diagnoses Not on filedocumented in this encounter Additional Health Concerns Assessment Noted Time PHQ-9 Depression Total Score: 12 023 1:03 PM CDT documented as of this encounter Care Teams Break Out Worker Relationship Specialty Start Date End Date Shaylee Santa P.A.-C. 300 [facility] [place] [phone] PCP - General Internal Medicine 01/23/24 documented as of this encounter
--- OUTSIDE RECORDS SUMMARY | 2024-06-18 15:34 | XMS_ITS | Encounter Summary ---
Author Organization [facility] Address [address] [place] [address] Care Team Providers Care Fish Fryer Name Role Phone Shaylee Santa P.A.-C. Primary Care Provider Encounter Details Date Type Department Care Team (Late st Contact Info) Description 04/10/2024 Orders Only Department of Community Internal Medicine in [place], [place] 300 [place] [address] Shaylee Santa P.A.-C. 300 [place] [phone] Chronic Kidney Disease (CKD), Stage 3b Glomerular Filtration Rate (GFR) 30 To 44 (HCC) (Primary Dx) Social History Tobacco Use Types Packs/Day Years Used Date Smoking Tobacco: Former Cigarettes 1 57 0 05/28/1964 - 09/19/2020 Passive Smoke Exposure: Never Smokeless Tobacco: Never Alcohol Use Standard Drinks/Week Comments Yes 0 (1 standard drink = 0.6 oz pure alcohol) I might have 2-3 drinks per year [facility] Utilities Answer Date Recorded In the past 12 months has e [employer], gas, oil, or water company threatened to [...] CDT Clinical Support Department of Nutrition in [place], [place] [address] [place] [phone] Shaylee Santa P.A.-C. 300 [place] [address] Stacey Mc, RDN, LD [address] [place] [phone] Discharge Disposition: Home or Self Care 06/30/2024 1:30 PM CDT Appointment Department of Radiology in [place], [place] 300 [place] [address] Shaylee Santa P.A.-C. 300 [place] [address] documented as of this encounter Visit Diagnoses Diagnosis Chronic Kidney Disease (CKD), Stage 3b Glomerular Filtration Rate (GFR) 30 To 44 (HCC)- Primary documented in this encounter Additional Health Concerns Assessment Noted Time PHQ-9 Depression Total Score: 12 023 1:03 PM CDT documented as of this encounter Care Teams Fish Fryer Relationship Specialty Start Date End Date Shaylee Santa P.A.-C. 300 [place] [address] PCP - General Internal Medicine 01/23/24 documented as of this encounter
--- OUTSIDE RECORDS SUMMARY | 2024-06-18 15:34 | XMS_ITS | Encounter Summary ---
Author Organization [facility] Address [address] [place] [address] Care Team Providers Care Acid Treater Name Role Phone Shaylee Santa P.A.-C. Primary Care Provider Reason for Visit * Reason Comments Other Discuss concerns bef ore surgery. * Appointment Request (Routine) - Closed Specialty Diagnoses / Procedures Referred By Collin t Referred To Contact Community Internal Medicine Referral ID Status Reason Start Date Expiration Date Visits Re quested Visits Authorized [id number] Closed 04/03/2024 04/03/2025 1 1 Encounter Details Date Type Department Care Team ([facility] st Contact Info) Description 04/10/2024 1:40 PM CDT Office Visit Department of Community Internal Medicine in [place], [place] 300 [place] [phone] Shaylee Santa P.A.-C. 300 [place] [phone] Coronary Artery Disease Without Angina Pectoris (Primary Dx); Screening Mammogram Breast Cancer; Chronic Kidney Disease (CKD), Stage 3b Glomerular Filtration Rate (GFR) 30 To 44 (HCC) Social History Tobacco Use Types Packs/Day Years Used Date Smoking Tobacco: Former Cigarettes 1 57 0 05/28/1964 - 09/19/2020 Passive Smoke Exposure: Never Smokeless Tobacco: Never Tobacco Cessation:Counseling Given: Not Answered Alcohol Use Standard Drinks/Week Comments Yes 0 (1 standard drink = 0.6 oz pure alcohol) I might have 2-3 drinks per year [facility] Utilities Answer Date Recorded In the past 12 months has th e [employer], gas, oil, or water company threatened to [...] Date Recorded Dental: Regular Dentist No 08/27/20 23 Employment Answer Date Recorded Employment status Retired 12/03/2023 Housing Stability Answer Date Recorded What is your living situation today? I have a [facility] place to live 12/03/2023 Sex and Gender Information Value Date Recorded Sex Assigned at Female 04/11/2023 12:22 PM CDT Gender Identity Female 04/11/2023 12:22 PM CDT Sexual Orientation Straight 04/11/2023 12 :22 PM CDT documented as of this encounter Last Filed Vital Signs Vital Sign Reading Time Taken Comments Blood Pressure 112/71 04/10/2024 1:36 PM CDT Pulse 62 04/10/2024 1:36 PM CDT Temperature 35.8 ??C (96.5 ??F) 04/10/2024 1:36 PM CD T Respiratory Rate 16 04/10/2024 1:36 PM CDT Oxygen Saturation - - Inhaled Oxygen Concentration - - Weight 121 kg (267 lb 6.7 oz) 04/10/2024 1:36 PM CDT Height - - Body Mass Index 47.38 03/31/2024 1:40 PM CDT documented in this encounter Progress Notes * Shaylee Santa P.A.-C. - 04/10/2024 1:40 PM CDT SUBJECTIVE CHIEF COMPLAINT/REASON FOR VISIT Chief Complaint Patient presents with Other Discuss concerns before surgery. HISTORY OF PRESENT ILLNESS Dilan Akers is a pleasant 68 y.o. female with a past medical history of coronary artery disease, morbid obesity, obstructive sleep apnea on CPAP, and chronic pain syndrome who presents to the clinic today for to discuss concerns prior to upcoming angiogram scheduled 04/21/2024 through [facility]. She would like to follow up on hot flashes/night sweats discussed at previous clinic visit. She was informed that these symptoms are likely from her heart by her Cardiology team. [facility].She wonders if she can discontinue black cohosh, primrose oil and flaxseed oilprior to her angiogram. Of note, she is due for breast cancer screening but had this completed recently at [facility]. She wonders about a referral for renal diet. She follows with Dr. Romero. The following portions of the patient's history [...] Artery Disease Without Angina Pectoris Ileostomy Status ([facility]) Morbid Obesity Body Mass [...] Other (see comments) Sertraline Other (see comments) Myaqsvv-Frt-Hdq Reductase Inhibitors Other (see comments) and Myalgia [...] mg by mouth daily., Disp: , Rfl: tgqlnczvknei-gwglhsgh-iiikww (Multivitamin 50 Plus) tablet, Take 1 tablet by mouth daily., Disp: , Rfl: nystatin (NYSTOP) 100,000 unit/gram powder, Apply 2-3 times/day to affected areas as needed for candidiasis, Disp: , Rfl: sodium bicarbonate 325 mg tablet, Take 2 tablets (650 mg total) by mouth daily., Disp: 180 tablet, Rfl: 3 traMADoL (ULTRAM) 50 mg tablet, Take 50 mg by mouth at bedtime as needed., Disp: , Rfl: UNABLE TO FIND, Med Name: Collagen 3000mg hydrolyzed collagen, Disp: , Rfl: UNABLE TO FIND, Med Name: Magnesium Glycanate 240mg, Nature's Bounty high absorption, Disp: , Rfl: UNABLE TO FIND, Take 1 tablet by mouth daily., Disp: , Rfl: estradioL (ESTRACE) 0.1 mg/g (0.01%) vaginal cream, Insert 0.5 g by vaginal route., Disp: , Rfl: tiZANidine (ZANAFLEX) 4 mg capsule, as needed., Disp: , Rfl: OBJECTIVE VITAL SIGNS Vitals: 04/10/24 1336 BP: 112/71 Pulse: 62 Resp: 16 Temp: (!) 35.8 ??C PHYSICAL EXAMINATION General: Well-nourished, well-developed 68 y.o. in no apparent distress. Awake, alert, age appropriate. HEENT: Head is normocephalic, atraumatic. Pupils round and reactive bilaterally. EOM's intact. Conjunctivae and sclerae are clear. TM's are normal bilaterally. Neck: Neck is supple without lymphadenopathy. Lungs: Clear to auscultation bilaterally with no adventitious sounds Skin: Warm, pink, and dry. Neurologic: Alert and oriented x3. ASSESSMENT / PLAN IMPRESSION/REPORT/PLAN: #1 Coronary Artery Disease Without Angina Pectoris She will proceed with upcoming angiogram at [facility] as scheduled. She would like to know if she can discontinue a few of her supplements prior to procedure (black cohosh, [place] oil, and flaxseed oil) and I told her this is fine. #2 Screening Mammogram Breast Cancer She recently had a screening mammogram completed at [facility] this spring. She will notify us of results and date of completion so we can update health maintenance. #3 Chronic Kidney Disease (CKD), Stage 3b Glomerular Filtration Rate (GFR) 30 To 44 (HCC) She follows with Nephrology and is interested in meeting with a dietitian to discuss renal diet. This has been ordered for her in [place]. - Nutrition - General medical nutrition therapy consult (clinic); Future; Expected date: 04/10/2024 If symptoms worsen or do not improve, patient is instructed to seek further medical attention. All questions have been answered. Patient demonstrated understanding and verbalized agreement with the plan. Shaylee Santa P.A.-C. documented in this encounter Plan of Treatment Upcoming Encounters Date Type Department Care Team (Latest Contact Info) Description 06/23/2024 2:00 PM CDT Clinical Support Department of Nutrition in [address] [phone] Shaylee Santa P.A.-C. [address] [place] [address] Stacey Mc RDN, 10[address] [place] [phone] Discharge Disposition: Home or Self Care 06/30/2024 1:30 PM CDT Appointment Department of Radiology in [place], [place] 300 [place] [address] Shaylee Santa P.A.-C. 300 [place] [address] documented as of this encounter Visit Diagnoses Diagnosis Coronary Artery Disease Without Angina Pectoris- Primary Screening Mammogram Breast Cancer Chronic Kidney Disease (CKD), Stage 3b Glomerular Filtration Rate (GFR) 30 To 44 (HCC) documented in this encounter Additional Health Concerns Assessment Noted Time PHQ-9 Depression Total Score: 12 023 1:03 PM CDT documented as of this encounter Care Teams Acid Treater Relationship Specialty Start Date End Date Shaylee Santa P.A.-C. 300 [place] [address] PCP - General Internal Medicine 01/23/24 documented as of this encounter
--- OUTSIDE RECORDS SUMMARY | 2024-06-18 15:34 | XMS_ITS | Encounter Summary ---
Author Organization [facility] Address [address] [place] [address] Care Team Providers Care Bus Info Consultant Name Role Phone Shaylee Santa P.A.-C. Primary Care Provider Encounter Details Date Type Department Care Team (Late st Contact Info) Description 04/13/2024 Clinical Communication Department of Community Internal Medicine in [place], [place] [address] [place] [address] Shaylee Santa P.A.-C. [address] [place] [phone] Social History Tobacco Use Types Packs/Day Years Used Date Smoking Tobacco: Former Cigarettes 1 57 0 05/28/1964 - 09/19/2020 Passive Smoke Exposure: Never Smokeless Tobacco: Never Alcohol Use Standard Drinks/Week Comments Yes 0 (1 standard drink = 0.6 oz pure alcohol) I might have 2-3 drinks per year [facility] Utilities Answer Date Recorded In the past 12 months has [facility] [employer], gas, oil, or water company threatened to [...] your living situation today? I have a [facility] place to live 12/03/2023 Sex and Gender Information Value Date Recorded Sex Assigned at Female 04/11/2023 12:22 PM CDT Gender Identity Female 04/11/2023 12:22 PM CDT Sexual Orientation Straight 04/11/2023 12 :22 PM CDT documented as of this encounter Plan of Treatment Upcoming Encounters Date Type Department Care Team (Latest Contact Info) Description 06/23/2024 2:00 PM CDT Clinical Support Department of Nutrition in [place], [place] 10[address] [place] [phone] Shaylee Santa P.A.-C. 300 [place] [phone] Stacey Mc, APOLONIAN, LD 1025 [place] [phone] Discharge Disposition: Home or Self Care 06/30/2024 1:30 PM CDT Appointment Department of Radiology in [place], [place] 300 [facility] [place] [phone] Shaylee Santa P.A.-C. 300 [place] [phone] documented as of this encounter Visit Diagnoses Not on filedocumented in this encounter Additional Health Concerns Assessment Noted Time PHQ-9 Depression Total Score: 12 023 1:03 PM CDT documented as of this encounter Care Teams Bus Info Consultant Relationship Specialty Start Date End Date Shaylee Santa P.A.-C. 300 [facility] [place] [phone] PCP - General Internal Medicine 01/23/24 documented as of this encounter
--- OUTSIDE RECORDS SUMMARY | 2024-06-18 15:34 | XMS_ITS | Encounter Summary ---
Author Organization [facility] Address [address] [place] [address] Care Team Providers Care Packing And Shipping Clerk Name Role Phone Shaylee Santa P.A.-C. Primary Care Provider Reason for Referral * Outpatient (Routine) - Authorized Specialty Diagnoses / Procedures Referred By Collin noble Referred To Contact Diagnoses Screening Mammogram Breast Cancer Procedures BI Breast Screening Bilateral with Tomosynthesis Shaylee Santa P.A.-C. [address] [place] [address] [facility] Referral ID Status Reason Start Date Expiration Date V isits Requested Visits Authorized [id number] Authorized 04/28/2024 04/28/2025 1 1 Encounter Details Date Type Department Care Team (Late st Contact Info) Description 04/28/2024 Orders Only [facility] PCP TH MNT Shaylee Santa P.A.-C. 300 [place] [phone] Screening Mammogram Breast Cancer Social History Tobacco Use Types Packs/Day Years Used Date Smoking Tobacco: Former Cigarettes 1 57 0 05/28/1964 - 09/19/2020 Passive Smoke Exposure: Never Smokeless Tobacco: Never Alcohol Use Standard Drinks/Week Comments Yes 0 (1 standard drink = 0.6 oz pure alcohol) I might have 2-3 drinks per year [facility] Utilities Answer Date Recorded In the past 12 months has th e [employer] gas, oil, or water [employer] threatened to shut off services in your [...] your living situation today? I have a [facility] place to live 12/03/2023 Sex and [...] CDT Clinical Support Department of Nutrition in [address] [phone] Shaylee Santa, P.A.-CLena 300 [place] [phone] Stacey Mc, APOLONIAN, [address] [phone] Discharge Disposition: Home or Self Care 06/30/2024 1:30 PM CDT Appointment Department of Radiology in [place], [place] 300 [place] [phone] Shaylee Santa, P.A.-CLena 300 [place] [phone] Scheduled Orders Name Type Priority Associated Diagnoses Order Schedule BI Breast Screening Bilateral with Tomosynthesis Imaging RAD - Routine (most inpatients and all outpatients) Screening Mammogram Breast Cancer Expected: 05/28/2024, Expires: 10/25/2024 documented as of this encounter Visit Diagnoses Diagnosis Screening Mammogram Breast Cancer documented in this encounter Additional Health Concerns Assessment Noted Time PHQ-9 Depression Total Score: 9 04/16/20 2:15 PM CDT documented as of this encounter Care Teams Packing And Shipping Clerk Relationship Specialty Start Date End Date Shaylee Santa P.A.-C. 300 [place] [phone] PCP - General Internal Medicine 01/23/24 documented as of this encounter
--- OUTSIDE RECORDS SUMMARY | 2024-06-18 15:34 | XMS_ITS | Encounter Summary ---
Author Organization [facility] Address [address] [place] [address] Care Team Providers Care Design Cell Engineer Name Role Phone Shaylee Santa P.A.-C. Primary Care Provider Reason for Referral * Outpatient (Routine) - Authorized Specialty Diagnoses / Procedures Referred By Collin t Referred To Contact Nutrition Diagnoses Chronic Kidney Disease (CKD), Stage 3b Glomerular Filtration Rate (GFR) 30 To 44 (HCC) Shaylee Santa P.A.-C. [address] [place] [phone] [facility] Region Referral ID Status Reason Start Date Expiration Date V isits Requested Visits Authorized [id number] Authorized 04/13/2024 10/13/2025 1 1 Encounter Details Date Type Department Care Team (Late st Contact Info) Description 04/10/2024 Clinical Communication Department of Nutrition in [place], [place] [address] [place] [address] Ximena Brown, APOLONIAN, LD [address] [place] [address] Social History Tobacco Use Types Packs/Day Years Used Date Smoking Tobacco: Former Cigarettes 1 57 0 05/28/1964 - 09/19/2020 Passive Smoke Exposure: Never Smokeless Tobacco: Never Alcohol Use Standard Drinks/Week Comments Yes 0 (1 standard drink = 0.6 oz pure alcohol) I might have 2-3 drinks per year [facility] Utilities Answer Date Recorded In the past 12 months has th e [employer], gas, oil, or water company threatened to [...] your living situation today? I have a [facility] place to live 12/03/2023 Sex and Gender Information Value Date Recorded Sex Assigned at Female 04/11/2023 12:22 PM CDT Gender Identity Female 04/11/2023 12:22 PM CDT Sexual Orientation Straight 04/11/2023 12 :22 PM CDT documented as of this encounter Miscellaneous Notes * Telephone Encounter - Eileen Elliott - 04/14/2024 8:10 AM CDT Patient has been scheduled and notified documented in this encounter Plan of Treatment Upcoming Encounters Date Type Department Care Team (Latest Contact Info) Description 06/23/2024 2:00 PM CDT Clinical Support Department of Nutrition in [address] [phone] Shaylee Santa P.A.-C. 300 [place] [phone] Stacey Mc, APOLONIAN, LD [facility]5 [place] [address] Discharge Disposition: Home or Self Care 06/30/2024 1:30 PM CDT Appointment Department of Radiology in [place], [place] 300 [place] [address] Shaylee Santa P.A.-C. [address] [place] [phone] Scheduled Referrals Name Type Priority Associated Diagnoses Orde r Schedule Nutrition - General medical nutrition therapy consult (clinic) Outpatient Referral Routine Chronic Kidney Disease (CKD), Stage 3b Glomerular Filtration Rate (GFR) 30 To 44 (HCC) Expected: 04/13/2024, Expires: 07/14/2025 documented as of this encounter Visit Diagnoses Diagnosis Chronic Kidney Disease (CKD), Stage 3b Glomerular Filtration Rate (GFR) 30 To 44 (HCC)- Primary documented in this encounter Additional Health Concerns Assessment Noted Time PHQ-9 Depression Total Score: 12 023 1:03 PM CDT documented as of this encounter Care Teams Design Cell Engineer Relationship Specialty Start Date End Date Shaylee Santa P.A.-C. [address] [place] [phone] PCP - General Internal Medicine 01/23/24 documented as of this encounter
--- OUTSIDE RECORDS SUMMARY | 2024-06-18 15:34 | XMS_ITS | Encounter Summary ---
Author Organization [facility] Address [address] [place] [address] Care Team Providers Care Veterinary Milk Specialist Name Role Phone Shaylee Santa P.A.-C. Primary Care Provider Encounter Details Date Type Department Care Team (Latest Contact Info) Description 05/01/2024 1:16 PM CDT - 05/01/2024 11:59 PM CDT Hospital Encounter Department of Laboratory Medicine in [place], [place] [address] [place] [phone] Jitendra Romero Jr., D.O. [address] [place] [address] Chronic Kidney Disease (CKD), Stage 3b Glomerular [...] I might have 2-[address] [facility] Utilities Answer Date Recorded In the past 12 months has th e [employer], [employer], oil, or water [employer] threatened to shut off services in your [...] situation today? I have a [facility] place to live 12/03/2023 Sex and [...] CDT Clinical Support Department of Nutrition in [address] [phone] Shaylee Santa P.A.-C. 300 [place] [phone] Stacey Mc, APOLONIAN, LD [address] [place] [phone] Discharge Disposition: Home or Self Care 06/30/2024 1:30 PM CDT Appointment Department of Radiology in [place], [place] 300 [place] [phone] Shaylee Santa P.A.-C. 300 [place] [phone] documented as of this encounter Procedures Procedure Name Priority Date/Time Associated Diagnosis Comments LIPID PANEL, S Routine 05/01/2024 2:50 PM CDT Chronic Kidney Disease (CKD), Stage 3b Glomerular Filtration Rate (GFR) 30 To 44 (HCC) Hypertensive Chronic Kidney Disease (CKD) Stage 3b Glomerular Filtration Rate (GFR) 30 To 44 Hyperparathyroidism Renal Secondary (HCC) Ileostomy Status (HCC) [facility] Personal History Bipolar II Disorder (HCC) Chronic Obstructive Pulmonary Disease (HCC) documented in this encounter Results * (ABNORMAL) Lipid Panel (05/01/2024 2:50 PM [...] 05/01/2024 5:43 PM CDT Jitendra Romero Jr. D.OLena LAB BLOOD AD D-ON [facility] [address], [place] [address], [facility] in [place] [address], [place] [address] documented in this encounter Visit Diagnoses Diagnosis Chronic Kidney Disease (CKD), Stage 3b Glomerular Filtration Rate (GFR) 30 To 44 (HCC) Hypertensive Chronic Kidney Disease (CKD) Stage 3b Glomerular Filtration Rate (GFR) 30 To 44 Hyperparathyroidism Renal Secondary (HCC) Ileostomy Status (HCC) Stone [facility]ney Personal History Bipolar II Disorder (HCC) Chronic Obstructive Pulmonary Disease (HCC) documented in this encounter Additional Health Concerns Assessment Noted Time PHQ-9 Depression Total Score: 9 04/16/20 2:15 PM CDT documented as of this encounter Care Teams Veterinary Milk Specialist Relationship Specialty Start Date End Date Shaylee Santa P.A.-C. [address] [place] [phone] PCP - General Internal Medicine 01/23/24 documented as of this encounter
--- OUTSIDE RECORDS SUMMARY | 2024-06-18 15:34 | XMS_ITS | Encounter Summary ---
Author Organization [facility] Address [address] [place] [address] Care Team Providers Care Detention Officer Name Role Phone Shaylee Santa P.A.-C. Primary Care Provider Reason for Visit * Reason Onset Date Comments Rx Denial 04/29/2024 [employer] Encounter Details Date Type Department Care Team (Latest Contact Info) Description 04/29/2024 Clinical Communication Department of Community Internal Medicine in [place], [place] 300 [place] [address] Shaylee Santa P.A.-C. 300 [place] [phone] Rx Denial ([employer]) Social History Tobacco Use Types Packs/Day Years Used Date Smoking Tobacco: Former Cigarettes 1 57 0 05/28/1964 - 09/19/2020 Passive Smoke Exposure: Never Smokeless Tobacco: Never Alcohol Use Standard Drinks/Week Comments Yes 0 (1 standard drink = 0.6 oz pure alcohol) I might have 2-3 drinks per year [facility] Utilities Answer Date Recorded In the past 12 months has e [employer], gas, oil, or water [employer] threatened to shut off services in your [...] encounter Miscellaneous Notes * Telephone Encounter - Kwesi Roldan LLenaP.NLena - 05/06/2024 2:37 PM CDT Left detailed message as stated when the patient called back, okay to leave detailed message. * Telephone Encounter - Jackelyn Arizmendi L.PLenaNLena - 05/06/2024 1:46 PM CDT Left msg to return call to the clinic documented in this encounter Plan of Treatment Upcoming Encounters Date Type Department Care Team (Latest Contact Info) Description 06/23/2024 2:00 PM CDT Clinical Support Department of Nutrition in [address] [phone] Shaylee Santa P.A.-CLena [address] [place] [address] Stacey Mc, TD, LD [facility]5 [place] [address] Discharge Disposition: Home or Self Care 06/30/2024 1:30 PM CDT Appointment Department of Radiology in [place], [place] 300 [place] [address] Shaylee Santa P.A.-C. 300 [place] [phone] documented as of this encounter Visit Diagnoses Not on filedocumented in this encounter Additional Health Concerns Assessment Noted Time PHQ-9 Depression Total Score: 9 04/16/20 24 2:15 PM CDT documented as of this encounter Care Teams Detention Officer Relationship Specialty Start Date End Date Shaylee Santa P.A.-C. [address] [place] [address] [place] [phone] PCP - General Internal Medicine 01/23/24 documented as of this encounter
--- OUTSIDE RECORDS SUMMARY | 2024-06-18 15:34 | XMS_ITS | Encounter Summary ---
Author Organization [facility] Address [address] [place] [address] Care Team Providers Care Marketing Reps [employer] Name Role Phone Shaylee Santa P.A.-C. Primary Care Provider Encounter Details Date Type Department Care Team (Late st Contact Info) Description 04/03/2024 Clinical Communication Department of Community Internal Medicine in [place], [place] [address] [place] [address] Shyalee Santa P.A.-C. [address] [place] [phone] Social History Tobacco Use Types Packs/Day Years Used Date Smoking Tobacco: Former Cigarettes 1 57 0 05/28/1964 - 09/19/2020 Passive Smoke Exposure: Never Smokeless Tobacco: Never Alcohol Use Standard Drinks/Week Comments Yes 0 (1 standard drink = 0.6 oz pure alcohol) I might have 2-3 drinks per year [facility] Utilities Answer Date Recorded In the past 12 months has [facility] [employer], gas, oil, or water company threatened to [...] your living situation today? I have a [facility] place to live 12/03/2023 Sex and Gender Information Value Date Recorded Sex Assigned at Female 04/11/2023 12:22 PM CDT Gender Identity Female 04/11/2023 12:22 PM CDT Sexual Orientation Straight 04/11/2023 12 :22 PM CDT documented as of this encounter Miscellaneous Notes * Telephone Encounter - Yecenia Horne L.P.N. - 04/06/2024 1:07 PM CDT Order faxed to [facility] in [facility] * Telephone Encounter - Gertrude Sanchez L.P.N. - 04/06/2024 11:11 AM CDT Called and spoke with patient. Patient does not know where she would like the blood pressure cuff sent to. She will do some calling around and let us know her decision. documented in this encounter Plan of Treatment Upcoming Encounters Date Type Department Care Team (Latest Contact Info) Description 06/23/2024 2:00 PM CDT Clinical Support Department of Nutrition in [address] [phone] Shaylee Santa, P.A.-C. [address] [place] [address] Stacey Mc RDN, LD [address] [place] [phone] Discharge Disposition: Home or Self Care 06/30/2024 1:30 PM CDT Appointment Department of Radiology in [place], [place] [address] [place] [address] Shaylee Santa, P.A.-C. [address] [place] [phone] documented as of this encounter Visit Diagnoses Diagnosis Hypertensive Chronic Kidney Disease (CKD) Stage 3b Glomerular Filtration Rate (GFR) 30 To 44- Primary documented in this encounter Additional Health Concerns Assessment Noted Time PHQ-9 Depression Total Score: 12 023 1:03 PM CDT documented as of this encounter Care Teams Marketing [employer] Relationship Specialty Start Date End Date Shaylee Santa P.A.-C. [address] [place] [phone] PCP - General Internal Medicine 01/23/24 documented as of this encounter
--- OUTSIDE RECORDS SUMMARY | 2024-06-18 15:34 | XMS_ITS | Encounter Summary ---
Author Organization [facility] Address [address] [place] [address] Care Team Providers Care Airplane Mechanic Name Role Phone Shaylee Santa P.A.-C. Primary Care Provider Reason for Visit * Reason Onset Date Comments PandaDoc Form 04/12/2024 [facility] (Blo od Pressure Unit) Encounter Details Date Type Department Care Team (Latest Contact Info) Description 04/12/2024 Clinical Communication Department of Community Internal Medicine in [place], [place] [address] [place] [address] Shaylee Santa P.A.-C. [address] [place] [phone] [employer] Form ([facility] (Blood Pressure Unit)) Social History Tobacco Use Types Packs/Day Years Used Date Smoking Tobacco: Former Cigarettes 1 57 0 05/28/1964 - 09/19/2020 Passive Smoke Exposure: Never Smokeless Tobacco: Never Alcohol Use Standard Drinks/Week Comments Yes 0 (1 standard drink = 0.6 oz pure alcohol) I might have 2-3 drinks per year [facility] Utilities Answer Date Recorded In the past 12 months has [employer], gas, oil, or water [email or web address] threatened to shut off services in your [...] Answer Date Recorded Dental: Regular Dentist No 10/03/20 23 Employment Answer Date Recorded Employment status [...] encounter Miscellaneous Notes * Telephone Encounter - Barbara Gomez - 04/13/2024 8:25 AM CDT Form faxed back to facility and sent for scanning. * Telephone Encounter - Barbara Gomez - 04/12/2024 3:10 PM CDT Form was routed to Shaylee Santa for electronic review/signature. 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 [address] [place] [address] Stacey Mc, RDN, [address] [place] [address] Discharge Disposition: Home or Self Care 06/30/2024 1:30 PM CDT Appointment Department of Radiology in [place], [place] [address] [place] [address] Shaylee Santa P.A.-C. [address] [place] [phone] documented as of this encounter Visit Diagnoses Not on filedocumented in this encounter Additional Health Concerns Assessment Noted Time PHQ-9 Depression Total Score: 12 023 1:03 PM CDT documented as of this encounter Care Teams Airplane Mechanic Relationship Specialty Start Date End Date Shaylee Santa P.A.-C. 300 [facility] [place] [phone] PCP - General Internal Medicine 01/23/24 documented as of this encounter
--- OUTSIDE RECORDS SUMMARY | 2024-06-18 15:35 | XMS_ITS | Encounter Summary ---
Author Organization [facility] Address [address] [place] [address] Care Team Providers Care Risk Manager Name Role Phone Shaylee Santa P.A.-C. Primary Care Provider Encounter Details Date Type Department Care Team (Late st Contact Info) Description 02/14/2024 Clinical Communication Department of Community Internal Medicine in [place], [place] [address] [place] [address] Shaylee Santa P.A.-C. [address] [place] [phone] Social History Tobacco Use Types Packs/Day Years Used Date Smoking Tobacco: Former Cigarettes 1 57 0 05/28/1964 - 09/19/2020 Passive Smoke Exposure: Never Smokeless Tobacco: Never Alcohol Use Standard Drinks/Week Comments Yes 0 (1 standard drink = 0.6 oz pure alcohol) I might have 2-3 drinks per year [facility] Utilities Answer Date Recorded In the past [address] [facility] [employer], gas, oil, or water company threatened [...] your living situation today? [facility] 12/03/2023 Sex and Gender Information Value Date Recorded Sex Assigned at Female 04/11/2023 12:22 PM CDT Gender Identity Female 04/11/2023 12:22 PM CDT Sexual Orientation Straight 04/11/2023 12 :22 PM CDT documented as of this encounter Plan of Treatment Upcoming Encounters Date Type Department Care Team (Latest Contact Info) Description 06/23/2024 2:00 PM CDT Clinical Support Department of Nutrition in [place], [place] [address] [place] [phone] Shaylee Santa P.A.-C. 300 [place] [phone] Stacey Mc, APOLONIAN, LD [address] [place] [phone] Discharge Disposition: Home or Self Care 06/30/2024 1:30 PM CDT Appointment Department of Radiology in [place], [place] 300 [facility] [place] [phone] Shaylee Santa P.A.-C. [address] [place] [phone] documented as of this encounter Visit Diagnoses Not on filedocumented in this encounter Additional Health Concerns Assessment Noted Time PHQ-9 Depression Total Score: 12 023 1:03 PM CDT documented as of this encounter Care Teams Risk Manager Relationship Specialty Start Date End Date Shaylee Santa P.A.-C. 300 [facility] [place] [phone] PCP - General Internal Medicine 01/23/24 documented as of this encounter
[2024-06-18 15:46] LABS: Basophils Absolute Auto 0.03 K/uL (0.00-0.30); Basophils Percent Auto 0.4 % (0.0-3.0); Eosinophils Absolute Auto 0.17 K/uL (0.00-0.50); Eosinophils Percent Auto 2.5 % (0.0-7.0); Hematocrit 35.3 % (33.0-51.0); Hemoglobin* 10.9 gm/dL (12.0-16.0); Immature Granulocytes Abs Auto 0.01 K/uL (0.00-0.30); Immature Granulocytes Pct Auto 0.1 %; Lymphocytes Absolute Auto 1.52 K/uL (0.90-2.90); Lymphocytes Percent Auto 22.5 % (20-44); Mean Corpuscular HGB Conc 31 gm/dL (32-36); Mean Corpuscular Hemoglobin 29 pg (26-34); Mean Corpuscular Volume 93 fL (80-100); Monocytes Percent Auto 8.9 % (0.0-11.0); Neutrophils Absolute Auto 4.44 K/uL (1.7-7.0); Neutrophils Percent Auto 65.6 % (42.0-72.0); Platelet Count* 187 K/uL (140-440); RDW Coefficient of Variation % 14.5 % (11.5-15.5); Red Blood Count 3.81 m/uL (4.00-5.20); White Blood Count* 6.77 K/uL (4.50-11.00)
[2024-06-18 15:55] LABS: Slide Review Reflex No
[2024-06-18 16:03] LABS: Chloride* 108 mmol/L (96-114); Potassium* 4.3 mmol/L (3.6-5.1); Sodium* 138 mmol/L (135-149)
[2024-06-18 16:05] LABS: Creatinine* 2.3 mg/dL (0.5-1.5); Est. Creatinine Clearance* 19.37; Estimated Glomerular Filt Rate 23 ml/min
[2024-06-18 16:06] LABS: Anion Gap 10 mEq/L (7-15); Blood Urea Nitrogen* 38 mg/dL (7-30); Calcium* 9.1 mg/dL (8.4-10.6); Carbon Dioxide* 20 mmol/L (20-32); Glucose* 125 mg/dL (60-115)
[2024-06-18 16:31] LABS: Troponin I* < 0.01 ng/mL (0.01-0.04)
== END 2024-06-18 16:53 | disposition home or self-care (01) ==
PROVIDERS: Internal Medicine; Emergency Provider Family Medicine
DX: R07.9 Chest pain, unspecified (principal)
CPT/HCPCS: 36415; 71045; 80048; 84484; 85025; 93005; 99284

== ENCOUNTER 2024-07-03 13:50 | Outpatient (CLI) | payer MEDICARE, SELFPAY ==
--- OUTSIDE RECORDS SUMMARY | 2024-07-09 15:00 | XMS_ITS | Data Portability ---
Author Organization [facility] Address [address] [address] [place] [address] Care Team Providers Care Silverware Buffing Machine Operator Name Role Phone DENNYS FU Referring Provider [phone] RHETT LAW Primary Care Provider Assessment No assessment recorded. Plan of Treatment Reminders Order Date Submit Date Provider Last Modified By Organization Details Last Modified Time Details Appointments None recorded. Lab urinalysis , dipstick 2022 023 [id number] [facility], [address], [place], [address], 3 13:57:55 urinalysis , dipstick 2022 023 [email or web address] [facility], [address], [place], [address], 3 16:06:33 culture, urine 2022 023 [facility], [address] [facility], [place], [address], 3 11:42:23 Referral None recorded. Procedures None recorded. Surgeries None recorded. Imaging None recorded. Medication Orders Estrace 0.01% (0.1 mg/gram) vaginal cream 2022 023 [facility], [address] [facility], [place], [address], 15:02:24 Patient TargetsNo targets recorded. Patient InstructionsNo instructions recorded. Reason for Referral None Reported. Results Created Date Observation Date Name Description Value Unit Range Abnormal Flag LastModifiedBy Organization Detail LastModifiedTime 05/14/20 23 05/14/2023 urina lysis , dipst ick Color-Status Yellow Not Available [facility] [address], [place], [address], 05/14/2023 13:57:10 05/14/20 23 05/14/2023 urina lysis , dipst ick Clarity-Stat us Clear Not Available [facility] [address], [place], [address], 05/14/2023 13:57:10 05/14/20 23 05/14/2023 urina lysis , dipst ick Glucose-Stat us Negati ve Not Available [facility] [address], [place], [address], 05/14/2023 13:57:10 05/14/20 23 05/14/2023 urina lysis , dipst ick Bilirubin-St atus Negati ve Not Available [facility] [address], [place], [address], 05/14/2023 13:57:10 05/14/20 23 05/14/2023 urina lysis , dipst ick pH-Status 5.5 Not Available [facility] [address], [place], [address], 05/14/2023 13:57:10 05/14/20 23 05/14/2023 urina lysis , dipst ick Urobilinogen -Status 0.2 Not Available [facility] [address], [place], [address], 05/14/2023 13:57:10 05/14/20 23 05/14/2023 urina lysis , dipst ick Blood-Status Trace Not Available [facility] [address], [place], [address], 05/14/2023 13:57:10 05/14/20 23 05/14/2023 urina lysis , dipst ick Leuko-Status Trace Not Available [facility] [address], [place], [address], 05/14/2023 13:57:10 06/04/20 23 06/04/2023 URINE CULTU RE final report MICROB IOLOGY RESULT S Not Available [facility] [address], [place], [address], 06/06/2023 11:42:23 06/04/20 23 06/04/2023 urina lysis , dipst ick Color-Status Yellow Not Available [facility] [address], [place], [address], 06/04/2023 16:06:04 06/04/20 23 06/04/2023 urina lysis , dipst ick Clarity-Stat us Clear Not Available [facility] [address], [place], [address], 06/04/2023 16:06:04 06/04/20 23 06/04/2023 urina lysis , dipst ick pH-Status 5.0 Not Available [facility] [address], [place], [address], 06/04/2023 16:06:04 06/04/20 23 06/04/2023 urina lysis , dipst ick Nitrates-Sta tus negati ve Not Available [facility] [address], [place], [address], 06/04/2023 16:06:04 06/04/20 23 06/04/2023 urina lysis , dipst ick Blood-Status Small Not Available [facility] [address], [place], [address], 06/04/2023 16:06:04 06/04/20 23 06/04/2023 urina lysis , dipst ick Leuko-Status Negati ve Not Available [facility] [address], [place], [address], 06/04/2023 16:06:04 Result Notes None recorded. Procedures Surgical History Date Name Laterality Status Provider Name and Address Organization Details Recorded Time 023 Sacral neuromodulation w/o reprogramming completed Juan Solis PA-C [address] [place] [address], [phone], [facility] 06/04/2023 16:59:27 023 CystoscopyFemale completed Jolene Rosenbaum MD [address] [place] [address], [address], [facility] 05/14/2023 14:54:30 023 Bladder Scan completed Sammie Kilgore [facility] 05/14/2023 14:02:11 Imaging Results None recorded. Procedure Notes None recorded. Medical Equipment None Reported. Allergies Allergen ID Allergen Name Allergen Category Reaction Reaction Severity Criticality Documentation Date Start Date Code Code System Note Provider Name and Address Organization Details Recorded Time 951295 acetamino phen medicatio n nausea Not available Not available 06/04/[address] [facility] 3 16:38:54 462567 adhesive tape environme nt,medica tion rash Not available Not available 06/04/[address] [facility] 3 16:39:07 594300 atorvasta tin medicatio n myalgias (muscle pain) Not available Not available 06/04/2023 27020 RxNorm Isela Hill [facility] 3 16:42:09 801794 cefuroxim e Not available nausea Not available Not available 06/04/2023 2194 RxNorm Isela Sergio null, [facility] 3 16:40:10 015388 chlordiaz epoxide medicatio n Not available Not available Not available 06/04/2023 2356 RxNorm Isela Sergio null, [facility] 3 16:40:21 143836 codeine medicatio n nausea Not available Not available 06/04/2023 2670 RxNorm Isela Sergio null, [facility] 3 16:40:35 900289 dextromet horphan medicatio n Not available Not available Not available 06/04/2023 3289 RxNorm Isela Sergio null, [facility] 3 16:40:55 688005 diazepam medicatio n Not available Not available Not available 06/04/2023 3322 RxNorm Isela Sergio [facility], [facility] 3 16:41:05 338615 erythromy diego medicatio n hives Not available Not available 06/04/2023 4053 RxNorm Isela Sergio null, [facility] 3 16:41:23 777359 gabapenti n medicatio n other Not available Not available 06/04/2023 64377 RxNorm Isela Sergio [facility], [facility] 3 16:42:42 929184 hydrocodo ne Not available hives Not available Not available 06/04/2023 5489 RxNorm Isela Sergio null, [facility] 3 16:41:56 804349 ibuprofen medicatio n nausea Not available Not available 06/04/2023 5640 RxNorm Isela Sergio null, [facility] 3 16:43:26 232385 meloxicam medicatio n hives Not available Not available 06/04/2023 23427 RxNorm Isela Sergio null, [facility] 3 16:43:40 283221 metoclopr amide Not available nausea Not available Not available 06/04/2023 6915 RxNorm Isela Sergio null, [facility] 3 16:43:53 042320 morphine medicatio n Not available Not available Not available 06/04/2023 7052 RxNorm Isela Sergio [place], [facility] 3 16:44:04 437166 naproxen medicatio n edema Not available Not available 06/04/2023 7258 RxNorm Isela burton, [facility] 3 16:44:12 989585 Non-stero idal anti-infl ammatory agent (product) medicatio n nausea Not available Not available 06/04/2023 98533 005 [facility] 16:44:24 701785 omeprazol e medicatio n diarrhea Not available Not available 06/04/2023 7646 [facility] 3 16:44:36 495809 Medicinal product containin g penicilli n and acting as antibacte rial agent (product) medicatio n vomiting Not available Not available 06/04/2023 06246 05 [facility]ED [facility] 3 16:44:51 856648 famotidin e medicatio n diarrhea Not available Not available 06/04/2023 4278 [facility] 16:45:04 494721 phenyleph rine medicatio n palpitati ons Not available Not available 06/04/2023 8163 [facility] 3 16:45:22 981222 propoxyph rajesh medicatio n hives Not available Not available 06/04/2023 8785 [facility] 3 16:45:42 985508 quetiapin e medicatio n Not available Not available Not available 06/04/2023 32894 [facility] 3 16:45:59 605201 sertralin e medicatio n Not available Not available Not available 06/04/2023 81409 RxNorm Isela Hill [facility] 3 16:46:08 510541 Product containin g 3-hydroxy -3-methyl glutaryl- coenzyme A reductase inhibitor (product) medicatio n muscle cramps Not available Not available 06/04/2023 27530 009 [facility] Isela Hill [facility] 3 16:46:23 074175 Substance with sulfonami de structure and antibacte rial mechanism of action (substanc e) medicatio n hives Not available Not available 06/04/2023 92676 8003 OMED Isela Hill [facility] 3 16:46:36 619956 sulfasala zine medicatio n hives Not available Not available 06/04/2023 9524 RxNojean Hill [facility] 3 16:46:49 530438 tolmetin medicatio n nausea Not available Not available 06/04/2023 23393 RxNorm Isela Hill [facility] 3 16:46:59 Medications Name Sig Start [...] Updated DateTime 05/14/2023 162.56 cm 46.3 kg/m2 532852.94 g Sammie Kilgore [facility] 05/14/2023 13:56:03 Date Recorded Body height Body mass index (BMI) Body weight Provider Name and Address Organization Details Last Updated DateTime 06/04/2023 162.56 cm 45.5 kg/m2 809066.98 g Isela Hill [facility] 06/04/2023 16:03:56 Social History Question Answer Notes LastModified by Organizat ion Details LastModified Time Tobacco Smoking Status [facility] 05/14/2023 13:59:34 What Is Your Level Of Alcohol Consumption? Occasional [email or web address] Information not available 05/14/2023 How Many Times Per Week Do You Consume Alcohol? Less Than 1 Time Per Week [email or web address] Information not available 05/14/2023 What Is Your Level Of Caffeine Consumption? Occasional [email or web address] Information not available 05/14/2023 What Was The Date Of Your Most Recent Tobacco Screening? 06/04/2023 [email or web address] Information not available 06/04/2023 Have You Ever Been Counseled For Unhealthy Alcohol Use? No [email or web address] Information not available 05/14/2023 Do You Use Any Illicit Or Recreational Drugs? No [email or web address] Information not available 05/14/2023 Has Tobacco Cessation Counseling Been Provided? No [email or web address] Information not available 05/14/2023 Do You Or Have You Ever Used Any Other Forms Of Tobacco Or Nicotine? No [email or web address] Information not available 05/14/2023 Sex: Unknown Functional Status None recorded. Mental Status None [...] mcg/0.3 mL dose 10/11/2022 completed MANNY Napier [facility] 06/28/2023 10:15:48 Past Encounters Encounter ID Performer Location Encounter Start Date Encounter Closed Date Diagnosis/Indication Diagnosis SNOMED-CT Code [id number] Jolene Rosenbaum MD [facility] [address] [place] [address] 05/14/2023 13:43:54 05/15/2023 14:16:46 Overactive urinary bladder 498325122 Recurrent urinary tract infection 135875133 [id number] Jolene Rosenbaum MD [facility] [address] [place] [address] 06/04/2023 15:42:44 06/06/2023 16:09:14 Overactive urinary bladder 225148119 Recurrent urinary tract infection Health Concerns Section Related Observation LastModified by Organization Detai ls LastModified Time None Recorded Concern Status LastModified by Organization Details LastModified Time None Recorded Advance Directives Directive None Recorded Payers Encounter Date Sequence Insurance Name Policy Number Policy Baugh Covered Member ID Baugh Member ID Guarantor Name 05/14/2023 1 [employer] - DOS ON OR AFTER 19 (MEDICARE REPLACEMENT/ ADVANTAGE - HMO) [id number] 1 Dilan Agueros [id number] Dilan Gonzalezvos 05/14/2023 2 [place] Dilan Gonzalezvos [id number] Dilan Sualvos 06/04/2023 1 [employer] - DOS ON OR AFTER 19 (MEDICARE REPLACEMENT/ ADVANTAGE - HMO) [id number] Dilan Gonzalezvos [id number] Dilan Gonzalezvos 06/04/2023 2 [place] Dilan Gonzalezvos [id number] Dilan Akers Notes Date Note Type Note Provider Name and Address Organization Details Recorded Time 05/14/2023 text/html HPI Notes: 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 Jolene Rosenbaum MD [address] [place] [address],[address], [address], [facility] 05/15/2023 08:40:24 06/04/2023 text/html HPI Notes: 67 yo female who presents for follow up of overactive bladder Seen today with [employer] physician relations representative Luigi 1. UUI/OAB Underwent reprogramming last [...] Without signs of infection Jolene Rosenbaum MD [address] [place] [address],[address], [place], [address], [facility] 06/06/2023 10:08:25 OBGyn Episode No OBEpisode recorded.
--- OUTSIDE RECORDS SUMMARY | 2024-07-09 15:00 | XMS_ITS | Clinical Summary ---
Author Organization [facility] Address [place], [place] [address] Care Team Providers Care Insurance Instructor Name Role Phone Shaylee Santa PA-C Primary Care Provider [phone]- [phone] Allergies Active Allergy Reactions Criticality Noted Date Comments Acetaminophen Nausea Only 05/23/2023 Adhesive Tape-Silicones Other - Describe In Comment Field 05/23/2023 Paper tape Atorvastatin Other - Describe In Comment Field 05/23/2023 Muscle damage Ptjlx-Ppzibjkz-Rn Grass-Hydran Other - Describe In Comment Field [...] Nausea And Vomiting 05/23/2023 Omeprazole Diarrhea 05/23/2023 [place] Juice Vomiting 05/23/2023 [place] Oil Vomiting 05/23/2023 Penicillins Vomiting 05/23/2023 Famotidine Diarrhea 05/23/2023 Oteeloevevrdr-Pq-Ymhwtetezs n Palpitations 05/23/2023 Phenylpropanolamine Palpitations 11/08/2023 Propoxyphene Hives,Nausea And Vomiting 05/23/2023 Faiayybmstxxnyz-Dx-Ixhkkxmx sin Palpitations 05/23/2023 Quetiapine Other - Describe In Comment Field 05/23/2023 Made more depressed Chris Nausea And Vomiting 05/23/2023 Sertraline Other - Describe In Comment Field 05/23/2023 None noted Tedygff-Ols-Hda Reductase Inhibitors Other - Describe In Comment [...] per actuation) nasal solution (FLONASE) Inhale 1 [place] into affected nostril(s) once daily if needed for Rhinitis. 16 g 05/23/2023 Active aspirin 81 mg cap Take 81 mg by mouth once daily. 0 05/23/2023 Active isosorbide mononitrate (IMDUR) 30 mg extended release tablet 24 HourIndications:Co ronary artery disease, unspecified vessel or lesion type, unspecified whether angina present, unspecified whether platinum or transplanted heart Take 0.5 Tablets (15 [...] meal. Do not crush or chew. Active nitroglycerin (NITROSTAT) 0.4 mg sublingual tabletIndications: Coronary artery disease involving platinum coronary artery of platinum heart without angina pectoris Place 1 Tablet (0.4 mg) under the tongue every 5 minutes if needed for Chest pain 1st choice (Hold if SBP less than 90 mmHg). Up to 3 tablets in 15 minutes. 30 Tablet 04/22/2024 Active benzonatate (TESSALON) 100 mg capsule Take 100 mg by mouth every 4 hours if needed for Cough. Active calcium carbonate-cholecal ciferol, 600mg-200 units, (CALTRATE-600 + VIT D) tablet [...] daily. Active hydrOXYzine pamoate (VistariL) 25 mg capsuleIndications :Claustrophobia Take 25 mg the morning of your MRI. Take an additional 25 mg 30 minutes prior to your MRI. 2 Capsule 06/03/2024 Active metoprolol succinate (TOPROL XL) 25 mg Sustained-Release tabletIndications: Coronary artery disease, unspecified vessel or lesion type, unspecified whether angina present, unspecified whether platinum or transplanted heart,Dyspnea and respiratory abnormalities,Ellie riosclerotic heart disease Take 1 Tablet (25 mg) by mouth once daily. 90 Tablet 3 06/29/2024 Active clopidogreL (PLAVIX) 75 mg tabletIndications: Coronary artery disease involving platinum coronary artery of platinum heart without angina pectoris Take 1 Tablet (75 mg) by mouth once daily. 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 90 Tablet 2 04/22/2024 4 Discontinue d(Reorder (E-cancel not sent)) metoprolol succinate (TOPROL XL) 50 mg sustained-release tabletIndications: Coronary artery disease, unspecified vessel or lesion type, unspecified whether angina present, unspecified whether platinum or transplanted heart,Dyspnea and respiratory abnormalities,Ellie riosclerotic heart disease Take 0.5 Tablets (25 mg) by mouth once daily. 45 Tablet 2 05/11/2024 4 Discontinue d(Reorder (E-cancel not sent)) Active Problems Problem Noted Date Diagnosed Date Cardiovascular symptoms 04/21/2024 Coronary artery disease invo lving platinum coronary artery of platinum heart without angina pectoris 11/08/2023 Mixed hyperlipidemia 11/08/2023 Stage 3b chronic kidney disease 05/23/2023 HTN (hypertension) 05/23/2023 Diverticulitis 05/23/2023 Secondary renal hyperparathyroidism 05/23/2023 GERD (gastroesophageal reflux disease) 3 Bipolar 1 disorder 05/23/2023 Encounters Date Type Department Care Team Description 07/07/2024 Refill [facility] [address] [facility] [address] [place] [phone] Elmer Simmons MD Refill Request (plavix) 06/29/2024 Refill [facility] [address] [place] [address] [address] [place] [address] Paxton Drake MD Error-please disregard 06/29/2024 Telephone [facility] [address] [facility] [address] [place] [phone] Blank Harrison MD Medication Management 06/12/2024 Telephone [facility] [address] [phone] Elmer Simmons MD Questions 06/09/2024 Telephone [facility] [address] [phone] Blank Harrison MD Results (Cardiac MRI) 06/04/2024 12:06 PM CDT - 06/04/2024 11:59 PM CDT Hospital Encounter [facility] [address] [place] [address] Blank Harrison MD Coronary artery disease, unspecified vessel or lesion type, unspecified whether angina present, unspecified whether platinum or transplanted heart; Dyspnea and respiratory abnormalities; Arteriosclerotic heart disease 06/04/2024 Travel 06/03/2024 Telephone [facility] [address] [phone] Elmer Simmons MD What can she take? 06/01/2024 3:00 PM CDT Office Visit [facility] [address] [place] [address] Elmer Simmons MD Follow Up (F/U to Angio. OV clem/ Hunter 05/11. /Pt states not feeling any better since having the procedure, Echo not done yet due to coverage. Wants to discuss cardiac rehab. ) 06/01/2024 Orders Only [facility] [address] [place] [address] Elmer Simmons MD 1 scan: (1-Ord) ZIO REPORT 06/01/2024 Travel 05/22/2024 Travel 05/22/2024 Telephone [facility] [address] [phone] Blank Harrison MD 05/21/2024 Telephone [facility] [address] [facility] [address] [place] [address] Blank Harrison MD Prior Authorization (Echo: Addl Info Requested: Provider Response Needed) 05/20/2024 1:19 PM CDT - 05/20/2024 11:59 PM CDT Hospital Encounter [facility] [address] [place] [address] Bhumi Young MD 05/20/2024 Travel 05/19/2024 Telephone [facility] [address] [facility] [address] [place] [address] Blank Harrison MD Prior Authorization 05/15/2024 1:20 PM CDT - 05/15/2024 11:59 PM CDT Hospital Encounter [facility] [address] [place] [address] Bhumi Young MD 05/15/2024 Travel 05/13/2024 1:25 PM CDT - 05/13/2024 11:59 PM CDT Hospital Encounter [facility] [address] [place] [address] Bhumi oYung MD 05/13/2024 Travel 05/11/2024 1:19 PM CDT - 05/11/2024 11:59 PM CDT Hospital Encounter [facility] [address] [place] [address] Bhumi Young MD 05/11/2024 9:00 AM CDT Office Visit [address] [place] [address] Blank Harrison MD CV General Cardiology Est (Pt c/o low BP, lightheadedness, fatigue. Had recent angio, pt states she is not feeling any better. Pt decreased her Metoprolol to 25mg daily) 05/11/2024 Travel 05/09/2024 Travel 05/08/2024 1:25 PM CDT - 05/08/2024 11:59 PM CDT Hospital Encounter [facility] [address] [place] [address] Bhumi [place] MD 05/08/2024 Travel 05/06/2024 1:27 PM CDT - 05/06/2024 11:59 PM CDT Hospital Encounter [facility] [address] [place] [address] Bhumi Young MD 05/06/2024 Travel 05/04/2024 1:19 PM CDT - 05/04/2024 11:59 PM CDT Hospital Encounter [facility] [address] [place] [address] Bhumi Young MD 05/04/2024 Travel 05/01/2024 1:30 PM CDT - 05/01/2024 11:59 PM CDT Hospital Encounter [facility] [address] [place] [address] Bhumi Young MD 05/01/2024 Travel 04/28/2024 2:00 PM CDT - 04/28/2024 11:59 PM CDT Hospital Encounter [facility] [address] [place] [address] 04/28/2024 Travel 04/21/2024 10:16 AM CDT - 04/22/2024 11:32 AM CDT Hospital Encounter [facility] [address] [place] [address] Elmer Simmons MD Coronary artery disease involving platinum coronary artery of platinum heart without angina pectoris (Primary Dx); Cardiovascular symptoms Discharge Disposition: Home Self Care 04/21/2024 Travel 04/10/2024 2:30 PM CDT Orders Only [facility] [address] [place] [address] [facility] 04/10/2024 Travel 04/08/2024 Telephone [facility] [address] [facility] [address] [place] [phone] Elmer Simmons MD Questions from Last 3 Months Social History Tobacco [...] Care Team (Late st Contact Info) Description 07/10/2024 10:30 AM CDT Office Visit [facility] [address] [facility] [address] [place] [phone] Elmer Simmons MD [address] [place] [id number] [place] [address] 07/15/2024 12:30 PM CDT Appointment [facility] [address] [place] [address] Elmer Simmons MD [address] [facility] [address] [place] [address] 07/24/2024 1:30 PM CDT Appointment [facility] [address] [place] [address] 07/29/2024 1:30 PM CDT Appointment [facility] [address] [place] [address] 07/31/2024 1:30 PM CDT Appointment [facility] [address] [place] [address] 08/03/2024 1:30 PM CDT Appointment [facility] [address] [place] [address] 08/17/2024 3:00 PM CDT Office Visit [place] [address] [place] [address] Elmer Simmons MD [address] [facility] [address] [place] [address] Health Maintenance Due Date Last Done Comments [...] Procedure Name Priority Date/Time Associated Diagnosis Comments EXTENDED HOLTER Routine 07/02/2024 Coronary artery disease involving platinum coronary artery of platinum heart without angina pectoris Cardiovascular symptoms Dyspnea and respiratory abnormalities Palpitations MR CARDIAC STRESS IMAGING WWO DWIGHT 06/04/2024 3:36 PM CDT Coronary artery disease, unspecified vessel or lesion type, unspecified whether angina present, unspecified whether platinum or transplanted heart Dyspnea and respiratory abnormalities Arteriosclerotic heart disease HEMATOCRIT/HGB,ISTAT Routine 06/04/2024 12:50 PM CDT SCAN-CARDIAC REHABILITATION 05/20/2024 1:24 PM CDT SCAN-CARDIAC [...] 2:56 PM CDT Coronary artery disease involving platinum coronary artery of platinum heart without angina pectoris CBC W PLT NO DIFF Routine 04/10/2024 2:5 6 PM CDT Coronary artery disease involving platinum coronary artery of platinum heart without angina pectoris from Last 3 Months Results * ZIO PATCH XT - weekly to monthly symptoms. (07/02/2024) Elmer Simmons MD CARDIAC SERVICES ORD * MR CARDIAC STRESS IMAGING WWO (06/04/2024 3:36 PM CDT) Anatomical Region Laterality Modality Magnetic Resonan ce 06/04/2024 2:14 PM CDT Narrative 06/04/2024 3:56 PM CDT ?[facility] ? CMR Report ??MRN: ?[id number] ?Name: ? OSWALD, DILAN ?: ?Scan Date: ?Accession Number: ?[id number] ?Status: ?Final ? Electronically signed by Thien [...] Normal/Hyper 1-25% ? Severely Abnormal ?? Sub-Endo DC, w/ Ischemia Base Inferior ? Normal/Hyper 26-50% ? Severely Abnormal ?? Sub-Endo DC, w/ Ischemia Base Inferolateral Normal/Hyper None ? Moderately Abnormal Ischemia ? Base Anterolateral Normal/Hyper None ? Normal ? Normal ? Mid Anterior ? Normal/Hyper None ? Normal ? Normal ? Mid Anteroseptal ?? Normal/Hyper None ? Normal ? Normal ? Mid Inferoseptal ?? Normal/Hyper None ? Moderately Abnormal Ischemia ? Mid Inferior ? Normal/Hyper 1-25% ? Severely Abnormal ?? Sub-Endo DC, w/ Ischemia Mid Inferolateral ?? Normal/Hyper None ? Moderately Abnormal Ischemia ? Mid Anterolateral ?? Normal/Hyper None ? Normal ? Normal ? Apical Anterior ? Normal/Hyper None ? Normal ? Normal ? Apical Septal ? Normal/Hyper None ? Normal ? Normal ? Apical Inferior ? Normal/Hyper None ? Moderately Abnormal Ischemia ? Apical Lateral ? Normal/Hyper None ? Normal ? Normal ? [place] ? Normal/Hyper None ? Normal ? Normal [...] SCAN INFO ===== GENERAL ----- --- ?SCANNER ?INSTRUMENTAL TEACHER: ??SIEMENS ?MODEL: ??Aera ?CONTRAST AGENT ?TYPE: ??Gadavist ?GD CONCENTRATION: ??1.0 M ?SETUP ?REFERRING PHYSICIAN: ??BLANK HARRISON ?ATTENDING PHYSICIAN: ??BLANK HEBERT ===== Patient Account ?[id number] ICD10 Codes ?I25.10, R06.00, R06.89, I25.10 Report generated by [employer], a product of [employer] Procedure Note Thien Esqueda MD - 06/04/2024 [facility] CMR Report Name: DILAN AKERS : Scan Date: Accession Number: [id number] Status: Final Electronically signed by Thien Esqueda [...] Base Inferoseptal Normal/Hyper 1-25% Severely Abnormal Sub-Endo DC, w/ Ischemia Base Inferior Normal/Hyper 26-50% Severely Abnormal Sub-Endo DC, w/ Ischemia Base Inferolateral Normal/Hyper None ModeratelyAbnormal Ischemia Base Anterolateral Normal/Hyper None Normal Normal Mid Anterior Normal/Hyper None Normal Normal Mid Anteroseptal Normal/Hyper None Normal Normal Mid Inferoseptal Normal/Hyper None ModeratelyAbnormal Ischemia Mid Inferior Normal/Hyper 1-25% Severely Abnormal Sub-Endo DC, w/ Ischemia Mid Inferolateral Normal/Hyper None ModeratelyAbnormal Ischemia Mid Anterolateral Normal/Hyper None Normal Normal Apical Anterior Normal/Hyper None Normal Normal Apical Septal Normal/Hyper None Normal Normal Apical Inferior Normal/Hyper None ModeratelyAbnormal Ischemia Apical Lateral Normal/Hyper None Normal Normal [place] Normal/Hyper None Normal Normal + + + [...] SCAN INFO ===== GENERAL ----- --- SCANNER INSTRUMENTAL TEACHER: SIEMENS MODEL: Aera CONTRAST AGENT TYPE: Gadavist GD CONCENTRATION: 1.0 M SETUP REFERRING PHYSICIAN: BLANK HARRISON ATTENDING PHYSICIAN: BLANK HARRISON BILLING ===== Patient Account [id number] ICD10 Codes I25.10, R06.00, R06.89, I25.10 Report generated by [employer], a product of [employer] Blank Harrison MD MR * HEMATOCRIT/HGB,ISTAT (06/04/2024 12:50 PM CDT) [facility] HEMATOCRIT, POCT 39.0 33.0 - 51.0 % 06/04/2024 3:09 PM CDT [facility] HEMOGLOBIN, POCT 13.3 12.0 - 16.0 g/dL 06/04/2024 3:09 PM CDT [facility] Blood BLOOD SPECIMEN / Unknown 06/04/2024 12:50 PM CDT 06/04/2024 3:09 PM CDT Blank Harrison MD CHEMISTRY [facility] [address] [address], * SCAN-CARDIAC REHABILITATION (05/20/2024 1:24 PM CDT) [...] 11.0 thou/cu mm 04/22/2024 8:22 AM CDT [facility] RED BLOOD COUNT 3.97(L) 4.00 - 5.20 mil/cu mm 04/22/2024 8:22 AM CDT [facility] HEMOGLOBIN 11.3(L) 12.0 - 16.0 g/dL 04/22/2024 8:22 AM CDT [facility] HEMATOCRIT 36.5 33.0 - 51.0 % 04/22/2024 8:22 AM T [facility] MCV 92 80 - 100 fL 04/22/2024 8:22 AM CDT [facility] MCH 28.5 26.0 - 34.0 pg 04/22/2024 8:22 AM T [facility] MCHC 31.0(L) 32.0 - 36.0 g/dL 04/22/2024 8:22 AM T [facility] RDW 14.2 11.5 - 15.5 % 04/22/2024 8:22 AM T [facility] PLATELET COUNT 178 140 - 440 thou/cu mm 04/22/2024 8:22 AM T [facility] MPV 9.9 6.5 - 11.0 fL 04/22/2024 8:22 AM CDT [facility] NRBC 0.0 % 04/22/2024 8:22 AM CDT [facility] ABS NRBC 0.0 thou /cu mm 04/22/2024 8:22 AM T [facility] Blood BLOOD SPECIMEN / Unknown Butterfly / Unknown 04/22/2024 7:33 AM CDT 04/22/2024 8:02 AM CDT Evgeny Laguna Evgeny MORALES HEMATOL OGY [facility] [address] [place] [address], * (ABNORMAL) Basic Metabolic Panel (04/22/2024 7:33 AM CDT) Only the most recent of2 resultswithin the time period is included. SODIUM 137 136 - 145 mmol/L 04/22/2024 8:38 AM CDT [facility] POTASSIUM 4.3 3.5 - 5.1 mmol/L 04/22/2024 8:38 AM T [facility] CHLORIDE 107 98 - 107 mmol/L 04/22/2024 8:38 AM T [facility] CO2,TOTAL 18(L) 22 - 29 mmol/L 04/22/2024 8:38 AM T [facility] ANION GAP 12 5 - 18 04/22/2024 8:38 AM T [facility] GLUCOSE 95 70 - 99 mg/dL 04/22/2024 8:38 AM T [facility] CALCIUM 9.2 8.8 - 10.2 mg/dL 04/22/2024 8:38 AM T [facility] BUN 42(H) 8 - 23 mg/dL 04/22/2024 8:38 AM T [facility] CREATININE 2.36(H) 0.50 - 0.90 mg/dL 04/22/2024 8:38 AM T [facility] BUN/CREAT RATIO 18 10 - 20 8:38 AM T [facility] eGFR 22(L) >90 mL/min/1.7 3m2 04/22/2024 8:38 AM T [facility] Comment:As of 2022, eG FR is calculated by the CKD-EPI creatinine equation without race adjustment. ??eGFR can be influenced by muscle mass, exercise, and diet. ??The reported eGFR is an estimation only and is only applicable if the renal function is stable. Blood BLOOD SPECIMEN / Unknown Butterfly / Unknown 04/22/2024 7:33 AM CDT 04/22/2024 8:02 AM CDT Evgeny MORALES EQUIPMENT MAINT TECH RY Performing Organization Address City/[facility]/ZIP Co de Phone Number [facility] [address] [place] [address], * SCAN-CARDIAC STRIP (04/22/2024 7:30 AM CDT) Scanner OTHER * SCAN-CARDIAC STRIP (04/22/2024 3:58 AM CDT) Scanner OTHER * (ABNORMAL) ACTIVATED CLOTTING TIME [id number] ACT (04/21/2024 7:05 PM CDT) Only the most recent of3 resultswithin the time period is included. ACTIVATED CLOTTING TIME, POCT 299(H) 74 - 125 sec 04/21/2024 8:00 PM CDT [facility] Blood BLOOD SPECIMEN / Unknown 04/21/2024 7:05 PM CDT 04/21/2024 8:00 PM CDT Elmer Simmons MD HEMATOLO GY Performing Organization Address [facility]/ZIP Co de Phone Number [facility] [address] [place] [address], * CVL PCI ONLY (04/21/2024 4:34 PM CDT) Anatomical Region Laterality Modality X-Ray Angiograph y, X-Ray Angiography 04/21/2024 4:34 PM CDT Narrative Procedure Note Brilakis, Emmanouil Stylianos, MD - 04/21/2024 7:43 PM CDT DATE OF SERVICE: 04/21/2024 OPERATORS: Fellow: Cachorro Collins MD and Evgeny Nance MD Attending: Elmer Simmons MD PROCEDURE: Successful percutaneous coronary intervention of a right coronary arterychronic total occlusion using the retrograde approach. PROCEDURE NOTE: Ms. Akers was referred for PCI of right coronary artery INSERTER OPERATOR. Afterexplanation of the risks, benefits, goals, and alternatives of theprocedure, she decided to proceed. We obtained bilateral femoral arterial access using ultrasound guidanceand micropuncture needle kit. We engaged the right coronary artery withan 8-Mexican AL1 and the left main with a 7-Mexican EBU 3.75. We didantegrade wiring attempt using a Turnpike along with XAVI black guidewire;however, there was a guide-induced dissection of the right coronary arteryand the wire entered into the extra plaque space. We tried to re-enter into the distal RCA using a Stingray balloon alongwith Marie Second and Marie Third as well as Investigation Division Captain 200 guidewire using thedouble-blind qljkf-zqr-zfzr technique, but unfortunately we were unable tore-enter [...] then, advanced theretrograde XAVI black, followed by Jonnathandius Mitchell all the way into theaorta. The retrograde wire was exchanged for an R350 that was snaredusing an EN Snare 12/20 snare and externalized. We then did IVUS,predilated and stented from the distal RCA all the way to the ostium using3 Dariusz [place] drug-eluting stents with IVUS demonstrating good stentexpansion and excellent JOHN 3 flow at the end of the procedure. The patient tolerated the procedure well and was discharged to recoveryroom in stable condition. Fluoroscopy time was 70.4 minutes, air kermaradiation dose was 2.593 Gy, DAP radiation dose was 10723 microgray metersquare and a total of 150 mL of contrast were used. MD VINCE MENSAH/JASON/DEBORAH/ZULEMA VJID: [id number] TJID: [id number] Transcriptions Elmer Simmons MD - 04/21/2024 7:46 PM CDT [facility] Cardiac Catheterization Report Name: DILAN AKERS Event Date: 04/21/2024 16:34 [facility] ID #: [id number] DAVID #: [id number] Patient Class: Outpatient Diagnostic Physician: ELMER SIMMONS [facility] Referring Physician: Shaylee Santa PA-C [...] Single vessel coronary disease (100% mid RCA INSERTER OPERATOR) INTERVENTION * Successful angioplasty and stenting (drug eluting) of the right coronaryartery INSERTER OPERATOR using the retrograde approach SPECIAL PROCEDURES * Right femoral arteriotomy was successfully closed utilizing a closuredevice * Left femoral arteriotomy was successfully closed utilizing a closuredevice RECOMMENDATIONS & PLAN * Medical Rx - Aspirin: 81 mg daily * Plavix for 1 year - minimum Consent & [place] Protocol The risks, benefits, and alternatives of the procedure were discussed withthe patient and written informed consent was obtained. [place] protocol was followed. TIME OUT conducted just prior tostarting procedure confirmed patient identity, site/side, procedure,patient position, and availability of correct equipment and implants (ifapplicable). Staff Name Title ELMER SIMMONS Diagnostic Skating Rink Manager Evgeny Nance Fellow Cachorro Collins Fellow Prince Rogel RN Nurse Beata Dejesus CVT Dark Room Attendant Carmen Christiansen CVT Monitor Dionte Fierro CVT [...] Max Pressure 2 Proximal RCA Balloon BRENT DARIUSZ [place] RX 3.6sqL53ht 2 Proximal RCA Balloon BLLN EUPHORA RX 2.3fpt91tw 2 Proximal RCA IVUS CATH 6F Opticross IVUS 2 Proximal RCA Zotarolimus-Eluting Stent BRENT DARIUSZ [place] RX 3.0qgN25qv 3 Mid RCA Balloon BLLN Emerge MR 2.5mm x 30mm 3 Mid RCA IVUS CATH 6F Opticross IVUS 3 Mid RCA Zotarolimus-Eluting Stent BRENT DARIUSZ [place] RX 3.7qjE42fs 1 Distal RCA Zotarolimus-Eluting Stent BRENT DARIUSZ [place] RX 2.00gdQ59eq 1 Distal RCA IVUS CATH 6F Opticross IVUS 1 Distal RCA Balloon BRENT DARIUSZ [place] RX 2.51icL71bo Procedure Details Estimated Blood Loss: < 30 ml Specimen Collected: None Level of Sedation Achieved: Moderate Procedure Start: 16:34 Procedure End: 19:38 Procedure Time: 184 min Fluoroscopy Time: 70.4 min Cumulative Air Kerma: 2593 mGy DAP: 46455 uGy/M2 Contrast: Visipaque (iso-osmolar), 150 ml Physiologic [...] RN 16:40 1% Lidocaine 10 ml Subcut JamesilaElmer gant-Trini, Ahmed 16:43 Versed 0.5 mg IV Elmer Simmons Nathan RN 16:43 Heparin 57855 units IV Elmer Simmons Nathan RN 16:51 Versed 0.5 mg IV Brilakis, Emmanouil S ErnstPrince thompson RN 17:06 Heparin 3000 units IV Brilakis, Emmanouil S ErnPrince haynes RN 17:28 Versed 0.5 mg IV Brilakis, Emmanouil S Ernster, Prince RN 17:50 Heparin 3000 units IV Brilakis, [...] healthcare professional providing the sedation ends personal hltksilcknefkh-dw-xhvt time with the patient. The medications listed above were verbally ordered by me and read back tome as documented above. Refer to the procedure log report for additional case details. electronically signed on 04/21/2024 7:46:29 PM with status of Final Elmer Simmons MD [facility] [address] [place] [phone] (p) [phone](f) Provider Referring CV IMAGING * Potassium (04/21/2024 12:44 PM CDT) POTASSIUM 5.1 3.5 - 5.1 mmol/L 04/21/2024 1:17 PM CDT [facility] Blood BLOOD SPECIMEN / Unknown Venipuncture / Unknown 04/21/2024 12:44 PM CDT 04/21/2024 12:51 PM CDT Cachorro Collins MD CHEMISTRY [facility] [address] [place] [address], * EXTRA TUBE GOLD/SST (04/21/2024 12:29 PM CDT) Blood BLOOD SPECIMEN / Unknown Non-Lab Venipuncture / Unknown 04/21/2024 12:29 PM CDT 04/21/2024 12:53 PM CDT Elmer Simmons MD LABORATO RY Performing Organization Address City/[facility]/ZIP Co de Phone Number [facility] [address] [place] [address], * EKG - In AM (04/21/2024 11:20 AM CDT) Interpretation Normal sinus rhythm Normal ECG No previous ECGs available BEYOND NOW Ventricular Rate 64 BPM BEYOND NOW Atrial Rate 64 BPM BEYOND NOW P-R Interval 162 ms BEYOND NOW QRS Duration 86 ms BEYOND NOW QT 392 ms BEYOND NOW QTc 404 ms BEYOND NOW P [place] 67 degrees BEYOND NOW R [place] 50 degrees BEYOND NOW T [place] 43 degrees BEYOND NOW 04/21/2024 11:2 0 AM CDT 04/28/2024 3:31 PM CDT Cachorro Collins MD EKG ORD BEYOND NOW [place], [place] * (ABNORMAL) BUN (04/21/2024 11:04 AM CDT) BUN 48(H) 8 - 23 mg/dL 04/21/2024 12:02 PM CDT [facility] Blood BLOOD SPECIMEN / Unknown Venipuncture / Unknown 04/21/2024 11:04 AM CDT 04/21/2024 11:24 AM CDT Cachorro Collins MD CHEMISTRY Performing Organization Address City/[facility]/ZIP Co de Phone Number [facility] [address] [place] [address], * (ABNORMAL) Sodium (04/21/2024 11:04 AM CDT) SODIUM 134(L) 136 - 145 mmol/L 04/21/2024 12:02 PM CDT [facility] Blood BLOOD SPECIMEN / Unknown Venipuncture / Unknown 04/21/2024 11:04 AM CDT 04/21/2024 11:24 AM CDT Cachorro Collins MD CHEMISTRY Performing Organization Address [facility] Co de Phone Number [facility] [address] [place] [address], * (ABNORMAL) Creatinine (04/21/2024 11:04 AM CDT) eGFR 21(L) >90 mL/min/1.7 3m2 04/21/2024 12:02 PM CDT [facility] Comment:As of 2022, eG FR [...] 11:24 AM CDT Cachorro Collins MD CHEMISTRY [facility] [address] [place] [address], from Last 3 Months Advance Directives * Full Code (Latest Code Status on File) Date Activated Date Inactivated Comments 04/21/2024 7:51 PM 04/22/2024 2:06 PM Question Answer Comments Code Status Discussion: Reviewed Preferences Care Teams Insurance Instructor Relationship Specialty Start Date End Date Shaylee Santa PA-C [address] [place] [id number] PCP - General Physician President [place] 03/23/24
--- OUTSIDE RECORDS SUMMARY | 2024-07-09 15:01 | XMS_ITS | Clinical Summary ---
Author Organization [facility] Address [address] [place] [address] Care Team Providers Care Muck Boss Name Role Phone Shaylee Santa P.A.-C. Primary Care Provider Source Comments Patient records contain information from all sites at [facility]. For routine questions regarding patient records, call [phone] during business hours, M-F 8:00 AM - 5:00 PM Central Time. Record requests for emergency care only can be directed to [phone] at any time.[facility] Allergies Active Allergy Reactions Criticality Noted Date [...] 05/15/2016 Omeprazole Diarrhea,Other (see comments) High 05/08/2018 Opioids - Morphine Analogues Diarrhea,Other (see comments) 03/18/2024 nausea Penicillins Hives (Reselect Reaction),Other (see comments),Anaphylax is High 04/22/2016 vomiting Phenylephrine Palpitations,Other (see comments) 08/07/2023 Phenylephrine-Guaifenesin Other (see comments) 04/22/2016 palpitations Phenylpropanolamine Other (see comments) 11/08/2023 Propoxyphene Hives (Reselect Reaction),GI intolerance,Nausea And Vomiting High 04/22/2016 Quetiapine Other (see comments) 11/08/2023 Sertraline Other (see comments) 11/08/2023 Jzhhkyw-Xym-Fpn Reductase Inhibitors Other (see comments),Myalgia 04/22/2016 Muscle damage Muscle damage Muscle pain Sulfa (Sulfonamide Antibiotics) Hives (Reselect Reaction),Nausea And Vomiting,Other (see comments) 04/22/2016 Hives and vomiting Vomiting Tolmetin Other (see comments) 11/08/2023 Medications Medication Sig Dispensed Refills Start Date End Date Status metoprolol succinate 100 mg capsule,sprinkle ,ER 24hr Take 25 mg by mouth daily. 2 Active aspirin 81 mg capsule Take 81 mg by mouth. 3 Active multivitamin-min erals-lutein (Multivitamin 50 Plus) tablet Take 1 tablet by mouth daily. 3 Active calcium carbonate-vitami n D3 1,500 mg (600 mg calcium)-5 mcg (200 Unit) per tablet Take by mouth daily. Active nystatin (NYSTOP) 100,000 unit/gram powder Apply 2-3 times/day to affected areas as needed for candidiasis 0 Active cholecalciferol (VITAMIN D3) 50 mcg (2,000 Unit) capsule Take 2,000 Units by mouth. Active UNABLE TO FIND Med Name: Collagen 3000mg hydrolyzed collagen Active UNABLE TO FIND Med Name: Magnesium Glycanate 240mg, Nature's Bounty high absorption Active isosorbide mononitrate (IMDUR) 30 mg 24 hr tablet Take 15 mg by mouth. 3 Active ezetimibe (ZETIA) 10 mg tablet Take 1 tablet (10 mg total) by mouth daily. 90 tablet 3 3 10/07/20 24 Active lansoprazole (PREVACID) [address] capsule Take 1 capsule (30 mg total) by mouth every morning before breakfast. 90 capsule 3 3 Active fluticasone propionate (FLONASE) 50 mcg/actuation nasal spray Administer 1 spray into each nostril as needed for allergies or rhinitis. 48 g 3 3 Active sodium bicarbonate 325 mg tablet Take 2 tablets (650 mg total) by mouth daily. 180 tablet 3 3 Active ergocalciferol (DRISDOL) 50,000 Unit capsule Take 1 capsule (50,000 Units total) by mouth once a week. 8 capsule 3 4 Active fexofenadine (ALLIE) 180 mg tablet Take 180 mg by mouth daily. 3 Active amLODIPine (NORVASC) 5 mg tablet Take 1 tablet (5 mg total) by mouth daily. 90 tablet 3 4 02/17/20 25 Active ARIPiprazole (ABILIFY) 10 mg tabletIndication s:Bipolar II Disorder (HCC),Posttrauma tic Stress Disorder Prolonged Take 1 tablet (10 mg total) by mouth daily. 90 tablet 3 4 02/21/20 25 Active MAGNESIUM GLYCINATE ORAL 500 mg. Active UNABLE TO FIND Take 1 tablet by mouth daily. Collagen with Vitamin C 3 Active clopidogreL (PLAVIX) 75 mg tablet Take 1 tablet by mouth daily. 4 Active nitroglycerin (NITROSTAT) 0.[address] 0.4 mg under the tongue every 2 (two) hours as needed. 4 Active ascorbic acid-collagen 30-833.3 mg tablet Take by mouth. Daily Active SODIUM BICARBONATE ORAL Take 650 mg by mouth. Active multivitamin-min erals tablet Take 1 tablet by mouth daily. Active traMADoL (Ultram) 50 mg tabletIndication s:Chronic Pain/Nonacute Pain Take 1 tablet (50 mg total) by mouth at bedtime as needed for pain Indications: Chronic Pain/Nonacute Pain. 28 tablet 4 Active tiZANidine (ZANAFLEX) 4 mg capsule as needed. 07/08/20 24 Discontinued(The rapshahida completed) semaglutide (Wegovy) 0.25 mg/0.5 mL pen injector injectionIndicat ions:Coronary Artery Disease Without Angina Pectoris,Morbid Obesity Body Mass Index 45.0-49.9 Adult (HCC) Inject 0.25 mg under the skin every 7 (seven) days. 2 mL 4 07/08/20 24 Discontinued(Cos t of medication) traMADoL (Ultram) 50 mg tabletIndication s:Chronic Pain/Nonacute Pain Take 1 tablet (50 mg total) by mouth at bedtime as needed for severe pain or score 7-10 of 10 Indications: Chronic Pain/Nonacute Pain. 28 tablet 4 06/23/20 24 Discontinued Active Problems Problem Noted Date Diagnosed [...] other arteries. She had an angiogram in [place] in June of 2022. This was performed after she has an abnormal nuclear stress test which was performed for some shortness of breath and risk factors. Last echocardiogram performed 05/2023 and showed calculated EF of 65%. Following with Cardiology through [facility]. Ileostomy Status 11/06/2022 Overview (09/09/2023): Status post [...] 4x/week at home. Hypertensive Chronic Kidney Disease With Stage 1 Through Stage 4 Chronic Kidney Disease, Or Unspecified Chronic Kidney Disease 11/06/2022 Hyperparathyroidism Renal Secondary 11/06/2022 Urinary Urge Incontinence 01/19/2021 Overview (09/09/2023): - Has [employer] system. - Urge-predominant mixed urinary incontinence since age 21. - Had several meatoplasties, dilations and a sling in with porcine graft [place] [address] Mckniley in [place] - In the past found myrbetriq 50mg [...] Encounters Date Type Department Care Team Description 07/08/2024 1:40 PM CDT Office Visit Department of Community Internal Medicine in [place], [place] [address] [place] [address] Shaylee Santa P.A.-C. Pain Chest Atypical (Primary Dx); Pain Low Back Chronic 07/07/2024 3:00 PM CDT External Outreach Division of Nephrology and Hypertension in [place], [place] [address] [place] [address] Jitendra Romero Jr., Edmond.O. Chronic Kidney Disease (CKD), Stage 3b Glomerular Filtration Rate (GFR) 30 To 44 (HCC) (Primary Dx); Hypertensive Chronic Kidney Disease With Stage 1 Through Stage 4 Chronic Kidney Disease, Or Unspecified Chronic Kidney Disease; Anemia Of Chronic Disease; Hyperparathyroidism Renal Secondary (HCC); Ileostomy Status (HCC); Stone Kidney Personal History 06/30/2024 1:20 PM CDT - 06/30/2024 11:59 PM CDT Hospital Encounter Department of Radiology in [place], [place] [address] [place] [address] Shaylee Santa P.A.-C. Screening Mammogram Breast Cancer Discharge Disposition: Home or Self Care 06/23/2024 Clinical Communication Department of Nutrition in [place] [id number] [place] [address] Stacey Mc, APOLONIAN, LD Communication (Regarding today's appt) 06/21/2024 Refill Department of Community Internal Medicine in [place], [place] [address] [place] [address] Shaylee Santa P.A.-C. Med Refill 06/18/2024 Clinical Communication Department of Community Internal Medicine in [place], [place] [address] [place] [phone] Shaylee Santa P.A.-CLena 06/02/2024 2:20 PM CDT Office Visit Department of Community Internal Medicine in [place], [place] [address] [place] [phone] Shaylee Santa P.A.-C. Coronary Artery Disease Without Angina Pectoris (Primary Dx); Coronary Stent Status Post; Morbid Obesity Body Mass Index 45.0-49.9 Adult (HCC) 05/26/2024 2:08 PM CDT - 05/26/2024 11:59 PM CDT Hospital Encounter Department of Radiology in [address] [address] Familia Patiño M.D. Pain Knee Left; Pain Knee Right Discharge Disposition: Home or Self Care 05/26/2024 1:45 PM CDT Office Visit Department of Orthopedic Surgery in [address] [address] Familia Patiño M.D. Pain Knee Left (Primary Dx); Pain Knee Right Discharge Disposition: Home or Self Care 05/20/2024 Clinical Communication Department of Community Internal Medicine in [address] [address] Shaylee Santa P.A.-C. Communication (Appt necessary?) 05/18/2024 Refill Department of Community Internal Medicine in [address] [address] Shaylee Santa P.A.-C. Med Refill 05/05/2024 Clinical Communication Department of Community Internal Medicine in [address] [address] Shaylee Santa P.A.-C. Order Request (PT for back pain) 05/01/2024 1:16 PM CDT - 05/01/2024 11:59 PM CDT Hospital Encounter Department of Laboratory Medicine in [address] [address] Jitendra Romero Jr., D.O. Chronic Kidney Disease [...] Visit Department of Community Internal Medicine in [address] [phone] Shaylee Santa P.A.-C. Coronary Artery Disease Without Angina Pectoris (Primary Dx); Morbid Obesity Body Mass Index 45.0-49.9 Adult (HCC) 04/29/2024 Clinical Communication Department of Community Internal Medicine in [address] [phone] Shaylee Santa P.A.-C. Rx Denial (Wemayravy) 04/29/2024 Clinical Communication Department of Community Internal Medicine in [address] [phone] Shaylee Santa, P.A.-C. Order Request 04/28/2024 Orders Only [facility] Shaylee Santa, P.A.-C. Screening Mammogram Breast Cancer 04/16/2024 2:47 PM CDT - 04/16/2024 11:59 PM CDT Hospital Encounter Department of Laboratory Medicine in [address] [address] Shaylee Santa, P.A.-C. Pain Low Back Chronic Discharge Disposition: Home or Self Care 04/16/2024 1:40 PM CDT Office Visit Department of Community Internal Medicine in [address] [address] Shaylee Santa, P.A.-C. Pain Low Back Chronic (Primary Dx) 04/13/2024 Clinical Communication Department of Community Internal Medicine in [address] [address] Shaylee Santa, P.A.-C. 04/13/2024 Abstract [facility] [place] Mor[place] [address] [place] [address] Provider, Historical 04/12/2024 Clinical Communication Department of Community Internal Medicine in [address] [place] [phone] Shaylee Santa P.A.-C. PandaDoc Form ([facility] (Blood Pressure Unit)) 04/10/2024 1:40 PM CDT Office Visit Department of Community Internal Medicine in [address] [phone] Shaylee Santa P.A.-C. Coronary Artery Disease Without Angina Pectoris (Primary Dx); Screening Mammogram Breast Cancer; Chronic Kidney Disease (CKD), Stage 3b Glomerular Filtration Rate (GFR) 30 To 44 (HCC) 04/10/2024 Clinical Communication Department of Nutrition in [place], [place] [address] [address] Ximena Brown RDN, LD 04/10/2024 Orders Only Department of [facility] Internal Medicine in [address] [place] [address] Shaylee Santa P.A.-C. Chronic Kidney Disease (CKD), Stage 3b Glomerular Filtration Rate (GFR) 30 To 44 (HCC) (Primary Dx) from Last 3 Months Immunizations Name Administration Dates Next Due HZV (ZOSTAVAX) 07/25/2016 Influenza high dose QV(65 years or older) (PF) 1 ,07/17/2021 Influenza, Injectable, Quadrivalent 08/08/2020 PCV13 2016,04/17/2016 PCV20 08/28/2022 PPSV23 05/31/2017,2016 RSV: respiratory syncytial v irus (AREXVY) recombinant vaccine 09/17/2023 RZV (SHINGRIX) 01/22/2022,11/13/2021 SARS-COV-2 (COVID-19) - MODE RNA (12 YEARS AND OLDER) [id number] 09/06/2023 Tdap 07/25/2016 influenza high dose (65 years or older) (PF) 10/2022,07/17/2021 Family History Medical History Relation Name Comments Rheum arthritis Brother Bill Diabetes Daughter Barbara Rivers Type 1 Passed1 12/2021 Diabetes Father Jitendra Farris Type 1 Passed 1 [phone] Coronary artery disease Maternal Grandfather Willie bledsoe Hypertension Maternal Grandfather Willie Barkley Diabetes Maternal Grandmother Nayana Type 2 Osteoporosis Maternal Grandmother Nayana Unknown Other cancer Maternal Grandmother Nayana Unknown Diabetes Mother Susannah Type 2 Hypertension Mother Susannah Leukemia Mother Susannah Rheum arthritis Mother Susannah Coronary artery disease Paternal Grandfather Jitendra Unknown to me Relation Name Status Comments Brothjay Corrales Daughter Barbara Rivers Father Jitendra Farris Maternal [...] I might have 2-3 drinks per year [facility] Utilities Answer Date Recorded In the past 12 months has [facility] [employer], oil, or water [employer] threatened to shut off services in your [...] your living situation today? I have [facility] 12/03/2023 Sex and Gender Information Value Date Recorded Sex Assigned at Female 04/11/2023 12:22 PM CDT Gender Identity Female 04/11/2023 12:22 PM CDT Sexual Orientation Straight 04/11/2023 12 :22 PM CDT Last Filed Vital Signs Vital Sign Reading Time Taken Comments Blood Pressure 102/67 07/08/2024 1:35 PM CDT Pulse 70 07/08/2024 1:35 PM CDT Temperature 35.6 ??C (96 ??F) 07/08/2024 1:35 PM CDT Respiratory Rate 16 07/08/2024 1:35 PM CDT Oxygen Saturation 99% 01/01/2024 12:51 PM [employer] Inhaled Oxygen Concentration - - Weight 121 kg (265 lb 15.8 oz) 07/08/2024 1:35 P M CDT Height 160 cm (5' 3) 07/07/2024 2:53 PM CDT Body Mass Index 47.12 07/07/2024 2:53 PM CDT Plan of Treatment Upcoming Encounters Date Type Department Care Team (Latest Contact Info) Description 07/21/2024 1:40 PM CDT Office Visit Department of Community Internal Medicine in [place], [place] [address] [place] [phone] Shaylee Santa P.A.-C. [address] [place] [phone] 08/04/2024 1:00 PM CDT Clinical Support Department of Nutrition in [place], [place] [address] [place] [phone] Shaylee Santa P.A.-C. [address] [place] [phone] Stacey Mc RDN, LD [address] [place] [phone] Discharge Disposition: Home or Self Care Health Maintenance Due Date Last Done Comments CT Colonography 1956 Cologuard 1955 FIT 1955 Hepatitis C Screening 1956 Lung Cancer Screening 1955 Colonoscopy 02/14/2022 02/14/2017 Colorectal Cancer Screening 02/14/2022 PEG assessment for Opioid therapy 07/17/2024 024 Influenza Vaccine (#1) 2024 3, 08/06/2022, 07/17/2021, Additional history exists Visit: Medicare Annual Wellness 12/04/2024 4 Visit: Chronic Disease, age 18+ 01/28/2025 Controlled Substance Agreement 04/16/2025 04/16/2024 Controlled Substance Monitor ing (PHQ-9) 04/16/2025 04/16/2024 Generalized Anxiety (CHERELLE-7) 04/16/2025 04/16/2024 Opioid Risk Tool (ORT) 04/16/2025 04/16/2024 Controlled Substance Monitoring 04/18/2025 Lipid (Cholesterol) Screening 05/01/2025 05/01/2024 Opioid Use Disorder (OUD) Screening 06/23/2025 04/16/2024 Mammogram 06/30/2025 06/30/2024, 03/26, 01/01/2022 Office Visit for Blood Press ure Check / Re-check 07/08/2025 07/08/2024 DTaP,Tdap,and Td Vaccines (2 - Td or [...] Procedure Name Priority Date/Time Associated Diagnosis Comments BI BREAST SCREENING BILATERAL WITH TOMOSYNTHESIS RAD - Routine (most inpatients and all outpatients) 06/30/2024 1:48 PM CDT Screening Mammogram Breast Cancer DX KNEE BILATERAL 3 VIEWS RAD - Routine (most inpatients and all outpatients) 05/26/2024 2:28 PM CDT Pain Knee Left Pain Knee Right LIPID PANEL, S Routine 05/01/2024 2:50 PM CDT Chronic Kidney Disease (CKD), Stage 3b Glomerular Filtration Rate (GFR) 30 To 44 (HCC) Hypertensive Chronic Kidney Disease (CKD) Stage 3b Glomerular Filtration Rate (GFR) 30 To 44 Hyperparathyroidi sm Renal Secondary (HCC) Ileostomy Status (HCC) Stone Kidney Personal History Bipolar II Disorder (HCC) Chronic Obstructive Pulmonary Disease (HCC) CONTROLLED SUBSTANCE MONITORING, U Routine 04/16/2024 2:51 PM CDT Pain Low Back Chronic from Last 3 Months Results * BI Breast Screening Bilateral with Tomosynthesis (06/30/2024 1:48 PM CDT) Anatomical Region Laterality Modality Breast, Breast Imaging RST L OS, Breast Imaging ARZ LOS, Breast Imaging FLA LOS Bilateral Mammography Impressions 06/30/2024 2:19 PM CDT Negative. RECOMMENDATION: ??Annual Screening Mammogram ASSESSMENT: ??BI-RADS: 1: Negative. Narrative 06/30/2024 2:19 PM CDT EXAM: ??BI BREAST SCREENING BILATERAL WITH TOMOSYNTHESIS Current study was evaluated with a Computer Aided Detection (CAD) system. INDICATION: ??Screening mammogram. COMPARISON: ??Prior exam(s) were available and reviewed for comparison. DENSITY: ??b. There are scattered areas of fibroglandular density. FINDINGS: ??No mammographic findings of malignancy. Procedure Note Deven Wynn M.D. - 06/30/2024 EXAM: BI BREAST SCREENING BILATERAL WITH TOMOSYNTHESIS Current study was evaluated with a Computer Aided Detection (CAD) system. INDICATION: Screening mammogram. COMPARISON: Prior exam(s) were available and reviewed for comparison. DENSITY: b. There are scattered areas of fibroglandular density. FINDINGS: No mammographic findings of malignancy. IMPRESSION: Negative. RECOMMENDATION: Annual Screening Mammogram ASSESSMENT: BI-RADS: 1: Negative. Shaylee NAVARRETE BI PROCEDUR ES * DX Knee Bilateral 3 Views (05/26/2024 [...] Romero Jr., D.O. LAB BLOOD AD [facility] [address] [place] [address], [place] OWAT [facility] in [place] [address] [place] [address] * (ABNORMAL) Controlled Substance Monitoring Panel, Urine (04/16/2024 2:51 PM CDT) List patient's current medications Not provided 4 9:54 PM CDT [facility] Comment: ----ADDITIONAL INFORMATION---- Accuracy and completeness of declared medications on reports solely dependent on information submitted by client. Creatinine, Random, U 131.3 mg/dL 4 2:21 PM CDT [facility] Specific [place] 1.020 04/17/20 2 4 2:21 PM CDT [...] 25 ng/mL 4 11:08 AM T [facility] Comment:Tylenol 3 Uybzxfc-8-jtbv-glucuro nide Not Detected Cutoff: 100 ng/mL 4 11:08 AM CDT [facility] Comment:Metabolite of codein e Morphine Not Detected Cutoff: 25 ng/mL 4 11:08 AM CDT [facility] Comment: Carmen Zamora, MS Contin; Also a minor metabolite (10%) of codeine and can be seen in low concentrations (<2,000 ng/mL) with poppy seed ingestion. Fqjatxit-0-bdhc-glucur onide Not Detected Cutoff: 100 ng/mL 4 11:08 AM CDT [facility] Comment:Metabolite of morphi ne 6-monoacetylmorphine Not Detected Cutoff: 25 ng/mL 4 11:08 AM T [facility] Comment:Metabolite of heroin Hydrocodone Not Detected Cutoff: 25 ng/mL 4 11:08 AM T [facility] Comment: Lortab, [place], Vicodin; Also a very minor metabolite of codeine and impurity (<1%) of oxycodone. Norhydrocodone Not Detected Cutoff: 25 ng/mL 4 11:08 AM T [facility] Comment:Metabolite of hydroc odone Dihydrocodeine Not Detected Cutoff: 25 ng/mL 4 11:08 AM T SDS Comment:Metabolite of hydroc odone Hydromorphone Not Detected Cutoff: 25 ng/mL 4 11:08 AM CDT [facility] Comment: Dilaudid, Exalgo; Also a metabolite of hydrocodone and a minor (<5%) metabolite of morphine. Qigffffdnbjkz-9-cklh-g lucuronide Not Detected Cutoff: 100 ng/mL 4 11:08 AM CDT [facility] Comment:Metabolite of hydrom orphone Oxycodone Not Detected Cutoff: 25 ng/mL 4 11:08 AM CDT SDS Comment:Endocet, Percocet, O xycontin Noroxycodone Not Detected Cutoff: 25 ng/mL 05/25/202 4 11:08 AM CDT [facility] Comment:Metabolite of oxycod one Oxymorphone Not Detected Cutoff: 25 ng/mL 4 11:08 AM CDT SDS Comment:Numorphan, Opana; Al so a metabolite of oxycodone. Xcudimxpyes-6-jpzy-glu curonide Not Detected Cutoff: 100 ng/mL 4 11:08 AM CDT [facility] Comment:Metabolite of oxymor phone and/or naloxone (nornaloxone) Noroxymorphone Not Detected Cutoff: 25 ng/mL 4 11:08 AM CDT [facility] Comment:Metabolite of oxymor phone and/or naloxone (nornaloxone) Fentanyl Not Detected Cutoff: 2 ng/mL 4 11:08 AM CDT [facility] Comment:Actiq, Duragesic, Fe ntora Norfentanyl Not Detected Cutoff: 2 ng/mL 4 11:08 AM T [facility] Comment:Metabolite of fentan yl Meperidine Not Detected Cutoff: 25 ng/mL 4 11:08 AM CDT [facility] Comment:Demerol Normeperidine Not Detected Cutoff: 25 ng/mL 4 11:08 AM T [facility] Comment:Metabolite of meperi dine Naloxone Not Detected Cutoff: 25 ng/mL 4 11:08 AM CDT [facility] Comment:Narcan Scnvcpti-8-lotp-glucur onide Not Detected Cutoff: 100 ng/mL 4 11:08 AM CDT SDS Comment:Metabolite of naloxo ne Methadone, U Not Detected Cutoff: 25 ng/mL 4 11:08 AM CDT SDS Comment:Dolophine EDDP Not Detected Cutoff: 25 ng/mL 4 11:08 AM T [facility] Comment:Metabolite of methad one Propoxyphene Not Detected Cutoff: 25 ng/mL 4 11:08 AM CDT SDS Comment:Darvon, Darvocet Norpropoxyphene Not Detected Cutoff: 25 ng/mL 4 11:08 AM CDT [facility] Comment:Metabolite of propox yphene Tramadol Present(A) Cutoff: 25 ng/mL 4 11:08 AM CDT [facility] Comment:Tradol, Ultram, Ultr acet O-desmethyltramadol Present(A) Cutoff: 25 ng/mL 4 11:08 AM CDT [facility] Comment:Metabolite of tramad ol Tapentadol Not Detected Cutoff: 25 ng/mL 4 11:08 AM CDT [facility] Comment:Nucynta N-desmethyltapentadol Not Detected Cutoff: 50 ng/mL 4 11:08 AM CDT [facility] Comment:Metabolite of tapent adol Vtvxqjhtfm-uwgs-bwtuzf onide Not Detected Cutoff: 100 ng/mL 4 [...] developed and its performance characteristics determined by [facility] in a manner consistent with CLIA [...] Cutoff: 10 ng/mL 4 11:36 AM CDT [facility] Comment:Metabolite of Chlord iazepoxide, Diazepam, or [...] 10 ng/mL 4 11:36 AM CDT [facility] Comment:Ativan Lorazepam Glucuronide Not Detected Cutoff: 50 [...] 11:36 AM CDT [facility] Comment:Metabolite of Temaze mr Triazolam Not Detected Cutoff: 10 ng/mL 4 11:36 AM CDT [facility] Comment:Halcion Alpha-Hydroxy Triazolam Not Detected Cutoff: 10 ng/mL 4 11:36 AM CDT [facility] Comment:Metabolite of Triazo vasquez Zolpidem Not Detected Cutoff: 10 ng/mL 4 11:36 AM CDT [facility] Comment:Ambien Zolpidem Byrjfz-1-Lcgdpeeeyx acid Not Detected Cutoff: 10 ng/mL 4 [...] developed and its performance characteristics determined by [facility] in a manner consistent with CLIA [...] 100 ng/mL 4 11:26 AM CDT [facility] 3,0-xailsvxniwccus-R-e thylamphetamine (MDEA) Not Detected Cutoff: 100 ng/mL 4 11:26 AM CDT [facility] 3,4-methylenedioxyamph etamine (MDA) Not Detected Cutoff: 100 ng/mL 4 11:26 AM CDT [facility] Comment:Also a metabolite of MDMA and/or MDEA Ephedrine Not Detected Cutoff: 100 ng/mL 4 11:26 AM CDT [facility] Pseudoephedrine Not Detected Cutoff: 100 ng/mL 4 11:26 AM CDT [facility] Comment:Sudafed Phentermine Not Detected Cutoff: 100 ng/mL 4 11:26 AM CDT [facility] Comment:Adipex-P, Lomaira, Q symia Phencyclidine (PCP) Not Detected Cutoff: 20 ng/mL 4 11:26 AM CDT SDS Methylphenidate Not Detected Cutoff: 20 ng/mL 4 11:26 AM CDT [facility] Comment:Ritalin, Concerta Ritalinic acid Not Detected Cutoff: 100 ng/mL 4 11:26 AM CDT [facility] Comment:Metabolite of methyl phenidate Stimulant Interpretation No stimulants were detected. The absence of expected drug(s) and/or drug metabolite(s) may indicate non-compliance, altered pharmacokinetics, inappropriate timing of specimen collection relative to drug administration, diluted/adulterat ed urine, or limitations of testing. 4 11:26 AM T [facility] Comment: ----ADDITIONAL INFORMATION---- This test was developed and its performance characteristics determined by [facility] in a manner consistent with CLIA requirements. This test has not been cleared or approved by the U.S. Food and Drug Administration. Urine (Urine, Midstream) 04/16/2024 2:51 PM CDT 04/16/2024 9:54 PM CDT Shaylee Santa P.A.-C. LAB URINE ORDER [facility] [address] [place] [address] [facility] [address] [place] [address] [facility] [address] [place] [address] [place] [address] from Last 3 Months Advance Directives For more information, please contact: [phone] Documents on File Type Date Recorded Patient Billet Examiner Expl anation Advance Directives 04/10/2024 3:51 PM Lynsey Floyd HCPOA/ADVOCATE/AGENT/R EPRESENTATIVE/SURROGAT E Healthcare Agents on File Name Relationship Healthcare Agent Relationship Communication Lynsey Villatoro Daughter Health Care Agent Antoni Floyd Brother First Alternate Health Care Agent Care Teams Muck Boss Relationship Specialty Start Date End Date Shaylee Santa P.A.-C. [address] [place], [place] [address] [address] PCP - General Internal Medicine 01/23/24
--- OUTSIDE RECORDS SUMMARY | 2024-07-09 15:01 | XMS_ITS | Encounter Summary ---
Author Organization [facility] Address [address] [place] [address] Care Team Providers Care Linen Folder Name Role Phone Shaylee Santa P.A.-C. Primary Care Provider Reason for Referral * Outpatient (Routine) - Closed Specialty Diagnoses / Procedures Referred By Collin noble Referred To Contact Diagnoses Screening Mammogram Breast Cancer Procedures BI Breast Screening Bilateral with Tomosynthesis Shaylee Santa P.A.-C. [address] [place] [address] [facility] Region Referral ID Status Reason Start Date Expiration Date Visits Re quested Visits Authorized [id number] Closed 04/28/2024 04/28/2025 1 1 Reason for Visit * Outpatient (Routine) - Closed Specialty Diagnoses / Procedures Referred By Collin noble Referred To Contact Diagnoses Screening Mammogram Breast Cancer Procedures BI Breast Screening Bilateral with Tomosynthesis Shaylee Santa P.A.-C. [address] [place] [address] [facility] Region Referral ID Status Reason Start Date Expiration Date Visits Re quested Visits Authorized [id number] Closed 04/28/2024 04/28/2025 1 1 Encounter Details Date Type Department Care Team (Latest Contact Info) Description 06/30/2024 1:20 PM CDT - 06/30/2024 11:59 PM CDT Hospital Encounter Department of Radiology in [place], [place] [address] [facility] [place] [place] [phone] Shaylee Santa P.A.-C. [address] [facility] [place] [phone] Screening Mammogram Breast Cancer Discharge Disposition: Home or Self Care Social History Tobacco Use Types Packs/Day Years Used Date Smoking Tobacco: Former Cigarettes 1 57 0 05/28/1964 - 09/19/2020 Passive Smoke Exposure: Never Smokeless Tobacco: Never Alcohol Use Standard Drinks/Week Comments Yes 0 (1 standard drink = 0.6 oz pure alcohol) I might have 2-3 drinks per year [facility] Utilities Answer Date Recorded In the past 12 months has [facility] [employer], gas, oil, or water [employer] threatened to shut off services in your [...] your living situation today? I have a [facility] place to live 12/03/2023 Sex [...] mouth daily. 90 tablet 3 02/21/2024 02/20/2025 ascorbic acid-collagen 30-833.3 mg tablet Take by mouth. Daily aspirin 81 mg capsule Take 81 mg [...] 25 mg by mouth daily. 09/20/2022 multivitamin-minerals tablet Take 1 tablet by mouth daily. multivitamin-minerals -lutein (Multivitamin 50 Plus) tablet Take [...] by mouth daily. 180 tablet 3 11/11/2023 SODIUM BICARBONATE ORAL Take 650 mg by mouth. traMADoL (Ultram) 50 mg tabletIndications:Chr onic Pain/Nonacute Pain Take 1 tablet (50 mg total) by mouth at bedtime as needed for pain Indications: Chronic Pain/Nonacute Pain. 28 tablet 06/23/2024 UNABLE TO FIND Med Name: Collagen 3000mg hydrolyzed collagen UNABLE TO FIND Med Name: Magnesium Glycanate 240mg, Nature's Bounty high absorption UNABLE TO FIND Take 1 tablet by mouth daily. Collagen with Vitamin C 10/12/2023 semaglutide (Wegovy) 0.25 mg/0.5 mL pen injector injectionIndications: Coronary Artery Disease Without Angina Pectoris,Morbid Obesity Body Mass Index 45.0-49.9 Adult (HCC) Inject 0.25 mg under the skin every 7 (seven) days. 2 mL 04/29/2024 07/08/2024 tiZANidine (ZANAFLEX) 4 mg capsule as needed. 07/08/2024 documented as of this encounter Plan of Treatment Upcoming Encounters Date Type Department Care Team (Latest Contact Info) Description 07/21/2024 1:40 PM CDT Office Visit Department of Community Internal Medicine in [place], [place] [address] [place] [phone] Shaylee Santa PLenaALena-CLena [address] [place] [phone] 08/04/2024 1:00 PM CDT Clinical Support Department of Nutrition in [address] [phone] Shaylee Santa, P.A.-CLena [address] [place] [phone] Stacey Mc, APOLONIAN, LD [address] [place] [phone] Discharge Disposition: Home or Self Care documented as of this encounter Procedures Procedure Name Priority Date/Time Associated Diagnosis Comments BI BREAST SCREENING BILATERAL WITH TOMOSYNTHESIS RAD - Routine (most inpatients and all outpatients) 06/30/2024 1:48 PM CDT Screening Mammogram Breast Cancer documented in this encounter Results * BI Breast Screening Bilateral with [...] Screening Mammogram ASSESSMENT: BI-RADS: 1: Negative. Shaylee Santa P.A.-C. IMG BI PROCEDUR ES documented in this encounter Visit Diagnoses Diagnosis Screening Mammogram Breast Cancer documented in this encounter Additional Health Concerns Assessment Noted Time PHQ-9 Depression Total Score: 9 04/16/20 24 2:15 PM CDT documented as of this encounter Care Teams Linen Folder Relationship Specialty Start Date End Date Shaylee Santa P.A.-C. [address] [place] [phone] PCP - General Internal Medicine 01/23/24 documented as of this encounter
--- OUTSIDE RECORDS SUMMARY | 2024-07-09 15:01 | XMS_ITS | Encounter Summary ---
Author Organization [facility] Address [address] [place] [address] Care Team Providers Care Lay Out Former Name Role Phone Shaylee Santa P.A.-C. Primary Care Provider Reason for Visit * Reason Comments Other F\u on post ED visit . * Appointment Request (Routine) - Pending Review Specialty Diagnoses / Procedures Referred By Collin noble Referred To Contact Community Internal Medicine Referral ID Status Reason Start Date Expiration Date V isits Requested Visits Authorized [id number] Pending Review 06/18/2024 06/18/2025 1 1 Encounter Details Date Type Department Care Team ([facility] st Contact Info) Description 07/08/2024 1:40 PM CDT Office Visit Department of Community Internal Medicine in [place], [place] [address] [place] [phone] Shaylee Santa P.A.-C. [address] [place] [phone] Pain Chest Atypical (Primary Dx); Pain Low Back Chronic Social History Tobacco Use Types Packs/Day Years Used Date Smoking Tobacco: Former Cigarettes 1 57 0 05/28/1964 - 09/19/2020 Passive Smoke Exposure: Never Smokeless Tobacco: Never Tobacco Cessation:Counseling Given: Not Answered Alcohol Use Standard Drinks/Week Comments Yes 0 (1 standard drink = 0.6 oz pure alcohol) I might have 2-3 drinks per year [facility] Utilities Answer Date Recorded In [...] ded PHQ-9 Total Score (max 27) 9 05/23 /2024 Nutrition Answer Date Recorded On average, how [...] your living situation today? I have a [facility] place to live 12/03/2023 Sex and Gender [...] 16 07/08/2024 1:35 PM CDT Oxygen Saturation - - Inhaled Oxygen Concentration - - Weight 121 kg (265 lb 15.8 oz) 07/08/2024 1:35 P M CDT Height - - Body Mass Index 47.12 07/07/2024 2:53 PM CDT documented in this encounter Plan of Treatment Upcoming Encounters Date Type Department Care Team (Latest Contact Info) Description 07/21/2024 1:40 PM CDT Office Visit Department of Community Internal Medicine in [place], [place] [address] [place] [phone] Shaylee Santa, P.A.-C. [address] [place] [phone] 08/04/2024 1:00 PM CDT Clinical Support Department of Nutrition in [place] [id number] [place] [phone] Shaylee Santa, P.A.-C. [address] [place] [phone] Stacey Mc, RDN, LD [address] [place] [phone] Discharge Disposition: Home or Self Care documented as of this encounter Visit Diagnoses Diagnosis Pain Chest Atypical- Primary Pain Low Back Chronic documented in this encounter Additional Health Concerns Assessment Noted Time PHQ-9 Depression Total Score: 9 04/16/20 2:15 PM CDT documented as of this encounter Care Teams Lay Out Former Relationship Specialty Start Date End Date Shaylee Santa P.A.-C. [address] [place] [phone] PCP - General Internal Medicine 01/23/24 documented as of this encounter
--- OUTSIDE RECORDS SUMMARY | 2024-07-09 15:01 | XMS_ITS | Encounter Summary ---
Author Organization [facility] Address [address] [place] [address] Care Team Providers Care Body Mechanic Apprentice Name Role Phone Shaylee Santa P.A.-C. Primary Care Provider Reason for Visit * Appointment Request (Routine) - Closed Specialty Diagnoses / Procedures Referred By Collin noble Referred To Contact Nephrology and Hypertension Referral ID Status Reason Start Date Expiration Date Visits Re quested Visits Authorized [id number] Closed 2024 2025 1 1 Encounter Details Date Type Department Care Team (Latest Contact Info) Description 07/07/2024 3:00 PM CDT External Outreach Division of Nephrology and Hypertension in [place], [place] [address] [place] [phone] Jitendra Romero Jr., D.O. [address] [place] [phone] Chronic Kidney Disease (CKD), Stage 3b Glomerular [...] have 2-3 drinks per year [facility] Utilities Answer Date Recorded In the past 12 months has th e [employer], gas, oil, or water [employer] threatened to shut off services in your [...] your living situation today? I have a [facility] place to live 12/03/2023 Sex and Gender Information Value Date Recorded Sex Assigned at Female 04/11/2023 12:22 PM CDT Gender Identity Female 04/11/2023 12:22 PM CDT Sexual Orientation Straight 04/11/2023 12 :22 PM CDT documented as of this encounter Last Filed Vital Signs Vital Sign Reading Time Taken Comments Blood Pressure 130/76 07/07/2024 2:53 PM CDT Pulse 73 07/07/2024 2:53 PM CDT Temperature - - Respiratory Rate - - Oxygen Saturation - - Inhaled Oxygen Concentration - - Weight 120 kg (265 lb 3.4 oz) 07/07/2024 2:53 PM CDT Height 160 cm (5' 3) 07/07/2024 2:53 PM CDT Body Mass Index 46.98 07/07/2024 2:53 PM CDT documented in this encounter Progress Notes * Jitendra Romero Jr., D.O. - 07/07/2024 3:00 PM CDT Referring Provider: Shaylee Santa P.A.-C. SUBJECTIVE REASON FOR VISIT [facility] Follow-up regards CKD HISTORY OF PRESENT ILLNESS Ms. Akers is a 69 y.o. female who presents with CKD stage 4 on the background of prior episodes of acute tubular necrosis, as well as likely hypertensive nephrosclerosis. Since our last visit, she has lost a bit of weight and I congratulated her. She also underwent angiography and stent deployment, she is currently on Plavix and aspirin. We had a long discussion aboutthe benefits and risks of antiplatelet agents, and the rationale behind the use, and I cautioned her about listening to social media reports on why you should quit your anticoagulants. She still feels extremely fatigued. She was a bit frustrated to hear that her hemoglobin is relatively stable as is her creatinine. She feels as though the beta blockers may be adding to this, I discussed the benefits of the beta blockade. Home blood pressures have been high according to the patient, but she notes that her home cuff tends to read high. Today's blood pressure here in clinic was reasonable. No PND no orthopnea she has intermittent episodes of palpitations, I note that she wore a monitoring specialist patch. She relates to me that there was consideration for another intervention. We discussed that it is critical that we revascularize her to the extent that we can, and monitor carefully. Past Medical History: Diagnosis Date Dependence Polysubstance [...] tablet by mouth daily., Disp: , Rfl: gyhlzxhoqhbv-xnwrzbfq-vacbmt (Multivitamin 50 Plus) tablet, Take 1 tablet by mouth daily., Disp: , Rfl: nitroglycerin (NITROSTAT) 0.4 mg SL tablet, Place 0.4 mg under the tongue every 2 (two) hours as needed., Disp: , Rfl: nystatin (NYSTOP) 100,000 unit/gram powder, Apply 2-3 times/day to affected areas as needed for candidiasis, Disp: , Rfl: semaglutide (Wegovy) 0.25 mg/0.5 mL pen injector injection, Inject 0.25 mg under the skin every 7 (seven) days. (Patient not taking: Reported on 06/02/2024), Disp: 2 mL, Rfl: 0 sodium bicarbonate 325 mg tablet, Take 2 tablets (650 mg total) by mouth daily., Disp: 180 tablet, Rfl: 3 SODIUM BICARBONATE ORAL, Take 650 mg by mouth., Disp: , Rfl: tiZANidine (ZANAFLEX) 4 mg capsule, as needed., Disp: , Rfl: traMADoL (Ultram) 50 mg tablet, Take 1 tablet (50 mg total) by mouth at bedtime as needed for pain Indications: Chronic Pain/Nonacute Pain., Disp: 28 tablet, Rfl: 0 UNABLE TO FIND, Med Name: Collagen 3000mg hydrolyzed collagen, Disp: , Rfl: UNABLE TO FIND, Med Name: Magnesium Glycanate 240mg, Nature's Bounty high absorption, Disp: , Rfl: UNABLE TO FIND, Take 1 tablet by mouth daily. Collagen with Vitamin C, Disp: , Rfl: REVIEW OF SYSTEMS All other systems reviewed and are negative. OBJECTIVE BP 130/76 Pulse 73 Ht 160 cm Wt 120 kg BMI 46.98 kg/m?? PHYSICAL EXAMINATION General: Awake alert oriented HEENT: AMY, EOMI, Mucous membranes moist, no oral lesions Neck: No Masses, No Bruits Lungs: Clear to ascultation Heart: Regular Rate and Rhythm, No ectopy Murmurs or rubs, distant tones however Abdomen: Soft, Non-tender, distended Extremities: No cyanosis, No clubbing: No pitting edema Neuro: Cranial Nerves intact, Gait is antalgic strength grossly normal Skin: no suspicious lesions identified Psychiatric: Normal affect DIAGNOSTICS Note creatinine 2.2 mg/dL, hemoglobin 11.1, PTH 95.7 with serum calcium level of 9.4, her urine microalbumin to creatinine ratio is 0 milligrams/gram! ASSESSMENT / PLAN #1 Chronic Kidney Disease (CKD), Stage 3b Glomerular Filtration Rate (GFR) 30 To 44 (HCC) Her CKD is on the background of prior acute kidney injury and acute tubular necrosis. She additionally likely has some nephrosclerosis from ischemic and hypertension issues. Going forward: 1. Goal blood pressure less than 130s over 80s, I encouraged her to calibrate her cuff, and do thison at least a 3 if not 4 time per weekly basis at the same time daily. 2. I have asked her to monitor her pulse particularly if she ever feels dizzy or lightheaded, that would be excellent at this point if she is feeling orthostatic or unwell to check her pressure. 3. I believe she is best served by being on beta blockade even at low-dose, and believe her fatigueto be multifactorial 4. No NSAIDs or Sage 2 inhibitors 5. She should have a 16 oz glass of liquid proximally half an hour prior to any angiographic intervention. 6. I have set up a return visit for 4 months. #2 Hypertensive Chronic Kidney Disease With Stage 1 Through Stage 4 Chronic Kidney Disease, Or Unspecified Chronic Kidney Disease Her blood pressure seems to be well managed, please see my discussion as above she should be on a low-sodium diet. #3 Anemia Of Chronic Disease Her iron studies are normal, she does not need any HOWIE regimen at this point, we would consider this if her hemoglobin reach 10 grams/deciliter or less. #4 Hyperparathyroidism Renal Secondary (HCC) Current PTH level is as expected for her with her degree of CKD no need for any changes in her regimen at this point given the acceptable calcium and phosphorus levels. #5 Ileostomy Status (HCC) She is staying well hydrated, and has not required any intravenous infusions. She has done well following removal of her PICC line which led to bacteremia and sepsis. #6 Stone Kidney Personal History Appreciate that she is doing well and has asymptomatic status. Total time: 30 minutes Counseling Time: 20 minutes Jitendra Romero Jr., D.O. documented in this encounter Plan of Treatment Upcoming Encounters Date Type Department Care Team (Latest Contact Info) Description 07/21/2024 1:40 PM CDT Office Visit Department of Community Internal Medicine in [place], [place] [address] [place] [phone] Shaylee Santa P.A.-C. [address] [place] [phone] 08/04/2024 1:00 PM CDT Clinical Support Department of Nutrition in [address] [phone] Shaylee Santa P.A.-C. [address] [place] [phone] Stacey Mc RDN, [address] [phone] Discharge Disposition: Home or Self Care documented as of this encounter Visit Diagnoses Diagnosis Chronic Kidney Disease (CKD), Stage 3b Glomerular Filtration Rate (GFR) 30 To 44 (HCC)- Primary Hypertensive Chronic Kidney Disease With Stage 1 Through Stage 4 Chronic Kidney Disease, Or Unspecified Chronic Kidney Disease Anemia Of Chronic Disease Hyperparathyroidism Renal Secondary (HCC) Ileostomy Status (HCC) Stone Kidney Personal History documented in this encounter Additional Health Concerns Assessment Noted Time PHQ-9 Depression Total Score: 9 04/16/20 24 2:15 PM CDT documented as of this encounter Care Teams Body Mechanic Apprentice Relationship Specialty Start Date End Date Shaylee Santa P.A.-C. [address] [place] [phone] PCP - General Internal Medicine 01/23/24 documented as of this encounter
--- OUTSIDE RECORDS SUMMARY | 2024-07-09 15:01 | XMS_ITS ---
Author Organization [facility] Address [address] [place] [address] Care Team Providers Care Tire Groover Name Role Phone Unavailable Unavailable Unavailable Surgery Details Not on file Complications Check Surgery Details section. Procedure Estimated Blood Loss Check Surgery Details section. Procedure Findings Check Surgery Details section. Procedure Specimens Taken Check Surgery Details section.
--- OUTSIDE RECORDS SUMMARY | 2024-07-09 15:01 | XMS_ITS | Referral Summary ---
Author Organization [facility] Address [address] [place] [address] Care Team Providers Care Account Retention Representative Name Role Phone Shaylee Santa P.A.-C. Primary Care Provider Source Comments Patient records contain information from all sites at [facility]. For routine questions regarding patient records, call [phone] during business hours, M-F 8:00 AM - 5:00 PM Central Time. Record requests for emergency care only can be directed to [phone] at any time.[facility] Encounters Date Type Department Care Team Description 07/08/2024 1:40 PM CDT Office Visit Department of Community Internal Medicine in [place] [address] [place] [address] Shaylee Santa P.A.-C. Pain Chest Atypical (Primary Dx); Pain Low Back Chronic 07/07/2024 3:00 PM CDT External Outreach Division of Nephrology and Hypertension in [place], [place] [address] [place] [address] Jitendra Romero Jr., D.O. Chronic Kidney Disease [...] CDT Hospital Encounter Department of Radiology in [address] [phone] Shaylee Santa P.A.-CLena Screening Mammogram Breast Cancer Discharge Disposition: Home or Self Care 06/23/2024 Clinical Communication Department of Nutrition in [address] [phone] Stacey Mc, APOLONIAN, LD Communication (Regarding today's appt) 06/21/2024 Refill Department of Community Internal Medicine in [address] [phone] Shaylee Santa P.A.-CLena Med Refill 06/18/2024 Clinical Communication Department of Community Internal Medicine in [address] [phone] Shaylee Santa P.A.-CLena 06/02/2024 2:20 PM CDT Office Visit Department of Community Internal Medicine in [address] [phone] Shaylee Santa P.A.-CLena Coronary Artery Disease Without Angina Pectoris (Primary Dx); Coronary Stent Status Post; Morbid Obesity Body Mass Index 45.0-49.9 Adult ([facility]) 05/26/2024 2:08 PM CDT - 05/26/2024 11:59 PM CDT Hospital Encounter Department of Radiology in [address] [phone] Familia Patiño M.D. Pain Knee Left; Pain Knee Right Discharge Disposition: Home or Self Care 05/26/2024 1:45 PM CDT Office Visit Department of Orthopedic Surgery in [address] [phone] Familia Patiño M.D. Pain Knee Left (Primary Dx); Pain Knee Right Discharge Disposition: Home or Self Care 05/20/2024 Clinical Communication Department of Community Internal Medicine in [address] [phone] Shaylee Santa P.A.-C. Communication (Appt necessary?) 05/18/2024 Refill Department of Community Internal Medicine in [address] [phone] Shaylee Santa P.A.-C. Med Refill 05/05/2024 Clinical Communication Department of Community Internal Medicine in [address] [phone] Shaylee Santa P.A.-C. Order Request (PT for back pain) 05/01/2024 1:16 PM CDT - 05/01/2024 11:59 PM CDT Hospital Encounter Department of Laboratory Medicine in [address] [phone] Jitendra Romero Jr., D.O. Chronic Kidney Disease [...] Communication Department of Community Internal Medicine in [address] [phone] Shaylee Santa P.A.-C. Rx Denial (Wegovy) 04/29/2024 Clinical Communication Department of Community Internal Medicine in [address] [phone] Shaylee Santa P.A.-C. Order Request 04/29/2024 1:40 PM CDT Office Visit Department of Community Internal Medicine in [address] [phone] Shaylee Santa P.A.-C. Coronary Artery Disease Without Angina Pectoris (Primary Dx); Morbid Obesity Body Mass Index 45.0-49.9 Adult (HCC) 04/28/2024 Orders Only [facility] Shaylee Santa P.A.-C. Screening Mammogram Breast Cancer 04/16/2024 2:47 PM CDT - 04/16/2024 11:59 PM CDT Hospital Encounter Department of Laboratory Medicine in [address] [phone] Shaylee Santa P.A.-C. Pain Low Back Chronic Discharge Disposition: Home or Self Care 04/16/2024 1:40 PM CDT Office Visit Department of Community Internal Medicine in [address] [phone] Shaylee Santa P.A.-CLena Pain Low Back Chronic (Primary Dx) 04/13/2024 Clinical Communication Department of Community Internal Medicine in [address] [phone] Shaylee Santa P.A.-CLena 04/13/2024 Abstract [facility] [place], [place] [address] [place] [address] Provider, Historical 04/12/2024 Clinical Communication Department of Community Internal Medicine in [address] [phone] Shaylee Santa P.A.-C. PandaDoc Form ([facility] (Blood Pressure Unit)) 04/10/2024 Clinical Communication Department of Nutrition in [place], [place] [address] [place] [address] Ximena Brown, APOLONIAN, LD 04/10/2024 Orders Only Department of Community Internal Medicine in [address] [phone] Shaylee Santa P.A.-C. Chronic Kidney Disease (CKD), Stage 3b Glomerular Filtration Rate (GFR) 30 To 44 (HCC) (Primary Dx) 04/10/2024 1:40 PM CDT Office Visit Department of Community Internal Medicine in [address] [phone] Shaylee Santa P.A.-C. 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 07/08/20 24 Discontinued(The rapy completed) semaglutide (Wegovy) 0.25 mg/0.5 mL pen injector injectionIndicat ions:Coronary Artery Disease Without Angina Pectoris,Morbid Obesity Body Mass Index 45.0-49.9 Adult ([facility]) Inject 0.25 mg under the skin every [...] other arteries. She had an angiogram in [place] in June of 2022. This was performed after she has an abnormal nuclear stress test which was performed for some shortness of breath and risk factors. Last echocardiogram performed 05/2023 and showed calculated EF of 65%. Following with Cardiology through [facility]. Ileostomy Status 11/06/2022 Overview (09/09/2023): Status post [...] Urge Incontinence 01/19/2021 Overview (09/09/2023): - Has Nubli system. - Urge-predominant mixed urinary incontinence since age 21. - Had several meatoplasties, dilations and a sling in s with porcine graft [place] [address] Mckin[place] in [place] - In the past found myrbetriq 50mg [...] - MODE RNA (12 YEARS AND OLDER) [id number] 09/06/2023 Tdap 07/25/2016 influenza high dose (66 [...] 2-3 drinks per year [facility] Utilities Answer Date Recorded In the past 12 months has e [employer], oil, or water [employer] threatened to shut off services in your [...] your living situation today? I have a [facility] place to live 12/03/2023 Sex and [...] CDT Oxygen Saturation 99% 01/01/2024 12:51 PM TILE DITCHER Inhaled Oxygen Concentration - - Weight 121 kg (265 lb 15.8 oz) 07/08/2024 1:35 P M CDT Height 160 cm (5' 3) 07/07/2024 2:53 PM CDT Body Mass Index 47.12 07/07/2024 2:53 PM CDT Plan of Treatment Upcoming Encounters Date Type Department Care Team (Latest Contact Info) Description 07/21/2024 1:40 PM CDT Office Visit Department of Community Internal Medicine in [place], [place] [address] [facility] [place] [phone] Shaylee Santa P.A.-C. 300 [facility] [place] [place] [phone] 08/04/2024 1:00 PM CDT Clinical Support Department of Nutrition in [place], [place] [address] [place] [address] Shaylee Santa P.A.-C. 300 [facility] [place] [address] Stacey Mc, RDN, LD [address] [place] [address] Discharge Disposition: Home or Self Care Procedures [...] Shaylee Santa P.A.-C. IMG BI PROCEDUR ES * DX Knee Bilateral [...] change. Probableenchondroma proximal left tibial metaphysis. Familia [facility] JONAS GING PROCEDURES * (ABNORMAL) Lipid [...] Romero Jr. D.O. LAB BLOOD AD D-ON [facility] [address] [place] [address], [facility] in [place] [address] [place] [address] * (ABNORMAL) Controlled Substance Monitoring Panel, Urine (04/16/2024 2:51 PM CDT) List patient's current medications Not provided 4 9:54 PM CDT SDS Comment: ----ADDITIONAL INFORMATION---- Accuracy and completeness of declared medications on reports solely dependent on information submitted by client. Creatinine, Random, U 131.3 mg/dL 4 2:21 PM CDT SDSC Specific [place] 1.020 04/17/20 2 4 2:21 PM CDT [...] Cutoff: 25 ng/mL 4 11:08 AM CDT [facility] Comment:Tylenol 3 Nfhmczj-3-pzmp-glucuro nide Not Detected Cutoff: 100 ng/mL 4 11:08 AM CDT [facility]SC Comment:Metabolite of codein e Morphine Not Detected Cutoff: 25 ng/mL 4 11:08 AM CDT [facility]SC Comment: Carmen Zamora, MS Contin; Also a minor metabolite (10%) of codeine and can be seen in low concentrations (<2,000 ng/mL) with poppy seed ingestion. Uexlyjju-2-wncc-glucur onide Not Detected Cutoff: 100 ng/mL 4 11:08 AM CDT [facility] Comment:Metabolite of morphi ne 6-monoacetylmorphine Not Detected Cutoff: 25 ng/mL 4 11:08 AM T [facility] Comment:Metabolite of heroin Hydrocodone Not Detected Cutoff: 25 ng/mL 4 11:08 AM T [facility] Comment: Lortab, [place], Vicodin; Also a very minor metabolite of codeine and impurity (<1%) of oxycodone. Norhydrocodone Not Detected Cutoff: 25 ng/mL 4 11:08 AM T [facility] Comment:Metabolite of hydroc odone Dihydrocodeine Not Detected Cutoff: 25 ng/mL 4 11:08 AM T [facility] Comment:Metabolite of hydroc odone Hydromorphone Not Detected Cutoff: 25 ng/mL 4 11:08 AM T [facility] Comment: Dilaudid, Exalgo; Also a metabolite of hydrocodone and a minor (<5%) metabolite of morphine. Xdcknzcdzdcgc-4-pqtk-g lucuronide Not Detected Cutoff: 100 ng/mL 4 11:08 AM T [facility] Comment:Metabolite of hydrom orphone Oxycodone Not Detected Cutoff: 25 ng/mL 4 11:08 AM T [facility] Comment:Endocet, Percocet, O xycontin Noroxycodone Not Detected Cutoff: 25 ng/mL 4 11:08 AM T [facility] Comment:Metabolite of oxycod one Oxymorphone Not Detected Cutoff: 25 ng/mL 4 11:08 AM T [facility] Comment:Numorphan, Opana; Al so a metabolite of oxycodone. Kbpmzyzqwkd-8-whly-glu curonide Not Detected Cutoff: 100 ng/mL 4 11:08 AM T [facility] Comment:Metabolite of oxymor phone and/or naloxone (nornaloxone) Noroxymorphone Not Detected Cutoff: 25 ng/mL 4 11:08 AM T [facility] Comment:Metabolite of oxymor phone and/or naloxone (nornaloxone) Fentanyl Not Detected Cutoff: 2 ng/mL 4 11:08 AM T [facility] Comment:Actiq, Duragesic, Fe ntora Norfentanyl Not Detected Cutoff: 2 ng/mL 4 11:08 AM CDT [facility] Comment:Metabolite of fentan yl Meperidine Not Detected Cutoff: 25 ng/mL 4 11:08 AM CDT [facility] Comment:Demerol Normeperidine Not Detected Cutoff: 25 ng/mL 4 11:08 AM CDT [facility] Comment:Metabolite of meperi dine Naloxone Not Detected Cutoff: 25 ng/mL 4 11:08 AM CDT [facility] Comment:Narcan Eqcjjich-0-lcty-glucur onide Not Detected Cutoff: 100 ng/mL 4 11:08 AM CDT [facility] Comment:Metabolite of naloxo ne Methadone, U Not Detected Cutoff: 25 ng/mL 4 11:08 AM CDT [facility] Comment:Dolophine EDDP Not Detected Cutoff: 25 ng/mL 4 11:08 AM T [facility] Comment:Metabolite of methad one Propoxyphene Not Detected Cutoff: 25 ng/mL 4 11:08 AM CDT [facility] Comment:Darvon, Darvocet Norpropoxyphene Not Detected Cutoff: 25 ng/mL 4 11:08 AM CDT [facility] Comment:Metabolite of propox yphene Tramadol Present(A) Cutoff: 25 ng/mL 4 11:08 AM T [facility] Comment:Tradol, Ultram, Ultr acet O-desmethyltramadol Present(A) Cutoff: 25 ng/mL 4 11:08 AM CDT [facility] Comment:Metabolite of tramad ol Tapentadol Not Detected Cutoff: 25 ng/mL 4 11:08 AM CDT [facility] Comment:Nucynta N-desmethyltapentadol Not Detected Cutoff: 50 ng/mL 4 11:08 AM CDT [facility] Comment:Metabolite of tapent adol Fwppebgbyg-vhlf-ebfzux onide Not Detected Cutoff: 100 ng/mL 4 11:08 AM CDT [facility] Comment:Metabolite of tapent adol Buprenorphine Not Detected [...] developed and its performance characteristics determined by [facility] in a manner consistent with CLIA requirements. [...] 10 ng/mL 4 11:36 AM CDT [facility] Comment:Metabolite of Chlord iazepoxide, Diazepam, or Prazepam. Flunitrazepam Not Detected Cutoff: 10 ng/mL 4 11:36 AM CDT [facility] Comment:Rohypnol 7-aminoflunitrazepam Not Detected Cutoff: 10 ng/mL 4 11:36 AM CDT [facility] Comment:Metabolite of Flunit razepam Flurazepam Not Detected Cutoff: 10 ng/mL 4 11:36 AM CDT SDS Comment:Dalmane 2-Hydroxy Ethyl Flurazepam Not Detected Cutoff: 10 ng/mL 4 11:36 AM CDT [facility] Comment:Metabolite of Fluraz epam Lorazepam Not Detected Cutoff: 10 ng/mL 4 11:36 AM CDT [facility] Comment:Ativan Lorazepam Glucuronide Not Detected Cutoff: 50 ng/mL 4 11:36 AM CDT [facility] Comment:Metabolite of Loraze rm Midazolam Not Detected Cutoff: 10 ng/mL 4 11:36 AM CDT [facility] Comment:Versed Alpha-Hydroxy Midazolam Not Detected Cutoff: 10 ng/mL 4 11:36 AM CDT [facility] Comment:Metabolite of Midazo vasquez Oxazepam Not Detected Cutoff: 10 ng/mL 4 11:36 AM CDT [facility] Comment:Serax; Also a metabo lite of Chlordiazepoxide, Diazepam, or Temazepam. Oxazepam Glucuronide Not Detected Cutoff: 50 ng/mL 4 11:36 AM CDT SDS Comment:Metabolite of Oxazep am Prazepam Not Detected Cutoff: 10 ng/mL 4 11:36 AM CDT [facility] Comment:Centrax Temazepam Not Detected Cutoff: 10 ng/mL 4 11:36 AM CDT [facility] Comment:Restoril; Also a met abolite of Diazepam. Temazepam Glucuronide Not Detected Cutoff: 50 ng/mL 4 11:36 AM CDT [facility] Comment:Metabolite of Temaze rm Triazolam Not Detected Cutoff: 10 ng/mL 4 11:36 AM CDT [facility] Comment:Halcion Alpha-Hydroxy Triazolam Not Detected Cutoff: 10 ng/mL 4 11:36 AM CDT [facility] Comment:Metabolite of Triazo vasquez Zolpidem Not Detected Cutoff: 10 ng/mL 4 11:36 AM CDT [facility] Comment:Ambien Zolpidem Laxapg-9-Iedjprhxgd acid Not Detected Cutoff: 10 ng/mL 4 [...] developed and its performance characteristics determined by [facility] in a manner consistent with CLIA requirements. [...] 100 ng/mL 4 11:26 AM CDT [facility] 3,2-aapnuxerqkwrtz-H-e thylamphetamine (MDEA) Not Detected Cutoff: 100 ng/mL [...] 100 ng/mL 4 11:26 AM CDT [facility] Comment:Adipex-P, Lomaira, Q symia Phencyclidine (PCP) Not Detected Cutoff: 20 ng/mL 4 11:26 AM CDT [facility] Methylphenidate Not Detected Cutoff: 20 ng/mL 4 11:26 AM CDT [facility] Comment:Ritalin, Concerta Ritalinic acid Not Detected Cutoff: 100 ng/mL 4 11:26 AM CDT [facility] Comment:Metabolite of methyl phenidate Stimulant Interpretation No stimulants were detected. The absence of expected drug(s) and/or drug metabolite(s) may indicate non-compliance, altered pharmacokinetics, inappropriate timing of specimen collection relative to drug administration, diluted/adulterat ed urine, or limitations of testing. 4 11:26 AM CDT [facility] Comment: ----ADDITIONAL INFORMATION---- This test was developed and its performance characteristics determined by [facility] in a manner consistent with CLIA requirements. This test has not been cleared or approved by the U.S. Food and Drug Administration. Urine (Urine, Midstream) 04/16/2024 2:51 PM CDT 04/16/2024 9:54 PM CDT Shaylee Santa P.A.-C. LAB URINE ORDER [facility] [address] [place] [address] [facility] [address] [place] [address] [facility] [address] [place] [address] [place] [address] from Last 3 Months Advance Directives For more information, please contact: [phone] Documents on File Type Date Recorded Patient Change Management Expert Expl anation Advance Directives 04/10/2024 3:51 PM Lynsey Floyd HCPOA/ADVOCATE/AGENT/R EPRESENTATIVE/SURROGAT E Healthcare Agents on File Name Relationship Healthcare Agent Relationship Communication Lynsey Villatoro Daughter Health Care Agent Antoni Floyd Brother First Alternate Health Care Agent Care Teams Account Retention Representative Relationship Specialty Start Date End Date Shaylee Santa P.A.-C. [address] [place] [phone] PCP - General Internal Medicine 01/23/24
--- OUTSIDE RECORDS SUMMARY | 2024-07-09 15:02 | XMS_ITS | Encounter Summary ---
Author Organization [facility] Address [address] [place] [address] Care Team Providers Care Bar Host/Hostess Name Role Phone Shaylee Santa P.A.-C. Primary Care Provider Reason for Visit * Reason Onset Date Comments Order Request 04/29/2024 Encounter Details Date Type Department Care Team (Late st Contact Info) Description 04/29/2024 Clinical Communication Department of Community Internal Medicine in [place], [place] [address] [place] [address] Shaylee Santa P.A.-C. [address] [place] [phone] Order Request Social History Tobacco Use Types Packs/Day Years Used Date Smoking Tobacco: Former Cigarettes 1 57 0 [birth year]/28/1964 - 09/19/2020 Passive Smoke Exposure: Never Smokeless Tobacco: Never Alcohol Use Standard Drinks/Week Comments Yes 0 (1 standard drink = 0.6 oz pure alcohol) I might have 2-3 drinks per year [facility] Utilities Answer Date Recorded In the past 12 months has [facility] [employer], gas, oil, or water [email or web address] threatened to shut off services in your [...] your living situation today? I have a [facility] place to live 12/03/2023 Sex and [...] Visit Department of Community Internal Medicine in [place], [place] [address] [place] [address] Shaylee Santa, P.A.-CLena [address] [place] [phone] 08/04/2024 1:00 PM CDT Clinical Support Department of Nutrition in [address] [phone] Shaylee Santa, P.A.-C. [address] [place] [address] Stacey Mc, RDN, LD [address] [place] [address] Discharge Disposition: Home or Self Care documented as of this encounter Visit Diagnoses Not on filedocumented in this encounter Additional Health Concerns Assessment Noted Time PHQ-9 Depression Total Score: 9 04/16/20 24 2:15 PM CDT documented as of this encounter Care Teams Bar Host/Hostess Relationship Specialty Start Date End Date Shaylee Santa P.A.-C. [address] [place] [phone] PCP - General Internal Medicine 01/23/24 documented as of this encounter
--- OUTSIDE RECORDS SUMMARY | 2024-07-09 15:02 | XMS_ITS | Encounter Summary ---
Author Organization [facility] Address [address] [place] [address] Care Team Providers Care Sales Service Representative Name Role Phone Shaylee Santa P.A.-C. Primary Care Provider Reason for Referral * Outpatient (Routine) - Authorized Specialty Diagnoses / Procedures Referred By Collin noble Referred To Contact Diagnoses Coronary Artery Disease Without Angina Pectoris Shaylee Santa P.A.-C. [address] [place] [address] Referral ID Status Reason Start Date Expiration Date V isits Requested Visits Authorized [id number] Authorized 06/02/2024 12/02/2025 1 1 Reason for Visit * Reason Comments medication BP and medication di scuss We[employer] * Outpatient (Routine) - Closed Specialty Diagnoses / Procedures Referred By Collin noble Referred To Contact Community Internal Medicine Shaylee Santa P.A.-C. [address] [place] [address] [facility] Region Referral ID Status Reason Start Date Expiration Date Visits Re quested Visits Authorized [id number] Closed 04/29/2024 10/29/2025 1 1 Encounter Details Date Type Department Care Team ([facility] st Contact Info) Description 06/02/2024 2:20 PM CDT Office Visit Department of Community Internal Medicine in [place], [place] [address] [facility] [place] [phone] Shaylee Santa P.A.-C. 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 Pectoris (Primary Dx); Coronary Stent Status Post; Morbid Obesity Body Mass Index 45.0-49.9 Adult ([facility]) Social History Tobacco Use Types Packs/Day Years Used Date Smoking Tobacco: Former Cigarettes 1 57 0 05/28/1964 - 09/19/2020 Passive Smoke Exposure: Never Smokeless Tobacco: Never Tobacco Cessation:Counseling Given: Not Answered Alcohol Use Standard Drinks/Week Comments Yes 0 (1 standard drink = 0.6 oz pure alcohol) I might have 2-3 drinks per year [facility] Utilities Answer Date Recorded In the past 12 months has [facility] [employer], oil, or water [employer] threatened to shut off services in your [...] your living situation today? I have a [facility] place to live 12/03/2023 Sex [...] daily by Cardiology team at [facility] 3 weeks ago due to patient feeling lightheaded and fatigue. She has questions about discontinuing this medicationcompletely. She has been attending cardiac rehab at [facility] 3 times weekly since her angioplasty. She [...] Artery Disease Without Angina Pectoris Ileostomy Status ([facility]) Morbid Obesity Body Mass Index 45.0-49.9 Adult ([facility]) Primary Osteoarthritis Hip Left Dehydration Hypertensive [...] Other (see comments) Sertraline Other (see comments) Ochnhsf-Gle-Fca Reductase Inhibitors Other (see comments) and Myalgia [...] tablet by mouth daily., Disp: , Rfl: bxgmoxdgvnat-glyzshgg-thhzie (Multivitamin 50 Plus) tablet, Take 1 tablet [...] Coronary Stent Status Post Angioplasty performed at [facility] March 2024. Stent placed to right coronary [...] will cover her ride to and from [facility] in [place]. I have written an o rder for [...] office visit (clinic) - External referral ancillary (non-[facility]) If symptoms worsen or do not improve, patient is instructed to seek further medical attention. All questions have been answered. Patient demonstrated understanding and verbalized agreement with the plan. Shaylee Santa P.A.-C. documented in this encounter Plan of Treatment Upcoming Encounters Date Type Department Care Team (Latest Contact Info) Description 07/21/2024 1:40 PM CDT Office Visit Department of Community Internal Medicine in [place], [place] [address] [place] [phone] Shaylee Santa P.A.-C. [address] [place] [phone] 08/04/2024 1:00 PM CDT Clinical Support Department of Nutrition in [address] [phone] Shaylee Santa P.A.-C. [address] [place] [phone] Stacey Mc, TD, LD [address] [place] [address] [place] [phone] Discharge Disposition: Home or Self Care documented as of this encounter Visit Diagnoses Diagnosis Coronary Artery Disease Without Angina Pectoris- Primary Coronary Stent Status Post Morbid Obesity Body Mass Index 45.0-49.9 Adult (HCC) documented in this encounter Additional Health Concerns Assessment Noted Time PHQ-9 Depression Total Score: 9 04/16/20 2:15 PM CDT documented as of this encounter Care Teams Sales Service Representative Relationship Specialty Start Date End Date Shaylee Santa P.A.-C. [address] [place] [phone] PCP - General Internal Medicine 01/23/24 documented as of this encounter
--- OUTSIDE RECORDS SUMMARY | 2024-07-09 15:02 | XMS_ITS | Encounter Summary ---
Author Organization [facility] Address [address] [place] [address] Care Team Providers Care Customer Acquisition Specialist Name Role Phone Shaylee Santa P.A.-C. Primary Care Provider Encounter Details Date Type Department Care Team (Latest Contact Info) Description 04/16/2024 2:47 PM CDT - 04/16/2024 11:59 PM CDT Hospital Encounter Department of Laboratory Medicine in [place], [place] [address] [place] [address] Shaylee Santa P.A.-C. [address] [place] [address] Pain Low Back Chronic Discharge Disposition: Home or Self Care Social History Tobacco Use Types Packs/Day Years Used Date Smoking Tobacco: Former Cigarettes 1 57 0 05/28/1964 - 09/19/2020 Passive Smoke Exposure: Never Smokeless Tobacco: Never Alcohol Use Standard Drinks/Week Comments Yes 0 (1 standard drink = 0.6 oz pure alcohol) I might have 2-3 drinks per year [facility] Utilities Answer Date Recorded In the past 12 months has e [employer], gas, oil, or water company threatened to [...] by mouth daily. 180 tablet 3 11/11/2023 UNABLE TO FIND Med Name: Collagen 3000mg hydrolyzed collagen UNABLE TO FIND Med Name: Magnesium Glycanate 240mg, Nature's Bounty high absorption UNABLE TO FIND Take 1 tablet by mouth daily. Collagen with Vitamin C 10/12/2023 tiZANidine (ZANAFLEX) 4 mg capsule as needed. 07/08/2024 traMADoL (ULTRAM) 50 mg tabletIndications:Chr onic Pain/Nonacute [...] Visit Department of Community Internal Medicine in [place], [place] [address] [place] [address] Shaylee Santa, PLenaA.-CLena [address] [place] [phone] 08/04/2024 1:00 PM CDT Clinical Support Department of Nutrition in [address] [phone] Shaylee Santa, P.A.-CLena [address] [place] [address] Stacey Mc RDN, LD [address] [place] [phone] Discharge Disposition: Home or Self Care [...] mg/dL 4 2:21 PM CDT [facility] Specific [place] 1.020 04/17/20 2 4 2:21 PM CDT [...] 4 11:08 AM CDT [facility] Comment:Tylenol 3 Ghwcgis-1-huhi-glucuro nide Not Detected Cutoff: 100 ng/mL 4 11:08 AM CDT [facility] Comment:Metabolite of codein e Morphine Not Detected Cutoff: 25 ng/mL 4 11:08 AM CDT [facility] Comment: Carmen Zamora, MS Contin; Also a minor metabolite (10%) of codeine and can be seen in low concentrations (<2,000 ng/mL) with poppy seed ingestion. Yiiitrlq-1-sptb-glucur onide Not Detected Cutoff: 100 ng/mL 4 11:08 AM CDT [facility] Comment:Metabolite of morphi ne 6-monoacetylmorphine Not Detected Cutoff: 25 ng/mL 4 11:08 AM CDT [facility] Comment:Metabolite of heroin Hydrocodone Not Detected Cutoff: 25 ng/mL 4 11:08 AM T [facility] Comment: Lortab, [place], Vicodin; Also a very minor metabolite of codeine and impurity (<1%) of oxycodone. Norhydrocodone Not Detected Cutoff: 25 ng/mL 4 11:08 AM T SDS Comment:Metabolite of hydroc odone Dihydrocodeine Not Detected Cutoff: 25 ng/mL 4 11:08 AM T [facility] Comment:Metabolite of hydroc odone Hydromorphone Not Detected Cutoff: 25 ng/mL 4 11:08 AM CDT [facility] Comment: Dilaudid, Exalgo; Also a metabolite of hydrocodone and a minor (<5%) metabolite of morphine. Asayyrexvffhn-0-zccx-g lucuronide Not Detected Cutoff: 100 ng/mL 4 11:08 AM T SDS Comment:Metabolite of hydrom orphone Oxycodone Not Detected Cutoff: 25 ng/mL 4 11:08 AM T SDS Comment:Endocet, Percocet, O xycontin Noroxycodone Not Detected Cutoff: 25 ng/mL 4 11:08 AM T [facility] Comment:Metabolite of oxycod one Oxymorphone Not Detected Cutoff: 25 ng/mL 4 11:08 AM T SDS Comment:Numorphan, Opana; Al so a metabolite of oxycodone. Idpzmrcfrwa-4-myna-glu curonide Not Detected Cutoff: 100 ng/mL 4 [...] Cutoff: 25 ng/mL 4 11:08 AM CDT [facility] Comment:Metabolite of meperi dine Naloxone Not Detected Cutoff: 25 ng/mL 4 11:08 AM CDT SDS Comment:Narcan Lmjzrcjc-6-qgsn-glucur onide Not Detected Cutoff: 100 ng/mL 4 [...] AM CDT [facility] Comment:Metabolite of tapent adol Zuumuewpjf-ehdg-bjwees onide Not Detected Cutoff: 100 ng/mL 4 [...] developed and its performance characteristics determined by [facility] in a manner consistent with [...] 10 ng/mL 4 11:36 AM CDT SDS Comment:Versed Alpha-Hydroxy Midazolam Not Detected Cutoff: 10 [...] 4 11:36 AM CDT [facility] Comment:Ambien Zolpidem Iurgev-8-Tsdzjzyawk acid Not Detected Cutoff: 10 ng/mL 4 11:36 AM CDT [facility] Comment:Metabolite of Zolpid em Benzodiazepine Interpretation No benzodiazepines were detected. The absence of expected drug(s) and/or drug metabolite(s) may indicate non-compliance, altered pharmacokinetics, inappropriate timing of specimen collection relative to drug administration, diluted/adulterat ed urine, or limitations of testing. 4 11:36 AM CDT [facility] Comment: ----ADDITIONAL INFORMATION---- This test was developed and its performance characteristics determined by [facility] in a manner consistent with [...] 100 ng/mL 4 11:26 AM CDT [facility] 3,7-snvaqxufeyhlag-D-e thylamphetamine (MDEA) Not Detected Cutoff: 100 ng/mL 4 11:26 AM CDT [facility] 3,4-methylenedioxyamph etamine (MDA) Not Detected Cutoff: 100 ng/mL 4 11:26 AM CDT [facility] Comment:Also a metabolite of MDMA and/or MDEA Ephedrine Not Detected Cutoff: 100 ng/mL 4 11:26 AM CDT [facility] Pseudoephedrine Not Detected Cutoff: 100 ng/mL 4 11:26 AM CDT [facility] Comment:Sudafed Phentermine Not Detected Cutoff: 100 ng/mL 4 11:26 AM CDT [facility] Comment:Adipex-P, Lomaira, Q symia Phencyclidine (PCP) Not Detected Cutoff: 20 ng/mL 4 11:26 AM CDT [facility] Methylphenidate Not Detected Cutoff: 20 ng/mL 4 11:26 AM CDT [facility] Comment:Ritalin, Concerta Ritalinic acid Not Detected Cutoff: 100 ng/mL 4 11:26 AM CDT [facility] Comment:Metabolite of methyl phenidate Stimulant Interpretation No stimulants were detected. The absence of expected drug(s) and/or drug metabolite(s) may indicate non-compliance, altered pharmacokinetics, inappropriate timing of specimen collection relative to drug administration, diluted/adulterat ed urine, or limitations of testing. 4 11:26 AM T [facility] Comment: ----ADDITIONAL INFORMATION---- This test was developed and its performance characteristics determined by [facility] in a manner consistent with CLIA requirements. This test has not been cleared or approved by the U.S. Food and Drug Administration. Urine (Urine, Midstream) 04/16/2024 2:51 PM CDT 04/16/2024 9:54 PM CDT Shaylee Santa P.A.-C. LAB URINE ORDER [facility] [address] [place] [address] [facility] [address] [place] [address] [facility] [address] [place] [address] [place] [address] documented in this encounter Visit Diagnoses Diagnosis Pain Low Back Chronic documented in this encounter Additional Health Concerns Assessment Noted Time PHQ-9 Depression Total Score: 9 04/16/20 24 2:15 PM CDT documented as of this encounter Care Teams Customer Acquisition Specialist Relationship Specialty Start Date End Date Shaylee Santa P.A.-C. [address] [facility] [place] [phone] PCP - General Internal Medicine 01/23/24 documented as of this encounter
--- OUTSIDE RECORDS SUMMARY | 2024-07-09 15:02 | XMS_ITS | Encounter Summary ---
Author Organization [facility] Address [address] [place] [address] Care Team Providers Care Scraper Loader Operator Name Role Phone Shaylee Santa P.A.-C. Primary Care Provider Reason for Visit * Reason Onset Date Comments Communication 06/23/2024 Regarding today' s appt Encounter Details Date Type Department Care Team (Latest Contact Info) Description 06/23/2024 Clinical Communication Department of Nutrition in [place], [place] [address] [place] [address] Stacey Mc, RDN, LD [address] [place] [phone] Communication (Regarding today's appt) Social History Tobacco Use Types Packs/Day Years Used Date Smoking Tobacco: Former Cigarettes 1 57 0 05/28/1964 - 09/19/2020 Passive Smoke Exposure: Never Smokeless Tobacco: Never Alcohol Use Standard Drinks/Week Comments Yes 0 (1 standard drink = 0.6 oz pure alcohol) I might have 2-3 drinks per year [facility] Utilities Answer Date Recorded In the past 12 months has [facility] [employer], gas, oil, or water [employer] threatened to shut off services in your [...] your living situation today? I have a [facility] place to live 12/03/2023 Sex [...] Visit Department of Community Internal Medicine in [place], [place] [address] [facility] [place] [phone] Shaylee Santa P.A.-C. [address] [place] [phone] 08/04/2024 1:00 PM CDT Clinical Support Department of Nutrition in [address] [phone] Shaylee Santa P.A.-C. [address] [place] [address] Stacey Mc, APOLONIAN, [address] [phone] Discharge Disposition: Home or Self Care documented as of this encounter Visit Diagnoses Not on filedocumented in this encounter Additional Health Concerns Assessment Noted Time PHQ-9 Depression Total Score: 9 04/16/20 24 2:15 PM CDT documented as of this encounter Care Teams Scraper Loader Operator Relationship Specialty Start Date End Date Shaylee Santa P.A.-C. 300 [facility] [place] [address] PCP - General Internal Medicine 01/23/24 documented as of this encounter
--- OUTSIDE RECORDS SUMMARY | 2024-07-09 15:02 | XMS_ITS | Encounter Summary ---
Author Organization [facility] Address [address] [place] [address] Care Team Providers Care Torch Solderer Name Role Phone Shaylee Santa P.A.-C. Primary Care Provider Reason for Referral * Physical Therapy (Routine) - Authorized Specialty Diagnoses / Procedures Referred By Collin noble Referred To Contact Diagnoses Pain Low Back Unspecified Pain Knee Left Pain Knee Right Shaylee Santa P.A.-C. [address] [place] [address] Referral ID Status Reason Start Date Expiration Date Visits Requested Visits Authorized [id number] Authorized Service not available in [facility] 05/05/2024 11/04/2025 1 1 Reason for Visit * Reason Onset Date Comments Order Request 05/05/2024 PT for back pain Encounter Details Date Type Department Care Team (Latest Contact Info) Description 05/05/2024 Clinical Communication Department of Community Internal Medicine in [place], [place] [address] [place] [address] Shaylee Santa P.A.-C. [address] [place] [address] Order Request (PT for back pain) Social History Tobacco Use Types Packs/Day Years Used Date Smoking Tobacco: Former Cigarettes 1 57 0 05/28/1964 - 09/19/2020 Passive Smoke Exposure: Never Smokeless Tobacco: Never Alcohol Use Standard Drinks/Week Comments Yes 0 (1 standard drink = 0.6 oz pure alcohol) I might have 2-3 drinks per year [facility] Utilities Answer Date Recorded In the past 12 months has e [employer], gas, oil, or water [employer] threatened to shut off services in your [...] your living situation today? I have a [facility] place to live 12/03/2023 Sex and Gender Information Value Date Recorded Sex Assigned at Female 04/11/2023 12:22 PM CDT Gender Identity Female 04/11/2023 12:22 PM CDT Sexual Orientation Straight 04/11/2023 12 :22 PM CDT documented as of this encounter Miscellaneous Notes * Telephone Encounter - Yecenia Horne L.PLenaN. - 05/05/2024 11:19 AM CDT Order faxed documented in this encounter Plan of Treatment Upcoming Encounters Date Type Department Care Team (Latest Contact Info) Description 07/21/2024 1:40 PM CDT Office Visit Department of Community Internal Medicine in [place], [place] [address] [place] [phone] Shaylee Santa P.A.-C. [address] [place] [phone] 08/04/2024 1:00 PM CDT Clinical Support Department of Nutrition in [address] [phone] Shaylee Santa P.A.-C. [address] [place] [address] Stacey Mc, RDN, LD [address] [place] [phone] Discharge Disposition: Home or Self Care documented as of this encounter Visit Diagnoses Diagnosis Pain Low Back Unspecified- Primary Pain Knee Left Pain Knee Right documented in this encounter Additional Health Concerns Assessment Noted Time PHQ-9 Depression Total Score: 9 04/16/20 24 2:15 PM CDT documented as of this encounter Care Teams Torch Solderer Relationship Specialty Start Date End Date Shaylee Santa P.A.-C. [address] [place], [place] [address] [address] PCP - General Internal Medicine 01/23/24 documented as of this encounter
--- OUTSIDE RECORDS SUMMARY | 2024-07-09 15:02 | XMS_ITS | Encounter Summary ---
Author Organization [facility] Address [address] [place] [address] Care Team Providers Care Dye Stand Loader Name Role Phone Shaylee Santa P.A.-C. Primary Care Provider Reason for Referral * Outpatient (Routine) - Authorized Specialty Diagnoses / Procedures Referred By Collin noble Referred To Contact Orthopedic Surgery Familia Patiño M.D. [address] [place] [address] [facility] Referral ID Status Reason Start Date Expiration Date V isits Requested Visits Authorized [id number] Authorized 05/26/2024 11/25/2025 1 1 * Outpatient (Routine) - Closed Specialty Diagnoses / Procedures Referred By Collin noble Referred To Contact Diagnoses Pain Knee Left Pain Knee Right Procedures DX Knee Bilateral 3 Views Familia Patiño M.D. [address] [place] [address] [facility] Region Referral ID Status Reason Start Date Expiration Date Visits Re quested Visits Authorized [id number] Closed 05/26/2024 05/26/2025 1 1 Reason for Visit * Reason Comments Follow-up Pain Pain Pain * Outpatient (Routine) - Closed Specialty Diagnoses / Procedures Referred By Collin t Referred To Contact Orthopedic Surgery Familia Patiño M.D. [address] [place] [address] [facility] Region Referral ID Status Reason Start Date Expiration Date Visits Re quested Visits Authorized [id number] Closed 02/25/2024 08/26/2025 1 1 Encounter Details Date Type Department Care Team (Late st Contact Info) Description 05/26/2024 1:45 PM CDT Office Visit Department of Orthopedic Surgery in [address] [phone] Familia Patiño M.D. [address] [place] [address] Pain Knee Left (Primary Dx); [...] I might have 2-3 drinks per year [facility] Utilities Answer Date Recorded In the past 12 months has [facility] [employer], gas, oil, or water [employer] threatened to shut off services in your [...] living situation today? I have a [facility] place to live 12/03/2023 Sex and [...] DIAGNOSTICS X-rays of both her knees demonstrate egme-uw-jmeczwiu degenerative changes, especially to the medial compartment [...] Visit Department of Community Internal Medicine in [place], [place] [address] [place] [phone] Shaylee Santa P.A.-C. [address] [place] [phone] 08/04/2024 1:00 PM CDT Clinical Support Department of Nutrition in [address] [phone] Shaylee Santa P.A.-C. [address] [place] [phone] Stacey Mc, [place] [address] [place] [phone] Discharge Disposition: Home or Self Care Scheduled [...] documented as of this encounter Care Teams Dye Stand Loader Relationship Specialty Start Date End Date Shaylee Santa P.A.-C. [address] [place] [phone] PCP - General Internal Medicine 01/23/24 documented as of this encounter
--- OUTSIDE RECORDS SUMMARY | 2024-07-09 15:02 | XMS_ITS | Encounter Summary ---
Author Organization [facility] Address [address] [place] [address] Care Team Providers Care Floor Trader Name Role Phone Shaylee Santa P.A.-C. Primary Care Provider Reason for Visit * Reason Onset Date Comments Communication 05/20/2024 Appt necessary? Encounter Details Date Type Department Care Team (Latest Contact Info) Description 05/20/2024 Clinical Communication Department of Community Internal Medicine in [place], [place] [address] [place] [address] Shaylee Santa P.A.-C. [address] [place] [phone] Communication (Appt necessary?) Social History Tobacco Use Types Packs/Day Years Used Date Smoking Tobacco: Former Cigarettes 1 57 0 [birth year]/28/1964 - 09/19/2020 Passive Smoke Exposure: Never Smokeless Tobacco: Never Alcohol Use Standard Drinks/Week Comments Yes 0 (1 standard drink = 0.6 oz pure alcohol) I might have 2-3 drinks per year [facility] Utilities Answer Date Recorded In the past 12 months has e [employer], gas, oil, or water company threatened to [...] Visit Department of Community Internal Medicine in [place], [place] [address] [facility] [place] [phone] Shaylee Santa P.A.-C. 300 [facility] [place] [address] 08/04/2024 1:00 PM CDT Clinical Support Department of Nutrition in [place], [place] [address] [place] [phone] Shaylee Santa P.A.-CLena [address] [place] [address] Stacey Mc, APOLONIAN, [address] [place] [phone] Discharge Disposition: Home or Self Care documented as of this encounter Visit Diagnoses Not on filedocumented in this encounter Additional Health Concerns Assessment Noted Time PHQ-9 Depression Total Score: 9 04/16/20 24 2:15 PM CDT documented as of this encounter Care Teams Floor Trader Relationship Specialty Start Date End Date Shaylee Santa P.A.-C. 300 [facility] [place] [address] PCP - General Internal Medicine 01/23/24 documented as of this encounter
--- OUTSIDE RECORDS SUMMARY | 2024-07-09 15:02 | XMS_ITS | Encounter Summary ---
Author Organization [facility] Address [address] [place] [address] Care Team Providers Care Military Aircraft Designer Name Role Phone Shaylee Santa P.A.-C. Primary Care Provider Reason for Visit * Reason Onset Date Comments Rx Denial 04/29/2024 [employer] Encounter Details Date Type Department Care Team (Latest Contact Info) Description 04/29/2024 Clinical Communication Department of Community Internal Medicine in [place], [place] [address] [place] [address] Shaylee Santa P.A.-C. [address] [place] [phone] Rx Denial (Weg[employer]) Social History Tobacco Use Types Packs/Day Years Used Date Smoking Tobacco: Former Cigarettes 1 57 0 [birth year]/28/1963 - 09/19/2020 Passive Smoke Exposure: Never Smokeless Tobacco: Never Alcohol Use Standard Drinks/Week Comments Yes 0 (1 standard drink = 0.6 oz pure alcohol) I might have 2-3 drinks per year [facility] Utilities Answer Date Recorded In the past 12 months has e [employer], gas, oil, or water [employer] threatened to shut off services in your [...] Notes * Telephone Encounter - Kwesi Roldan L.PLenaNLena - 05/06/2024 2:37 PM CDT Left detailed [...] Visit Department of Community Internal Medicine in [place], [place] [address] [place] [phone] Shaylee Santa P.A.-C. [address] [place] [phone] 08/04/2024 1:00 PM CDT Clinical Support Department of Nutrition in [place], [place] [address] [place] [phone] Shaylee Santa P.A.-C. [address] [place] [phone] Stacey Mc, RDN, LD [address] [place] [phone] Discharge Disposition: Home or Self Care documented as of this encounter Visit Diagnoses Not on filedocumented in this encounter Additional Health Concerns Assessment Noted Time PHQ-9 Depression Total Score: 9 04/16/20 24 2:15 PM CDT documented as of this encounter Care Teams Military Aircraft Designer Relationship Specialty Start Date End Date Shaylee Santa P.A.-C. [address] [place] [address] MANNY David [phone] PCP - General Internal Medicine 01/23/24 documented as of this encounter
--- OUTSIDE RECORDS SUMMARY | 2024-07-09 15:02 | XMS_ITS | Encounter Summary ---
Author Organization [facility] Address [address] [place] [address] Care Team Providers Care Commis Chef Name Role Phone Shaylee Santa P.A.-C. Primary Care Provider Reason for Visit * Reason Comments Med Refill Encounter Details Date Type Department Care Team (Late st Contact Info) Description 05/18/2024 Refill Department of Community Internal Medicine in [place], [place] [address] [place] [address] Shaylee Santa P.A.-C. [address] [place] [address] Med Refill Social History Tobacco [...] Recorded In the past 12 months has [employer], gas, oil, or water [employer] threatened to shut off services in your [...] your living situation today? I have a [facility] place to live 12/03/2023 Sex and [...] Visit Department of Community Internal Medicine in [place], [place] [address] [place] [address] Shaylee Santa P.A.-C. [address] [place] [phone] 08/04/2024 1:00 PM CDT Clinical Support Department of Nutrition in [place], [place] [address] [place] [address] Shaylee Santa P.A.-C. 300 [facility] [place] [address] Stacey Mc, RDN, LD [address] [place] [address] Discharge Disposition: Home or Self Care documented as of this encounter Visit Diagnoses Diagnosis Pain Low Back Chronic- Primary Chronic Pain Syndrome documented in this encounter Additional Health Concerns Assessment Noted Time PHQ-9 Depression Total Score: 9 04/16/20 2:15 PM CDT documented as of this encounter Care Teams Commis Chef Relationship Specialty Start Date End Date Shaylee Santa P.A.-C. 300 [facility] [place] [address] PCP - General Internal Medicine 01/23/24 documented as of this encounter
--- OUTSIDE RECORDS SUMMARY | 2024-07-09 15:02 | XMS_ITS | Encounter Summary ---
Author Organization [facility] Address [address] [place] [address] Care Team Providers Care Hotel Office Manager Name Role Phone Shaylee Santa P.A.-C. Primary Care Provider Reason for Referral * Outpatient (Routine) - Closed Specialty Diagnoses / Procedures Referred By Collin noble Referred To Contact Community Internal Medicine Shaylee Santa P.A.-C. [address] [place] [address] [facility] Referral ID Status Reason Start Date Expiration Date Visits Re quested Visits Authorized [id number] Closed 04/29/2024 10/29/2025 1 1 Reason for Visit * Reason Comments Follow-up States overnight hos pital stay at [facility] for a stent placement. * Appointment Request (Routine) - Closed Specialty Diagnoses / Procedures Referred By Collin noble Referred To Contact Family Medicine Referral ID Status Reason Start Date Expiration Date Visits Re quested Visits Authorized [id number] Closed 04/10/2024 04/10/2025 1 1 Encounter Details Date Type Department Care Team (Late st Contact Info) Description 04/29/2024 1:40 PM CDT Office Visit Department of Community Internal Medicine in [place], [place] [address] [place] [address] Shaylee Santa P.A.-C. 300 [facility] [place] [place] [address] Coronary Artery Disease Without Angina [...] I might have 2-3 drinks per year [facility] Utilities Answer Date Recorded In the past 12 months has e [employer], gas, oil, or water [employer] threatened to shut off services in your [...] your living situation today? I have a [facility] place to live 12/03/2023 [...] with Follow-up States overnight hospital stay at [facility] for a stent placement. HISTORY OF PRESENT ILLNESS Dilan Akers is a pleasant 68 y.o. female with a PMHx of coronary artery disease and obesity who presents to the clinic today for follow up after cardiac catheterization at [facility] on 04/21/2024. She had a stent placed in right coronary artery which was 100% blocked prior to her procedure. The right and left common femoral artery were used as access points. She was discharged on Plavix for 1 year minimum. She will be participating in cardiac rehab at [facility] in [place]. Her blood pressure is well controlled in [...] Without Angina Pectoris Ileostomy Status ([facility]) Morbid Obesity Body Mass Index 45.0-49.9 Adult ([facility]) Primary Osteoarthritis Hip Left Dehydration Hypertensive [...] Other (see comments) Sertraline Other (see comments) Pdhbnco-Hhl-Gse Reductase Inhibitors Other (see comments) and Myalgia [...] mg by mouth daily., Disp: , Rfl: okemhluuyhsh-bnwchgjh-nwexzi (Multivitamin 50 Plus) tablet, Take 1 tablet [...] to follow with her Cardiology team at [facility]. She will be participating in Cardiac Rehabilitation here at [facility] in [place]. #2 Morbid Obesity Body Mass Index 45.0-49.9 Adult ([facility]) Previously attempted to send GLP-1 agonist [...] Visit Department of Community Internal Medicine in [address] [phone] Shaylee Santa P.A.-C. 300 [facility] [place] [address] 08/04/2024 1:00 PM CDT Clinical Support Department of Nutrition in [place], [place] [address] [place] [address] Shaylee Santa P.A.-C. 300 [facility] [address] [facility] [place] [address] Stacey Mc, APOLONIAN, [address] [place] [address] Discharge Disposition: Home or Self Care Scheduled [...] documented as of this encounter Care Teams Hotel Office Manager Relationship Specialty Start Date End Date Shaylee Santa P.A.-C. 300 [facility] [place] [address] PCP - General Internal Medicine 01/23/24 documented as of this encounter
--- OUTSIDE RECORDS SUMMARY | 2024-07-09 15:02 | XMS_ITS | Encounter Summary ---
Author Organization [facility] Address [address] [place] [address] Care Team Providers Care Casing Fluid Tender Name Role Phone Shaylee Santa P.A.-C. Primary Care Provider Encounter Details Date Type Department Care Team (Late st Contact Info) Description 06/18/2024 Clinical Communication Department of Community Internal Medicine in [place], [place] [address] [place] [address] Shaylee Santa P.A.-C. [address] [place] [phone] Social History Tobacco Use Types Packs/Day Years Used Date Smoking Tobacco: Former Cigarettes 1 57 0 05/28/1964 - 09/19/2020 Passive Smoke Exposure: Never Smokeless Tobacco: Never Alcohol Use Standard Drinks/Week Comments Yes 0 (1 standard drink = 0.6 oz pure alcohol) I might have 2-3 drinks per year [facility] Utilities Answer Date Recorded In the past [address] [facility] [employer], gas, oil, or water company threatened [...] your living situation today? I have a [facility] to live 12/03/2023 Sex and Gender Information Value Date Recorded Sex Assigned at Female 04/11/2023 12:22 PM CDT Gender Identity Female 04/11/2023 12:22 PM CDT Sexual Orientation Straight 04/11/2023 12 :22 PM CDT documented as of this encounter Miscellaneous Notes * Telephone Encounter - Jeannine Chaudhari L.P.N. - 06/22/2024 11:56 AM CDT Please advise, patient states her right breast is hanging much lower than the left and the pain is back. * Telephone Encounter - Loraine Hoyos R.N. - 06/19/2024 12:59 PM CDT SUBJECTIVE CHIEF COMPLAINT / REASON FOR CALL No chief complaint on file. ASSESSMENT They did an Xray, EKG and took blood work. They told her it was either a pulled muscle, inflammation between breast bone and ribs or possibly a bruise, but she states there is no bruise and she had no injury. She is wondering what could cause the inflammation. They recommended pain relievers and heat. She can't take acetaminophen which is what they recommended. She has Tramadol and asked them if she could use that and they told her yes. She took one yesterday evening and again later that night. She can't take during the cause it makes her drowsy, she states it didn't do much for the pain, but it did allow her to sleep through the pain. She has a hard time with application of heat, but she has a hard time with sitting still because ofthe pain, she is going to take a nap after a little while and will try to use a heating pad while she is napping to see if that helps. PLAN Patient is requesting advise for pain relief with her limited options due to allergies and intolerances. She is also wondering what could have possible caused inflammation between her ribs and breastbone. She is scheduled for an ED follow-up on 07/08/24 as that was your earliest available appointment, isthat too far out? Should/Can we use a same day spot on Saturday or of next week (she needs a couple days to line up a ride through her insurance). Disposition/Recommendation: notified provider and awaiting recommendations. Information/Education: patient/caller able to teach back. Caller agreeable to plan of care: yes. The following references were used: other Patient Report . * Telephone Encounter - Eileen Elliott - 06/18/2024 4:32 PM CDT Patient is scheduled for first available afternoon appointment on July 08 documented in this encounter Plan of Treatment Upcoming Encounters Date Type Department Care Team (Latest Contact Info) Description 07/21/2024 1:40 PM CDT Office Visit Department of Community Internal Medicine in [place], [place] [address] [place] [phone] Shaylee Santa P.A.-C. 300 [place] [phone] 08/04/2024 1:00 PM CDT Clinical Support Department of Nutrition in [address] [address] Shaylee Santa P.A.-C. 300 [place] [phone] Stacey Mc, APOLONIAN, LD [address] [place] [address] Discharge Disposition: Home or Self Care documented as of this encounter Visit Diagnoses Not on filedocumented in this encounter Additional Health Concerns Assessment Noted Time PHQ-9 Depression Total Score: 9 04/16/20 24 2:15 PM CDT documented as of this encounter Care Teams Casing Fluid Tender Relationship Specialty Start Date End Date Shaylee Santa P.A.-C. 300 [facility] [place], [place] [phone] PCP - General Internal Medicine 01/23/24 documented as of this encounter
--- OUTSIDE RECORDS SUMMARY | 2024-07-09 15:02 | XMS_ITS | Encounter Summary ---
Author Organization [facility] Address [address] [place] [address] Care Team Providers Care Entertainment Dancer Name Role Phone Shaylee Santa P.A.-C. Primary Care Provider Reason for Referral * Outpatient (Routine) - Closed Specialty Diagnoses / Procedures Referred By Collin noble Referred To Contact Diagnoses Screening Mammogram Breast Cancer Procedures BI Breast Screening Bilateral with Tomosynthesis Shaylee Santa P.A.-C. [address] [place] [address] [facility] Referral ID Status Reason Start Date Expiration Date Visits Re quested Visits Authorized [id number] Closed 04/28/2024 04/28/2025 1 1 Encounter Details Date Type Department Care Team (Late st Contact Info) Description 04/28/[address] [facility] PCP TH MNT Shaylee Santa P.A.-C. 300 [place] [address] Screening Mammogram Breast Cancer Social [...] the past 12 months has th e [employer], gas, oil, or water [employer] threatened to shut off services in your [...] Visit Department of Community Internal Medicine in [place], [place] [address] [place] [phone] Shaylee Santa P.ALena-C. 300 [place] [phone] 08/04/2024 1:00 PM CDT Clinical Support Department of Nutrition in [address] [phone] Shaylee Santa, P.A.-C. 300 [place] [phone] Stacey Mc, APOLONIAN, LD [address] [place] [phone] Discharge Disposition: Home or Self Care documented as of this encounter Results * BI Breast Screening [...] Visit Diagnoses Diagnosis Screening Mammogram Breast Cancer Screening Mammogram Breast Cancer documented in this encounter Additional Health Concerns Assessment Noted Time PHQ-9 Depression Total Score: 9 04/16/20 24 2:15 PM CDT documented as of this encounter Care Teams Entertainment Dancer Relationship Specialty Start Date End Date Shaylee Santa P.A.-C. [address] [place] [address] PCP - General Internal Medicine 01/23/24 documented as of this encounter
--- OUTSIDE RECORDS SUMMARY | 2024-07-09 15:02 | XMS_ITS | Encounter Summary ---
Author Organization [facility] Address [address] [place] [address] Care Team Providers Care Emotional Disabilities Teacher Name Role Phone Shaylee Santa P.A.-C. Primary Care Provider Reason for Referral * Outpatient (Routine) - Closed Specialty Diagnoses / Procedures Referred By Contac t Referred To Contact Diagnoses Pain Knee Left Pain Knee Right Procedures DX Knee Bilateral 3 Views Familia Patiño M.D. [address] [place] [address] [facility] Referral ID Status Reason Start Date Expiration Date Visits Re quested Visits Authorized [id number] Closed 05/26/2024 05/26/2025 1 1 Reason for Visit * Outpatient (Routine) - Closed Specialty Diagnoses / Procedures Referred By Contac t Referred To Contact Diagnoses Pain Knee Left Pain Knee Right Procedures DX Knee Bilateral 3 Views Familia Patiño M.D. [address] [place] [address] [facility] Referral ID Status Reason Start Date Expiration Date Visits Re quested Visits Authorized [id number] Closed 05/26/2024 05/26/2025 1 1 Encounter Details Date Type Department Care Team (Latest Contact Info) Description 05/26/2024 2:08 PM CDT - 05/26/2024 11:59 PM CDT Hospital Encounter Department of Radiology in [address] [place] [phone] Familia Patiño M.D. 701 [facility] [place] [phone] Pain Knee Left; Pain Knee Right Discharge Disposition: Home or Self Care Social History Tobacco Use Types Packs/Day Years Used Date Smoking Tobacco: Former Cigarettes 1 57 0 05/28/1964 - 09/19/2020 Passive Smoke Exposure: Never Smokeless Tobacco: Never Alcohol Use Standard Drinks/Week Comments Yes 0 (1 standard drink = 0.6 oz pure alcohol) I might have 2-3 drinks per year [facility] Utilities Answer Date Recorded In the past 12 months has [facility] [employer], gas, oil, or water [employer] threatened to shut off services in your [...] your living situation today? I have a [facility] place to live 12/03/2023 Sex and [...] 4 mg capsule as needed. 07/08/2024 traMADoL (Ultram) 50 mg tabletIndications:Chr onic Pain/Nonacute Pain Take 1 tablet (50 mg total) by mouth at bedtime as needed for severe pain or score 7-10 of 10 Indications: Chronic Pain/Nonacute Pain. 28 tablet 05/20/2024 06/23/2024 documented as of this encounter Plan of Treatment Upcoming Encounters Date Type Department Care Team (Latest Contact Info) Description 07/21/2024 1:40 PM CDT Office Visit Department of Community Internal Medicine in [place], [place] [address] [place] [phone] Shaylee Santa, P.A.-CLena [address] [place] [address] 08/04/2024 1:00 PM CDT Clinical Support Department of Nutrition in [address] [phone] Shaylee Santa, P.A.-CLena [address] [place] [address] Stacey Mc, APOLONIAN, LD [address] [place] [phone] Discharge Disposition: Home or Self Care [...] documented as of this encounter Care Teams Emotional Disabilities Teacher Relationship Specialty Start Date End Date Shaylee Santa P.A.-C. [address] [place] [phone] PCP - General Internal Medicine 01/23/24 documented as of this encounter
--- OUTSIDE RECORDS SUMMARY | 2024-07-09 15:02 | XMS_ITS | Encounter Summary ---
Author Organization [facility] Address [address] [place] [address] Care Team Providers Care Occupational Therapist Home Based Name Role Phone Shaylee Santa P.A.-C. Primary Care Provider Encounter Details Date Type Department Care Team (Latest Contact Info) Description 05/01/2024 1:16 PM CDT - 05/01/2024 11:59 PM CDT Hospital Encounter Department of Laboratory Medicine in [place], [place] [address] [place] [phone] Jitendra Romero Jr., D.O. [address] [place] [address] Chronic Kidney Disease (CKD), Stage 3b Glomerular [...] I might have 2-3 drinks per year [facility] Utilities Answer Date Recorded In the past 12 months has th e [employer], [employer], oil, or water [employer] threatened to shut off services in your [...] your living situation today? I have a [facility] place to live 12/03/2023 Sex and [...] Visit Department of Community Internal Medicine in [address] [place] [phone] Shaylee Santa P.A.-C. 375 [facility] [place] [address] 08/04/2024 1:00 PM CDT Clinical Support Department of Nutrition in [place], [place] [address] [place] [address] Shaylee Santa P.A.-C. 300 [facility] [place] [address] Stacey Mc, APOLONIAN, LD [address] [place] [address] Discharge Disposition: Home or Self [...] Romero Jr. D.OLena LAB BLOOD AD D-ON [facility] [address], [place] [address], [facility] in [place] [address] [place] [address] documented in this encounter Visit Diagnoses Diagnosis [...] documented as of this encounter Care Teams Occupational Therapist Home Based Relationship Specialty Start Date End Date Shaylee Santa P.A.-C. [address] [place] [phone] PCP - General Internal Medicine 01/23/24 documented as of this encounter
--- OUTSIDE RECORDS SUMMARY | 2024-07-09 15:02 | XMS_ITS | Encounter Summary ---
Author Organization [facility] Address [address] [place] [address] Care Team Providers Care Business Intelligence Developer Name Role Phone Shaylee Santa P.A.-C. Primary Care Provider Reason for Visit * Reason Comments Med Refill Encounter Details Date Type Department Care Team (Late st Contact Info) Description 06/21/2024 Refill Department of Community Internal Medicine in [place], [place] 300 [place] [address] Shaylee Santa P.A.-C. 300 [place] [phone] Med Refill Social History Tobacco Use Types Packs/Day Years Used Date Smoking Tobacco: Former Cigarettes 1 57 0 05/28/1964 - 09/19/2020 Passive Smoke Exposure: Never Smokeless Tobacco: Never Alcohol Use Standard Drinks/Week Comments Yes 0 (1 standard drink = 0.6 oz pure alcohol) I might have 2-3 drinks per year [facility] Utilities Answer Date Recorded In the past 12 months has [employer], gas, oil, or water [employer] threatened to shut off services in your [...] living situation today? I have a [facility] place to live 12/03/2023 Sex and Gender Information Value Date Recorded Sex Assigned at Female 04/11/2023 12:22 PM CDT Gender Identity Female 04/11/2023 12:22 PM CDT Sexual Orientation Straight 04/11/2023 12 :22 PM CDT documented as of this encounter Miscellaneous Notes * Telephone Encounter - Emelina Ta L.PLenaNLena - 06/23/2024 2:13 PM CDT Controlled substance renewal for Tramadol 50 mg: No nursing concerns Renewal is pended per the controlled substance prescribing plan located in problem list; pain low back chronic Date last renewed (start date): 05/20/2024 Last provider visit: 06/02/2024 Urine Drug Screen last resulted on: 04/18/2024; Next due: 03/2025 Screenings due: Current Next provider visit due: 11/2024 Controlled substance agreement last reviewed/signed 04/16/2024 This prescription may be filled on 06/23/2024, and next renewal may be on or after 07/21/2024 * Telephone Encounter - Lisa Garcia - 06/22/2024 11:37 AM CDT Nurse review: Med Refill Team is unable to forward request to provider. Controlled Substance, CSA Primary Provider: Shaylee Santa P.A.-C. Requested Prescriptions Pending Prescriptions Disp Refills traMADoL (Ultram) 50 mg tablet [Pharmacy Med Name: TRAMADOL HCL 50MG TABS] 28 tablet 0 Sig: TAKE ONE TABLET BY MOUTH ONCE EVERY DAY AT BEDTIME NEEDED FOR SEVERE PAIN OR SCORE 7-10 OF 10. documented in this encounter Plan of Treatment Upcoming Encounters Date Type Department Care Team (Latest Contact Info) Description 07/21/2024 1:40 PM CDT Office Visit Department of Community Internal Medicine in [address] [phone] Shaylee Santa P.A.-C. 300 [facility] [place] [address] 08/04/2024 1:00 PM CDT Clinical Support Department of Nutrition in [place], [place] [address] [place] [address] Shaylee Santa P.A.-C. 300 [facility] [place] [address] Stacey Mc, APOLONIAN, LD [address] [place] [address] Discharge Disposition: Home or Self Care documented as of this encounter Visit Diagnoses Diagnosis Pain Low Back Chronic Chronic Pain Syndrome documented in this encounter Additional Health Concerns Assessment Noted Time PHQ-9 Depression Total Score: 9 04/16/20 2:15 PM CDT documented as of this encounter Care Teams Business Intelligence Developer Relationship Specialty Start Date End Date Shaylee Santa P.A.-C. 300 [facility] [place] [address] PCP - General Internal Medicine 01/23/24 documented as of this encounter
--- OUTSIDE RECORDS SUMMARY | 2024-07-09 15:03 | XMS_ITS | Encounter Summary ---
Author Organization [facility] Address [address] [place] [address] Care Team Providers Care Loan Reviewer Name Role Phone Shaylee Santa P.A.-C. Primary Care Provider Reason for Referral * Outpatient (Routine) - Authorized Specialty Diagnoses / Procedures Referred By Collin t Referred To Contact Nutrition Diagnoses Chronic Kidney Disease (CKD), Stage 3b Glomerular Filtration Rate (GFR) 30 To 44 (HCC) Shaylee Santa P.A.-C. [address] [place] [phone] [facility] Region Referral ID Status Reason Start Date Expiration Date V isits Requested Visits Authorized [id number] Authorized 04/13/2024 10/13/2025 1 1 Encounter Details Date Type Department Care Team (Late st Contact Info) Description 04/10/2024 Clinical Communication Department of Nutrition in [place], [place] [address] [place] [address] Ximena Brown, APOLONIAN, LD [address] [place] [address] Social History Tobacco Use Types [...] the past 12 months has th e [employer], gas, oil, or water company threatened to [...] living situation today? I have a [facility] place to live 12/03/2023 Sex and [...] Visit Department of Community Internal Medicine in [place], [place] [address] [place] [address] Shaylee Santa P.A.-C. 300 [place] [address] 08/04/2024 1:00 PM CDT Clinical Support Department of Nutrition in [address] [phone] Shaylee Santa P.A.-C. [address] [place] [address] Stacey Mc, APOLONIAN, LD [address] [place] [address] Discharge Disposition: Home or Self Care Scheduled [...] documented as of this encounter Care Teams Loan Reviewer Relationship Specialty Start Date End Date Shaylee Santa P.A.-C. [address] [place] [phone] PCP - General Internal Medicine 01/23/24 documented as of this encounter
--- OUTSIDE RECORDS SUMMARY | 2024-07-09 15:03 | XMS_ITS | Encounter Summary ---
Author Organization [facility] Address [address] [place] [address] Care Team Providers Care Imaging System Administrator Name Role Phone Shaylee Santa P.A.-C. Primary Care Provider Reason for Referral * Outpatient (Routine) - Authorized Specialty Diagnoses / Procedures Referred By Collin noble Referred To Contact Community Internal Medicine Shaylee Santa P.A.-C. [address] [place] [address] [facility] Referral ID Status Reason Start Date Expiration Date V isits Requested Visits Authorized [id number] Authorized 04/17/2024 10/17/2025 1 1 Reason for Visit * Reason Comments Med Refill * Appointment Request (Routine) - Closed Specialty Diagnoses / Procedures Referred By Collin noble Referred To Contact Family Medicine Referral ID Status Reason Start Date Expiration Date Visits Re quested Visits Authorized [id number] Closed 04/13/2024 04/13/2025 1 1 Encounter Details Date Type Department Care Team ([facility] st Contact Info) Description 04/16/2024 1:40 PM CDT Office Visit Department of Community Internal Medicine in [place], [place] [address] [place] [address] Shaylee Santa P.A.-C. [address] [place] [phone] Pain Low Back Chronic (Primary Dx) Social History Tobacco Use Types Packs/Day Years Used Date Smoking Tobacco: Former Cigarettes 1 57 0 05/28/1964 - 09/19/2020 Passive Smoke Exposure: Never Smokeless Tobacco: Never Tobacco Cessation:Counseling Given: Not Answered Alcohol Use Standard Drinks/Week Comments Yes 0 (1 standard drink = 0.6 oz pure alcohol) I might have 2-3 drinks per year [facility] Utilities Answer Date Recorded In the past 12 months has e [employer], gas, oil, or water [employer] threatened to shut off services in your [...] Pain: Take Steps to Regain Your Life (Georgian) * Important Information About Opioid Medications (Georgian) * Eating To Help With Chronic Pain (Georgian) * Benefits, Side Effects and Risks of Taking Opioid Medications (Georgian) documented in this encounter Progress Notes * [...] least 15 years for back pain at [facility]. She currently takes tramadol 50 mg at [...] Other (see comments) Sertraline Other (see comments) Gkyjibc-Qii-Arm Reductase Inhibitors Other (see comments) and Myalgia [...] mg by mouth daily., Disp: , Rfl: sukfykvtnayb-ugpmrrnx-msivdb (Multivitamin 50 Plus) tablet, Take 1 tablet [...] Low Back Chronic. Chronic Pain/Nonacute Pain. An fertilizer supervisor was not used for this discussion. PEG [...] and provided: Controlled Substance Agreement-Chronic Opioid Therapy (ZE8408-16)., Important Information About Opioid Medications (YY0840)., Chronic Pain: Take Steps to Regain Your Life (VA1591)., Controlled Substance Agreement: Safe Use of Controlled Substances (JO1191-526)., Side effects and precautions., Do not drive/operate [...] Department of Community Internal Medicine in [place], [place] [address] [place] [phone] Shaylee Santa P.A.-C. [address] [place] [phone] 08/04/2024 1:00 PM CDT Clinical Support Department of Nutrition in [address] [address] Shaylee Santa P.A.-C. 300 [facility] [place] [address] Stacey Mc, RDN, LD [address] [place] [address] Discharge Disposition: Home or Self Care [...] mg/dL 4 2:21 PM CDT [facility] Specific [place] 1.020 04/17/20 2 4 2:21 PM CDT [...] 4 11:08 AM CDT [facility] Comment:Tylenol 3 Jdoldpf-8-gnip-glucuro nide Not Detected Cutoff: 100 ng/mL 4 11:08 AM CDT [facility] Comment:Metabolite of codein e Morphine Not Detected Cutoff: 25 ng/mL 4 11:08 AM CDT [facility] Comment: Carmen Zamora, MS Contin; Also a minor metabolite (10%) of codeine and can be seen in low concentrations (<2,000 ng/mL) with poppy seed ingestion. Xsnnfuja-0-rjzb-glucur onide Not Detected Cutoff: 100 ng/mL 4 11:08 AM CDT [facility] Comment:Metabolite of morphi ne 6-monoacetylmorphine Not Detected Cutoff: 25 ng/mL 4 11:08 AM CDT [facility] Comment:Metabolite of heroin Hydrocodone Not Detected Cutoff: 25 ng/mL 4 11:08 AM CDT [facility] Comment: Lortab, [place], Vicodin; Also a very minor metabolite of codeine and impurity (<1%) of oxycodone. Norhydrocodone Not Detected Cutoff: 25 ng/mL 4 11:08 AM CDT [facility] Comment:Metabolite of hydroc odone Dihydrocodeine Not Detected Cutoff: 25 ng/mL 4 11:08 AM CDT [facility] Comment:Metabolite of hydroc odone Hydromorphone Not Detected Cutoff: 25 ng/mL 4 11:08 AM CDT [facility] Comment: Dilaudid, Exalgo; Also a metabolite of hydrocodone and a minor (<5%) metabolite of morphine. Wtqnmfyqdrgiz-0-vezb-g lucuronide Not Detected Cutoff: 100 ng/mL 4 11:08 AM CDT [facility] Comment:Metabolite of hydrom orphone Oxycodone Not Detected Cutoff: 25 ng/mL 4 11:08 AM CDT [facility] Comment:Endocet, Percocet, O xycontin Noroxycodone Not Detected Cutoff: 25 ng/mL 4 11:08 AM T [facility] Comment:Metabolite of oxycod one Oxymorphone Not Detected Cutoff: 25 ng/mL 4 11:08 AM T [facility] Comment:Numorphan, Opana; Al so a metabolite of oxycodone. Tqxuutwlhbp-5-iwbw-glu curonide Not Detected Cutoff: 100 ng/mL 4 11:08 AM CDT [facility] Comment:Metabolite of oxymor phone and/or naloxone (nornaloxone) Noroxymorphone Not Detected Cutoff: 25 ng/mL 4 11:08 AM CDT [facility] Comment:Metabolite of oxymor phone and/or naloxone (nornaloxone) Fentanyl Not Detected Cutoff: 2 ng/mL 4 11:08 AM T [facility] Comment:Actiq, Duragesic, Fe ntora Norfentanyl Not Detected Cutoff: 2 ng/mL 4 11:08 AM T [facility] Comment:Metabolite of fentan yl Meperidine Not Detected Cutoff: 25 ng/mL 4 11:08 AM T [facility] Comment:Demerol Normeperidine Not Detected Cutoff: 25 ng/mL 4 11:08 AM T [facility] Comment:Metabolite of meperi dine Naloxone Not Detected Cutoff: 25 ng/mL 4 11:08 AM T [facility] Comment:Narcan Arsrmnvg-3-xbjs-glucur onide Not Detected Cutoff: 100 ng/mL 4 11:08 AM T [facility] Comment:Metabolite of naloxo ne Methadone, U Not Detected Cutoff: 25 ng/mL 4 11:08 AM CDT [facility] Comment:Dolophine EDDP Not Detected Cutoff: 25 ng/mL 4 11:08 AM T [facility] Comment:Metabolite of methad one Propoxyphene Not Detected Cutoff: 25 ng/mL 4 11:08 AM T [facility] Comment:Darvon, Darvocet Norpropoxyphene Not Detected Cutoff: 25 ng/mL 4 11:08 AM T [facility] Comment:Metabolite of propox yphene Tramadol Present(A) Cutoff: 25 ng/mL 4 11:08 AM CDT [facility] Comment:Tradol, Ultram, Ultr acet O-desmethyltramadol Present(A) Cutoff: 25 ng/mL 4 11:08 AM CDT [facility] Comment:Metabolite of tramad ol Tapentadol Not Detected Cutoff: 25 ng/mL 4 11:08 AM CDT [facility] Comment:Nucynta N-desmethyltapentadol Not Detected Cutoff: 50 ng/mL 4 11:08 AM CDT [facility] Comment:Metabolite of tapent adol Nzpyzlusqs-vbit-wpomcl onide Not Detected Cutoff: 100 ng/mL 4 [...] developed and its performance characteristics determined by [facility] in a manner consistent with CLIA requirements. [...] Cutoff: 10 ng/mL 4 11:36 AM CDT [facility] Comment:Metabolite of Chlord iazepoxide, Diazepam, or Prazepam. Flunitrazepam Not Detected Cutoff: 10 ng/mL 4 11:36 AM CDT [facility] Comment:Rohypnol 7-aminoflunitrazepam Not Detected Cutoff: 10 ng/mL 4 11:36 AM CDT [facility] Comment:Metabolite of Flunit razepam Flurazepam Not Detected Cutoff: 10 ng/mL 4 11:36 AM CDT [facility] Comment:Dalmane 2-Hydroxy Ethyl Flurazepam Not Detected [...] Cutoff: 10 ng/mL 4 11:36 AM CDT [facility] Comment:Metabolite of Midazo vasquez Oxazepam Not [...] 4 11:36 AM CDT [facility] Comment:Ambien Zolpidem Kknnbz-5-Bqtuucbccj acid Not Detected Cutoff: 10 ng/mL 4 [...] developed and its performance characteristics determined by [facility] in a manner consistent with CLIA requirements. [...] 100 ng/mL 4 11:26 AM CDT [facility] 3,5-eaxsqrvknmwydi-S-e thylamphetamine (MDEA) Not Detected Cutoff: 100 ng/mL 4 11:26 AM CDT [facility] 3,4-methylenedioxyamph etamine (MDA) Not Detected Cutoff: 100 ng/mL 4 11:26 AM CDT [facility] Comment:Also a metabolite of MDMA and/or MDEA Ephedrine Not Detected Cutoff: 100 ng/mL 4 11:26 AM CDT [facility] Pseudoephedrine Not Detected Cutoff: 100 ng/mL 4 11:26 AM CDT [facility] Comment:Sudafed Phentermine Not Detected Cutoff: 100 ng/mL [...] limitations of testing. 4 11:26 AM T [facility] Comment: ----ADDITIONAL INFORMATION---- This test was developed and its performance characteristics determined by [facility] in a manner consistent with CLIA requirements. This test has not been cleared or approved by the U.S. Food and Drug Administration. Urine (Urine, Midstream) 04/16/2024 2:51 PM CDT 04/16/2024 9:54 PM CDT Shaylee Deanovic P.A.-C. LAB URINE ORDER [facility] [address] [place] [address] [facility] [address] [place] [address] [facility] [address] [place] [address] [place] [address] documented in this encounter Visit Diagnoses Diagnosis Pain Low Back Chronic- Primary documented in this encounter Additional Health Concerns Assessment Noted Time PHQ-9 Depression Total Score: 9 04/16/20 24 2:15 PM CDT documented as of this encounter Care Teams Imaging System Administrator Relationship Specialty Start Date End Date Shaylee Santa P.A.-C. [address] [place] [phone] PCP - General Internal Medicine 01/23/24 documented as of this encounter
--- OUTSIDE RECORDS SUMMARY | 2024-07-09 15:03 | XMS_ITS | Encounter Summary ---
Author Organization [facility] Address [address] [place] [address] Care Team Providers Care Storm Window Installer Name Role Phone Shaylee Santa P.A.-C. Primary Care Provider Reason for Visit * Appointment Request (Routine) - Closed Specialty Diagnoses / Procedures Referred By Collin noble Referred To Contact Nephrology and Hypertension Referral ID Status Reason Start Date Expiration Date Visits Re quested Visits Authorized [id number] Closed 03/05/2024 03/05/2025 1 1 Encounter Details Date Type Department Care Team (Latest Contact Info) Description 03/31/2024 1:30 PM CDT External Outreach Division of Nephrology and Hypertension in [place], [place] [address] [place] [address] Jitendra Romero Jr., D.O. [address] [place] [address] Chronic Kidney Disease (CKD), Stage 3b Glomerular [...] I might have 2-3 drinks per year [facility] Utilities Answer Date Recorded In the past 12 months has th e [employer], gas, oil, or water [employer] threatened to shut off services in your [...] your living situation today? I have a [facility] place to live 12/03/2023 Sex and [...] in this encounter Progress Notes * Jitendra Romeor Jr., D.O. - 03/31/2024 1:30 PM CDT Referring Provider: Shaylee Santa P.A.-C. SUBJECTIVE REASON FOR VISIT [facility] Follow-up regards CKD [...] by vaginal route., Disp: , Rfl: ruben copb-fstwmelj-nhdtktfgr ac ([place] Oil) 1,000 mg capsule, Take by mouth., [...] mg by mouth daily., Disp: , Rfl: kkeifhetsykp-deaasqrw-lydmob (Multivitamin 50 Plus) tablet, Take 1 tablet [...] Visit Department of Community Internal Medicine in [place], [place] [address] [place] [address] Shaylee Santa P.A.-C. [address] [place] [address] 08/04/2024 1:00 PM CDT Clinical Support Department of Nutrition in [address] [address] Shaylee Santa P.A.-C. [address] [place] [address] Stacey Mc, RDN, [address] [place] [address] Discharge Disposition: Home or Self [...] documented as of this encounter Care Teams Storm Window Installer Relationship Specialty Start Date End Date Shaylee Santa P.A.-C. 300 [facility] [place] [phone] PCP - General Internal Medicine 01/23/24 documented as of this encounter
--- OUTSIDE RECORDS SUMMARY | 2024-07-09 15:03 | XMS_ITS | Encounter Summary ---
Author Organization [facility] Address [address] [place] [address] Care Team Providers Care Assembler Latches And Springs Name Role Phone Shaylee Santa P.A.-C. Primary Care Provider Encounter Details Date Type Department Care Team (Late st Contact Info) Description 04/10/2024 Orders Only Department of Community Internal Medicine in [place], [place] [address] [place] [address] Shaylee Santa P.A.-C. 300 [place] [phone] Chronic Kidney Disease (CKD), Stage 3b Glomerular [...] I might have 2-3 drinks per year [facility] Utilities Answer Date Recorded In the past 12 months has e [employer], gas, oil, or water company threatened to [...] Visit Department of Community Internal Medicine in [place], [place] [address] [facility] [place] [phone] Shaylee Santa P.A.-C. [address] [place] [address] 08/04/2024 1:00 PM CDT Clinical Support Department of Nutrition in [place] [address] [place] [phone] Shaylee Santa P.A.-C. [address] [place] [address] Stacey Mc RDN, [address] [place] [phone] Discharge Disposition: Home or Self Care documented as of this encounter Visit Diagnoses Diagnosis Chronic Kidney Disease (CKD), Stage 3b Glomerular Filtration Rate (GFR) 30 To 44 (HCC)- Primary documented in this encounter Additional Health Concerns Assessment Noted Time PHQ-9 Depression Total Score: 12 023 1:03 PM CDT documented as of this encounter Care Teams Assembler Latches And Springs Relationship Specialty Start Date End Date Shaylee Santa P.A.-C. 300 [facility] [address] [place] [address] PCP - General Internal Medicine 01/23/24 documented as of this encounter
--- OUTSIDE RECORDS SUMMARY | 2024-07-09 15:03 | XMS_ITS | Encounter Summary ---
Author Organization [facility] Address [address] [place] [address] Care Team Providers Care Commercial Truck Driver Name Role Phone Shaylee Santa P.A.-C. Primary Care Provider Reason for Visit * Reason Comments Other Discuss concerns bef ore surgery. * Appointment Request (Routine) - Closed Specialty Diagnoses / Procedures Referred By Collin t Referred To Contact Community Internal Medicine Referral ID Status Reason Start Date Expiration Date Visits Re quested Visits Authorized [id number] Closed 04/03/2024 04/03/2025 1 1 Encounter Details Date Type Department Care Team ([facility] st Contact Info) Description 04/10/2024 1:40 PM CDT Office Visit Department of Community Internal Medicine in [place], [place] [address] [place] [phone] Shaylee Santa P.A.-C. [address] [place] [phone] Coronary Artery Disease Without Angina Pectoris (Primary [...] 2-3 drinks per year [facility] Utilities Answer Date Recorded In the past 12 months has th e [employer], gas, oil, or water company threatened to [...] your living situation today? I have a [facility] place to live 12/03/2023 Sex and [...] prior to upcoming angiogram scheduled 04/21/2024 through [facility]. She would like to follow up on hot flashes/night sweats discussed at previous clinic visit. She was informed that these symptoms are likely from her heart by her Cardiology team. [facility].She wonders if she can discontinue black cohosh, primrose oil and flaxseed oilprior to her angiogram. Of note, she is due for breast cancer screening but had this completed recently at [facility]. She wonders about a referral for renal [...] Without Angina Pectoris Ileostomy Status ([facility]) Morbid Obesity Body Mass Index 45.0-49.9 [...] Other (see comments) Sertraline Other (see comments) Hlimwrn-Typ-Wzl Reductase Inhibitors Other (see comments) and Myalgia [...] mg by mouth daily., Disp: , Rfl: bqubwxniqsjp-rzeesilt-pzwfvt (Multivitamin 50 Plus) tablet, Take 1 tablet [...] She will proceed with upcoming angiogram at [facility] as scheduled. She would like to know if she can discontinue a few of her supplements prior to procedure (black cohosh, [place] oil, and flaxseed oil) and I told her this is fine. #2 Screening Mammogram Breast Cancer She recently had a screening mammogram completed at [facility] this spring. She will notify us of results and date of completion so we can update health maintenance. #3 Chronic Kidney Disease (CKD), Stage 3b Glomerular Filtration Rate (GFR) 30 To 44 (HCC) She follows with Nephrology and is interested in meeting with a dietitian to discuss renal diet. This has been ordered for her in [place]. - Nutrition - General medical nutrition therapy [...] Visit Department of Community Internal Medicine in [place], [place] [address] [place] [address] Shaylee Santa P.A.-C. [address] [place] [address] 08/04/2024 1:00 PM CDT Clinical Support Department of Nutrition in [address] [address] Shaylee Santa P.A.-C. [address] [place] [address] Stacey Mc, [place] [address] [place] [address] Discharge Disposition: Home or Self Care [...] documented as of this encounter Care Teams Commercial Truck Driver Relationship Specialty Start Date End Date Shaylee Santa P.A.-C. [address] [place] [address] PCP - General Internal Medicine 01/23/24 documented as of this encounter
--- OUTSIDE RECORDS SUMMARY | 2024-07-09 15:03 | XMS_ITS | Encounter Summary ---
Author Organization [facility] Address [address] [place] [address] Care Team Providers Care Ingredient Specialist Name Role Phone Shaylee Santa P.A.-C. Primary Care Provider Reason for Visit * Reason Comments Med Refill Encounter Details Date Type Department Care Team (Late st Contact Info) Description 03/31/2024 Refill Department of Family Medicine, [facility], in [address] [phone] Elvie Shaw M.D. [address] [place] [phone] Med Refill Social History Tobacco Use Types Packs/Day Years Used Date Smoking Tobacco: Former Cigarettes 1 57 0 05/28/1964 - 09/19/2020 Passive Smoke Exposure: Never Smokeless Tobacco: Never Alcohol Use Standard Drinks/Week Comments Yes 0 (1 standard drink = 0.6 oz pure alcohol) I might have 2-3 drinks [address] [facility] Utilities Answer Date Recorded In the past 12 months has [facility] [employer], gas, oil, or water [employer] threatened to shut off services in your [...] 10 * Telephone Encounter - Georgiana Cassidy L.PLenaNLena - 04/03/2024 10:10 AM CDT Controlled substance [...] Visit Department of Community Internal Medicine in [place], [place] [address] [place] [phone] Shaylee Santa P.A.-C. 300 [place] [phone] 08/04/2024 1:00 PM CDT Clinical Support Department of Nutrition in [address] [phone] Shaylee Santa P.A.-CLena [address] [place] [address] Stacey Mc, RDN, LD [address] [place] [address] Discharge Disposition: Home or Self Care documented as of this encounter Visit Diagnoses Not on filedocumented in this encounter Additional Health Concerns Assessment Noted Time PHQ-9 Depression Total Score: 12 023 1:03 PM CDT documented as of this encounter Care Teams Ingredient Specialist Relationship Specialty Start Date End Date Shaylee Santa P.A.-C. [address] [place] [phone] PCP - General Internal Medicine 01/23/24 documented as of this encounter
--- OUTSIDE RECORDS SUMMARY | 2024-07-09 15:03 | XMS_ITS | Encounter Summary ---
Author Organization [facility] Address [address] [place] [address] Care Team Providers Care Student Success Coach Name Role Phone Shaylee Santa P.A.-C. Primary Care Provider Reason for Visit * Reason Onset Date Comments PandaDoc Form 04/12/2024 [facility] (Blo od Pressure Unit) Encounter Details Date Type Department Care Team (Latest Contact Info) Description 04/12/2024 Clinical Communication Department of Community Internal Medicine in [place], [place] [address] [place] [address] Shaylee Santa P.A.-C. 300 [place] [address] PandaDoc Form ([facility] (Blood Pressure Unit)) Social History Tobacco Use Types Packs/Day Years Used Date Smoking Tobacco: Former Cigarettes 1 57 0 05/28/1963 - 09/19/2020 Passive Smoke Exposure: Never Smokeless Tobacco: Never Alcohol Use Standard Drinks/Week Comments Yes 0 (1 standard drink = 0.6 oz pure alcohol) I might have 2-3 drinks per year [facility] Utilities Answer Date Recorded In the past 12 months has e [employer], gas, oil, or water [employer] threatened to shut off services in your [...] your living situation today? [facility] 12/03/2023 Sex [...] routed to Shaylee Santa for electronic review/signature. TELETYPEWRITER INSTALLER: [employer] [place] PHONE NUMBER: [phone] INFO REQUESTED: Blood Pressure Unit INSTRUCTIONS: Fax information to [phone] documented in this encounter Plan of Treatment Upcoming Encounters Date Type Department Care Team (Latest Contact Info) Description 07/21/2024 1:40 PM CDT Office Visit Department of Community Internal Medicine in [place], [place] [address] [place] [address] Shaylee Santa P.A.-C. 300 [place] [address] 08/04/2024 1:00 PM CDT Clinical Support Department of Nutrition in [address] [phone] Shaylee Santa P.A.-C. 300 [place] [address] Stacey Mc APOLONIAN, LD [address] [place] [phone] Discharge Disposition: Home or Self Care documented as of this encounter Visit Diagnoses Not on filedocumented in this encounter Additional Health Concerns Assessment Noted Time PHQ-9 Depression Total Score: 12 023 1:03 PM CDT documented as of this encounter Care Teams Student Success Coach Relationship Specialty Start Date End Date Shaylee Santa P.A.-C. [address] [place] [phone] PCP - General Internal Medicine 01/23/24 documented as of this encounter
--- OUTSIDE RECORDS SUMMARY | 2024-07-09 15:03 | XMS_ITS | Encounter Summary ---
Author Organization [facility] Address [address] [place] [address] Care Team Providers Care Liquid Chlorine Operator Name Role Phone Shaylee Santa P.A.-C. Primary Care Provider Encounter Details Date Type Department Care Team (Late st Contact Info) Description 04/03/2024 Clinical Communication Department of Community Internal Medicine in [place], [place] [address] [place] [address] Shaylee Santa P.A.-C. [address] [place] [phone] Social History Tobacco Use Types Packs/Day Years Used Date Smoking Tobacco: Former Cigarettes 1 57 0 05/28/1964 - 09/19/2020 Passive Smoke Exposure: Never Smokeless Tobacco: Never Alcohol Use Standard Drinks/Week Comments Yes 0 (1 standard drink = 0.6 oz pure alcohol) I might have 2-3 drinks per year [facility] Utilities Answer Date Recorded In the past 12 months has [facility] [place], gas, oil, or water company threatened to [...] your living situation today? I have a [facility] place to live 12/03/2023 Sex and Gender Information Value Date Recorded Sex Assigned at Female 04/11/2023 12:22 PM CDT Gender Identity Female 04/11/2023 12:22 PM CDT Sexual Orientation Straight 04/11/2023 12 :22 PM CDT documented as of this encounter Miscellaneous Notes * Telephone Encounter - Yecenia Horne L.P.N. - 04/06/2024 1:07 PM CDT Order faxed to Taj in [facility] * Telephone Encounter - Gertrude Sanchez [...] Visit Department of Community Internal Medicine in [place], [place] [address] [place] [phone] Shaylee Santa P.A.-C. [address] [place] [phone] 08/04/2024 1:00 PM CDT Clinical Support Department of Nutrition in [place], [place] [address] [place] [phone] Shaylee Santa P.A.-Aaron [address] [place] [phone] Stacey Mc, TD, LD [address] [place] [phone] Discharge Disposition: Home or Self Care documented as of this encounter Visit Diagnoses Diagnosis Hypertensive Chronic Kidney Disease (CKD) Stage 3b Glomerular Filtration Rate (GFR) 30 To 44- Primary documented in this encounter Additional Health Concerns Assessment Noted Time PHQ-9 Depression Total Score: 12 023 1:03 PM CDT documented as of this encounter Care Teams Liquid Chlorine Operator Relationship Specialty Start Date End Date Shaylee Santa P.A.-C. [address] [place] [phone] PCP - General Internal Medicine 01/23/24 documented as of this encounter
--- OUTSIDE RECORDS SUMMARY | 2024-07-09 15:03 | XMS_ITS | Encounter Summary ---
Author Organization [facility] Address [address] [place] [address] Care Team Providers Care Powertrain Design Engineer Name Role Phone Shaylee Santa P.A.-C. Primary Care Provider Encounter Details Date Type Department Care Team (Late st Contact Info) Description 04/13/2024 Abstract [place], [place] [address] [place] [phone] Provider, Historical Social History Tobacco Use Types Packs/Day Years Used Date Smoking Tobacco: Former Cigarettes 1 57 0 05/28/1964 - 09/19/2020 Passive Smoke Exposure: Never Smokeless Tobacco: Never Alcohol Use Standard Drinks/Week Comments Yes 0 (1 standard drink = 0.6 oz pure alcohol) I might have 2-3 drinks per year [place] Utilities Answer Date Recorded In the past 12 months has [employer] gas, oil, or water [employer] threatened to shut off services in your [...] your living situation today? I have a [facility] place to live 12/03/2023 Sex [...] Visit Department of Community Internal Medicine in [place], [place] [address] [facility] [place] [phone] Shaylee Santa P.A.-C. 300 [facility] [place] [phone] 08/04/2024 1:00 PM CDT Clinical Support Department of Nutrition in [place], [place] [address] [place] [phone] Shaylee Santa P.A.-C. 300 [place] [phone] Stacey Mc, APOLONIAN, [address] [place] [phone] Discharge Disposition: Home or Self Care documented as of this encounter Visit Diagnoses Not on filedocumented in this encounter Additional Health Concerns Assessment Noted Time PHQ-9 Depression Total Score: 12 023 1:03 PM CDT documented as of this encounter Care Teams Powertrain Design Engineer Relationship Specialty Start Date End Date Shaylee Santa P.A.-C. 300 [facility] [place] [phone] PCP - General Internal Medicine 01/23/24 documented as of this encounter
--- OUTSIDE RECORDS SUMMARY | 2024-07-09 15:03 | XMS_ITS | Encounter Summary ---
Author Organization [facility] Address [address] [place] [address] Care Team Providers Care Ball Assembler Name Role Phone Shaylee Santa P.A.-C. Primary Care Provider Encounter Details Date Type Department Care Team (Late st Contact Info) Description 04/13/2024 Clinical Communication Department of Community Internal Medicine in [place], [place] [address] [place] [phone] Shaylee Santa P.A.-C. [address] [place] [phone] Social History Tobacco Use Types Packs/Day Years Used Date Smoking Tobacco: Former Cigarettes 1 57 0 05/28/1964 - 09/19/2020 Passive Smoke Exposure: Never Smokeless Tobacco: Never Alcohol Use Standard Drinks/Week Comments Yes 0 (1 standard drink = 0.6 oz pure alcohol) I might have 2-3 drinks per year [facility] Utilities Answer Date Recorded In the past 12 months has [facility] [employer], gas, oil, or water company threatened to [...] your living situation today? I have a [facility] place to live 12/03/2023 Sex [...] Visit Department of Community Internal Medicine in [place], [place] 300 [facility] [place] [phone] Shaylee Santa P.A.-C. 300 [facility] [place] [phone] 08/04/2024 1:00 PM CDT Clinical Support Department of Nutrition in [address] [phone] Shaylee Santa P.A.-C. 300 [facility] [place] [phone] Stacey Mc, TD, [address] [place] [phone] Discharge Disposition: Home or Self Care documented as of this encounter Visit Diagnoses Not on filedocumented in this encounter Additional Health Concerns Assessment Noted Time PHQ-9 Depression Total Score: 12 023 1:03 PM CDT documented as of this encounter Care Teams Ball Assembler Relationship Specialty Start Date End Date Shaylee Santa P.A.-C. 300 [facility] [place] [phone] PCP - General Internal Medicine 01/23/24 documented as of this encounter
== END 2024-07-03 13:51 | disposition home or self-care (01) ==
LOC: NFLDREF 07-09 14:58
PROVIDERS: Visit Provider Internal Medicine Nephrology
DX: I12.9 Hypertensive chronic kidney disease with stage 1 through stage 4 chronic kidney disease, or unspecified chronic kidney disease (principal); N18.32 Chronic kidney disease, stage 3b; R53.83 Other fatigue; I25.10 Atherosclerotic heart disease of native coronary artery without angina pectoris; D63.8 Anemia in other chronic diseases classified elsewhere
CPT/HCPCS: 80069; 82043; 82570; 82728; 83540; 83550; 83970; 84550; 87086

== ENCOUNTER 2024-11-04 14:02 | Outpatient (CLI) | payer MEDICARE, SELFPAY | END 2024-11-04 14:03 | disposition home or self-care (01) | LOC: NFLDREF 11-05 12:48 | PROVIDERS: Visit Provider Internal Medicine Nephrology | DX: N18.30 Chronic kidney disease, stage 3 unspecified (principal); I10 Essential (primary) hypertension; D63.8 Anemia in other chronic diseases classified elsewhere; E11.9 Type 2 diabetes mellitus without complications | CPT/HCPCS: 80069; 82043; 82306; 82570; 82607; 82728; 83540; 83550; 83970; 84550; 86140; 87086 ==

== ENCOUNTER 2024-11-15 17:00 | Emergency (ER) | payer MEDICARE, SELFPAY ==
[2024-11-15 17:06] VITALS: BP 120/91; PULSE 101; RESP 16; TEMP 36; O2SAT 93; BMI 45.2
--- NOTE | 2024-11-15 17:56 | ED_ITS ---
HPI - General Adult General Chief complaint: Hypertension Stated complaint: Abnormal blood pressure, fears of heart attack Time Seen by Provider: 11/15/24 17:23 History of Present Illness HPI narrative: This 69-year-old female comes in reporting generalized malaise for the past 4 5 days. She states that she feels lightheaded at times. She does not specify any other symptoms. She does report concern about elevated blood pressure. She brings in recordings of pressure she has checked at home and the highest systolic value was 128. She does not report any chest pain. She does not have any nausea, vomiting, or diarrhea. She does not report any fevers or upper respiratory symptoms. Related Data Home Medications ?Medication ?Instructions ?Recorded ?Confirmed aspirin 81 mg chewable tablet 81 mg PO QDAY 09/20/22 11/09/24 calcium carbonate (Calcium 600) 600 mg PO QDAY 01/28/23 11/09/24 magnesium glycinate See Rx Instructions PO DAILY 07/02/23 11/09/24 cholecalciferol (vitamin D3) 50 50 mcg PO QDAY 07/23/23 11/09/24 mcg (2,000 unit) capsule (Vitamin D3) lactated Ringers IV 07/23/23 11/09/24 multivitamin (Multiple Vitamins 1 tab PO QDAY 07/23/23 11/09/24 tablet) fluticasone propionate 50 1 spray intranasal QDAY PRN 08/05/23 11/09/24 mcg/actuation nasal spray,suspension nystatin 100,000 unit/gram topical 1 applic topical QDAY PRN 08/05/23 11/09/24 powder collagen and Biotin 3 tab PO DAILY 10/29/23 11/09/24 amlodipine 10 mg tablet 5 mg PO QDAY 03/31/24 11/09/24 clopidogrel 75 mg tablet (Plavix) 75 mg PO QDAY 07/07/24 11/09/24 cetirizine 10 mg capsule (Zyrtec) 5 mg PO QDAY PRN 11/09/24 11/09/24 evolocumab 140 mg/mL subcutaneous 140 mg subcut Q2W 11/09/24 11/09/24 pen injector (Nancy Hsu) semaglutide (weight loss) 1.7 1.7 mg subcut QWEEK 11/09/24 11/09/24 mg/0.75 mL subcutaneous pen injector (Saida) Previous Rx's ?Medication ?Instructions ?Recorded tramadol 50 mg tablet 50 mg PO QDAY #90 tabs 07/23/23 ezetimibe 10 mg tablet 10 mg PO QDAY #90 tabs 07/30/23 lansoprazole 30 mg capsule,delayed 30 mg PO QDAY #90 caps 07/30/23 release aripiprazole 10 mg tablet (Abilify) 10 mg PO QHS #90 tabs 08/08/23 sodium bicarbonate 650 mg tablet 650 mg PO DAILY #90 tabs 11/13/23 ergocalciferol (vitamin D2) 1,250 1,250 mcg PO QWEEK #12 caps 01/16/24 mcg (50,000 unit) capsule (Vitamin D2) Allergies Allergy/AdvReac Type Severity Reaction Status Date / Time propoxyphene Allergy Intermediate hives, Verified 11/09/24 15:00 nausea, vomiting erythromycin base Allergy Hives Verified 11/09/24 15:00 phenylpropanolamine Allergy Unknown Verified 11/09/24 15:00 adhesive tape AdvReac Intermediate Rash Verified 11/09/24 15:00 codeine AdvReac Intermediate Nausea and Verified 11/09/24 15:00 vomiting hydrocodone AdvReac Intermediate Hives Verified 11/09/24 15:00 Penicillins AdvReac Intermediate Hives Verified 11/09/24 15:00 acetaminophen AdvReac Mild Nausea Verified 11/09/24 15:00 famotidine AdvReac Mild Diarrhea Verified 11/09/24 15:00 ibuprofen AdvReac Mild nausea Verified 11/09/24 15:00 metoclopramide AdvReac Mild Nausea Verified 11/09/24 15:00 cefuroxime AdvReac Unknown Verified 11/09/24 15:00 chlordiazepoxide AdvReac Unknown Verified 11/09/24 15:00 diazepam AdvReac Unknown Verified 11/09/24 15:00 gabapentin AdvReac Verified 11/09/24 15:00 nitrofurantoin AdvReac Unknown Verified 11/09/24 15:00 omeprazole AdvReac unknown Verified 11/09/24 15:00 phenylephrine AdvReac Unknown Verified 11/09/24 15:00 quetiapine AdvReac Unknown Verified 11/09/24 15:00 sertraline AdvReac Unknown Verified 11/09/24 15:00 tolmetin AdvReac Unknown Verified 11/09/24 15:00 Statins Allergy Unknown Uncoded 11/09/24 15:00 morphine sulfate AdvReac Unknown Uncoded 11/09/24 15:00 Review of Systems Status of ROS: Reports: 10 or more systems reviewed and unremarkable except as noted in History and below Narrative: Constitutional: No fevers, no weight gain or loss. Eyes: No discharge. No vision changes. HENT: No congestion, no sore throat, no ear pain. Cardiovascular: No chest pain, no palpitations. Respiratory: No shortness of breath, no wheezes, no cough. Gastrointestinal: No abdominal pain, no vomiting, no diarrhea. Genitourinary: No dysuria, no hematuria. Musculoskeletal: Normal range of motion. Skin: No rashes, no pruritis. Neurological: No weakness, sensory change, speech change. Endo/Heme/Allergies: No bruising or bleeding. No polydipsia. Pysch: no suicidality, no anxiety, no insomnia. All other systems reviewed and are negative. 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 - Personal history of other mental and behavioral disorders (ICD-10) Surgical History Status post coronary artery stent placement ?Z95.5 - Presence of coronary angioplasty implant and graft (ICD-10) History of ankle surgery ?Z98.890 - Other specified postprocedural states (ICD-10) History of arthroscopy of both knees ?Z98.890 - Other specified postprocedural states (ICD-10) Status post partial colectomy ?Z90.49 - Acquired absence of other specified parts of digestive tract (ICD- 10) Status post appendectomy ?Z90.49 - Acquired absence of other specified parts of digestive tract (ICD- 10) Status post oophorectomy Status post hysterectomy ?Z90.710 - Acquired absence of both cervix and uterus (ICD-10) History of ?Z98.891 - History of uterine scar from previous surgery (ICD-10) Status post tonsillectomy and adenoidectomy ?Z90.89 - Acquired absence of other organs (ICD-10) Family History Mother Coronary artery disease Arthritis Father Diabetes Daughter Diabetes Maternal Grandmother Diabetes Coronary artery disease Maternal Grandfather Coronary artery disease Social History What is your current living situation?: I presently have a place to live Problems where you live: other Problems where you live details: No AC in bedroom. In the past 12 months, utilities in danger of being shut off: no In past 12 months, lack of transportation kept you from medical appts, meetings, work, or getting things needed for daily living: yes In the past 12 mos, have been you worried that your food would run out before you had money to buy more?: never true In the past 12 mos, the food you bought just didn't last and you didn't have money to buy more?: never true Smoking Status: Former smoker What tobacco products do you use: cigarettes Smoking quit date/years: <= 15 years ago Do you use any of these nicotine containing products: None Second hand tobacco smoke exposure: No How often does anyone, including family, friends and others, physically hurt you : never How often does anyone, including family, friends and others, insult or talk down to you: sometimes How often does anyone, including family, friends and others, threaten you with harm: never How often does anyone, including family, friends and others, scream or curse at you: never Health Related Social Needs: transportation insecurity (Z59.82) and Other personal risk factors, not elsewhere classified (Z91.89) Exam Narrative: Exam Narrative: Constitutional: Well-developed, well-nourished, no acute distress. HEENT: Normocephalic, atraumatic. Neck: Normal range of motion. Nontender. Supple. Heart: Regular. No murmurs. Normal rate. Intact distal pulses. Lungs: Clear to auscultation. No chest discomfort. No wheezes, rhonchi, or rales. Abdomen: Normal bowel sounds. Nontender. No rebound tenderness. Genitalia: Deferred. Back: No midline tenderness. Normal range of motion. Extremities: Normal range of motion. No injury. Skin: Intact. No rash. Warm. No erythema or pallor. Neurologic: No altered sensation. No weakness. Alert and oriented. Psychiatric: No suicidality. No anxiety or depression. No insomnia. Nursing notes and vitals signs are reviewed. Const: Vital Signs, click to edit/add: Vital Signs - 24 hr 11/15/24 17:06 Temperature 96.8 F L Pulse Rate [Pulse Oximeter] 101 H Respiratory Rate 16 Blood Pressure [Ri ght Forearm] 120/91 H Pulse Oximetry 93 Oxygen Delivery Me thod Room Air Course Vital Signs Vital signs: Initial Vital Signs Temperature 96.8 F L 11/15/24 17:06 Temperature Source Temporal Artery Scan 11/15/24 17:06 Pulse Rate 101 H 11/15/24 17:06 Respiratory Rate 16 11/15/24 17:06 Blood Pressure 120/91 H 11/15/24 17:06 Blood Pressure Mean 100 11/15/24 17:06 Blood Pressure Position Supine 11/15/24 17:06 Pulse Oximetry 93 11/15/24 17:06 Oxygen Delivery Method Room Air 11/15/24 17:06 Vital Signs Temperature 96.8 F L 11/15/24 17:06 Pulse Rate 101 H 11/15/24 17:06 Respiratory Rate 16 11/15/24 17:06 Blood Pressure 120/91 H 11/15/24 17:06 Pulse Oximetry 93 11/15/24 17:06 Oxygen Delivery Method Room Air 11/15/24 17:06 Temperature 96.8 F L 11/15/24 17:06 Pulse Rate 101 H 11/15/24 17:06 Respiratory Rate 16 11/15/24 17:06 Blood Pressure 120/91 H 11/15/24 17:06 Pulse Oximetry 93 11/15/24 17:06 Oxygen Delivery Method Room Air 11/15/24 17:06 Medical Decision Making MDM Narrative Medical decision making narrative: This patient comes in reporting generalized malaise and concern about her blood pressure. Her blood pressures remained in normal range throughout her stay here. I did reassure her in this regard. Labs are acquired and her urine does show sign of infection. This most likely is the best explanation for her symptoms currently. Her blood results show evidence of renal insufficiency which is not new for her. Nasal pharyngeal swab is negative for viruses tested. The patient received an [employer] prescription for Cipro. Lab Data Labs: Lab Results 11/15/24 11/15/24 11/15/24 Range/Units 17:54 18:00 18:18 WBC 10.11 (4.50-11.00) K/uL RBC 4.97 (4.00-5.20) m/uL Hgb 14.7 (12.0-16.0) gm/dL Hct 45.3 (33.0-51.0) % MCV 91 (80-100) fL MCH 30 (26-34) pg MCHC 33 (32-36) gm/dL RDW Coeff of Harriet 13.6 (11.5-15.5) % Plt Count 263 (140-440) K/uL Neut % (Auto) 65.4 (42.0-72.0) % Lymph % (Auto) 20.2 (20-44) % [place] % (Auto) 9.7 (0.0-11.0) % Eos % (Auto) 4.0 (0.0-7.0) % Baso % (Auto) 0.5 (0.0-3.0) % Neut # (Auto) 6.62 (1.7-7.0) K/uL Lymph # (Auto) 2.04 (0.90-2.90) K/uL [place] # (Auto) 1.00 H (0.00-0.90) K/UL Eos # (Auto) 0.40 (0.00-0.50) K/uL Baso # (Auto) 0.05 (0.00-0.30) K/uL Abs Immat Gran (auto) 0.02 (0.00-0.30) K/uL Imm/Tot Granulo (auto) 0.2 % Sodium 135 (135-149) mmol/L Potassium 4.5 (3.6-5.1) mmol/L Chloride 97 (96-114) mmol/L Carbon Dioxide 22 (20-32) mmol/L Anion Gap 16 H (7-15) mEq/L BUN 46 H (7-30) mg/dL Creatinine 2.6 H (0.5-1.5) mg/dL Estimated Creat Clear 17.13 Estimated GFR 20 ml/min Glucose 124 H (60-115) mg/dL Calcium 10.8 H (8.4-10.6) mg/dL Urine Color (Yellow) Urine Appearance (Clear) Urine pH (5.0-8.5) Ur Specific [place] (1.000-1.030) Urine Protein (Negative) Urine Glucose (UA) (Negative) Urine Ketones (Negative) Urine Blood (Negative) Urine Nitrite (Negative) Urine Bilirubin (Negative) Urine Urobilinogen (0.2-1.0) Ur Leukocyte Esterase (Negative) Urine RBC (0-2) Urine WBC (0-5) Ur Squamous Epith Cells (None-Few) Urine Bacteria (None) SARS-CoV-2 (PCR) Negative SARS-CoV-2 (Negative) Influenza Type A (PCR) Negative PCR FLU A (Negative) Influenza Type B (PCR) Negative PCR FLU B (Negative) RSV (PCR) Negative PCR RSV (Negative) POC Troponin I 0.00 L (0.01-0.04) ng/ml 11/15/24 Range/Units 18:30 WBC (4.50-11.00) K/uL RBC (4.00-5.20) m/uL Hgb (12.0-16.0) gm/dL Hct (33.0-51.0) % MCV (80-100) fL MCH (26-34) pg MCHC (32-36) gm/dL RDW Coeff of Harriet (11.5-15.5) % Plt Count (140-440) K/uL Neut % (Auto) (42.0-72.0) % Lymph % (Auto) (20-44) % [place] % (Auto) (0.0-11.0) % Eos % (Auto) (0.0-7.0) % Baso % (Auto) (0.0-3.0) % Neut # (Auto) (1.7-7.0) K/uL Lymph # (Auto) (0.90-2.90) K/uL [place] # (Auto) (0.00-0.90) K/UL Eos # (Auto) (0.00-0.50) K/uL Baso # (Auto) (0.00-0.30) K/uL Abs Immat Gran (auto) (0.00-0.30) K/uL Imm/Tot Granulo (auto) % Sodium (135-149) mmol/L Potassium (3.6-5.1) mmol/L Chloride (96-114) mmol/L Carbon Dioxide (20-32) mmol/L Anion Gap (7-15) mEq/L BUN (7-30) mg/dL Creatinine (0.5-1.5) mg/dL Estimated Creat Clear Estimated GFR ml/min Glucose (60-115) mg/dL Calcium (8.4-10.6) mg/dL Urine Color Yellow (Yellow) Urine Appearance Cloudy A (Clear) Urine pH 5.5 (5.0-8.5) Ur Specific [place] >= 1.030 (1.000-1.030) Urine Protein 2+ A (Negative) Urine Glucose (UA) Negative (Negative) Urine Ketones Trace A (Negative) Urine Blood Trace-intact A (Negative) Urine Nitrite Negative (Negative) Urine Bilirubin 1+ A (Negative) Urine Urobilinogen 0.2 (0.2-1.0) Ur Leukocyte Esterase Trace A (Negative) Urine RBC 10-25 A (0-2) Urine WBC 10-25 A (0-5) Ur Squamous Epith Cells Few (None-Few) Urine Bacteria Moderate A (None) SARS-CoV-2 (PCR) (Negative) Influenza Type A (PCR) (Negative) Influenza Type B (PCR) (Negative) RSV (PCR) (Negative) POC Troponin I (0.01-0.04) ng/ml ECG Data Attestation: I personally reviewed and interpreted this ECG as follows: Interpretation: Sinus tachycardia, rate 102 beats per minute. There are no specific ST or T- wave abnormalities. Discharge Plan Discharge Clinical Impression: Urinary tract infection Patient Disposition: Home, Self-Care Condition: Stable Additional Instructions: Take medication as prescribed. Use [id number] medicines also as needed and directed. Follow up with MD return if worsening. Prescriptions: No Action calcium carbonate [Calcium 600] 600 mg calcium (1,500 mg) tablet 600 mg PO QDAY collagen and Biotin 3 tab PO DAILY magnesium glycinate 100 mg magnesium capsule See Rx Instructions PO DAILY Patient Comments: Kellie Kolb Rx Instructions: 120 mg; orally daily; amlodipine 10 mg tablet 5 mg PO QDAY clopidogrel [Plavix] 75 mg tablet 75 mg PO QDAY aspirin 81 mg tablet,chewable 81 mg PO QDAY fluticasone propionate 50 mcg/actuation spray,suspension 1 spray intranasal QDAY PRN Rx Instructions: administer into each nostril nystatin 100,000 unit/gram powder 1 applic topical QDAY PRN cholecalciferol (vitamin D3) [Vitamin D3] 50 mcg (2,000 unit) capsule 50 mcg PO QDAY multivitamin [Multiple Vitamins] Tablet 1 tab PO QDAY lactated Ringers Parenteral Solution IV Zyrtec 10 mg capsule 5 mg PO QDAY PRN Wegovy 1.7 mg/0.75 mL pen injector 1.7 mg subcut QWEEK Rx Instructions: administer weeks 13 through 16 of therapy Repatha SureClick 140 mg/mL pen injector 140 mg subcut Q2W tramadol 50 mg tablet 50 mg PO QDAY Qty: 90 1RF lansoprazole 30 mg capsule,delayed release(DR/EC) 30 mg PO QDAY Qty: 90 0RF ezetimibe 10 mg tablet 10 mg PO QDAY Qty: 90 0RF aripiprazole [Abilify] 10 mg tablet 10 mg PO QHS Qty: 90 1RF sodium bicarbonate 650 mg tablet 650 mg PO DAILY Qty: 90 3RF ergocalciferol (vitamin D2) [Vitamin D2] 1,250 mcg (50,000 unit) capsule 1,250 mcg PO QWEEK Qty: 12 3RF Follow Up/Referrals: Provider,Not a Local [Non-Staff] - Stand [facility]one [facility]: [facility]
[2024-11-15 18:25] LABS: Basophils Absolute Auto 0.05 K/uL (0.00-0.30); Basophils Percent Auto 0.5 % (0.0-3.0); Hematocrit 45.3 % (33.0-51.0); Hemoglobin* 14.7 gm/dL (12.0-16.0); Immature Granulocytes Abs Auto 0.02 K/uL (0.00-0.30); Immature Granulocytes Pct Auto 0.2 %; Lymphocytes Absolute Auto 2.04 K/uL (0.90-2.90); Lymphocytes Percent Auto 20.2 % (20-44); Mean Corpuscular HGB Conc 33 gm/dL (32-36); Mean Corpuscular Hemoglobin 30 pg (26-34); Mean Corpuscular Volume 91 fL (80-100); Monocytes Percent Auto 9.7 % (0.0-11.0); Neutrophils Absolute Auto 6.62 K/uL (1.7-7.0); Neutrophils Percent Auto 65.4 % (42.0-72.0); Platelet Count* 263 K/uL (140-440); RDW Coefficient of Variation % 13.6 % (11.5-15.5); Red Blood Count 4.97 m/uL (4.00-5.20); White Blood Count* 10.11 K/uL (4.50-11.00)
[2024-11-15 18:32] LABS: Slide Review Reflex No
[2024-11-15 18:42] LABS: Chloride* 97 mmol/L (96-114); Potassium* 4.5 mmol/L (3.6-5.1); Sodium* 135 mmol/L (135-149)
[2024-11-15 18:44] LABS: Appearance Urine Cloudy (Clear); Bilirubin Urine 1+ (Negative); Blood Urine Trace-intact (Negative); Color Urine Yellow (Yellow); Glucose Urine Negative (Negative); Ketones Urine Trace (Negative); Leukocyte Esterase Urine Trace (Negative); Nitrite Urine Negative (Negative); Protein Urine 2+ (Negative); Specific Gravity Urine >= 1.030 (1.000-1.030); Urobilinogen Urine 0.2 (0.2-1.0); pH Urine 5.5 (5.0-8.5)
[2024-11-15 18:44] LABS: Creatinine* 2.6 mg/dL (0.5-1.5); Est. Creatinine Clearance* 17.13; Estimated Glomerular Filt Rate 20 ml/min
[2024-11-15 18:45] LABS: Anion Gap 16 mEq/L (7-15); Blood Urea Nitrogen* 46 mg/dL (7-30); Calcium* 10.8 mg/dL (8.4-10.6); Carbon Dioxide* 22 mmol/L (20-32); Glucose* 124 mg/dL (60-115)
[2024-11-15 18:46] LABS: PCR FLU A Negative PCR FLU A (Negative); PCR FLU B Negative PCR FLU B (Negative); PCR RSV Negative PCR RSV (Negative); SARS PCR* Negative SARS-CoV-2 (Negative)
[2024-11-15 18:55] LABS: Bacteria Urine Moderate; Squamous Epithelial Cell Urine Few (None-Few)
== END 2024-11-15 19:25 | disposition home or self-care (01) ==
PROVIDERS: Emergency Provider Emergency Medicine Emergency Medical Services
DX: N39.0 Urinary tract infection, site not specified (principal)
CPT/HCPCS: 36415; 80048; 81001; 84484; 85025; 87086; 87631; 93005; 99284

== ENCOUNTER 2025-04-26 13:15 | Outpatient (CLI) | payer MEDICARE, SELFPAY | END 2025-04-26 13:16 | disposition home or self-care (01) | LOC: NFLDREF 04-29 12:49 | PROVIDERS: Visit Provider Internal Medicine Nephrology | DX: I12.9 Hypertensive chronic kidney disease with stage 1 through stage 4 chronic kidney disease, or unspecified chronic kidney disease (principal); N18.30 Chronic kidney disease, stage 3 unspecified; D63.8 Anemia in other chronic diseases classified elsewhere; E78.5 Hyperlipidemia, unspecified; R82.90 Unspecified abnormal findings in urine | CPT/HCPCS: 80061; 80069; 82043; 82570; 82728; 83540; 83550; 83970; 84450; 84460; 84550; 87086 ==

== ENCOUNTER 2025-11-04 10:42 | Outpatient (CLI) | payer MEDICARE, SELFPAY | END 2025-11-04 10:43 | disposition home or self-care (01) | LOC: NFLDREF 11-10 05:06 | PROVIDERS: Visit Provider Internal Medicine Nephrology | DX: L60.3 Nail dystrophy (principal); L65.9 Nonscarring hair loss, unspecified | CPT/HCPCS: 80069; 82043; 82570; 82728; 83540; 83550; 83970; 84443; 84450; 84460; 84550; 84590; 84630 ==